=== PATIENT | male | born 1960 | race Two or more races ===

== ENCOUNTER 2024-10-10 18:01 | Emergency (ER) | payer MEDICARE, SELFPAY ==
[2024-10-10 18:43] VITALS: BP 170/92; PULSE 68; RESP 20; TEMP 36.9; O2SAT 95; BMI 30.4
--- NOTE | 2024-10-10 18:59 | EKG_ITS ---
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 Assistant: : 1960 Requested By: Chad Abdullahi ([facility]) Order Number: [id number] Reading MD: Chad Abdullahi ([facility]) Measurements Intervals [place] Rate: 69 P: 38 IA: 200 QRS: -41 QRSD: 108 T: 112 QT: 419 QTc: 451 Interpretive Statements SINUS RHYTHM MARKED LEFT AXIS DEVIATION [QRS AXIS < -30] POSSIBLE ANTERIOR MYOCARDIAL INFARCTION , OF INDETERMINATE AGE [30 ms Q WAVE IN V3/V4, OR R < 0.2 mV IN V4] MODERATE T-WAVE ABNORMALITY, CONSIDER LATERAL ISCHEMIA [-0.1+ mV T WAVE IN I/aVL/V5/V6] Compared to ECG 08/18/2024 15:49:46 Left-axis deviation now present T-wave abnormality now present Possible ischemia now present Myocardial infarct finding still present /store/S0/[id number]/ecg/[id number].pdf
--- NOTE | 2024-10-10 18:59 | XR_ITS ---
Examination: PA lateral chest 2 views Technique: Upright PA lateral chest 2 views Exam date and time: October 10, 2024 at 1931 hrs. Indications: Dizziness today Findings: Mild enlargement cardiac contour Moderate vascular congestion Fluid in the fissures on the lateral view with small bilateral pleural effusions posteriorly Impression: Mild chronic heart failure pattern
--- NOTE | 2024-10-10 18:59 | XR_ITS ---
Examination: CT brain head without contrast. 2-D sagittal coronal reconstructions Date and time of exam:October 10, 2024 1919 hrs. Comparison July 08, 2004 Indications: High blood pressure with dizziness and lightheadedness today CTDI: vol (mGy):50 DLP: (mGycm):11 Technique: Multiple CT axial sections of the brain have been obtained, 5 mm slice thickness. Contrast has not been administered. 2-D sagittal, coronal reconstructions have been obtained Low dose protocols were performed. One or more of the following dose reduction techniques were used; automated exposure control, adjustment of the mA and/or KV according to patient size, use of iterative reconstruction technique. Findings: No significant ventricular enlargement. Intra-axial or extra-axial hemorrhage density is not seen. No mass effect or midline shift Basal cisterns are not remarkable. Fourth ventricle is midline. Cranial vault intact. Impression: Negative for acute hemorrhage, mass effect or midline shift Advise clinical correlation and follow-up accordingly
--- NOTE | 2024-10-10 19:00 | PD.EDRME ---
Rapid Medical Screening Exam RME Arrival date/time: 10/10/24 18:01 4-year-old male with past medical history diabetes, CHF, and high blood pressure presents emergency department complaining of elevated blood pressure with dizziness and lightheadedness has been ongoing since today. Patient reports has been med compliant with medication. Chief Complaint: General Adult/Misc Complain Time Seen by Provider: 10/10/24 18:57 Vital signs: Vital Signs Temperature 98.4 F 10/10/24 18:43 Pulse Rate 68 10/10/24 18:43 Respiratory Rate 20 10/10/24 18:43 Blood Pressure 170/92 H 10/10/24 18:43 Pulse Oximetry (%) 95 10/10/24 18:43 Oxygen Delivery Method Room Air 10/10/24 18:43 Vital signs reviewed by provider: Yes
[2024-10-10 19:49] LABS: Amphetamine/Methamp Scrn,U Negative (Negative); Barbiturate Screen,Urine Negative (Negative); Benzodiazepines Screen,Urine Negative (Negative); Benzoylecgonine Screen, Ur Negative (Negative); Fentanyl Screen,Urine Negative (Negative); Opiate Screen,Urine Negative (Negative); THC Screen,Urine Negative (Negative)
[2024-10-10 19:54] LABS: Basophils % (Auto) 0 % (0-2.5); Eosinophils # (Auto) 0.2 Thou/mm3 (0.0-0.5); Eosinophils % (Auto) 2 % (0-10); Hematocrit 35.7 % (41.0-53.0); Hemoglobin 11.1 g/dL (13.5-16.0); Immature Granulocytes % (Auto) 0 % (0-0); Immature Granulocytes Auto 0.03 Thou/mm3 (0.00-0.00); Lymphocytes # (Auto) 1.5 Thou/mm3 (1.0-4.8); Lymphocytes % (Auto) 14 % (10-50); Mean Corpuscular HGB Conc 31.1 g/dl (31.0-37.0); Mean Corpuscular Hemoglobin 25.4 pg (25.0-35.0); Mean Corpuscular Volume 82 fL (80-100); Monocytes # (Auto) 0.9 Thou/mm3 (0.0-0.8); Monocytes % (Auto) 9 % (0-12); Neutrophils # (Auto) 7.8 Thou/mm3 (1.8-7.7); Neutrophils % (Auto) 74 % (37-80); Nucleated Red Blood Cell % 0 /100 WBC (0); Platelet Count 320 Thou/mm3 (140-440); RDW Standard Deviation 46.2 fL (35.1-43.9); Red Blood Count 4.37 Miln/mm3 (4.50-5.90); White Blood Count 10.5 Thou/mm3 (3.8-10.6)
[2024-10-10 20:07] VITALS: BP 172/82; PULSE 68
[2024-10-10] MEDS: hydrALAZINE HCL 10 MG TABLET PO (20:07)
[2024-10-10 20:09] LABS: INR 1.3 (0.9-1.3); Partial Thromboplastin Time 38.2 Seconds (22.0-36.0); Prothrombin Time 13.7 Seconds (9.0-12.2)
[2024-10-10 20:10] LABS: B-Type Natriuretic Peptide 823 pg/mL (0-100)
[2024-10-10 20:11] LABS: Alanine Aminotransferase 26 U/L (10-49); Albumin, Serum 4.3 gm/dL (3.4-4.8); Albumin/Globulin Ratio 1.3 (1.2-2.2); Alkaline Phosphatase 92 U/L (46-116); Anion Gap 6 (7-16); Aspartate Amino Transferase 23 U/L (0-34); BUN/Creatinine Ratio 14 Ratio (12-20); Bilirubin,Total 0.6 mg/dL (0.3-1.2); Blood Urea Nitrogen 14 mg/dL (9-23); Calcium 9.7 mg/dL (8.3-10.6); Calcium (Corrected) 9.7 mg/dL (8.5-10.1); Carbon Dioxide 31.2 mMol/L (20.0-31.0); Chloride 102 mMol/L (98-107); Estimated Creatinine Clearance 75.6 mL/min (>60); Globulin 3.2 gm/dL (2.3-3.5); Glucose 198 mg/dL (74-106); Osmolality,Calculated 284 (275-295); Potassium 3.6 mMol/L (3.4-5.1); Sodium 139 mMol/L (136-145); Total Protein 7.5 gm/dL (5.7-8.2); eGFR > 60 See Note
[2024-10-10 21:43] VITALS: BP 183/94; PULSE 100; RESP 18; TEMP 37.1; O2SAT 95
[2024-10-10 22:58] VITALS: BP 130/106; PULSE 103; RESP 19; TEMP 36.8; O2SAT 97
[2024-10-11 00:05] VITALS: BP 180/97; PULSE 103; RESP 18; O2SAT 95
--- NOTE | 2024-10-11 00:16 | PD.EDADULT ---
ED General RME/HPI General Chief complaint: General Adult/Misc Complain Stated complaint: HIGH BLOOD PRESSURE 187/114, DIZZY AND LIGHT HEAD Time Seen by Provider: 10/10/24 18:57 Arrival date/time: 10/10/24 18:01 RME / HPI RME / HPI narrative: 10/10/24 18:01 4-year-old male with past medical history diabetes, CHF, and high blood pressure presents emergency department complaining of elevated blood pressure with dizziness and lightheadedness has been ongoing since today. Patient reports has been med compliant with medication. ---- Dr. Dawn?s Main ED Evaluation: 64yo male with pmhx CHF, HTN, aFib, DM presents to the ED for a chief complaint of elevated blood pressure. Patient states he's been compliant with all of his medications, including his anti-hypertensives and diuretics. He endorses having an associated headache and dizziness today due to his blood pressure being high, so he came in for evaluation. He denies any falls, injuries or loss of consciousness. Denies any other associated symptoms. Related Data Home Medications ?Medication ?Instructions ?Recorded ?Confirmed finasteride 5 mg tablet 1 tab PO QDAY 07/20/22 02/06/24 losartan 100 mg tablet 100 mg PO QDAY 07/20/22 07/09/24 tamsulosin 0.4 mg capsule 0.4 mg PO DAILY 01/19/23 07/09/24 metformin 1,000 mg tablet 1,000 mg PO BIDWMEAL 02/06/24 07/09/24 rivaroxaban 20 mg tablet (Xarelto) 20 mg PO QPM 02/06/24 02/06/24 nitroglycerin 0.4 mg sublingual 0.4 mg buccal Q5MIN PRN Chest Pain 07/09/24 07/09/24 tablet (Nitrostat) Previous Rx's ?Medication ?Instructions ?Recorded dapagliflozin propanediol 5 mg 10 mg (2 x 5 mg) PO QAM #30 tabs 02/09/24 tablet (Farxiga) furosemide 40 mg tablet (Lasix) 40 mg PO QAM #30 tabs 02/09/24 hydralazine 50 mg tablet 50 mg PO TID #90 tabs 02/09/24 magnesium 200 mg tablet 400 mg (2 x 200 mg) PO QDAY #60 02/09/24 tabs potassium chloride 10 mEq 10 meq PO QDAY #30 caps 02/09/24 capsule,extended release amiodarone 200 mg tablet 200 mg PO QDAY #30 tabs 07/11/24 blood sugar diagnostic (Contour #50 ea 07/11/24 Next Test Strips) lancets (Microlet Lancet) #100 ea 07/11/24 meclizine 25 mg tablet 25 mg PO QDAY PRN dizziness #7 tabs 07/23/24 Allergies Allergy/AdvReac Type Severity Reaction Status Date / Time morphine AdvReac Severe Headache Verified 10/10/24 18:04 Review of Systems Review of Systems Systems Reviewed: All systems reviewed, normal except as documented Past Medical History Past Medical History NEUROLOGIC: Positive Transient Ischemic Attacks (TIA); Negative Neurological Disorders, Cerebrovascular Accident, Dementia, Alzheimer's Disease, Parkinson's Disease, Brain Tumor, Meningitis, Seizures, Epilepsy, Multiple Sclerosis, Cerebral Palsy, Amyotrophic Lateral Sclerosis (ALS/Moira Gehrig's), Guillain-Chelsea Syndrome, Spina Bifida, Paralysis, Peripheral Neuropathy, Harden's Palsy, Subdural Hematoma, Migraine, Head Trauma, Spinal Cord Injury or Traumatic Brain Injury CARDIAC: Positive Cardiac Disorders, Myocardial Infarction, Atrial Fibrillation, Atherosclerotic Heart Disease, Edema and Hypertension; Negative Cardiac Arrhythmia, Angina, Heart Murmur, Coronary Artery Disease, Peripheral Vascular Disease, Hypercholesterolemia, Aneurysm, Congestive Heart Failure, Congenital Heart Disease, Valvular Heart Disease, Rheumatic Fever, Cardiomyopathy, Pericarditis, Cellulitis, Deep Vein Thrombosis, Hypotension or Varicose Veins RESPIRATORY: Negative Chronic Obstructive Pulmonary Disease (COPD), Asthma, Bronchitis, Emphysema, Pneumonia, Pulmonary Fibrosis, Cystic Fibrosis, Tuberculosis, Pulmonary Embolism, Pulmonary Edema or Sleep Apnea GASTROINTESTINAL: Positive Gastrointestinal Disorders and Obesity; Negative Hepatitis, Cirrhosis, Pancreatitis, Celiac Disease, Gall Bladder Disease, Gastrointestinal Bleed, Esophageal Varices, Meeks's Esophagus, Colitis, Ulcerative Colitis, Diverticulitis, Diverticulosis, Ulcer, Colorectal Cancer, Irritable Bowel, Crohn's Disease, Obstructive Bowel, Hiatal Hernia, Hemorrhoids or Gastroesophageal Reflux Disease GENITOURINARY: Positive Benign Prostatic Hyperplasia; Negative Genitourinary Disorders, Renal Disease, Kidney Stones, Polycystic Kidney Disease, Neurogenic Bladder, Inguinal Hernia, Dialysis or Prostate Cancer REPRODUCTIVE: Negative Breast Cancer, Fibroids, Genital Herpes, Gonorrhea, Syphilis or Testicular Cancer MUSCULOSKELETAL: Positive Arthritis; Negative Musculoskeletal Disorders, Muscular Dystrophy, Myasthenia Gravis, Marfan's Syndrome, Bone Cancer, Rheumatoid Arthritis, Osteoporosis, Degenerative Disk Disease, Gout, Scoliosis, Carpal Tunnel Syndrome, Fibromyalgia, Fractures, Degenerative Joint Disease, Osteomyelitis or Poliovirus ENT: Negative Cataracts, Glaucoma, Blind, Retinal Detachment, Macular Degeneration, Ear Infection, Deafness, Head Trauma or Eye Prosthesis ENDOCRINE: Positive Endocrine Disorders and Diabetes Mellitus Type 2; Negative Diabetes Mellitus Type 1, Hypoglycemia, Guille's Syndrome, [place]'s Disease, Hyperthyroidism, Hypothyroidism, Parathyroid Disease, Pituitary Disease, Systemic Lupus Erythematosus, Syndrome of Inappropriate Antidiuretic Hormone (SIADH), Adrenal Disease or Graves' Disease HEMATOLOGIC: Negative Blood Disorders, Anemia, Leukemia, Hemophilia, Thalassemia, Sickle Cell Disease or Clotting Problems PSYCHO/SOCIAL: Negative Psychiatric Problems, Schizophrenia, Recreational Drug Use, Bipolar Disorder, Depression, Anxiety, Behavior Problems, Self-Mutilation, Attention Deficit Disorder, Attention Deficit Hyperactivity Disorder, Depression, Post Traumatic Stress Disorder or Eating Disorder OTHER HISTORY: Positive Chicken Pox; Negative Hospitalization, Autoimmune Disease, Down Syndrome, Autism, Developmental Delay, Shingles, Falls, Blood Transfusions, Blood Transfusion Reaction, Anesthesia Reactions, Organ Transplant, Chemotherapy, Radiation Therapy, Hyperbaric Therapy, MRSA, VRSA, Vancomycin-Resistant Enterococci, Human Immunodeficiency Virus (HIV), Measles, Mumps, Rubella (Vietnamese Measles), Pertussis, Clostridium Difficile, Breast Cancer, Colorectal Cancer, Lung Cancer, Prostate Cancer or Testicular Cancer Family History FAMILY HISTORY: Positive Family Cancer; Negative Family Neurologic Problems, Family Psychiatric Problems, Family Respiratory Disorders, Family Cardiac Disorders, Family Gastrointestinal Problems, Family Surgery or Family Anesthesia Reaction Surgical History SURGICAL: Negative Cardiac Surgery, Open Heart Surgery, Coronary Artery Bypass Graft, Valve Replacement, Vascular Surgery, Coronary Stent, Cardiac Catheterization, Pacemaker, Angiogram, Auto Implanted Cardiovert Defib, Carotid Endarterectomy, Endocrine Surgery, Thyroidectomy, Ear Surgery, Tympanostomy Tube, Eye Surgery, Nose Surgery, Oral Surgery, Tonsillectomy, Adenoidectomy, Cochlear Implant, Corneal Transplant, Throat Surgery, Abdominal Surgery, Tracheostomy, Gastric Bypass Surgery, Gastrostomy, Bowel Surgery, Nephrectomy, Transurethral Resection, Joint Replacement, Amputation, Open Reduction Internal Fixation, Arthroscopy, Neurologic Surgery, Brain Shunt, Vasectomy or Organ Transplant Social History SMOKING STATUS: Never smoker SECOND HAND EXPOSURE: No SUBSTANCE USE: does not use ED Exam Narrative Physical exam: GENERAL APPEARANCE: AxOx4, generally well-appearing, no acute distress. HEENT: NC, AT. MMM. EOMI, clear conjunctiva, oropharynx clear. NECK: Supple without lymphadenopathy. No stiffness or restricted ROM. HEART: Normal rate and regular rhythm, normal S1/S1, no m/r/g LUNGS: CTAB, moving air well. No crackles or wheezes are heard. ABDOMEN: Soft, nontender, nondistended with good bowel sounds heard. BACK: No midline C/T/L spine pain or deformity, No CVAT, no obvious deformity. EXTREMITIES: Without cyanosis, clubbing or edema. MUSCULOSKELETAL: FROM of all major joints, no chest tenderness NEUROLOGICAL: Grossly nonfocal. Alert and oriented, moving all 4 extremities. CN not formally tested but appear grossly intact. Observed to ambulate with normal gait. Skin: Warm and dry without any rash. Course Course Course Narrative: CXR is ordered for determining the etiology of elevated BP. Quality Measures none Orders Category Date Time Status EKG (ED ONLY) *Do not use* NOW Care 10/10/24 18:[address] head/brain wo con Stat Exams 10/10/24 18:59 Completed EKG (ED Only) Stat Exams 10/10/24 18:59 Draft XR chest 2V Stat Exams 10/10/24 18:59 Completed B-Type Natriuretic Peptide Stat Lab 10/10/24 19:35 Completed CBC Stat Lab 10/10/24 19:35 Completed Comprehensive Metabolic Panel Stat Lab 10/10/24 19:35 Completed Drug Screen,Urine Stat Lab 10/10/24 19:22 Completed Magnesium Stat Lab 10/10/24 19:35 Completed Partial Thromboplastin Time Stat Lab 10/10/24 19:35 Completed Prothrombin Time with INR Stat Lab 10/10/24 19:35 Completed Troponin I Stat Lab 10/10/24 19:35 Completed Acetaminophen Tab [Tylenol Tab] Med 10/11/24 00:17 Discontinued 650 mg PO X1 ONE hydrALAZINE HCL [Apresoline] Med 10/10/24 19:00 Discontinued 10 mg PO X1 ONE Vital Signs Vital signs: Vital Signs Temperature 98.4 F 10/10/24 18:43 Pulse Rate 68 10/10/24 18:43 Respiratory Rate 20 10/10/24 18:43 Blood Pressure 170/92 H 10/10/24 18:43 Pulse Oximetry (%) 95 10/10/24 18:43 Oxygen Delivery Method Room Air 10/10/24 18:43 Pulse ox is 95% on room air, which is normal according to my interpretation. [facility] Patient data External records reviewed:: [facility] previous records (Per chart review, patient was seen here on 09/10/24 for anxiety.) Clinical information provided by:: patient Social determinants that could affect healthcare access:: none Patient has the following chronic illnesses:: CHF, aFib, HTN, DM How is presenting disease/condition affected by chronic disease/condition?: exacerbated by Evaluation data The following diagnostics were reviewed and interpreted by me:: lab results, radiology exam(s) and EKG tracing(s) Lab and/or radiology exams considered but not ordered:: none Interpretation Summary: EKG done at 1915, sinus rhythm, rate of 69, normal intervals, normal axis, no acute ST or T wave changes, no STEMI, according to my interpretation. ----- [facility] Report Signed Patient: JUAN ECHEVERRIA [facility]. Record#: [id number] Birthdate: 1960 Age/Sex: 64 / M Location: [facility] Attending Dr: Ordering Physician: Tanya Abdullahi (DON)Chad Date of Service: 10/10/24 Procedure(s): XR chest 2V Accession Number(s): [id number] cc: Ochoa Cervantes MD; Tanya Abdullahi (DON),Chad OCHOA~ Examination: PA lateral chest 2 views Technique: Upright PA lateral chest 2 views Exam date and time: October 10, 2024 at 1931 hrs. Indications: Dizziness today Findings: Mild enlargement cardiac contour Moderate vascular congestion Fluid in the fissures on the lateral view with small bilateral pleural effusions posteriorly Impression: Mild chronic heart failure pattern Dictated By: Ochoa Cervantes MD Signed By: <Electronically signed by Ochoa Cervantes MD in [place]> 10/10/242003 ------ [facility] Report Signed Patient: JUAN ECHEVERRIA [facility] Record#: [id number] Birthdate: 1960 Age/Sex: 64 / M Location: [facility] Attending Dr: Ordering Physician: Tanya RHODES)Chad Date of Service: 10/10/24 Procedure(s): CT head/brain wo con Accession Number(s): [id number] cc: Ochoa Cervantes MD; Tanya Abdullahi (DON)Chad~ Examination: CT brain head without contrast. 2-D sagittal coronal reconstructions Date and time of exam:October 10, 2024 1919 hrs. Comparison July 08, 2004 Indications: High blood pressure with dizziness and lightheadedness today CTDI: vol (mGy):50 DLP: (mGycm):11 Technique: Multiple CT axial sections of the brain have been obtained, 5 mm slice thickness. Contrast has not been administered. 2-D sagittal, coronal reconstructions have been obtained Low dose protocols were performed. One or more of the following dose reduction techniques were used; automated exposure control, adjustment of the mA and/or KV according to patient size, use of iterative reconstruction technique. Findings: No significant ventricular enlargement. Intra-axial or extra-axial hemorrhage density is not seen. No mass effect or midline shift Basal cisterns are not remarkable. Fourth ventricle is midline. Cranial vault intact. Impression: Negative for acute hemorrhage, mass effect or midline shift Advise clinical correlation and follow-up accordingly Dictated By: Ochoa Cervantes MD Signed By: <Electronically signed by Ochoa Cervantes MD in OV> 10/10/241958 Medications Medications considered but not ordered:: none Medication administrations:: Medication Administration History Discontinued Medications Acetaminophen (Acetaminophen 325 Mg Tablet) 650 mg PO X1 ONE Stop: 10/11/24 00:18 Last Admin: 10/11/24 00:27 Dose: 650 mg Documented By: GUNJAN Hydralazine HCl (Hydralazine Hcl 10 Mg Tablet) 10 mg PO X1 ONE Stop: 10/10/24 19:01 Last Admin: 10/10/24 20:07 Dose: 10 mg Documented By: EE see above Consultations Consultation(s) initiated? (list below): No Diagnosis Differential Diagnosis ED Complaint MDM: hypertension, hypertensive urgency, hypertensive emergency Most likely diagnosis given after review of the tests above:: see below Admission Indicated Admission indicated?: not indicated Explain why admission is indicated or not indicated:: Patient is stable to be discharged home and f/u on an outpatient basis. Admission Request Was there a request for admission?: No Disposition Plan Disposition Plan: Discharge Discharge Attestation Discharge Attestation: The patient and all family members were given an opportunity to ask questions and understood the discharge instructions. Discharge instructions specifically effects, indications for sooner follow up or return to the emergency department, and the expected course of current diagnosis. Patient condition: Stable Medical Decision Making MDM Narrative MDM Narrative: Scribe Attestation: 10/11/24 - Paty, Magui Cervantes, scribing for and in the presence of Dr. Dawn. Differential Diagnosis Differential Diagnosis: hypertension, hypertensive urgency, hypertensive emergency Lab Data 10/10/24 19:35 10/10/24 19:35 Labs: Lab Results 10/10/24 10/10/24 Range/Units 19:22 19:35 WBC 10.5 (3.8-10.6) Thou/mm3 RBC 4.37 L (4.50-5.90) Miln/mm3 Hgb 11.1 L (13.5-16.0) g/dL Hct 35.7 L (41.0-53.0) % MCV 82 (80-100) fL MCH 25.4 (25.0-35.0) pg MCHC 31.1 (31.0-37.0) g/dl RDW Std Deviation 46.2 H (35.1-43.9) fL Plt Count 320 (140-440) Thou/mm3 Neut % (Auto) 74 (37-80) % Lymph % (Auto) 14 (10-50) % [place] % (Auto) 9 (0-12) % Eos % (Auto) 2 (0-10) % Baso % (Auto) 0 (0-2.5) % Neut # (Auto) 7.8 H (1.8-7.7) Thou/mm3 Lymph # (Auto) 1.5 (1.0-4.8) Thou/mm3 [place] # (Auto) 0.9 H (0.0-0.8) Thou/mm3 Eos # (Auto) 0.2 (0.0-0.5) Thou/mm3 Baso # (Auto) 0.0 (0.0-0.2) Thou/mm3 Immature Gran # (Auto) 0.03 H (0.00-0.00) Thou/mm3 Absolute Nucleated RBC 0.00 (0.00-0.00) Thou/mm3 Immature Gran % 0 (0-0) % Nucleated RBC % 0 (0) /100 WBC PT 13.7 H (9.0-12.2) Seconds INR 1.3 (0.9-1.3) APTT 38.2 H (22.0-36.0) Seconds Sodium 139 (136-145) mMol/L Potassium 3.6 (3.4-5.1) mMol/L Chloride 102 (98-107) mMol/L Carbon Dioxide 31.2 H (20.0-31.0) mMol/L Anion Gap 6 L (7-16) BUN 14 (9-23) mg/dL Creatinine 1.0 (0.6-1.3) mg/dL Estim Creat Clear Calc 75.6 (>60) mL/min eGFR > 60 (60 - ) See Note BUN/Creatinine Ratio 14 (12-20) Ratio Glucose 198 H (74-106) mg/dL Calculated Osmolality 284 (275-295) Calcium 9.7 (8.3-10.6) mg/dL Corrected Calcium 9.7 (8.5-10.1) mg/dL Magnesium 2.0 (1.6-2.6) mg/dL Total Bilirubin 0.6 (0.3-1.2) mg/dL AST 23 (0-34) U/L ALT 26 (10-49) U/L Alkaline Phosphatase 92 (46-116) U/L Troponin I 0.020 (0.0-0.045) ng/mL B-Natriuretic Peptide 823 H* (0-100) pg/mL Total Protein 7.5 (5.7-8.2) gm/dL Albumin 4.3 (3.4-4.8) gm/dL Globulin 3.2 (2.3-3.5) gm/dL Albumin/Globulin Ratio 1.3 (1.2-2.2) Urine Opiates Screen Negative (Negative) Urine Fentanyl Screen Negative (Negative) Ur Barbiturates Screen Negative (Negative) U Amphetamin/Meth Scrn Negative (Negative) U Benzodiazepines Scrn Negative (Negative) U Cocaine Metab Screen Negative (Negative) U Marijuana (THC) Screen Negative (Negative) Discharge Plan Plan Patient Disposition: HOME (Self Care) Prescriptions/Referrals Prescriptions/Med Rec: No Action losartan 100 mg tablet 100 mg PO QDAY Patient Comments: TAKE 1 TABLET BY MOUTH ONCE DAILY finasteride 5 mg tablet 1 tab PO QDAY Patient Comments: TAKE 1 TABLET BY MOUTH ONCE DAILY nitroglycerin [Nitrostat] 0.4 mg tablet, sublingual 0.4 mg BUCCAL Q5MIN PRN (Reason: Chest Pain) Patient Comments: DISSOLVE ONE TABLET UNDER THE TONGUE EVERY 5 MINUTES NEEDED FOR CHEST PAIN. DO NOT EXCEED A TOTAL OF 3 DOSES IN 15 MINUTES amiodarone 200 mg tablet 200 mg PO QDAY Qty: 30 0RF (DME) Contour Next Test Strips Strip See Rx Instructions .Route Qty: 50 2RF Rx Instructions: Test once daily (DME) lancets [Microlet Lancet] Misc See Rx Instructions .Route Qty: 100 2RF Rx Instructions: Test once daily meclizine 25 mg tablet 25 mg PO QDAY PRN (Reason: dizziness) Qty: 7 0RF tamsulosin 0.4 mg capsule 0.4 mg PO DAILY Patient Comments: TAKE 1 CAPSULE BY MOUTH ONCE DAILY FOR 30 DAYS metformin 1,000 mg Tablet 1,000 mg PO BIDWMEAL Xarelto 20 mg Tablet 20 mg PO QPM Rx Instructions: must administer with evening meal hydralazine 50 mg tablet 50 mg PO TID Qty: 90 2RF potassium chloride 10 mEq capsule, extended release 10 meq PO QDAY Qty: 30 2RF Hold Instructions: Resume on 07/17/24. Repeat CMP in 1 week after discharge, follow-up with PCP/cardiology before restarting magnesium 200 mg tablet 400 mg PO QDAY Qty: 60 2RF furosemide [Lasix] 40 mg tablet 40 mg PO QAM Qty: 30 2RF dapagliflozin propanediol [Farxiga] 5 mg Tablet 10 mg PO QAM Qty: 30 2RF Referrals: Yang Cervantes MD [Primary Care Provider] - In 1 week Problem List Clinical Impression: Headache, Hypertension Patient/Caregiver Discharge Instructions Education Materials: Self-Care for Headaches, ED Hypertension, Established Additional Instructions: It is okay to take [id number] Tylenol as needed for headaches. Follow-up with your primary care doctor in 2 to 3 days for recheck. You can return to the emergency department sooner symptoms worsen or if you notice any new, concerning issues. Print Language: Uzbek Stand Alone Forms: [facility] Patient Portal Info Letter
[2024-10-11] MEDS: ACETAMINOPHEN 325 MG TABLET 650 MG PO (00:27)
== END 2024-10-11 00:34 | disposition home or self-care (01) ==
PROVIDERS: Emergency Provider Emergency Medicine; PCP Family Medicine
DX: I11.0 Hypertensive heart disease with heart failure (principal); I50.9 Heart failure, unspecified; R51.9 Headache, unspecified; I48.91 Unspecified atrial fibrillation; I25.2 Old myocardial infarction
CPT/HCPCS: 36415; 70450; 71046; 80053; 80307; 83735; 83880; 84484; 85025; 85610; 85730; 93005; 99284; A9270

== ENCOUNTER 2024-12-06 05:37 | Inpatient (IN) | payer MEDICARE, MEDICAID, SELFPAY ==
[2024-12-06] VITALS (11 sets, daily range): BP systolic 150–192; BP diastolic 80–98; PULSE 60–88; RESP 15–95; TEMP 36.1–36.8; O2SAT 95–97; BMI 32.3
--- NOTE | 2024-12-06 06:17 | XR_ITS ---
Examination: CT brain head without contrast. 2-D sagittal coronal reconstructions Date and time of exam:June 05, 2025 0803 hrs. Comparison October 10, 2024 Indications: Onset headaches dizziness beginning this morning, history high blood pressure dizziness and headaches October 10, 2024, diagnosis hypertension CTDI: vol (mGy):53.0 DLP: (mGycm):1028 Technique: Multiple CT axial sections of the brain have been obtained, 5 mm slice thickness. Contrast has not been administered. 2-D sagittal, coronal reconstructions have been obtained Low dose protocols were performed. One or more of the following dose reduction techniques were used; automated exposure control, adjustment of the mA and/or KV according to patient size, use of iterative reconstruction technique. Findings: No significant ventricular enlargement. Intra-axial or extra-axial hemorrhage density is not seen. No mass effect or midline shift Basal cisterns are not remarkable. Fourth ventricle is midline. Cranial vault intact. Impression: Negative for acute hemorrhage, mass effect or midline shift If symptoms persist, consider brain MRI follow-up, stroke protocol
--- NOTE | 2024-12-06 06:18 | PD.EDRME ---
Rapid Medical Screening Exam RME Arrival date/time: 12/06/24 05:37 64-year-old male with history of hypertension and diabetes and reports history of hypokalemia presents with complaints of feeling dizzy and generalized fatigue today Chief Complaint: General Adult/Misc Complain Time Seen by Provider: 12/06/24 06:12 Vital signs: Vital Signs Temperature 98.0 F 12/06/24 05:44 Pulse Rate 88 12/06/24 05:44 Respiratory Rate 18 12/06/24 05:44 Blood Pressure 181/88 H 12/06/24 05:44 Pulse Oximetry (%) 95 12/06/24 05:44 Oxygen Delivery Method Room Air 12/06/24 05:44
--- NOTE | 2024-12-06 06:25 | XR_ITS ---
Examination PA chest single view Review chest single view December 06, 2024 0654 hrs. Comparison October 05, 20152023 Indications: Chest pain shortness of breath beginning today. Findings: Mild enlargement left ventricle Moderate vascular congestion Mild pleural disease layered along the left lower lateral thoracic wall No lobar pneumonia Moderate osteopenia Impression: Mild enlargement left ventricle Moderate vascular congestion Mild pleural disease L of the left lower lateral thoracic wall
--- NOTE | 2024-12-06 06:36 | EDNOTE_ITS ---
ED Weakness RME/HPI General Chief complaint: General Adult/Misc Complain Stated complaint: FEELS WEIRD,LIGHT HEADED Time Seen by Provider: 12/06/24 06:12 Arrival date/time: 12/06/24 05:37 RME / HPI RME / HPI Narrative: 12/06/24 05:37 64-year-old male with history of hypertension and diabetes and reports history of hypokalemia presents with complaints of feeling dizzy and generalized fatigue today This section includes all my notes and documentations, including HPI, PE, and ED course.? Gerard Carmona MD HPI: 64-year-old male here to be evaluated with multiple concerns. Since yesterday, he reports chills and generalized weakness. He reports dizziness--describes generalized weakness and not near syncopal symptoms or vertigo symptoms. Had brief episode of right-sided chest pain earlier today. No cough or congestion. No fever or chills. No other complaints. ROS: All negative except as documented in HPI. Physical Exam: General:? Alert and oriented.? No acute distress when remaining still.?? Eyes:? Conjunctivae and lids clear.? ENT:? No nasal congestion.? Neck:? Supple.? Heart:? RRR.? Lungs:? No respiratory distress.? Good air movement.? No rhonchi, wheezing, rales.?? Abdomen:? Soft and nontender.?? Legs:? No clubbing, cyanosis, edema.? Skin:? Warm and dry.?? Neuro:? Alert and oriented X 3.?? I reviewed all diagnostic test results. My interpretation of the EKG is sinus rhythm (74 bpm) with nonspecific ST-T changes. My interpretation of the chest x-ray is increased vascular congestion. Blood tests and urine tests?remarkable for K3.0, troponin 0.130, and BNP 285. At this point, diagnoses include?NSTEMI and hypokalemia. Treatment here included?aspirin, oral metoprolol, Plavix, and Lovenox SC. He remained stable. I discussed the case with our route jumper and our hospitalist.? About the pr esentation and exam and diagnostics and treatments here.? And need of further care in the hospital.? Will accept the patient. Gerard Carmona MD Related Data Home Medications ?Medication ?Instructions ?Recorded ?Confirmed finasteride 5 mg tablet 1 tab PO QDAY 07/20/22 10/16/24 losartan 100 mg tablet 100 mg PO QDAY 07/20/22 10/16/24 tamsulosin 0.4 mg capsule 0.4 mg PO DAILY 01/19/23 10/16/24 metformin 1,000 mg tablet 1,000 mg PO BIDWMEAL 02/06/24 10/16/24 rivaroxaban 20 mg tablet (Xarelto) 20 mg PO QPM 02/06/24 10/16/24 nitroglycerin 0.4 mg sublingual 0.4 mg buccal Q5MIN PRN Chest Pain 07/09/24 10/16/24 tablet (Nitrostat) clonidine HCl 0.3 mg tablet 0.3 mg PO HS 10/15/24 10/16/24 Previous Rx's ?Medication ?Instructions ?Recorded dapagliflozin propanediol 5 mg 10 mg (2 x 5 mg) PO QAM #30 tabs 02/09/24 tablet (Farxiga) furosemide 40 mg tablet (Lasix) 40 mg PO QAM #30 tabs 02/09/24 hydralazine 50 mg tablet 50 mg PO TID #90 tabs 02/09/24 magnesium 200 mg tablet 400 mg (2 x 200 mg) PO QDAY #60 02/09/24 tabs potassium chloride 10 mEq 10 meq PO QDAY #30 caps 02/09/24 capsule,extended release amiodarone 200 mg tablet 200 mg PO QDAY #30 tabs 07/11/24 blood sugar diagnostic (Contour #50 ea 07/11/24 Next Test Strips) lancets (Microlet Lancet) #100 ea 07/11/24 meclizine 25 mg tablet 25 mg PO QDAY PRN dizziness #7 tabs 07/23/24 atorvastatin 40 mg tablet 40 mg PO QPM #30 tabs 10/17/24 metoprolol succinate 100 mg 100 mg PO QDAY 30 days #0 tabs 10/17/24 tablet,extended release 24 hr Allergies Allergy/AdvReac Type Severity Reaction Status Date / Time morphine AdvReac Severe Headache Verified 12/06/24 05:40 Review of Systems Review of Systems Systems Reviewed: All systems reviewed, normal except as documented Past Medical History Past Medical History NEUROLOGIC: Positive Cerebrovascular Accident CARDIAC: Positive Cardiac Disorders, Myocardial Infarction, Atrial Fibrillation, Atherosclerotic Heart Disease, Edema and Hypertension GASTROINTESTINAL: Positive Gastrointestinal Disorders and Obesity GENITOURINARY: Positive Genitourinary Disorders, Kidney Stones and Benign Prostatic Hyperplasia MUSCULOSKELETAL: Positive Musculoskeletal Disorders and Arthritis ENDOCRINE: Positive Endocrine Disorders and Diabetes Mellitus Type 2 OTHER HISTORY: Positive Chicken Pox Family History FAMILY HISTORY: Positive Family Cancer Social History SMOKING STATUS: Never smoker SECOND HAND EXPOSURE: No SUBSTANCE USE: does not use ED Exam Narrative Physical exam: As noted in HPI Course Course Course Narrative: chest xray ordered to help determine etiology of chest pain. Quality Measures none Orders Category Date Time Status Bedside COVID-19 Antigen Test NOW Care 12/06/24 06:27 Active Bedside Influenza A&B Antigen Test NOW Care 12/06/24 06:27 Active COVID-19 Screening Questionnaire NOW Care 12/06/24 08:47 Active Decision to Admit X1 Care 12/06/24 08:47 Active EKG (ED ONLY) *Do not use* NOW Care 12/06/24 06:17 Completed Insert IV NOW Care 12/06/24 08:09 Active Consult to Cardiology Stat Cons 12/06/24 08:48 Ordered CA echo doppler complete Stat Exams 12/06/24 08:[address] head/brain wo con Stat Exams 12/06/24 06:17 Completed EKG (ED Only) Stat Exams 12/06/24 06:17 Ordered XR chest 1V portable Stat Exams 12/06/24 06:25 Completed B-Type Natriuretic Peptide Stat Lab 12/06/24 06:25 Completed CBC Stat Lab 12/06/24 06:25 Results CRP [C-Reactive Protein] Stat Lab 12/06/24 06:25 Completed Comprehensive Metabolic Panel Stat Lab 12/06/24 06:25 Completed Drug Screen,Urine Stat Lab 12/06/24 06:35 Completed ESR [Sed Rate (ESR)] Stat Lab 12/06/24 06:25 Results Lactate (Lactic Acid) Stat Lab 12/06/24 06:25 Completed Magnesium Stat Lab 12/06/24 06:25 Completed Procalcitonin Stat Lab 12/06/24 06:25 Completed TSH [Thyroid Stimulating Hormone] Stat Lab 12/06/24 06:25 Completed Troponin I Stat Lab 12/06/24 06:25 Completed Urinalysis Stat Lab 12/06/24 06:35 Completed Aspirin Chew Med 12/06/24 08:02 Discontinued 324 mg PO X1 ONE Aspirin [Ecotrin] Med 12/06/24 08:51 Discontinued 81 mg PO X1 ONE Clopidogrel [Plavix] Med 12/06/24 08:59 Discontinued 300 mg PO X1 ONE Enoxaparin [Lovenox] Med 12/06/24 09:00 Active 90 mg SC BID Enoxaparin [Lovenox] Med 12/06/24 08:59 Stop Req 90 mg SC X1 ONE KCL 10% Liq UDC 15 ML Med 12/06/24 08:05 Discontinued 40 meq PO X1 ONE Metoprolol Tartrate [Lopressor] Med 12/06/24 08:12 Discontinued 50 mg PO X1 ONE Vital Signs Vital signs: Vital Signs Temperature 98.0 F 12/06/24 05:44 Pulse Rate 88 12/06/24 05:44 Respiratory Rate 18 12/06/24 05:44 Blood Pressure 181/88 H 12/06/24 05:44 Pulse Oximetry (%) 95 12/06/24 05:44 Oxygen Delivery Method Room Air 12/06/24 05:44 Pulse ox is 95% on room air which is adequate. Weakness Patient data External records reviewed:: [facility] previous records Clinical information provided by:: patient Social determinants that could affect healthcare access:: none Patient has the following chronic illnesses:: Hypertension and diabetes How is presenting disease/condition affected by chronic disease/condition?: exacerbated by Evaluation data The following diagnostics were reviewed and interpreted by me:: lab results, radiology exam(s) and EKG tracing(s) (My interpretation of the EKG is: Sinus rhythm (74 bpm) with nonspecific ST-T changes. Gerard Carmona MD) Lab and/or radiology exams considered but not ordered:: None Interpretation Summary: NSTEMI and hypokalemia and CHF Medications / Prescriptions Medications or Prescriptions considered but not ordered:: None Medication administrations:: Medication Administration History Enoxaparin Sodium (Enoxaparin Sod Inj 100 Mg/Ml Syringe) 90 mg 1 mg/kg (90 mg) SC BID [facility] Stop: 12/20/24 08:59 Discontinued Medications Aspirin (Aspirin 81 Mg Chew) 324 mg PO X1 ONE Stop: 12/06/24 08:03 Last Admin: 12/06/24 08:27 Dose: 324 mg Documented By: DB Aspirin (Aspirin Ec 81 Mg Tabec) 81 mg PO X1 ONE Stop: 12/06/24 08:52 Clopidogrel Bisulfate (Clopidogrel Bisulfate 75 Mg Tablet) 300 mg PO X1 ONE Stop: 12/06/24 09:00 Enoxaparin Sodium (Enoxaparin Sod Inj 80 Mg/0.8 Ml Syringe) 90 mg SC X1 ONE Stop: 12/06/24 09:00 Metoprolol Tartrate (Metoprolol Tartrate 25 Mg Tablet) 50 mg PO X1 ONE Stop: 12/06/24 08:13 Last Admin: 12/06/24 08:26 Dose: 50 mg Documented By: Admin: 12/06/24 08:24 Dose: Not Given Documented By: KEATON Non-Admin Reason: Contaminated/Dropped Potassium Chloride (Potassium Chloride 10% 20 Meq/15 Ml Udc) 40 meq PO X1 ONE Stop: 12/06/24 08:06 Last Admin: 12/06/24 08:22 Dose: 40 meq Documented By: KEATON Aspirin and metoprolol and KCl and Lovenox and Plavix Consultations Consultation(s) initiated? (list below): Yes Consultation #1 (Physician, Specialty, Details): Cardiology, Dr. Stern Diagnosis Weakness Differential Diagnosis: acute myocardial infarction, anemia, hypoglycemia, sepsis and dehydration Most likely diagnosis given after review of the tests above:: NSTEMI and hypokalemia and CHF Admission Indicated Admission indicated?: indicated Explain why admission is indicated or not indicated:: NSTEMI and hypokalemia and CHF Admission Request Was there a request for admission?: Yes Admission Attestation Admission request attestation: Discussed case with Hospitalist service regarding admission. Discussed patients ED course, exam findings, labs, and radiology results. The Hospitalist [carlos craig,declines] to accept the patient for admission. Disposition Plan Disposition Plan: Admit Discharge Plan Plan Patient Disposition: Admit Acute Care w/in Hospital Prescriptions/Referrals Prescriptions/Med Rec: No Action losartan 100 mg tablet 100 mg PO QDAY Patient Comments: TAKE 1 TABLET BY MOUTH ONCE DAILY finasteride 5 mg tablet 1 tab PO QDAY Patient Comments: TAKE 1 TABLET BY MOUTH ONCE DAILY nitroglycerin [Nitrostat] 0.4 mg tablet, sublingual 0.4 mg BUCCAL Q5MIN PRN (Reason: Chest Pain) Patient Comments: DISSOLVE ONE TABLET UNDER THE TONGUE EVERY 5 MINUTES NEEDED FOR CHEST PAIN. DO NOT EXCEED A TOTAL OF 3 DOSES IN 15 MINUTES amiodarone 200 mg tablet 200 mg PO QDAY Qty: 30 0RF Hold Instructions: Resume on 10/24/24. Follow up with Dr. Stern within 1 week. (DME) Contour Next Test Strips Strip See Rx Instructions .Route Qty: 50 2RF Rx Instructions: Test once daily (DME) lancets [Microlet Lancet] Misc See Rx Instructions .Route Qty: 100 2RF Rx Instructions: Test once daily meclizine 25 mg tablet 25 mg PO QDAY PRN (Reason: dizziness) Qty: 7 0RF clonidine HCl 0.3 mg tablet 0.3 mg PO HS Patient Comments: TAKE 1 TABLET BY MOUTH TWICE DAILY atorvastatin 40 mg tablet 40 mg PO QPM Qty: 30 0RF metoprolol succinate 100 mg tablet extended release 24 hr 100 mg PO QDAY 30 Days Qty: 0 0RF Patient Comments: TAKE 1 TABLET BY MOUTH TWICE DAILY tamsulosin 0.4 mg capsule 0.4 mg PO DAILY Patient Comments: TAKE 1 CAPSULE BY MOUTH ONCE DAILY FOR 30 DAYS metformin 1,000 mg Tablet 1,000 mg PO BIDWMEAL Xarelto 20 mg Tablet 20 mg PO QPM Rx Instructions: must administer with evening meal hydralazine 50 mg tablet 50 mg PO TID Qty: 90 2RF potassium chloride 10 mEq capsule, extended release 10 meq PO QDAY Qty: 30 2RF Hold Instructions: Resume on 07/17/24. Repeat CMP in 1 week after discharge, follow-up with PCP/cardiology before restarting magnesium 200 mg tablet 400 mg PO QDAY Qty: 60 2RF furosemide [Lasix] 40 mg tablet 40 mg PO QAM Qty: 30 2RF dapagliflozin propanediol [Farxiga] 5 mg Tablet 10 mg PO QAM Qty: 30 2RF Referrals: Yang Cervantes MD [Primary Care Provider] - In 1 week Problem List Clinical Impression: Non-ST elevation ME (NSTEMI), Hypokalemia, CHF (congestive heart failure) Patient/Caregiver Discharge Instructions Print Language: Bangladeshi Stand Alone Forms: Joana Award Info., Patient Portal Info Letter
[2024-12-06 06:52] LABS: Collection Type, Urine Clean Catch; Squamous Epithelial Cell,Urine 0 /hpf (0-5)
[2024-12-06 06:54] LABS: Lactate (Lactic Acid) 0.6 mMol/L (0.4-2.0)
[2024-12-06 07:08] LABS: Basophils % (Auto) 0 % (0-2.5); Eosinophils # (Auto) 0.2 Thou/mm3 (0.0-0.5); Eosinophils % (Auto) 3 % (0-10); Hematocrit 31.5 % (41.0-53.0); Immature Granulocytes % (Auto) 1 % (0-0); Immature Granulocytes Auto 0.07 Thou/mm3 (0.00-0.00); Lymphocytes # (Auto) 1.1 Thou/mm3 (1.0-4.8); Lymphocytes % (Auto) 13 % (10-50); Mean Corpuscular HGB Conc 31.7 g/dl (31.0-37.0); Mean Corpuscular Hemoglobin 25.6 pg (25.0-35.0); Mean Corpuscular Volume 81 fL (80-100); Monocytes # (Auto) 0.8 Thou/mm3 (0.0-0.8); Monocytes % (Auto) 9 % (0-12); Neutrophils % (Auto) 73 % (37-80); Nucleated Red Blood Cell % 0 /100 WBC (0); Platelet Count 270 Thou/mm3 (140-440); RDW Standard Deviation 49.3 fL (35.1-43.9); Red Blood Count 3.91 Miln/mm3 (4.50-5.90); White Blood Count 8.2 Thou/mm3 (3.8-10.6)
[2024-12-06 07:11] LABS: Amphetamine/Methamp Scrn,U Negative (Negative); Barbiturate Screen,Urine Negative (Negative); Benzodiazepines Screen,Urine Negative (Negative); Benzoylecgonine Screen, Ur Negative (Negative); Fentanyl Screen,Urine Negative (Negative); Opiate Screen,Urine Negative (Negative); THC Screen,Urine Negative (Negative)
[2024-12-06 07:25] LABS: Alanine Aminotransferase 13 U/L (10-49); Albumin, Serum 4.3 gm/dL (3.4-4.8); Albumin/Globulin Ratio 1.6 (1.2-2.2); Alkaline Phosphatase 71 U/L (46-116); Anion Gap 8 (7-16); Aspartate Amino Transferase 18 U/L (0-34); BUN/Creatinine Ratio 15 Ratio (12-20); Bilirubin,Total 0.7 mg/dL (0.3-1.2); Blood Urea Nitrogen 12 mg/dL (9-23); C-Reactive Protein < 0.4 mg/dL (0.0-0.9); Chloride 102 mMol/L (98-107); Creatinine (Component) 0.8 mg/dL (0.6-1.3); Estimated Creatinine Clearance 97.1 mL/min (>60); Globulin 2.7 gm/dL (2.3-3.5); Glucose 131 mg/dL (74-106); Magnesium 2.1 mg/dL (1.6-2.6); Osmolality,Calculated 279 (275-295); Sodium 139 mMol/L (136-145); Thyroid Stimulating Hormone 2.71 uIU/mL (0.55-4.78); eGFR > 60 See Note
[2024-12-06 07:39] LABS: B-Type Natriuretic Peptide 285 pg/mL (0-100)
[2024-12-06 07:51] LABS: Bilirubin,Urine Negative (Negative); Blood,Urine Negative (Negative); Clarity,Urine Clear (Clear/Hazy); Color,Urine Lt-Yellow (Lt Yel-Yel); Glucose, Urine 4+ (Negative); Ketones,Urine Negative (Negative); Leukocyte Esterase,Urine Negative (Negative); Nitrite,Urine Negative (Negative); Protein,Urine 1+ (Neg - Trace); RBC,Urine < 1 /hpf (0-3); Specific Gravity,Urine 1.017 (1.001-1.035); Urobilinogen,Urine Negative mg/dL (0.0-1.0); WBC,Urine 1 /hpf (0-5)
[2024-12-06 07:52] LABS: Procalcitonin 0.13 ng/ml (0.0-0.49)
[2024-12-06] MEDS: POTASSIUM CHLORIDE 10% 20 MEQ/15 ML UDC 40 MEQ PO (08:22)
[2024-12-06] MEDS: METOPROLOL TARTRATE 25 MG TABLET 50 MG PO (08:26)
[2024-12-06] MEDS: ASPIRIN 81 MG CHEW 324 MG PO (08:27)
--- NOTE | 2024-12-06 08:51 | ECHO_ITS ---
Transthoracic Echo Report Ht (in): 66 Wt (lb): 200 Exam Location: ER Status: Emergency Crab Fisherman: Alison Euceda Indications: Procedure Performed: BP: 171 / 86 HR: 66 Rhythm: Bradycardia Technical Quality: Fair MEASUREMENTS (Male / Female) Normal Values 2D ECHO LV Diastolic Diameter PLAX 4.6 cm 4.2 - 5.9 / 3.9 - 5.3 cm LV Systolic Diameter PLAX 3.2 cm IVS Diastolic Thickness 1.1 cm 0.6 - 1.0 / 0.6 - 0.9 cm LVPW Diastolic Thickness 1.3 cm 0.6 - 1.0 / 0.6 - 0.9 cm LV Relative Wall Thickness 0.5 LVOT Diameter 2.3 cm LA Volume Index 44.2 cm?/m? 16 - 28 cm?/m? Ascending Aorta Diameter 3.4 cm M-MODE Aortic Root Diameter MM 3.5 cm LA Systolic Diameter MM 4.4 cm LA Ao Ratio MM 1.3 AV Cusp Separation MM 2.6 cm DOPPLER AV Peak Velocity 109.0 cm/s AV Peak Gradient 4.8 mmHg AV Mean Gradient 2.0 mmHg AV Velocity Time Integral 24.8 cm LVOT Peak Velocity 81.3 cm/s LVOT Peak Gradient 2.6 mmHg LVOT Velocity Time Integral 18.3 cm LVOT Cardiac Index 2404.2 cm?/min?m? AV Area Cont Eq vti 3.1 cm? AV Area Cont Eq pk 3.1 cm? MV Peak Velocity 122.0 cm/s MV Peak Gradient 6.0 mmHg MV Mean Velocity 55.8 cm/s MV Mean Gradient 2.0 mmHg MV Area PHT 3.9 cm? Mitral E Point Velocity 102.0 cm/s Mitral A Point Velocity 39.8 cm/s Mitral E to A Ratio 2.6 LV E' Lateral Velocity 7.0 cm/s Mitral E to LV E' Lateral Ratio 14.7 LV E' Septal Velocity 5.2 cm/s Mitral E to LV E' Septal Ratio 19.5 TR Peak Velocity 122.0 cm/s TR Peak Gradient 6.0 mmHg FINDINGS Left Ventricle Normal left ventricular size, wall thickness, systolic function with no obvious regional wall motion abnormalities. The ejection fraction is visually estimated at 55-60%. Right Ventricle The right ventricle is normal in size and systolic function. The estimated right ventricular systoli c pressure, 11mmHg. RAP 5. Left Atrium The left atrium is moderately dilated. Right Atrium The right atrium is normal by two-dimensional imaging, color flow and Doppler imaging with no struct ural abnormalities, no thrombus formation present. Atrial Septum The interatrial septum appears normal with no evidence of a shunt. Aorta The aorta is normal by two-dimensional, color flow and Doppler interrogation. Mitral Valve The mitral valve is mildly MAC. There is trace mitral valve regurgitation. Aortic Valve The aortic valve is trileaflet. Mild sclerosis without stenosis. There is no significant aortic valv e regurgitation. Tricuspid Valve The tricuspid valve is normal by two-dimensional, color flow and Doppler interrogation. There is tra ce tricuspid valve regurgitation. Pulmonic Valve There is trace pulmonic valve regurgitation. Vessels The pulmonary artery appears normal. The inferior vena cava pulmonary and hepatic veins appear adkota l. Pericardium The pericardium is normal by two-dimensional imaging. There is trivial anterior pericardial effusi on. No evidence of cardiac tamponade. CONCLUSIONS Indication: CHF Normal LV size and function. Estimated EF 55-60%. Grade II diastolic dysfynction Normal RV size and function. Mild MAC. Trace MR,TR, PI. Mild AV sclerosis without stenosis There is trivial anterior pericardial effusion. No evidence of cardiac tamponade. Mele Gill (Electronically Signed) Final Date: 06 December 2024 18:28
[2024-12-06] MEDS: CLOPIDOGREL BISULFATE 75 MG TABLET 300 MG PO (09:35)
[2024-12-06] MEDS: ASPIRIN EC 81 MG TABEC PO (09:36)
[2024-12-06] MEDS: ENOXAPARIN SOD INJ 100 MG/ML SYRINGE 90 MG SC ×2 (09:37→20:43)
[2024-12-06] MEDS: POTASSIUM CHLORIDE 10% 20 MEQ/15 ML UDC 40 MEQ GT (10:11)
[2024-12-06 10:22] LABS: Sed Rate (ESR) 24 mm/hr (0-20)
[2024-12-06 13:04] LABS: Troponin I 0.146 ng/mL (0.0-0.045)
--- NOTE | 2024-12-06 14:34 | PC.CM ---
Patient is a 64 year-old male who presents to the hospital for NSTEMI, ACS. Dariana YEH made nice-ns-ladw contact with patient. ASW introduced self, role, and reason for visit. Patient appeared alert and oriented to self, location, and situation. Patient was pleasant and engaged in initial assessment. Patient confirmed information on demographics. Per patient, should he not be able to make his own medical decisions his son, Matthieu Aguilar would be his medical decision maker. Patient reports at home he has oxygen that he received approximately 3 months ago but he does not use it. Patient reports he uses a rollator to ambulate and he is able to complete his own ADLs. Patient receives primary care with Yang Cervantes and [facility] for prescription medications. Upon discharge patient plans to return home. environmental field services technician to follow up with any discharge needs.
--- NOTE | 2024-12-06 16:24 | ESHP_ITS ---
<Statement entered by Panfilo Bond MD - 12/06/24 19:42> This patient is a 64-year-old male with past medical history of HFmEF, EF 45%, 07/10/2024, A-fib on Xarelto, CAD post MT no stents in 2005, type 2 diabetes, hypertension, hyperlipidemia presented today with chills and dizziness. He was found to have chest pain last night which resolved spontaneously this morning. He reported that he was feeling dizzy and cold. In the ED, patient blood pressure was elevated he was saturating well on room air. EKG showed sinus rhythm. Chest x-ray showed moderate vascular congestion. Head CT was unremarkable and it was taken given patient came with dizziness. Labs were insignificant. Electrolyte panel showed hypokalemia and 80 mEq potassium was given x 1. Troponin I was elevated at 0.130. In the ED, patient received metoprolol tartrate 50 mg twice daily, loading dose of aspirin. Cardiology has been consulted. Cardiology recommended to manage patient's blood pressure and reduce her blood pressure to 25% in the first 24 hours and resume patient's losartan 100 mg once daily, metoprolol XL 100 mg once daily, Xarelto for the morning and continue with aspirin for CAD. Initially, patient was given therapeutic Lovenox 90 mg twice daily based on patient's weight which will discontinue tomorrow and will give last dose tonight at 9 PM. We are trending troponin I every 6 hourly. Lasix 20 mg IV was given x 1 per cardio recommendations. Will continue with sliding scale for type 2 diabetes. Cardiac diet was started. Will follow-up with cardiology recommendations tomorrow morning. All labs and orders were reviewed. I saw and examined the patient, and I agree with current management stated by Dr Delano CALLEJAS ,PGY1. Plan of care was discussed with the attending physician and resident physician. Disclaimer: Despite multiple revisions, due to the dictation software being used, the document bellow may not be free of grammatical errors including phonetic/typographic errors. However, this does not deter from our commitment to providing health care in the patient's best interest in mind. Dr. Ronda MD, PGY 2 Documentation for date of: 12/06/24 HPI History of Present Illness History of present illness: Randall Aguilar is a 64-year-old male with a past medical history of HFmrEF (EF 40- 45%, 07/10/2024), A-fib on Xarelto, CAD status post MT (2005, no stent), atrial fibrillation type 2 diabetes mellitus, hypertension, hyperlipidemia who presents to the emergency department for chills and dizziness. Patient states that about 4 PM yesterday he has been feeling cold and dizzy. Patient denies any chest pain/chest pressure, nausea/vomiting, changes in vision hearing, sensorineural deficits, abdominal pain, changes in urinary function or bowel movements. In the emergency department initial vitals were blood pressure of 181/88, pulse of 88, respirations 18, 90 8.0F, saturating 95% on room air. EKG shows what appears to be sinus rhythm with rate of 67. Chest x-ray shows moderate vascular congestion, head CT negative for any acute bleed. Labs show white count of 8.2, hemoglobin 10.0 hematocrit 31.5, platelets 270. Electrolytes significant for potassium of 3.0. Troponin significant for elevation at 0.130. BNP 285. In the emergency department was given 50 Mg metoprolol tartrate, Plavix 300 mg, loading dose aspirin On examination in the emergency department patient states that he only feels chills and lightheadedness, slightly improving. Cardiology Dr. Stern was consulted by the emergency department, and Dr. Stern suggested for admission due to possible NSTEMI. 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 Patient will be admitted for possible NSTEMI. PMH: DM, HTN, atrial fibrillation, heart failure moderately reduced ejection fraction 40 to 45%, CAD status post MT (2005, no stent placed) PSH: None Allergies: Morphine?patient states he gets a severe headache with morphine Exam Vital Signs Temp Pulse Resp BP Pulse Ox O2 Del Method 97.5 F 67 18 150/82 H 95 Room Air 12/06/24 14:42 12/06/24 14:42 12/06/24 14:42 12/06/24 14:42 12/06/24 14:42 12/06/24 14:42 Narrative Exam GENERAL: Awake, answering questions, HEENT: NC/AT. Moist mucosa. PERRLA/EOMI. CARDIO:no obvious murmurs, no JVD. PULM: No coughing or visible SOB. Lungs CTA B/L. GI: Abdomen soft, NT/ND, +BS. SKIN/MSK/EXT: No edema noted on b/l lower extremities. No wounds/discoloration/rashes/amputations. +Pedal pulses present B/L. NEURO: Oriented x3, bell clerk strength 5/5, Moves extremities x4. Results: Labs 12/06/24 06:25 12/06/24 06:25 Labs: Short CBC 12/06/24 Range/Units 06:25 WBC 8.2 (3.8-10.6) Thou/mm3 Hgb 10.0 L (13.5-16.0) g/dL Hct 31.5 L (41.0-53.0) % Plt Count 270 (140-440) Thou/mm3 BMP 12/06/24 06:25 Sodium 139 Potassium 3.0 L Chloride 102 Carbon Dioxide 29.0 BUN 12 Creatinine 0.8 Glucose 131 H Calcium 9.0 Cardiac Enzymes 12/06/24 12/06/24 Range/Units 06:25 12:10 Troponin I 0.130 H* 0.146 H* (0.0-0.045) ng/mL Liver Function 12/06/24 Range/Units 06:25 Total Bilirubin 0.7 (0.3-1.2) mg/dL AST 18 (0-34) U/L ALT 13 (10-49) U/L Alkaline Phosphatase 71 (46-116) U/L Albumin 4.3 (3.4-4.8) gm/dL Urine 12/06/24 Range/Units 06:35 Urine Color Lt-Yellow (Lt Yel-Yel) Urine Clarity Clear (Clear/Hazy) Urine pH 7.0 (5.0-7.0) Ur Specific [place] 1.017 (1.001-1.035) Urine Protein 1+ A (Neg - Trace) Urine Glucose (UA) 4+ A (Negative) Quality Measures Quality Measures none Advance care planning discussed with:: patient Medications Home Medications and Allergies Home Medications ?Medication ?Instructions ?Recorded ?Confirmed ?Type finasteride 5 mg tablet 1 tab PO QDAY 07/20/22 12/06/24 History losartan 100 mg tablet 100 mg PO QDAY 07/20/22 12/06/24 History tamsulosin 0.4 mg capsule 0.4 mg PO DAILY 01/19/23 12/06/24 History metformin 1,000 mg tablet 1,000 mg PO BIDWMEAL 02/06/24 12/06/24 History rivaroxaban 20 mg tablet (Xarelto) 20 mg PO QPM 02/06/24 12/06/24 History nitroglycerin 0.4 mg sublingual 0.4 mg buccal Q5MIN PRN Chest Pain 07/09/24 12/06/24 History tablet (Nitrostat) clonidine HCl 0.3 mg tablet 0.3 mg PO HS 10/15/24 12/06/24 History Allergies Allergy/AdvReac Type Severity Reaction Status Date / Time morphine AdvReac Severe Headache Verified 12/06/24 05:40 Visit Medications Acetaminophen (Acetaminophen 325 Mg Tablet) 650 mg PO Q6H PRN PRN Reason: Fever >101.5 Stop: 01/05/25 11:07 Acetaminophen (Acetaminophen Supp 650 Mg Supp) 650 mg GA Q6H PRN PRN Reason: PAIN SCALE 1-3 (mild Stop: 01/05/25 11:07 Amiodarone HCl (Amiodarone Hcl 200 Mg Tablet) 200 mg PO QDAY [facility] Stop: 01/05/25 16:29 Aspirin (Aspirin Ec 81 Mg Tabec) 81 mg PO QDAY [facility] Stop: 01/06/25 08:59 Atorvastatin Calcium (Atorvastatin Calcium 20 Mg Tablet) 40 mg PO HS [facility] Stop: 01/05/25 20:59 Enoxaparin Sodium (Enoxaparin Sod Inj 100 Mg/Ml Syringe) 90 mg 1 mg/kg (90 mg) SC BID ERWIN Stop: 12/20/24 08:59 Last Admin: 12/06/24 09:37 Dose: 90 mg Finasteride (Finasteride 5 Mg Tablet) 5 mg PO QDAY [facility] Stop: 01/06/25 08:59 Losartan Potassium (Losartan Potassium 25 Mg Tablet) 100 mg PO QDAY [facility] Stop: 01/05/25 16:29 Metoprolol Succinate (Metoprolol Succinate Xl 25 Mg Tabcr) 100 mg PO QDAY [facility] Stop: 01/05/25 16:29 Nitroglycerin (Nitroglycerin 0.4 Mg Subl Btl #25) 0.4 mg SL Q5MIN PRN PRN Reason: Chest Pain Stop: 01/05/25 16:18 Ondansetron HCl (Ondansetron Inj 2 Mg/Ml Inj 2 Ml) 4 mg IV Q6H PRN; Protocol PRN Reason: NAUSEA OR VOMITING Stop: 01/05/25 11:07 Sennosides (Senna Tablet) 1 tab PO QDAY PRN; Protocol PRN Reason: constipation Stop: 01/05/25 11:07 Tamsulosin HCl (Tamsulosin Hcl 0.4 Mg Capsule) 0.4 mg PO HS ERWIN Stop: 01/05/25 20:59 Discontinued Medications Aspirin (Aspirin 81 Mg Chew) 324 mg PO X1 ONE Stop: 12/06/24 08:03 Last Admin: 12/06/24 08:27 Dose: 324 mg Aspirin (Aspirin Ec 81 Mg Tabec) 81 mg PO X1 ONE Stop: 12/06/24 08:52 Last Admin: 12/06/24 09:36 Dose: 81 mg Clopidogrel Bisulfate (Clopidogrel Bisulfate 75 Mg Tablet) 300 mg PO X1 ONE Stop: 12/06/24 09:00 Last Admin: 12/06/24 09:35 Dose: 300 mg Enoxaparin Sodium (Enoxaparin Sod Inj 80 Mg/0.8 Ml Syringe) 90 mg SC X1 ONE Stop: 12/06/24 09:00 Last Admin: 12/06/24 09:09 Dose: Not Given Potassium Chloride (Kcl Ivpb) 10 meq in 100 mls @ 100 mls/hr IV Q1H [facility] Stop: 12/06/24 13:34 Metoprolol Tartrate (Metoprolol Tartrate 25 Mg Tablet) 50 mg PO X1 ONE Stop: 12/06/24 08:13 Last Admin: 12/06/24 08:26 Dose: 50 mg Potassium Chloride (Potassium Chloride 10% 20 Meq/15 Ml Udc) 40 meq PO X1 ONE Stop: 12/06/24 08:06 Last Admin: 12/06/24 08:22 Dose: 40 meq Potassium Chloride (Potassium Chloride 10% 20 Meq/15 Ml Udc) 40 meq GT X1 ONE Stop: 12/06/24 10:01 Last Admin: 12/06/24 10:11 Dose: 40 meq Assessment & Plan Plan # Possible NSTEMI type I/II Troponin of 0.[address] elevations on EKG Dr. Stern consulted from the emergency department and states this is possible NSTEMI -Lovenox 90 mg twice daily for therapeutic levels, per Dr. Stern -Aspirin loading dose given, continue aspirin 81 daily -Echocardiogram ordered, pending -Trending troponins every 6 ?Lipid panel ordered, pending - Cardiology Dr. Gill following, appreciate recommendations #Hypertension #Hypertensive emergency Troponin of 0.130 Initial blood pressure 181/88 Restarting patient's home dose metoprolol succinate 100 Mg daily Losartan 100 mg p.o. daily # Diabetes mellitus type 2 Patient states that he has used insulin in the past but is off of it now Home medication is metformin 1000 mg p.o. twice daily with meals -Sliding scale insulin, with adjustments to be made # Hyperlipidemia -Restarting patient's home dose atorvastatin 40 Mg daily #Atrial fibrillation History of atrial fibrillation. Patient takes Xarelto outpatient as well as metoprolol, -Patient on therapeutic Lovenox, home metoprolol succinate 100 Mg daily #BPH -Restart patient's home dose finasteride 5 Mg p.o. daily Diet: Cardiac diet GI: Pantoprazole DVT: Patient is on therapeutic Lovenox [place]: None Lines: Peripheral Dispo: Tele Med Rec: Pending Code: Full Hospitalization for observation, work-up, & management of STEMI Patient was seen, plan was discussed with attending Dr. Jr Francois D.O. PGY1 Anesthesiology Attending Provider Attestation/Addendum I have discussed and was present for the essential components of the history, physical examination, diagnosis, and treatment plan with the resident. I agree with the patient's care as documented by the resident and amended herein by me. Jacob Norris DO. Patient seen and evaluated this AM. In Short, patient is a 64-year-old male with a significant past medical history of HFrEF, EF 40% as of June 2024, atrial fibrillation on Xarelto, CAD status post MT in 2005, DM2, HTN, HLD who presented to the ED with complaints of generalized weakness, dizziness , chills and right-sided chest pain which had since resolved. In the ED, BP was elevated at 181/88, the patient was afebrile, SpO2 95% on room air. CBC significant for hemoglobin of 10 which appears to be close to the patient's hemoglobin in previous visits., BMP significant for sodium 139, potassium 3.0, initial troponin 0.130 however has since down trended to 0.119. BNP 285, UA negative, U tox negative, initial CT head negative for any acute intracranial pathology, initial chest x-ray ordered in ED demonstrated mild enlargement of the left ventricle, moderate vascular congestion and mild pleural disease of the left lower lateral thoracic wall. Echocardiogram performed today significant for normal LV size and function, EF 55 to 60%, grade 2 diastolic dysfunction, normal RV size and function with mild MAC, trace MR, TR, PI and mild AV sclerosis without stenosis noted. A trivial pericardial effusion was also noted with no evidence of tamponade. Patient subsequently admitted for ACS rule out, cardiology consulted, patient given aspirin 325 mg in the ED, continued 81 mg daily, patient also continued atorvastatin 40 mg nightly, patient also given a dose of Plavix in the ED. Per cardiology recommendations, patient placed on therapeutic Lovenox, we have also restarted the patient's losartan at 100 mg p.o. daily as well as metoprolol succinate 100 mg p.o. daily. As needed nitro glycerin is on board. Will restart patient's home med as appropriate. Will continue to monitor closely while he is here. Although this document has been carefully reviewed, there may still be some phonetic and other typographical errors. These errors are purely grammatical due to imperfections in the software program and should not be construed in any way to compromise the substance of the patient's medical care during this visit.
[2024-12-06] MEDS: METOPROLOL SUCCINATE XL 25 MG TABCR 100 MG PO (16:50)
[2024-12-06] MEDS: LOSARTAN POTASSIUM 25 MG TABLET 100 MG PO (16:50)
--- NOTE | 2024-12-06 18:26 | ESCONSULT_ITS ---
<Statement entered by Mele Gill MD - 12/08/24 07:37> I have personally seen and examined the patient separately on the above date of service and discussed the plan of care with the resident. I reviewed the resident Dr. Navas consultation progress note and agree with the resident findings and plan in the note above and have also edited the documentation to reflect my findings and plan. Patient well-known to me from previous admissions as well as he followed up in the clinic in July 2024 but did not come for his follow-ups as he was apparently sick in the last few months and was seeing his primary care. 64-year-old male patient with a past medical history of CAD status post MN in 2005 as per patient with a known PCI history, NSTEMI in 2022 with troponin of 0.11, paroxysmal atrial fibrillation on anticoagulation, history of systolic and diastolic congestive heart failure with an EF of 40 to 45% improved to 50% with GDMT, patient is hypertension, hyperlipidemia, diabetes mellitus type 2 uncontrolled, noncompliant, cholelithiasis, osteoarthritis, BPH, diverticulosis, SBO in 2021, COVID-2019 presented for further evaluation of chills, elevated blood pressure at home and overall feeling unwell with generalized weakness, some palpitations and dizziness and heart racing sensation. In the emergency room patient with pressure was elevated at 181/88 mmHg, heart rate of 88/min, afebrile and respirations of 18 and saturation normal on room air. EKG showed normal sinus rhythm with no acute ST-T changes. Chest x-ray showed mild vascular congestion without any evidence of any pneumonia. CT head was negative which was done for elevated blood pressure. Labs showed WBC of 8.6, hemoglobin of 10.3, platelets of 294 and BUN of 18 creatinine of 1.0 troponins 2 sets were at 0.130 and 0.146. NT-proBNP was 285. Cardiology is consulted for further evaluation. Plan: Patient presented with hypertensive emergency and unclear of his medication regimen and what medication he takes. Patient has been noncompliant with his visits as he was apparently sick and was following his primary care doctor. He was last seen in the clinic in July 2024 at that point of time patient was Entresto as well as metoprolol XL and his BP was optimally controlled. Patient now is on losartan 100 mg once daily which we recommend to continue and patient already started on metoprolol XL 100 mg twice daily given his A-fib as well as hypertension. Will continue to uptitrate the medications. Paroxysmal atrial fibrillation patient is on Xarelto for anticoagulation and rate appears to be well-controlled and continue with metoprolol XL for now. Keep potassium greater than 4 and magnesium greater than 2.0 at all times. Mildly elevated troponins mostly secondary to NSTEMI type II in the setting of supply/demand mismatch with hypertensive emergency. Patient states that he does have a history of old MN in 2005 but no documentation. Patient does have a history of mildly elevated troponins of 0.11 as well as 0.13 during this admission. Patient was scheduled for an nuclear stress test as outpatient but as noted before patient did not follow-up. Patient denies any kind of chest pain or chest pressure bacteremia and for headaches as well as with the elevated blood pressure and heart rates. EKG did not show any acute pathology. Will repeat echocardiogram for any regional wall motion abnormalities and reevaluate the EF. Recommend aspirin statin and beta-arcelia for now check TSH A1c and lipid profile. Patient does have a history of mild systolic congestive heart failure along with diastolic congestive heart failure in 2021 with a EF of 40 to 45% which improved to around 50 to 55%. Patient also has diastolic dysfunction. On examination he only has trace edema. Patient was on oral Lasix as outpatient and recommend to give IV Lasix x 1 and can continue oral Lasix 40 mg once daily as his kidney function appears to be normal. Repeat echocardiogram has been ordered and will follow-up the results. Strict input output elevated 2 g sodium diet. Recommend strict control of his diabetes mellitus last A1c around 7.1. Management of rest of the medical conditions as per primary team and other consultants. Thank you for the consult and allowing me to participate in the care of the patient. Cardiology will continue to follow. Mele Gill M.D. Interventional Cardiology HPI Data of Consult Requesting Physician: Faraz Norris DO Admitting Provider: Faraz Norris DO Attending Provider: Faraz Norris DO Primary Care Provider: Yang Cervantes MD Consult Narrative History of present illness: Randall is a 64 y/o male with past medical history of CAD s/p MN in (2005, no stent), a-fib (Xarelto) systolic congestive heart failure with an EF of 40 to 45% in December 2022, essential hypertension, hyperlipidemia, non-insulin dependent diabetes mellitus type 2, history of cholelithiasis, osteoarthritis, BPH, diverticulosis, sbo (2021), who came [facility] on 12/06/2024 for an evaluation of chills, elevated blood pressure (blood pressure measured at home per patient 180/120), palpitations, dizziness with feeling of syncope but did not lose consciousness or have any trauma, and also generalized weakness, onset 4 PM yesterday while watching TV at home. Patient reports he has not had feelings like this before, however he was at home watching TV and felt like he started to get dizzy, was not worse with position. He went to bed that night and at some point he felt like his heart started to race while he was going to sleep, and felt that he stopped breathing at some point. He woke up and noticed that his right side of his chest started to hurt, rated 8 out of 10, nonradiating and measured his blood pressure and it was in the 180 systolic in which the patient decided to come to get evaluated in the ED. he also took 2 of Lasix 20 mg prior to coming. Patient says that he has recently been here for evaluations of trouble breathing. Says that he was told that he has sleep apnea, but however has never had a sleep study and does not use CPAP. He denies having any headache, nausea, vomiting, numbness, tingling. He says that he takes his medicines as prescribed and Dr. Cervantes at [facility] is his PCP. He says that he seen Dr. Gill previously, however did not follow- up because he got sick and was unable to make the appointment. Says he takes his medicines as prescribed, and noticed that his blood pressure still high even after he takes it and says that his blood pressure has been in the 150s for the past couple weeks. He says that last time when he was in the hospital, he was discharged with oxygen because they noticed he needed it. He also says that he started using a walker recently because he has concerns that he will fall he gets dizzy. He denies any recent sicknesses, sick contacts or traveling anywhere recently. He has no other complaints at this time. For new years celebration he stayed home in [place]. ED course: Patient arrive to the ED with a blood pressure of 181/88, pulse of 88, respiration rate at 18, temperature of 98 ?F, saturating at 95% room air. EKG shows P waves and sinus rhythm at rate of 67 seen in V1. X-ray does show some moderate vascular congestion, head CT negative for any acute bleed, mass effect or hemorrhage. Labs were significant for a white count of 8.2, hemoglobin of 10, hematocrit of 32, platelets of 270, potassium of 3.0, bun and creatinine of 12 and 0.8 respectively, glucose of 131. Troponin was done in was elevated at 0.130, BNP of 285. In the ED he was given 50 of metoprolol tartrate, potassium 40, and loading ASA 325. Medicine was consulted in addition to cardiology and patient was made to floors. Past medical history: As above Surgeries: PCI 2005 Allergies: Morphine (headache) Meds: Losartan 100 mg every day, Lasix 20 mg daily, Lipitor 40 mg, clonidine 0.3 mg, metoprolol XL 100, Flomax 0.4 mg, Xarelto 20 mg, glipizide 5 mg, Farxiga 10 mg Family history: No family history of heart disease, diabetes, no heart attacks or heart surgeries. Son has diabetes Social history: Patient lives in [place], is currently on disability, is and has 7 kids. Says that he does not smoke, drink or use illicit drugs. He says that in the past he had drink a little bit in his 30s but stopped when he noticed he had heart problems. He is unable to exercise much but wants to. He adheres to a low-salt diet, and eats eggs and baked potato a lot for dinner. 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 cc:: cc: Faraz Norris, DO Review of Systems Review of Systems Narrative Review of Systems: Constitutional: + chills, no fever, fatigue, weakness, weight loss HEENT: No eye pain, vision loss, ear pain, hearing loss, dysphagia, Cardiovascular: + chest pain, palpitations, edema, no pain with walking Respiratory: No cough, shortness of breath, wheezing GI: No NVD, abdominal pain, constipation, blood in stool, loss of appetite, heartburn MSK: No back pain, joint pain, joint swelling Neuro: No dizziness, numbness, weakness, headaches, seizures, tremors Psych: No anxiety, depression Exam Vital Signs Temp Pulse Resp BP Pulse Ox O2 Del Method 98 F 69 17 175/93 H 96 Room Air 12/06/24 18:07 12/06/24 18:07 12/06/24 18:07 12/06/24 18:07 12/06/24 18:07 12/06/24 18:07 Narrative Exam General: AAOx3, NAD, pleasant male wearing glasses HEENT: Dry mucous membranes, conjunctiva clear, EOMI, PERRLA, Cardiovascular: S1, S2, radial pulses +2 bilat, RRR Pulmonary: CTAB bilat no cough, no wheezing GI: No tenderness to light or deep palpitation, no guarding, rigidity, rebound tenderness or distension Extremities: +1 pitting edema up to mid brown bilaterally, dorsalis pedis pulses +2 bilaterally, multiple tattoos seen in both arms bilat Neuro: AAOx3, no focal motor or sensory deficits in the UE or LE bilat Psych: Good judgement, thought and behavior. Cooperative Results Labs 12/07/24 04:26 12/07/24 04:26 Labs: Short CBC 12/06/24 Range/Units 06:25 WBC 8.2 (3.8-10.6) Thou/mm3 Hgb 10.0 L (13.5-16.0) g/dL Hct 31.5 L (41.0-53.0) % Plt Count 270 (140-440) Thou/mm3 BMP 12/06/24 06:25 Sodium 139 Potassium 3.0 L Chloride 102 Carbon Dioxide 29.0 BUN 12 Creatinine 0.8 Glucose 131 H Calcium 9.0 Cardiac Enzymes 12/06/24 12/06/24 Range/Units 06:25 12:10 Troponin I 0.130 H* 0.146 H* (0.0-0.045) ng/mL Liver Function 12/06/24 Range/Units 06:25 Total Bilirubin 0.7 (0.3-1.2) mg/dL AST 18 (0-34) U/L ALT 13 (10-49) U/L Alkaline Phosphatase 71 (46-116) U/L Albumin 4.3 (3.4-4.8) gm/dL Urine 12/06/24 Range/Units 06:35 Urine Color Lt-Yellow (Lt Yel-Yel) Urine Clarity Clear (Clear/Hazy) Urine pH 7.0 (5.0-7.0) Ur Specific [place] 1.017 (1.001-1.035) Urine Protein 1+ A (Neg - Trace) Urine Glucose (UA) 4+ A (Negative) Quality Measures Quality Measures none Advance care planning discussed with:: patient Medications Home Medications and Allergies Home Medications ?Medication ?Instructions ?Recorded ?Confirmed ?Type finasteride 5 mg tablet 1 tab PO QDAY 07/20/22 12/06/24 History losartan 100 mg tablet 100 mg PO QDAY 07/20/22 12/06/24 History tamsulosin 0.4 mg capsule 0.4 mg PO DAILY 01/19/23 12/06/24 History metformin 1,000 mg tablet 1,000 mg PO BIDWMEAL 02/06/24 12/06/24 History rivaroxaban 20 mg tablet (Xarelto) 20 mg PO QPM 02/06/24 12/06/24 History nitroglycerin 0.4 mg sublingual 0.4 mg buccal Q5MIN PRN Chest Pain 07/09/24 12/06/24 History tablet (Nitrostat) clonidine HCl 0.3 mg tablet 0.3 mg PO HS 10/15/24 12/06/24 History Allergies Allergy/AdvReac Type Severity Reaction Status Date / Time morphine AdvReac Severe Headache Verified 12/06/24 05:40 Visit Medications Acetaminophen (Acetaminophen 325 Mg Tablet) 650 mg PO Q6H PRN PRN Reason: Fever >101.5 Stop: 01/05/25 11:07 Acetaminophen (Acetaminophen Supp 650 Mg Supp) 650 mg AR Q6H PRN PRN Reason: PAIN SCALE 1-3 (mild Stop: 01/05/25 11:07 Aspirin (Aspirin Ec 81 Mg Tabec) 81 mg PO QDAY [facility] Stop: 01/06/25 08:59 Atorvastatin Calcium (Atorvastatin Calcium 20 Mg Tablet) 40 mg PO HS [facility] Stop: 01/05/25 20:59 Enoxaparin Sodium (Enoxaparin Sod Inj 100 Mg/Ml Syringe) 90 mg 1 mg/kg (90 mg) SC BID ERWIN Stop: 12/20/24 08:59 Last Admin: 12/06/24 09:37 Dose: 90 mg Finasteride (Finasteride 5 Mg Tablet) 5 mg PO QDAY [facility] Stop: 01/06/25 08:59 Losartan Potassium (Losartan Potassium 25 Mg Tablet) 100 mg PO QDAY [facility] Stop: 01/05/25 16:29 Last Admin: 12/06/24 16:50 Dose: 100 mg Metoprolol Succinate (Metoprolol Succinate Xl 25 Mg Tabcr) 100 mg PO QDAY [facility] Stop: 01/05/25 16:29 Last Admin: 12/06/24 16:50 Dose: 100 mg Nitroglycerin (Nitroglycerin 0.4 Mg Subl Btl #25) 0.4 mg SL Q5MIN PRN PRN Reason: Chest Pain Stop: 01/05/25 16:18 Ondansetron HCl (Ondansetron Inj 2 Mg/Ml Inj 2 Ml) 4 mg IV Q6H PRN; Protocol PRN Reason: NAUSEA OR VOMITING Stop: 01/05/25 11:07 Sennosides (Senna Tablet) 1 tab PO QDAY PRN; Protocol PRN Reason: constipation Stop: 01/05/25 11:07 Tamsulosin HCl (Tamsulosin Hcl 0.4 Mg Capsule) 0.4 mg PO [facility] Stop: 01/05/25 20:59 Discontinued Medications Amiodarone HCl (Amiodarone Hcl 200 Mg Tablet) 200 mg PO QDAY [facility] Stop: 01/05/25 16:29 Aspirin (Aspirin 81 Mg Chew) 324 mg PO X1 ONE Stop: 12/06/24 08:03 Last Admin: 12/06/24 08:27 Dose: 324 mg Aspirin (Aspirin Ec 81 Mg Tabec) 81 mg PO X1 ONE Stop: 12/06/24 08:52 Last Admin: 12/06/24 09:36 Dose: 81 mg Clopidogrel Bisulfate (Clopidogrel Bisulfate 75 Mg Tablet) 300 mg PO X1 ONE Stop: 12/06/24 09:00 Last Admin: 12/06/24 09:35 Dose: 300 mg Enoxaparin Sodium (Enoxaparin Sod Inj 80 Mg/0.8 Ml Syringe) 90 mg SC X1 ONE Stop: 12/06/24 09:00 Last Admin: 12/06/24 09:09 Dose: Not Given Potassium Chloride (Kcl Ivpb) 10 meq in 100 mls @ 100 mls/hr IV Q1H [facility] Stop: 12/06/24 13:34 Metoprolol Tartrate (Metoprolol Tartrate 25 Mg Tablet) 50 mg PO X1 ONE Stop: 12/06/24 08:13 Last Admin: 12/06/24 08:26 Dose: 50 mg Potassium Chloride (Potassium Chloride 10% 20 Meq/15 Ml Udc) 40 meq PO X1 ONE Stop: 12/06/24 08:06 Last Admin: 12/06/24 08:22 Dose: 40 meq Potassium Chloride (Potassium Chloride 10% 20 Meq/15 Ml Udc) 40 meq GT X1 ONE Stop: 12/06/24 10:01 Last Admin: 12/06/24 10:11 Dose: 40 meq Assessment & Plan Plan Assessment Randall is a 64 y/o male with past medical history of CAD s/p MN in (2005, no stent), a-fib (Xarelto) systolic congestive heart failure with an EF of 40 to 45% in December 2022, essential hypertension, hyperlipidemia, non-insulin dependent diabetes mellitus type 2, history of cholelithiasis, osteoarthritis, BPH, diverticulosis, sbo (2021), who is currently admitted for hypertensive emergency #Hypertensive emergency #Lower extremity edema #Elevated troponin #HFpEF with grade 2 diastolic dysfunction Echo from today shows: Normal LV size and function. Estimated EF 55-60%. Grade II diastolic dysfunction. Normal RV size and function. Patient came in with blood pressure in the 180s systolic upon arrival Troponin elevated at 0.140, showing some possible endorgan damage Patient could have worsening lower extremity edema due to hypertension, do not think this is a heart failure exacerbation Patient took 220 mg tablets of Lasix before coming Patient is a medically compliant patient, however could use more optimal medical management Plan: ?Continue to trend troponins until they peak ?Reduce systolic blood pressure up to 25% within first 24 hours ?Resumed home metoprolol XL 100 mg twice daily by primary team ?Resumed losartan 100 mg ?Will give 20 Lasix IV now #History of CAD status post MN no stents Given loading dose of aspirin in ER Plan: ? Continue with ASA 81 #A-fib, rate controlled, on Xarelto Rate controlled, heart rate in the 60s currently EKG did show P waves and rate and rhythm control Plan: ? Recommend resuming Xarelto 20 mg home medicine #Pericardial effusion Small pericardial effusion seen on echo Plan: ? Monitor for worsening of symptoms, no intervention at this time #History of [id number] type 2 diabetes #History of hyperlipidemia Most recent A1c 7.1 Plan: ? Follow-up lipid panel ? Primary team to manage sugar ?Resume home Lipitor 40 mg #BPH #Electrolyte abnormalities #Hx of osteoarthritis Primary hospitalist team to manage above Patient seen and care discussed with my attending physician, Dr. Bridget Gamboa, PGY-1
[2024-12-06 18:46] LABS: Troponin I 0.119 ng/mL (0.0-0.045)
[2024-12-06] MEDS: FUROSEMIDE INJ 10 MG/ML VIAL 2 ML 20 MG IVP (19:23)
[2024-12-06] MEDS: TAMSULOSIN HCL 0.4 MG CAPSULE PO (20:41)
[2024-12-06] MEDS: ATORVASTATIN CALCIUM 20 MG TABLET 40 MG PO (20:41)
--- NOTE | 2024-12-06 22:40 | PC.NURSE ---
made aware of BP 158/98, no new orders received.
[2024-12-07] VITALS (13 sets, daily range): BP systolic 163–186; BP diastolic 76–108; PULSE 59–112; RESP 12–96; TEMP 36.1–36.3; O2SAT 93–98; BMI 31.4
[2024-12-07 01:38] LABS: Troponin I 0.129 ng/mL (0.0-0.045)
[2024-12-07 05:41] LABS: Basophils % (Auto) 1 % (0-2.5); Eosinophils # (Auto) 0.3 Thou/mm3 (0.0-0.5); Eosinophils % (Auto) 3 % (0-10); Hematocrit 32.6 % (41.0-53.0); Hemoglobin 10.3 g/dL (13.5-16.0); Immature Granulocytes % (Auto) 0 % (0-0); Immature Granulocytes Auto 0.01 Thou/mm3 (0.00-0.00); Lymphocytes # (Auto) 1.4 Thou/mm3 (1.0-4.8); Lymphocytes % (Auto) 16 % (10-50); Mean Corpuscular HGB Conc 31.6 g/dl (31.0-37.0); Mean Corpuscular Hemoglobin 25.7 pg (25.0-35.0); Mean Corpuscular Volume 81 fL (80-100); Monocytes # (Auto) 0.8 Thou/mm3 (0.0-0.8); Monocytes % (Auto) 9 % (0-12); Neutrophils # (Auto) 6.2 Thou/mm3 (1.8-7.7); Neutrophils % (Auto) 72 % (37-80); Nucleated Red Blood Cell % 0 /100 WBC (0); Platelet Count 294 Thou/mm3 (140-440); RDW Standard Deviation 49.4 fL (35.1-43.9); Red Blood Count 4.01 Miln/mm3 (4.50-5.90); White Blood Count 8.6 Thou/mm3 (3.8-10.6)
[2024-12-07 06:00] LABS: INR 1.1 (0.9-1.3); Partial Thromboplastin Time 35.2 Seconds (22.0-36.0); Prothrombin Time 12.1 Seconds (9.0-12.2)
[2024-12-07 06:19] LABS: Alanine Aminotransferase 19 U/L (10-49); Albumin, Serum 4.2 gm/dL (3.4-4.8); Albumin/Globulin Ratio 1.4 (1.2-2.2); Alkaline Phosphatase 76 U/L (46-116); Anion Gap 10 (7-16); Aspartate Amino Transferase 22 U/L (0-34); BUN/Creatinine Ratio 18 Ratio (12-20); Bilirubin,Total 0.7 mg/dL (0.3-1.2); Blood Urea Nitrogen 18 mg/dL (9-23); Calcium 9.2 mg/dL (8.3-10.6); Calcium (Corrected) 9.2 mg/dL (8.5-10.1); Carbon Dioxide 27.4 mMol/L (20.0-31.0); Cardiac Risk Estimate 2.4 RATIO (4.0-6.7); Chloride 102 mMol/L (98-107); Cholesterol 134 mg/dL (132-200); Estimated Creatinine Clearance 76.7 mL/min (>60); Globulin 2.9 gm/dL (2.3-3.5); Glucose 132 mg/dL (74-106); HDL Cholesterol 57 mg/dL (40-60); LDL Cholesterol,Calculated 65 mg/dL (0-130); Magnesium 2.1 mg/dL (1.6-2.6); Osmolality,Calculated 281 (275-295); Phosphorous 3.3 mg/dL (2.4-5.1); Potassium 3.6 mMol/L (3.4-5.1); Sodium 139 mMol/L (136-145); Thyroid Stimulating Hormone 3.31 uIU/mL (0.55-4.78); Total Protein 7.1 gm/dL (5.7-8.2); Triglycerides 60 mg/dL (30-150); eGFR > 60 See Note
[2024-12-07 06:31] LABS: Troponin I 0.107 ng/mL (0.0-0.045)
--- NOTE | 2024-12-07 07:18 | ESPR_ITS ---
Documentation for date of: 12/08/24 Subjective Subjective Interval history: Patient was seen and examined at the bedside. In the morning, patient blood pressure was uncontrolled therefore metoprolol was discontinued and patient was started on Coreg 25 twice daily per cardiology recommendations. Clonidine was discontinued. Metoprolol XL was also discontinued. Electrolytes were repleted. Patient remained in A-fib RVR later evening therefore diltiazem push was given x 1. 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 All labs and orders were reviewed. Exam Vital Signs Temp Pulse Resp BP Pulse Ox O2 Del Method 97.0 F 60 18 167/91 H 95 Room Air 12/08/24 04:00 12/08/24 05:09 12/08/24 05:09 12/08/24 04:00 12/08/24 04:00 12/08/24 04:00 Narrative Exam GENERAL: Awake, answering questions, HEENT: NC/AT. Moist mucosa. PERRLA/EOMI. CARDIO:no obvious murmurs, no JVD. PULM: No coughing or visible SOB. Lungs CTA B/L. GI: Abdomen soft, NT/ND, +BS. SKIN/MSK/EXT: No edema noted on b/l lower extremities. No wounds/discoloration/rashes/amputations. +Pedal pulses present B/L. NEURO: Oriented x3, sample examiner strength 5/5, Moves extremities x4. Objective Labs 12/08/24 05:18 12/08/24 05:18 Labs: Laboratory Results - last 24 hr 12/07/24 12/07/24 12/08/24 11:30 18:40 05:18 WBC 8.6 RBC 4.10 L Hgb 10.4 L Hct 33.7 L MCV 82 MCH 25.4 MCHC 30.9 L RDW Std Deviation 49.5 H Plt Count 240 D Neut % (Auto) 73 Lymph % (Auto) 15 [place] % (Auto) 9 Eos % (Auto) 3 Baso % (Auto) 0 Neut # (Auto) 6.3 Lymph # (Auto) 1.3 [place] # (Auto) 0.8 Eos # (Auto) 0.2 Baso # (Auto) 0.0 Immature Gran # (Auto) 0.03 H Absolute Nucleated RBC 0.00 Immature Gran % 0 Nucleated RBC % 0 Sodium 138 Potassium 4.3 D Chloride 103 Carbon Dioxide 29.1 Anion Gap 6 L BUN 18 Creatinine 0.9 Estim Creat Clear Calc 85.2 eGFR > 60 BUN/Creatinine Ratio 20 Glucose 139 H Calculated Osmolality 279 Calcium 9.3 Corrected Calcium 9.3 Phosphorus 3.0 Magnesium 2.2 Total Bilirubin 0.9 AST 15 ALT 17 Alkaline Phosphatase 75 Troponin I 0.063 H* 0.073 H* Total Protein 7.3 Albumin 4.3 Globulin 3.0 Albumin/Globulin Ratio 1.4 Quality Measures Quality Measures VTE prophylaxis Advance care planning discussed with:: patient Assessment & Plan Assessment Current Active Medications: Generic Name Dose Route Start Last Admin Trade Name Freq PRN Reason Stop Dose Admin Acetaminophen 650 mg 12/06/24 11:08 Acetaminophen 325 Mg Tablet PO 01/05/25 11:07 Q6H PRN Fever >101.5 Acetaminophen 650 mg 12/06/24 11:08 Acetaminophen Supp 650 Mg Supp HI 01/05/25 11:07 Q6H PRN PAIN SCALE 1-3 (mild Amlodipine Besylate 2.5 mg 12/08/24 09:00 Amlodipine Besylate 2.5 Mg Tablet PO 01/07/25 08:59 QDAY ERWIN Aspirin 81 mg 12/07/24 09:00 12/07/24 08:39 Aspirin Ec 81 Mg Tabec PO 01/06/25 08:59 81 mg QDAY ERWIN Administration Atorvastatin Calcium 40 mg 12/06/24 21:00 12/07/24 20:04 Atorvastatin Calcium 20 Mg Tablet PO 01/05/25 20:59 40 mg HS ERWIN Administration Carvedilol 25 mg 12/07/24 17:30 12/07/24 17:53 Carvedilol 12.5 Mg Tablet PO 01/06/25 17:29 25 mg BIDWM ERWIN Administration Dextrose 50 ml 12/06/24 21:43 Dextrose 50%-Water Inj 50 Ml Syringe IV 01/05/25 21:42 Q15MIN PRN BG <50 OR BG <70 & pt unresponsive Finasteride 5 mg 12/07/24 09:00 12/07/24 08:39 Finasteride 5 Mg Tablet PO 01/06/25 08:59 5 mg QDAY ERWIN Administration Glucagon 1 mg 12/06/24 21:43 Glucagon Inj 1 Mg Vial IM Q15MIN PRN BG <70, and no IV access Hydralazine HCl 25 mg 12/07/24 16:20 12/07/24 16:27 Hydralazine Hcl 25 Mg Tablet PO 01/06/25 16:14 25 mg TID PRN Administration Hypertension Insulin Human Lispro 0 unit 12/07/24 07:30 12/07/24 20:21 Insulin Lispro (Admelog) 1 Unit/0.01 Ml Unit SC 01/06/25 07:29 4 unit ACHS ERWIN Administration Protocol Losartan Potassium 100 mg 12/06/24 16:30 12/07/24 08:40 Losartan Potassium 25 Mg Tablet PO 01/05/25 16:29 100 mg QDAY ERWIN Administration Nitroglycerin 0.4 mg 12/06/24 16:19 Nitroglycerin 0.4 Mg Subl Btl #25 SL 01/05/25 16:18 Q5MIN PRN Chest Pain Ondansetron HCl 4 mg 12/06/24 11:08 Ondansetron Inj 2 Mg/Ml Inj 2 Ml IV 01/05/25 11:07 Q6H PRN NAUSEA OR VOMITING Protocol Rivaroxaban 20 mg 12/07/24 09:00 12/07/24 08:41 Rivaroxaban 10 Mg Tablet PO 01/06/25 08:59 20 mg QDAY ERWIN Administration Sennosides 1 tab 12/06/24 11:08 Senna Tablet PO 01/05/25 11:07 QDAY PRN constipation Protocol Tamsulosin HCl 0.4 mg 12/06/24 21:00 12/07/24 20:04 Tamsulosin Hcl 0.4 Mg Capsule PO 01/05/25 20:59 0.4 mg HS ERWIN Administration Plan This is a 64-year-old male with a past medical history of HFmrEF (EF 40-45%, 07/10/2024), A-fib on Xarelto, CAD status post NM (2005, no stent), atrial fibrillation type 2 diabetes mellitus, hypertension, hyperlipidemia who presents to the emergency department for chills and dizziness. # NSTEMI type II #Likely supply demand ischemia # ACS ruled out Troponin of 0.[address] elevations on EKG -Cardiology recommended to control blood pressure -Troponin I downtrended -Lovenox discontinued -Aspirin loading dose given, continue aspirin 81 daily -Cardiology Dr. Gill following, appreciate recommendations #Hypertension #Hypertensive emergency Troponin of 0.130 Initial blood pressure 181/88 Started on Coreg 25 twice daily Discontinued metoprolol XL Losartan 100 mg p.o. daily # Diabetes mellitus type 2 Patient states that he has used insulin in the past but is off of it now Home medication is metformin 1000 mg p.o. twice daily with meals -Sliding scale insulin, with adjustments to be made #Hyperlipidemia -Restarting patient's home dose atorvastatin 40 Mg daily #Atrial fibrillation History of atrial fibrillation. IV diltiazem 10 mg was given for A-fib RVR Started Coreg 25 twice daily Started Xarelto 20 mg once daily #BPH -Restart patient's home dose finasteride 5 Mg p.o. daily Diet: Cardiac diet GI: Pantoprazole DVT: Patient is on therapeutic Lovenox Snowden: None Lines: Peripheral Dispo: Tele Med Rec: Pending Code: Full Patient was seen and discussed with attending physician, Dr. Jr Bond MD, PGY 2 Attending Provider Attestation/Addendum I have discussed and was present for the essential components of the history, physical examination, diagnosis, and treatment plan with the resident. I agree with the patient's care as documented by the resident and amended herein by me. Jacob Norris DO. Although this document has been carefully reviewed, there may still be some phonetic and other typographical errors. These errors are purely grammatical due to imperfections in the software program and should not be construed in any way to compromise the substance of the patient's medical care during this visit.
--- NOTE | 2024-12-07 08:15 | ESPR_ITS ---
<Statement entered by Mele Gill MD - 12/08/24 07:38> I have personally seen and examined the patient separately on the above date of service and discussed the plan of care with the resident. I reviewed the resident Dr. Navas consultation progress note and agree with the resident findings and plan in the note above and have also edited the documentation to reflect my findings and plan. Patient well-known to me from previous admissions as well as he followed up in the clinic in July 2024 but did not come for his follow-ups as he was apparently sick in the last few months and was seeing his primary care. 64-year-old male patient with a past medical history of CAD status post AR in 2005 as per patient with a known PCI history, NSTEMI in 2022 with troponin of 0.11, paroxysmal atrial fibrillation on anticoagulation, history of systolic and diastolic congestive heart failure with an EF of 40 to 45% improved to 50% with GDMT, patient is hypertension, hyperlipidemia, diabetes mellitus type 2 uncontrolled, noncompliant, cholelithiasis, osteoarthritis, BPH, diverticulosis, SBO in 2021, COVID-2019 presented for further evaluation of chills, elevated blood pressure at home and overall feeling unwell with generalized weakness, some palpitations and dizziness and heart racing sensation. In the emergency room patient with pressure was elevated at 181/88 mmHg, heart rate of 88/min, afebrile and respirations of 18 and saturation normal on room air. EKG showed normal sinus rhythm with no acute ST-T changes. Chest x-ray showed mild vascular congestion without any evidence of any pneumonia. CT head was negative which was done for elevated blood pressure. Labs showed WBC of 8.6, hemoglobin of 10.3, platelets of 294 and BUN of 18 creatinine of 1.0 troponins 2 sets were at 0.130 and 0.146. NT-proBNP was 285. Cardiology is consulted for further evaluation. Plan: Patient presented with hypertensive emergency and unclear of his medication regimen and what medication he takes. Patient has been noncompliant with his visits as he was apparently sick and was following his primary care doctor. He was last seen in the clinic in July 2024 at that point of time patient was Entresto as well as metoprolol XL and his BP was optimally controlled. Patient now is on losartan 100 mg once daily which we recommend to continue and patient already started on metoprolol XL 100 mg twice daily given his A-fib as well as hypertension. Recommend to change his metoprolol XL to Coreg 25 mg twice daily for now for better blood pressure control as his systolic blood pressure is still greater than 160 mmHg and will add amlodipine 2.5 mg once daily, Paroxysmal atrial fibrillation-rate was well-controlled but this evening patient did go into atrial fibrillation with RVR. Patient was given 1 dose of diltiazem 10 mg IV. Recommend to continue Coreg 25 mg twice daily for now. Continue Xarelto for anticoagulation. Keep potassium greater than 4 and magnesium greater than 2.0 at all times. Mildly elevated troponins mostly secondary to NSTEMI type II in the setting of supply/demand mismatch with hypertensive emergency. Patient states that he does have a history of old AR in 2005 but no documentation. Patient does have a history of mildly elevated troponins of 0.11 as well as 0.13 during this admission. Patient was scheduled for an nuclear stress test as outpatient but as noted before patient did not follow-up. Patient denies any kind of chest pain or chest pressure bacteremia and for headaches as well as with the elevated blood pressure and heart rates. EKG did not show any acute pathology. Echo completed on 12/06/2024 showed normal LV, RV function. LVEF 55 to 60%. Grade 2 diastolic dysfunction. Mild valvular abnormalities with trace to trivial anterior pericardial effusion. Recommend aspirin statin and beta-arcelia for now. TSH normal. A1c 7.1. LDL 65 TG 60 and total cholesterol 134. Patient does have a history of mild systolic congestive heart failure along with diastolic congestive heart failure in 2021 with a EF of 40 to 45% which improved to around 55 to 60%. Patient also has diastolic dysfunction. On examination he only has trace edema. Patient was on oral Lasix as outpatient and recommend to give IV Lasix x 1 and can continue oral Lasix 40 mg once daily as his kidney function appears to be normal. Strict input output elevated 2 g sodium diet. Recommend strict control of his diabetes mellitus last A1c around 7.1 Management of rest of the medical conditions as per primary team and other consultants. Thank you for the consult and allowing me to participate in the care of the patient. Cardiology will continue to follow. Mele Gill M.D. Interventional Cardiology Documentation for date of: 12/07/24 Subjective Subjective Interval history: Patient examined at bedside today. No acute overnight events on telemetry rate controlled in the 70s. Patient reports he is doing well, is not experiencing any chills, chest pain palpitations or shortness of breath. He does say that he has been peeing and has noticed reduced swelling in his lower extremities. Is wondering when he is in a go home. He is also wondering what medicines he is going to be discharged with. He has no other complaints at this time. Exam Vital Signs Temp Pulse Resp BP Pulse Ox O2 Del Method 97.0 F 67 22 H 171/91 H 96 Room Air 12/07/24 04:00 12/07/24 07:34 12/07/24 07:34 12/07/24 04:00 12/07/24 04:00 12/07/24 04:00 Narrative Exam General: AAOx3, NAD, pleasant male wearing glasses, sitting in chair, comfortable HEENT: Moist mucous membranes, conjunctiva clear, EOMI, PERRLA, Cardiovascular: S1, S2, radial pulses +2 bilat, RRR Pulmonary: CTAB bilat no cough, no wheezing GI: No tenderness to light or deep palpitation, no guarding, rigidity, rebound tenderness or distension Extremities: Trace pitting edema up to mid brown bilaterally improved from yesterday, dorsalis pedis pulses +2 bilaterally, multiple tattoos seen in both arms bilat Neuro: AAOx3, no focal motor or sensory deficits in the UE or LE bilat Psych: Good judgement, thought and behavior. Cooperative Objective Labs 12/07/24 04:26 12/07/24 04:26 Labs: Laboratory Results - last 24 hr 12/06/24 12/06/24 12/06/24 06:25 12:10 17:46 WBC 8.2 RBC 3.91 L Hgb 10.0 L Hct 31.5 L MCV 81 MCH 25.6 MCHC 31.7 RDW Std Deviation 49.3 H Plt Count 270 Neut % (Auto) 73 Lymph % (Auto) 13 [place] % (Auto) 9 Eos % (Auto) 3 Baso % (Auto) 0 Neut # (Auto) 6.0 Lymph # (Auto) 1.1 [place] # (Auto) 0.8 Eos # (Auto) 0.2 Baso # (Auto) 0.0 Immature Gran # (Auto) 0.07 H Absolute Nucleated RBC 0.00 Immature Gran % 1 H Nucleated RBC % 0 ESR 24 H PT INR APTT Sodium Potassium Chloride Carbon Dioxide Anion Gap BUN Creatinine Estim Creat Clear Calc eGFR BUN/Creatinine Ratio Glucose Calculated Osmolality Calcium Corrected Calcium Phosphorus Magnesium Total Bilirubin AST ALT Alkaline Phosphatase Troponin I 0.146 H* 0.119 H* Total Protein Albumin Globulin Albumin/Globulin Ratio Triglycerides Cholesterol LDL Cholesterol, Calc HDL Cholesterol Cholesterol/HDL Ratio TSH 12/07/24 12/07/24 00:43 04:26 WBC 8.6 RBC 4.01 L Hgb 10.3 L Hct 32.6 L MCV 81 MCH 25.7 MCHC 31.6 RDW Std Deviation 49.4 H Plt Count 294 Neut % (Auto) 72 Lymph % (Auto) 16 [place] % (Auto) 9 Eos % (Auto) 3 Baso % (Auto) 1 Neut # (Auto) 6.2 Lymph # (Auto) 1.4 [place] # (Auto) 0.8 Eos # (Auto) 0.3 Baso # (Auto) 0.0 Immature Gran # (Auto) 0.01 H Absolute Nucleated RBC 0.00 Immature Gran % 0 Nucleated RBC % 0 ESR PT 12.1 INR 1.1 APTT 35.2 Sodium 139 Potassium 3.6 D Chloride 102 Carbon Dioxide 27.4 Anion Gap 10 BUN 18 Creatinine 1.0 Estim Creat Clear Calc 76.7 eGFR > 60 BUN/Creatinine Ratio 18 Glucose 132 H Calculated Osmolality 281 Calcium 9.2 Corrected Calcium 9.2 Phosphorus 3.3 Magnesium 2.1 Total Bilirubin 0.7 AST 22 ALT 19 Alkaline Phosphatase 76 Troponin I 0.129 H* 0.107 H* Total Protein 7.1 Albumin 4.2 Globulin 2.9 Albumin/Globulin Ratio 1.4 Triglycerides 60 Cholesterol 134 LDL Cholesterol, Calc 65 HDL Cholesterol 57 Cholesterol/HDL Ratio 2.4 L TSH 3.31 Quality Measures Quality Measures none Advance care planning discussed with:: patient Assessment & Plan Assessment Current Active Medications: Generic Name Dose Route Start Last Admin Trade Name Freq PRN Reason Stop Dose Admin Acetaminophen 650 mg 12/06/24 11:08 Acetaminophen 325 Mg Tablet PO 01/05/25 11:07 Q6H PRN Fever >101.5 Acetaminophen 650 mg 12/06/24 11:08 Acetaminophen Supp 650 Mg Supp TX 01/05/25 11:07 Q6H PRN PAIN SCALE 1-3 (mild Aspirin 81 mg 12/07/24 09:00 Aspirin Ec 81 Mg Tabec PO 01/06/25 08:59 QDAY ERWIN Atorvastatin Calcium 40 mg 12/06/24 21:00 12/06/24 20:41 Atorvastatin Calcium 20 Mg Tablet PO 01/05/25 20:59 40 mg HS ERWIN Administration Clonidine 0.3 mg 12/06/24 22:43 Clonidine Hcl 0.1 Mg Tablet PO 01/05/25 20:59 HS ERWIN Dextrose 50 ml 12/06/24 21:43 Dextrose 50%-Water Inj 50 Ml Syringe IV 01/05/25 21:42 Q15MIN PRN BG <50 OR BG <70 & pt unresponsive Finasteride 5 mg 12/07/24 09:00 Finasteride 5 Mg Tablet PO 01/06/25 08:59 QDAY ERWIN Glucagon 1 mg 12/06/24 21:43 Glucagon Inj 1 Mg Vial IM Q15MIN PRN BG <70, and no IV access Insulin Human Lispro 0 unit 12/07/24 07:30 Insulin Lispro (Admelog) 1 Unit/0.01 Ml Unit SC 01/06/25 07:29 ACHS ERWIN Protocol Losartan Potassium 100 mg 12/06/24 16:30 12/06/24 16:50 Losartan Potassium 25 Mg Tablet PO 01/05/25 16:29 100 mg QDAY ERWIN Administration Metoprolol Succinate 100 mg 12/06/24 16:30 12/06/24 16:50 Metoprolol Succinate Xl 25 Mg Tabcr PO 01/05/25 16:29 100 mg QDAY ERWIN Administration Nitroglycerin 0.4 mg 12/06/24 16:19 Nitroglycerin 0.4 Mg Subl Btl #25 SL 01/05/25 16:18 Q5MIN PRN Chest Pain Ondansetron HCl 4 mg 12/06/24 11:08 Ondansetron Inj 2 Mg/Ml Inj 2 Ml IV 01/05/25 11:07 Q6H PRN NAUSEA OR VOMITING Protocol Rivaroxaban 20 mg 12/07/24 09:00 Rivaroxaban 10 Mg Tablet PO 01/06/25 08:59 QDAY ERWIN Sennosides 1 tab 12/06/24 11:08 Senna Tablet PO 01/05/25 11:07 QDAY PRN constipation Protocol Tamsulosin HCl 0.4 mg 12/06/24 21:00 12/06/24 20:41 Tamsulosin Hcl 0.4 Mg Capsule PO 01/05/25 20:59 0.4 mg HS ERWIN Administration Plan Assessment Randall is a 64 y/o male with past medical history of CAD s/p AR in (2005, no stent), a-fib (Xarelto) systolic congestive heart failure with an EF of 40 to 45% in December 2022, essential hypertension, hyperlipidemia, non-insulin dependent diabetes mellitus type 2, history of cholelithiasis, osteoarthritis, BPH, diverticulosis, sbo (2021), who is currently admitted for hypertensive emergency #Hypertensive emergency #Lower extremity edema, improving #Elevated troponin, resolved #HFpEF with grade 2 diastolic dysfunction Echo from today shows: Normal LV size and function. Estimated EF 55-60%. Grade II diastolic dysfunction. Normal RV size and function. Patient came in with blood pressure in the 180s systolic upon arrival Troponin elevated at 0.140, showing some possible endorgan damage Patient could have worsening lower extremity edema due to hypertension, do not think this is a heart failure exacerbation Patient took two 20 mg tablets of Lasix before coming Patient is a medically compliant patient, however could use more optimal medical management Patient appears to be doing well, is not requiring oxygen swelling has improved in his legs However patient's blood pressure pressure has not been under control still in the 170s, was given clonidine last night, this is a medicine we want to discontinue on upon discharge We will keep patient to see how he tolerates new blood pressure medicine and to give him a couple doses to see how he tolerates Troponins peaked and are not being checked anymore Patient will need to follow-up upon DC with Dr. Gill outpatient Plan: ?Will start Coreg 25 mg twice daily by mouth ?Continue with losartan 100 mg ?Reduce systolic blood pressure up to 25% within first 24 hours #History of CAD status post AR no stents Given loading dose of aspirin in ER Plan: ? Continue with ASA 81 #A-fib, rate controlled, on Xarelto Rate controlled, heart rate in the 60s currently EKG did show P waves and rate and rhythm control [id number]: 5 points HAS-BLED: 2 points Plan: ? Continue resuming Xarelto 20 mg home medicine #Pericardial effusion Small pericardial effusion seen on echo Plan: ? Monitor for worsening of symptoms, no intervention at this time #History of [id number] type 2 diabetes #History of hyperlipidemia Most recent A1c 7.1 LDL 65, triglycerides 60, total cholesterol 134 Plan: ? Primary team to manage sugars ? Continue home Lipitor 40 mg #BPH #Electrolyte abnormalities #Hx of osteoarthritis Primary hospitalist team to manage above Patient seen and care discussed with my attending physician, Dr. Bridget Gamboa, PGY-1
[2024-12-07] MEDS: INSULIN LISPRO (AdmeLOG) 1 UNIT/0.01 ML UNIT SC ×3 (08:19→20:21)
[2024-12-07] MEDS: POTASSIUM CHLORIDE 20 mEq TABCR 40 MEQ PO (08:38)
[2024-12-07] MEDS: METOPROLOL SUCCINATE XL 25 MG TABCR 100 MG PO (08:39)
[2024-12-07] MEDS: FINASTERIDE 5 MG TABLET PO (08:39)
[2024-12-07] MEDS: ASPIRIN EC 81 MG TABEC PO (08:39)
[2024-12-07] MEDS: LOSARTAN POTASSIUM 25 MG TABLET 100 MG PO (08:40)
[2024-12-07] MEDS: RIVAROXABAN 10 MG TABLET 20 MG PO (08:41)
--- NOTE | 2024-12-07 10:55 | PC.SS ---
Rounding: Pending cardio reccs, BP elevated if controlled possible DC today or tomorrow
--- NOTE | 2024-12-07 11:00 | CHAP ---
Patient was visited by the Spiritual Care Volunteer who prayed for them. (Volunteer was in the hospital from 09:30-11:00)
[2024-12-07 12:27] LABS: Troponin I 0.063 ng/mL (0.0-0.045)
--- NOTE | 2024-12-07 16:06 | PC.NURSE ---
Notified Dr Iraheta that patient had elevated blood pressure of 186/103 with HR of 67. Awaiting orders
[2024-12-07] MEDS: hydrALAZINE HCL 25 MG TABLET PO (16:27)
[2024-12-07] MEDS: carVEDILOL 12.5 MG TABLET 25 MG PO (17:53)
--- NOTE | 2024-12-07 18:09 | EKG_ITS ---
[facility] Test Date: 2024-12-07 Pat Name: JUAN ECHEVERRIA [facility] Gender: Male Green Chainer: YENNY : 1960 Requested By: Javed Schneider Order Number: [id number] Reading MD: Javed Schneider Measurements Intervals [place] Rate: 125 P: IA: QRS: -15 QRSD: 105 T: 30 QT: 318 QTc: 458 Interpretive Statements ATRIAL FIBRILLATION WITH RAPID VENTRICULAR RESPONSE POSSIBLE ANTERIOR MYOCARDIAL INFARCTION , OF INDETERMINATE AGE INFERIOR MYOCARDIAL INFARCTION , PROBABLY OLD Compared to ECG 10/16/2024 10:11:38 Left-axis deviation no longer present Myocardial infarct finding still present /store/S0/[id number]
[2024-12-07] MEDS: DILTIAZEM INJ 5 MG/ML VIAL 5 ML 10 MG IV (18:32)
[2024-12-07 19:30] LABS: Troponin I 0.073 ng/mL (0.0-0.045)
[2024-12-07] MEDS: Magnesium Sulfate 2 GM Ivpb 2 GM/50 ML BAG IV (20:04)
[2024-12-07] MEDS: POTASSIUM CHLORIDE 20 mEq TABCR PO (20:04)
[2024-12-07] MEDS: TAMSULOSIN HCL 0.4 MG CAPSULE PO (20:04)
[2024-12-07] MEDS: ATORVASTATIN CALCIUM 20 MG TABLET 40 MG PO (20:04)
[2024-12-08] VITALS (15 sets, daily range): BP systolic 146–184; BP diastolic 72–97; PULSE 57–90; RESP 16–97; TEMP 36.1–36.7; O2SAT 90–96; BMI 31.4
--- NOTE | 2024-12-08 01:04 | PC.NURSE ---
Dr. Gilliam made aware of patients bp 169/91, no new orders at this time
[2024-12-08 05:50] LABS: Basophils % (Auto) 0 % (0-2.5); Eosinophils # (Auto) 0.2 Thou/mm3 (0.0-0.5); Eosinophils % (Auto) 3 % (0-10); Hematocrit 33.7 % (41.0-53.0); Hemoglobin 10.4 g/dL (13.5-16.0); Immature Granulocytes % (Auto) 0 % (0-0); Immature Granulocytes Auto 0.03 Thou/mm3 (0.00-0.00); Lymphocytes # (Auto) 1.3 Thou/mm3 (1.0-4.8); Lymphocytes % (Auto) 15 % (10-50); Mean Corpuscular HGB Conc 30.9 g/dl (31.0-37.0); Mean Corpuscular Hemoglobin 25.4 pg (25.0-35.0); Mean Corpuscular Volume 82 fL (80-100); Monocytes # (Auto) 0.8 Thou/mm3 (0.0-0.8); Monocytes % (Auto) 9 % (0-12); Neutrophils # (Auto) 6.3 Thou/mm3 (1.8-7.7); Neutrophils % (Auto) 73 % (37-80); Nucleated Red Blood Cell % 0 /100 WBC (0); Platelet Count 240 Thou/mm3 (140-440); RDW Standard Deviation 49.5 fL (35.1-43.9); White Blood Count 8.6 Thou/mm3 (3.8-10.6)
[2024-12-08 06:22] LABS: Alanine Aminotransferase 17 U/L (10-49); Albumin, Serum 4.3 gm/dL (3.4-4.8); Albumin/Globulin Ratio 1.4 (1.2-2.2); Alkaline Phosphatase 75 U/L (46-116); Anion Gap 6 (7-16); Aspartate Amino Transferase 15 U/L (0-34); BUN/Creatinine Ratio 20 Ratio (12-20); Bilirubin,Total 0.9 mg/dL (0.3-1.2); Blood Urea Nitrogen 18 mg/dL (9-23); Calcium 9.3 mg/dL (8.3-10.6); Calcium (Corrected) 9.3 mg/dL (8.5-10.1); Carbon Dioxide 29.1 mMol/L (20.0-31.0); Chloride 103 mMol/L (98-107); Creatinine (Component) 0.9 mg/dL (0.6-1.3); Estimated Creatinine Clearance 85.2 mL/min (>60); Glucose 139 mg/dL (74-106); Magnesium 2.2 mg/dL (1.6-2.6); Osmolality,Calculated 279 (275-295); Potassium 4.3 mMol/L (3.4-5.1); Sodium 138 mMol/L (136-145); Total Protein 7.3 gm/dL (5.7-8.2); eGFR > 60 See Note
[2024-12-08] MEDS: INSULIN LISPRO (AdmeLOG) 1 UNIT/0.01 ML UNIT SC ×4 (07:56→20:49)
[2024-12-08] MEDS: ASPIRIN EC 81 MG TABEC PO (08:58)
[2024-12-08] MEDS: FINASTERIDE 5 MG TABLET PO (08:59)
[2024-12-08] MEDS: amLODIPine BESYLATE 2.5 MG TABLET PO ×2 (08:59→12:39)
[2024-12-08] MEDS: RIVAROXABAN 10 MG TABLET 20 MG PO (08:59)
[2024-12-08] MEDS: LOSARTAN POTASSIUM 25 MG TABLET 100 MG PO (09:00)
[2024-12-08] MEDS: carVEDILOL 12.5 MG TABLET 25 MG PO ×2 (09:00→17:03)
[2024-12-08] MEDS: hydroCHLOROthiazide 12.5 MG CAPSULE PO (12:39)
--- NOTE | 2024-12-08 12:50 | ESPR_ITS ---
<Statement entered by Mele Gill MD - 12/09/24 05:16> I have personally seen and examined the patient separately on the above date of service and discussed the plan of care with the resident. I reviewed the resident Dr. Navas consultation progress note and agree with the resident findings and plan in the note above and have also edited the documentation to reflect my findings and plan. Patient well-known to me from previous admissions as well as he followed up in the clinic in July 2024 but did not come for his follow-ups as he was apparently sick in the last few months and was seeing his primary care. 64-year-old male patient with a past medical history of CAD status post RI in 2005 as per patient with a known PCI history, NSTEMI in 2022 with troponin of 0.11, paroxysmal atrial fibrillation on anticoagulation, history of systolic and diastolic congestive heart failure with an EF of 40 to 45% improved to 50% with GDMT, patient is hypertension, hyperlipidemia, diabetes mellitus type 2 uncontrolled, noncompliant, cholelithiasis, osteoarthritis, BPH, diverticulosis, SBO in 2021, COVID-2019 presented for further evaluation of chills, elevated blood pressure at home and overall feeling unwell with generalized weakness, some palpitations and dizziness and heart racing sensation. In the emergency room patient with pressure was elevated at 181/88 mmHg, heart rate of 88/min, afebrile and respirations of 18 and saturation normal on room air. EKG showed normal sinus rhythm with no acute ST-T changes. Chest x-ray showed mild vascular congestion without any evidence of any pneumonia. CT head was negative which was done for elevated blood pressure. Labs showed WBC of 8.6, hemoglobin of 10.3, platelets of 294 and BUN of 18 creatinine of 1.0 troponins 2 sets were at 0.130 and 0.146. NT-proBNP was 285. Cardiology is consulted for further evaluation. Plan: Patient presented with hypertensive emergency and unclear of his medication regimen and what medication he takes. Patient has been noncompliant with his visits as he was apparently sick and was following his primary care doctor. He was last seen in the clinic in July 2024 at that point of time patient was Entresto as well as metoprolol XL and his BP was optimally controlled. Blood pressure still continues to be high and patient is on losartan 100 mg once daily, Coreg 25 mg twice daily along with amlodipine 2.5 mg once daily. Increased amlodipine to 5 mg once daily and have attempted to add patient to hydrochlorothiazide 12.5 mg once daily. Recommend to continue to uptitrate amlodipine to 10 mg once daily for now. Patient is also on home Lasix 40 mg once daily and recommend to restart it as the patient does have bilateral leg swelling of 1+ today during my exam. Paroxysmal atrial fibrillation-rate was well-controlled but this evening patient did go into atrial fibrillation with RVR. Patient was given 1 dose of diltiazem 10 mg IV. Recommend to continue Coreg 25 mg twice daily for now. Continue Xarelto for anticoagulation. Keep potassium greater than 4 and magnesium greater than 2.0 at all times. Mildly elevated troponins mostly secondary to NSTEMI type II in the setting of supply/demand mismatch with hypertensive emergency. Patient states that he does have a history of old RI in 2005 but no documentation. Patient does have a history of mildly elevated troponins of 0.11 as well as 0.13 during this admission. Patient was scheduled for an nuclear stress test as outpatient but as noted before patient did not follow-up. Patient denies any kind of chest pain or chest pressure bacteremia and for headaches as well as with the elevated blood pressure and heart rates. EKG did not show any acute pathology. Echo completed on 12/06/2024 showed normal LV, RV function. LVEF 55 to 60%. Grade 2 diastolic dysfunction. Mild valvular abnormalities with trace to trivial anterior pericardial effusion. Recommend aspirin statin and beta-arcelia for now. TSH normal. A1c 7.1. LDL 65 TG 60 and total cholesterol 134. Patient does have a history of mild systolic congestive heart failure along with diastolic congestive heart failure in 2021 with a EF of 40 to 45% which improved to around 55 to 60%. Patient also has diastolic dysfunction. On examination he only has trace edema. Patient was on oral Lasix as outpatient and recommend to give IV Lasix x 1 and can continue oral Lasix 40 mg once daily as his kidney function appears to be normal. Strict input output elevated 2 g sodium diet. Recommend strict control of his diabetes mellitus last A1c around 7.1 Management of rest of the medical conditions as per primary team and other consultants. Thank you for the consult and allowing me to participate in the care of the patient. Cardiology will continue to follow. Mele Gill M.D. Interventional Cardiology Documentation for date of: 12/08/24 Subjective Subjective Interval history: Patient examined at bedside. Patient telemetry reviewed rate in the 60s and 70s a couple PVCs overnight, however NSR. Patient says he is feeling good, no chest pain, shortness of breath or palpitations. He is wondering when he is in a go home. His blood pressure throughout the night has been 170s and 180s systolic. Not having bowel movements and has been moving around. No other complaints this time Exam Vital Signs Temp Pulse Resp BP Pulse Ox O2 Del Method 97.8 F 64 20 183/95 H 95 Room Air 12/08/24 08:00 12/08/24 12:39 12/08/24 08:00 12/08/24 12:39 12/08/24 08:00 12/08/24 08:00 Narrative Exam General: AAOx3, NAD, pleasant male wearing glasses, sitting in chair, comfortable HEENT: Moist mucous membranes, conjunctiva clear, EOMI, PERRLA, Cardiovascular: S1, S2, radial pulses +2 bilat, RRR Pulmonary: CTAB bilat no cough, no wheezing GI: No tenderness to light or deep palpitation, no guarding, rigidity, rebound tenderness or distension Extremities: Trace pitting edema up to mid brown bilaterally improved from yesterday, dorsalis pedis pulses +2 bilaterally, multiple tattoos seen in both arms bilat Neuro: AAOx3, no focal motor or sensory deficits in the UE or LE bilat Psych: Good judgement, thought and behavior. Cooperative Objective Labs 12/08/24 05:18 12/08/24 05:18 Labs: Laboratory Results - last 24 hr 12/07/24 12/08/24 18:40 05:18 WBC 8.6 RBC 4.10 L Hgb 10.4 L Hct 33.7 L MCV 82 MCH 25.4 MCHC 30.9 L RDW Std Deviation 49.5 H Plt Count 240 D Neut % (Auto) 73 Lymph % (Auto) 15 [place] % (Auto) 9 Eos % (Auto) 3 Baso % (Auto) 0 Neut # (Auto) 6.3 Lymph # (Auto) 1.3 [place] # (Auto) 0.8 Eos # (Auto) 0.2 Baso # (Auto) 0.0 Immature Gran # (Auto) 0.03 H Absolute Nucleated RBC 0.00 Immature Gran % 0 Nucleated RBC % 0 Sodium 138 Potassium 4.3 D Chloride 103 Carbon Dioxide 29.1 Anion Gap 6 L BUN 18 Creatinine 0.9 Estim Creat Clear Calc 85.2 eGFR > 60 BUN/Creatinine Ratio 20 Glucose 139 H Calculated Osmolality 279 Calcium 9.3 Corrected Calcium 9.3 Phosphorus 3.0 Magnesium 2.2 Total Bilirubin 0.9 AST 15 ALT 17 Alkaline Phosphatase 75 Troponin I 0.073 H* Total Protein 7.3 Albumin 4.3 Globulin 3.0 Albumin/Globulin Ratio 1.4 Quality Measures Quality Measures VTE prophylaxis Advance care planning discussed with:: patient Assessment & Plan Assessment Current Active Medications: Generic Name Dose Route Start Last Admin Trade Name Freq PRN Reason Stop Dose Admin Acetaminophen 650 mg 12/06/24 11:08 Acetaminophen 325 Mg Tablet PO 01/05/25 11:07 Q6H PRN Fever >101.5 Acetaminophen 650 mg 12/06/24 11:08 Acetaminophen Supp 650 Mg Supp NE 01/05/25 11:07 Q6H PRN PAIN SCALE 1-3 (mild Amlodipine Besylate 5 mg 12/09/24 09:00 Amlodipine Besylate 5 Mg Tablet PO 01/08/25 08:59 QDAY ERWIN Aspirin 81 mg 12/07/24 09:00 12/08/24 08:58 Aspirin Ec 81 Mg Tabec PO 01/06/25 08:59 81 mg QDAY ERWIN Administration Atorvastatin Calcium 40 mg 12/06/24 21:00 12/07/24 20:04 Atorvastatin Calcium 20 Mg Tablet PO 01/05/25 20:59 40 mg HS ERWIN Administration Carvedilol 25 mg 12/07/24 17:30 12/08/24 09:00 Carvedilol 12.5 Mg Tablet PO 01/06/25 17:29 25 mg BIDWM ERWIN Administration Dextrose 50 ml 12/06/24 21:43 Dextrose 50%-Water Inj 50 Ml Syringe IV 01/05/25 21:42 Q15MIN PRN BG <50 OR BG <70 & pt unresponsive Finasteride 5 mg 12/07/24 09:00 12/08/24 08:59 Finasteride 5 Mg Tablet PO 01/06/25 08:59 5 mg QDAY ERWIN Administration Glucagon 1 mg 12/06/24 21:43 Glucagon Inj 1 Mg Vial IM Q15MIN PRN BG <70, and no IV access Hydralazine HCl 25 mg 12/07/24 16:20 12/07/24 16:27 Hydralazine Hcl 25 Mg Tablet PO 01/06/25 16:14 25 mg TID PRN Administration Hypertension Hydrochlorothiazide 12.5 mg 12/08/24 12:30 12/08/24 12:39 Hydrochlorothiazide 12.5 Mg Capsule PO 01/07/25 12:29 12.5 mg QDAY ERWIN Administration Insulin Human Lispro 0 unit 12/07/24 07:30 12/08/24 11:36 Insulin Lispro (Admelog) 1 Unit/0.01 Ml Unit SC 01/06/25 07:29 2 unit ACHS ERWIN Administration Protocol Losartan Potassium 100 mg 12/06/24 16:30 12/08/24 09:00 Losartan Potassium 25 Mg Tablet PO 01/05/25 16:29 100 mg QDAY ERWIN Administration Nitroglycerin 0.4 mg 12/06/24 16:19 Nitroglycerin 0.4 Mg Subl Btl #25 SL 01/05/25 16:18 Q5MIN PRN Chest Pain Ondansetron HCl 4 mg 12/06/24 11:08 Ondansetron Inj 2 Mg/Ml Inj 2 Ml IV 01/05/25 11:07 Q6H PRN NAUSEA OR VOMITING Protocol Rivaroxaban 20 mg 12/07/24 09:00 12/08/24 08:59 Rivaroxaban 10 Mg Tablet PO 01/06/25 08:59 20 mg QDAY ERWIN Administration Sennosides 1 tab 12/06/24 11:08 Senna Tablet PO 01/05/25 11:07 QDAY PRN constipation Protocol Tamsulosin HCl 0.4 mg 12/06/24 21:00 12/07/24 20:04 Tamsulosin Hcl 0.4 Mg Capsule PO 01/05/25 20:59 0.4 mg HS ERWIN Administration Plan Assessment Randall is a 64 y/o male with past medical history of CAD s/p RI in (2005, no stent), a-fib (Xarelto) systolic congestive heart failure with an EF of 40 to 45% in December 2022, essential hypertension, hyperlipidemia, non-insulin dependent diabetes mellitus type 2, history of cholelithiasis, osteoarthritis, BPH, diverticulosis, sbo (2021), who is currently admitted for hypertensive emergency #Hypertensive emergency, improving #Lower extremity edema, improving #Elevated troponin, resolved #HFpEF with grade 2 diastolic dysfunction Echo from today shows: Normal LV size and function. Estimated EF 55-60%. Grade II diastolic dysfunction. Normal RV size and function. Patient came in with blood pressure in the 180s systolic upon arrival Will not resume clonidine and hydralazine Troponins peaked and are not being checked anymore Patient will need to follow-up upon DC with Dr. Gill outpatient Patient's blood pressure has not been improved with Amlol 2.5, has been in the 180s throughout night Will increase amlodipine and add additional agent Will not restart hydralazine as there was concern for reflex tachycardia, he was given that recently yesterday and his heart rate went up yesterday Plan: ?Continue Coreg 25 mg twice daily by mouth ?Continue with losartan 100 mg ?Continue with amlodipine 5 mg ?Hydrochlorothiazide 12.5 mg started by primary team #History of CAD status post RI no stents Given loading dose of aspirin in ER Plan: ?Continue with ASA 81 #A-fib, rate controlled, on Xarelto Rate controlled, heart rate in the 60s currently EKG did show P waves and rate and rhythm control [id number]: 5 points HAS-BLED: 2 points Plan: ?Continue resuming Xarelto 20 mg home medicine #Pericardial effusion Small pericardial effusion seen on echo Plan: ? Monitor for worsening of symptoms, no intervention at this time #History of [id number] type 2 diabetes #History of hyperlipidemia Most recent A1c 7.1 LDL 65, triglycerides 60, total cholesterol 134 Plan: ? Primary team to manage sugars ? Continue home Lipitor 40 mg #BPH #Electrolyte abnormalities #Hx of osteoarthritis Primary hospitalist team to manage above Patient seen and care discussed with my attending physician, Dr. Bridget Gamboa, PGY-1
--- NOTE | 2024-12-08 13:21 | ESPR_ITS ---
Documentation for date of: 12/08/24 Subjective Subjective Interval history: 12/09: Yesterday p.m. patient had episode of A-fib RVR, given 10 diltiazem and reverted back. No other events. This a.m. patient's vitals are stable except for hypertension which appears persistent. Labs are stable. Patient states that he has a mild headache otherwise does not attest any chest pain, palpitations, chest pressure, abdominal pain, sensorineural changes, changes in vision or hearing. Patient states that he has no new symptoms. Adding hydrochlorothiazide and increasing amlodipine dosage to 5. Will continue to reassess patient throughout the day with this new medication adjustments, possible discharge tomorrow. Exam Vital Signs Temp Pulse Resp BP Pulse Ox O2 Del Method 97.8 F 64 20 183/95 H 95 Room Air 12/08/24 08:00 12/08/24 12:39 12/08/24 08:00 12/08/24 12:39 12/08/24 08:00 12/08/24 08:00 Narrative Exam General: AAOx3, NAD, pleasant male wearing glasses, sitting in chair, comfortable HEENT: Moist mucous membranes, conjunctiva clear, EOMI, PERRLA, Cardiovascular: S1, S2, radial pulses +2 bilat, RRR Pulmonary: CTAB bilat no cough, no wheezing GI: No tenderness to light or deep palpitation, no guarding, rigidity, rebound tenderness or distension Extremities: Trace pitting edema up to mid brown bilaterally improved from yesterday, dorsalis pedis pulses +2 bilaterally, multiple tattoos seen in both arms bilat Neuro: AAOx3, no focal motor or sensory deficits in the UE or LE bilat Psych: Good judgement, thought and behavior. Cooperative Objective Labs 12/08/24 05:18 12/08/24 05:18 Labs: Laboratory Results - last 24 hr 12/07/24 12/08/24 18:40 05:18 WBC 8.6 RBC 4.10 L Hgb 10.4 L Hct 33.7 L MCV 82 MCH 25.4 MCHC 30.9 L RDW Std Deviation 49.5 H Plt Count 240 D Neut % (Auto) 73 Lymph % (Auto) 15 [place] % (Auto) 9 Eos % (Auto) 3 Baso % (Auto) 0 Neut # (Auto) 6.3 Lymph # (Auto) 1.3 [place] # (Auto) 0.8 Eos # (Auto) 0.2 Baso # (Auto) 0.0 Immature Gran # (Auto) 0.03 H Absolute Nucleated RBC 0.00 Immature Gran % 0 Nucleated RBC % 0 Sodium 138 Potassium 4.3 D Chloride 103 Carbon Dioxide 29.1 Anion Gap 6 L BUN 18 Creatinine 0.9 Estim Creat Clear Calc 85.2 eGFR > 60 BUN/Creatinine Ratio 20 Glucose 139 H Calculated Osmolality 279 Calcium 9.3 Corrected Calcium 9.3 Phosphorus 3.0 Magnesium 2.2 Total Bilirubin 0.9 AST 15 ALT 17 Alkaline Phosphatase 75 Troponin I 0.073 H* Total Protein 7.3 Albumin 4.3 Globulin 3.0 Albumin/Globulin Ratio 1.4 Quality Measures Quality Measures VTE prophylaxis Advance care planning discussed with:: patient Assessment & Plan Assessment Current Active Medications: Generic Name Dose Route Start Last Admin Trade Name Freq PRN Reason Stop Dose Admin Acetaminophen 650 mg 12/06/24 11:08 Acetaminophen 325 Mg Tablet PO 01/05/25 11:07 Q6H PRN Fever >101.5 Acetaminophen 650 mg 12/06/24 11:08 Acetaminophen Supp 650 Mg Supp LA 01/05/25 11:07 Q6H PRN PAIN SCALE 1-3 (mild Amlodipine Besylate 5 mg 12/09/24 09:00 Amlodipine Besylate 5 Mg Tablet PO 01/08/25 08:59 QDAY ERWIN Aspirin 81 mg 12/07/24 09:00 12/08/24 08:58 Aspirin Ec 81 Mg Tabec PO 01/06/25 08:59 81 mg QDAY ERWIN Administration Atorvastatin Calcium 40 mg 12/06/24 21:00 12/07/24 20:04 Atorvastatin Calcium 20 Mg Tablet PO 01/05/25 20:59 40 mg HS ERWIN Administration Carvedilol 25 mg 12/07/24 17:30 12/08/24 09:00 Carvedilol 12.5 Mg Tablet PO 01/06/25 17:29 25 mg BIDWM ERWIN Administration Dextrose 50 ml 12/06/24 21:43 Dextrose 50%-Water Inj 50 Ml Syringe IV 01/05/25 21:42 Q15MIN PRN BG <50 OR BG <70 & pt unresponsive Finasteride 5 mg 12/07/24 09:00 12/08/24 08:59 Finasteride 5 Mg Tablet PO 01/06/25 08:59 5 mg QDAY ERWIN Administration Glucagon 1 mg 12/06/24 21:43 Glucagon Inj 1 Mg Vial IM Q15MIN PRN BG <70, and no IV access Hydralazine HCl 25 mg 12/07/24 16:20 12/07/24 16:27 Hydralazine Hcl 25 Mg Tablet PO 01/06/25 16:14 25 mg TID PRN Administration Hypertension Hydrochlorothiazide 12.5 mg 12/08/24 12:30 12/08/24 12:39 Hydrochlorothiazide 12.5 Mg Capsule PO 01/07/25 12:29 12.5 mg QDAY ERWIN Administration Insulin Human Lispro 0 unit 12/07/24 07:30 12/08/24 11:36 Insulin Lispro (Admelog) 1 Unit/0.01 Ml Unit SC 01/06/25 07:29 2 unit ACHS ERWIN Administration Protocol Losartan Potassium 100 mg 12/06/24 16:30 12/08/24 09:00 Losartan Potassium 25 Mg Tablet PO 01/05/25 16:29 100 mg QDAY ERWIN Administration Nitroglycerin 0.4 mg 12/06/24 16:19 Nitroglycerin 0.4 Mg Subl Btl #25 SL 01/05/25 16:18 Q5MIN PRN Chest Pain Ondansetron HCl 4 mg 12/06/24 11:08 Ondansetron Inj 2 Mg/Ml Inj 2 Ml IV 01/05/25 11:07 Q6H PRN NAUSEA OR VOMITING Protocol Rivaroxaban 20 mg 12/07/24 09:00 12/08/24 08:59 Rivaroxaban 10 Mg Tablet PO 01/06/25 08:59 20 mg QDAY ERWIN Administration Sennosides 1 tab 12/06/24 11:08 Senna Tablet PO 01/05/25 11:07 QDAY PRN constipation Protocol Tamsulosin HCl 0.4 mg 12/06/24 21:00 12/07/24 20:04 Tamsulosin Hcl 0.4 Mg Capsule PO 01/05/25 20:59 0.4 mg HS ERWIN Administration Plan This is a 64-year-old male with a past medical history of HFmrEF (EF 40-45%, 07/10/2024), A-fib on Xarelto, CAD status post AR (2005, no stent), atrial fibrillation type 2 diabetes mellitus, hypertension, hyperlipidemia who presents to the emergency department for chills and dizziness. #Hypertension #Hypertensive emergency Troponin of 0.130 Initial blood pressure 181/88 Discontinued metoprolol XL Started on Coreg 25 twice daily Losartan 100 mg p.o. daily Hydrochlorothiazide 12.5 Mg daily Amlodipine dosage increased to 5 Mg daily # NSTEMI type II #Likely supply demand ischemia # ACS ruled out Troponin of 0.[address] elevations on EKG -Cardiology recommended to control blood pressure -Troponin I downtrended -Lovenox discontinued -Aspirin loading dose given, continue aspirin 81 daily -Cardiology Dr. Gill following, appreciate recommendations # Diabetes mellitus type 2 Patient states that he has used insulin in the past but is off of it now Home medication is metformin 1000 mg p.o. twice daily with meals -Sliding scale insulin, with adjustments to be made #Hyperlipidemia -Restarting patient's home dose atorvastatin 40 Mg daily #Atrial fibrillation History of atrial fibrillation. IV diltiazem 10 mg was given for A-fib RVR Started Coreg 25 twice daily Started Xarelto 20 mg once daily #BPH -Restart patient's home dose finasteride 5 Mg p.o. daily Diet: Cardiac diet GI: Pantoprazole DVT: Patient is on therapeutic Lovenox [place]: None Lines: Peripheral Dispo: Tele Med Rec: Pending Code: Full Patient was seen and discussed with attending physician, Dr. Jr Francois DO PGY1 Attending Provider Attestation/Addendum I have discussed and was present for the essential components of the history, physical examination, diagnosis, and treatment plan with the resident. I agree with the patient's care as documented by the resident and amended herein by me. Jacob Norris DO. Patient seen and evaluated this AM. There was a rapid response overnight for A- fib with RVR which was readily controlled with a dose of diltiazem. Patient's heart rate well-controlled overnight after the RR. Blood pressure overnight has remained elevated with the SBP in the 160-180s. Patient was started on amlodipine 2.5 mg last night. At this time, we will continue Coreg 25 mg twice daily, losartan 100 mg daily, will uptitrate the amlodipine to 5 mg daily in am going to add hydrochlorothiazide with the understanding that this may cause a decrease in the patient electrolyte levels, namely sodium and potassium which we will have to monitor closely. Patient is on hydralazine at home however we feel this is causing reflexive tachycardia and will hold at this time, the patient was also on clonidine at home which will also not restart unless we absolutely have to. We appreciate cardiology recommendations, patient can be discharged once we get a better handle on this patient's blood pressure. Will keep potassium and magnesium repleted at greater than 4 and 2 respectively Although this document has been carefully reviewed, there may still be some phonetic and other typographical errors. These errors are purely grammatical due to imperfections in the software program and should not be construed in any way to compromise the substance of the patient's medical care during this visit.
[2024-12-08] MEDS: FUROSEMIDE INJ 10 MG/ML 4ML VIAL 40 MG IVP (18:48)
[2024-12-08] MEDS: TAMSULOSIN HCL 0.4 MG CAPSULE PO (20:42)
[2024-12-08] MEDS: ATORVASTATIN CALCIUM 20 MG TABLET 40 MG PO (20:42)
[2024-12-09] VITALS (14 sets, daily range): BP systolic 140–175; BP diastolic 83–97; PULSE 56–65; RESP 16–98; TEMP 36.1–36.7; O2SAT 91–98; BMI 32.3
[2024-12-09 05:58] LABS: Basophils # (Auto) 0.1 Thou/mm3 (0.0-0.2); Basophils % (Auto) 1 % (0-2.5); Eosinophils # (Auto) 0.3 Thou/mm3 (0.0-0.5); Eosinophils % (Auto) 4 % (0-10); Hematocrit 32.6 % (41.0-53.0); Hemoglobin 10.2 g/dL (13.5-16.0); Immature Granulocytes % (Auto) 0 % (0-0); Immature Granulocytes Auto 0.02 Thou/mm3 (0.00-0.00); Lymphocytes # (Auto) 1.3 Thou/mm3 (1.0-4.8); Lymphocytes % (Auto) 15 % (10-50); Mean Corpuscular HGB Conc 31.3 g/dl (31.0-37.0); Mean Corpuscular Hemoglobin 25.6 pg (25.0-35.0); Mean Corpuscular Volume 82 fL (80-100); Monocytes # (Auto) 0.9 Thou/mm3 (0.0-0.8); Monocytes % (Auto) 11 % (0-12); Neutrophils # (Auto) 5.7 Thou/mm3 (1.8-7.7); Neutrophils % (Auto) 69 % (37-80); Nucleated Red Blood Cell % 0 /100 WBC (0); Platelet Count 266 Thou/mm3 (140-440); RDW Standard Deviation 48.5 fL (35.1-43.9); Red Blood Count 3.98 Miln/mm3 (4.50-5.90); White Blood Count 8.3 Thou/mm3 (3.8-10.6)
[2024-12-09 06:21] LABS: Alanine Aminotransferase 14 U/L (10-49); Albumin, Serum 4.1 gm/dL (3.4-4.8); Albumin/Globulin Ratio 1.5 (1.2-2.2); Alkaline Phosphatase 74 U/L (46-116); Anion Gap 8 (7-16); Aspartate Amino Transferase 15 U/L (0-34); BUN/Creatinine Ratio 18 Ratio (12-20); Bilirubin,Total 0.9 mg/dL (0.3-1.2); Blood Urea Nitrogen 16 mg/dL (9-23); Carbon Dioxide 30.7 mMol/L (20.0-31.0); Chloride 100 mMol/L (98-107); Creatinine (Component) 0.9 mg/dL (0.6-1.3); Estimated Creatinine Clearance 86.3 mL/min (>60); Globulin 2.8 gm/dL (2.3-3.5); Glucose 120 mg/dL (74-106); Magnesium 1.9 mg/dL (1.6-2.6); Osmolality,Calculated 279 (275-295); Phosphorous 3.8 mg/dL (2.4-5.1); Potassium 3.1 mMol/L (3.4-5.1); Sodium 139 mMol/L (136-145); Total Protein 6.9 gm/dL (5.7-8.2); eGFR > 60 See Note
[2024-12-09] MEDS: carVEDILOL 12.5 MG TABLET 25 MG PO ×2 (08:59→09:43)
[2024-12-09] MEDS: POTASSIUM CHLORIDE 20 mEq TABCR 40 MEQ PO ×2 (09:05→18:00)
[2024-12-09] MEDS: POTASSIUM CHL 10 mEq IVPB 10 MEQ/100 ML BAG 75 MEQ IV ×3 (09:37→12:44)
[2024-12-09] MEDS: amLODIPine BESYLATE 5 MG TABLET 10 MG PO ×2 (09:38→12:44)
[2024-12-09] MEDS: RIVAROXABAN 10 MG TABLET 20 MG PO (09:43)
[2024-12-09] MEDS: hydroCHLOROthiazide 12.5 MG CAPSULE 25 MG PO (09:44)
[2024-12-09] MEDS: LOSARTAN POTASSIUM 25 MG TABLET 100 MG PO (09:44)
[2024-12-09] MEDS: ASPIRIN EC 81 MG TABEC PO (09:44)
[2024-12-09] MEDS: FINASTERIDE 5 MG TABLET PO (09:45)
[2024-12-09] MEDS: Magnesium Sulfate 1 gm Ivpb 1 GM/100 ML BAG IV (11:12)
[2024-12-09] MEDS: INSULIN LISPRO (AdmeLOG) 1 UNIT/0.01 ML UNIT SC ×3 (12:22→20:48)
--- NOTE | 2024-12-09 12:37 | ESPR_ITS ---
Documentation for date of: 12/09/24 Subjective Subjective Interval history: 12/09/2024: Patient examined at bedside today. Telemetry reviewed, overnight patient is out of fib, rate controlled 60s and 70s. Patient reports he is doing well, is not having any shortness of breath or chest pain, however he has noticed some swelling in his legs. He was given 40 Lasix yesterday, will continue to give him another 40 Lasix today IV and also will give him another 40 Lasix tonight. His blood pressure has still not been under control, was 163 systolic after blood pressure medicines were given. Will add an additional amlodipine 10 as he was given amlodipine 10 earlier. Also made Coreg 37.5 as well. Patient BUN/creatinine sixteen 0.9, will be able to tolerate diuresis with Lasix, as patient's blood pressure will not improve until fluid is removed off. Exam Vital Signs Temp Pulse Resp BP Pulse Ox O2 Del Method 97.8 F 62 19 172/97 H 91 L Room Air 12/09/24 08:00 12/09/24 09:44 12/09/24 08:00 12/09/24 09:44 12/09/24 08:00 12/09/24 08:00 Narrative Exam General: AAOx3, NAD, pleasant male wearing glasses, sitting in chair, comfortable HEENT: Moist mucous membranes, conjunctiva clear, EOMI, PERRLA, Cardiovascular: S1, S2, radial pulses +2 bilat, RRR Pulmonary: CTAB bilat no cough, no wheezing GI: No tenderness to light or deep palpitation, no guarding, rigidity, rebound tenderness or distension Extremities: +2 pitting edema up to mid brown bilaterally improved from yesterday, dorsalis pedis pulses +2 bilaterally, multiple tattoos seen in both arms bilat Neuro: AAOx3, no focal motor or sensory deficits in the UE or LE bilat Psych: Good judgement, thought and behavior. Cooperative Objective Labs 12/09/24 05:08 12/09/24 05:08 Labs: Laboratory Results - last 24 hr 12/09/24 05:08 WBC 8.3 RBC 3.98 L Hgb 10.2 L Hct 32.6 L MCV 82 MCH 25.6 MCHC 31.3 RDW Std Deviation 48.5 H Plt Count 266 Neut % (Auto) 69 Lymph % (Auto) 15 [place] % (Auto) 11 Eos % (Auto) 4 Baso % (Auto) 1 Neut # (Auto) 5.7 Lymph # (Auto) 1.3 [place] # (Auto) 0.9 H Eos # (Auto) 0.3 Baso # (Auto) 0.1 Immature Gran # (Auto) 0.02 H Absolute Nucleated RBC 0.00 Immature Gran % 0 Nucleated RBC % 0 Sodium 139 Potassium 3.1 L D Chloride 100 Carbon Dioxide 30.7 Anion Gap 8 BUN 16 Creatinine 0.9 Estim Creat Clear Calc 86.3 eGFR > 60 BUN/Creatinine Ratio 18 Glucose 120 H Calculated Osmolality 279 Calcium 9.0 Corrected Calcium 9.0 Phosphorus 3.8 Magnesium 1.9 Total Bilirubin 0.9 AST 15 ALT 14 Alkaline Phosphatase 74 Total Protein 6.9 Albumin 4.1 Globulin 2.8 Albumin/Globulin Ratio 1.5 Quality Measures Quality Measures VTE prophylaxis Advance care planning discussed with:: patient Assessment & Plan Assessment Current Active Medications: Generic Name Dose Route Start Last Admin Trade Name Freq PRN Reason Stop Dose Admin Acetaminophen 650 mg 12/06/24 11:08 Acetaminophen 325 Mg Tablet PO 01/05/25 11:07 Q6H PRN Fever >101.5 Acetaminophen 650 mg 12/06/24 11:08 Acetaminophen Supp 650 Mg Supp [place] 01/05/25 11:07 Q6H PRN PAIN SCALE 1-3 (mild Amlodipine Besylate 10 mg 12/09/24 09:00 12/09/24 09:38 Amlodipine Besylate 5 Mg Tablet PO 01/08/25 08:59 10 mg QDAY ERWIN Administration Aspirin 81 mg 12/07/24 09:00 12/09/24 09:44 Aspirin Ec 81 Mg Tabec PO 01/06/25 08:59 81 mg QDAY ERWIN Administration Atorvastatin Calcium 40 mg 12/06/24 21:00 12/08/24 20:42 Atorvastatin Calcium 20 Mg Tablet PO 01/05/25 20:59 40 mg HS ERWIN Administration Carvedilol 37.5 mg 12/09/24 17:30 Carvedilol 12.5 Mg Tablet PO 01/08/25 17:29 BIDWM ERWIN Dextrose 50 ml 12/06/24 21:43 Dextrose 50%-Water Inj 50 Ml Syringe IV 01/05/25 21:42 Q15MIN PRN BG <50 OR BG <70 & pt unresponsive Finasteride 5 mg 12/07/24 09:00 12/09/24 09:45 Finasteride 5 Mg Tablet PO 01/06/25 08:59 5 mg QDAY ERWIN Administration Furosemide 40 mg 12/09/24 21:00 Furosemide Inj 10 Mg/Ml 4ml Vial IVP 12/09/24 21:01 X1 ONE Glucagon 1 mg 12/06/24 21:43 Glucagon Inj 1 Mg Vial IM Q15MIN PRN BG <70, and no IV access Hydrochlorothiazide 25 mg 12/09/24 08:20 12/09/24 09:44 Hydrochlorothiazide 12.5 Mg Capsule PO 01/08/25 08:19 25 mg QDAY ERWIN Administration Insulin Human Lispro 0 unit 12/07/24 07:30 12/09/24 12:22 Insulin Lispro (Admelog) 1 Unit/0.01 Ml Unit SC 01/06/25 07:29 2 unit ACHS ERWIN Administration Protocol Labetalol HCl 10 mg 12/08/24 14:25 Labetalol Inj 5 Mg/Ml Vial 20 Ml IVP 01/07/25 14:59 Q3HR PRN Hypertensive Emergency Losartan Potassium 100 mg 12/06/24 16:30 12/09/24 09:44 Losartan Potassium 25 Mg Tablet PO 01/05/25 16:29 100 mg QDAY ERWIN Administration Nitroglycerin 0.4 mg 12/06/24 16:19 Nitroglycerin 0.4 Mg Subl Btl #25 SL 01/05/25 16:18 Q5MIN PRN Chest Pain Ondansetron HCl 4 mg 12/06/24 11:08 Ondansetron Inj 2 Mg/Ml Inj 2 Ml IV 01/05/25 11:07 Q6H PRN NAUSEA OR VOMITING Protocol Rivaroxaban 20 mg 12/07/24 09:00 12/09/24 09:43 Rivaroxaban 10 Mg Tablet PO 01/06/25 08:59 20 mg QDAY ERWIN Administration Sennosides 1 tab 12/06/24 11:08 Senna Tablet PO 01/05/25 11:07 QDAY PRN constipation Protocol Tamsulosin HCl 0.4 mg 12/06/24 21:00 12/08/24 20:42 Tamsulosin Hcl 0.4 Mg Capsule PO 01/05/25 20:59 0.4 mg HS ERWIN Administration Plan Assessment Randall is a 64 y/o male with past medical history of CAD s/p [place] in (2005, no stent), a-fib (Xarelto) systolic congestive heart failure with an EF of 40 to 45% in December 2022, essential hypertension, hyperlipidemia, non-insulin dependent diabetes mellitus type 2, history of cholelithiasis, osteoarthritis, BPH, diverticulosis, sbo (2021), who is currently admitted for hypertensive emergency #Hypertensive emergency, improving #Lower extremity edema, improving #Elevated troponin, resolved #HFpEF with grade 2 diastolic dysfunction Echo from today shows: Normal LV size and function. Estimated EF 55-60%. Grade II diastolic dysfunction. Normal RV size and function. Patient came in with blood pressure in the 180s systolic upon arrival Will not resume clonidine and hydralazine Troponins peaked and are not being checked anymore Patient will need to follow-up upon DC with Dr. Gill outpatient Patient blood pressure has not been controlled with addition of multiple medicines Patient will need to have fluid come off him in order for his blood pressure to improve, will add diuresis medicines. Plan: ?Increase Coreg to 37.5 mg twice daily by mouth ?Continue with losartan 100 mg ?Continue with amlodipine 10 mg, added another 10 today for more immediate effect ?Continue with hydrochlorothiazide 12.5 mg ?Lasix 40 mg IV and another 40 Lasix IV tonight at 9 PM #History of CAD status post [place] no stents Plan: ?Continue with ASA 81 #A-fib, rate controlled, on Xarelto Rate controlled, heart rate in the 60s currently EKG did show P waves and rate and rhythm control [id number]: 5 points HAS-BLED: 2 points Plan: ?Continue resuming Xarelto 20 mg home medicine #Pericardial effusion Small pericardial effusion seen on echo Plan: ? Monitor for worsening of symptoms, no intervention at this time #History of [id number] type 2 diabetes #History of hyperlipidemia Most recent A1c 7.1 LDL 65, triglycerides 60, total cholesterol 134 Plan: ? Primary team to manage sugars ? Continue home Lipitor 40 mg #BPH #Electrolyte abnormalities #Hx of osteoarthritis Primary hospitalist team to manage above Patient seen and care discussed with my attending physician, Dr. Bridget Gamboa, PGY-1 Attending Provider Attestation/Addendum I reviewed the resident Dr. Navas consultation progress note and agree with the resident findings and plan in the note above and have also edited the documentation to reflect my findings and plan. Mele Gill M.D. Interventional Cardiology
[2024-12-09] MEDS: FUROSEMIDE INJ 10 MG/ML 4ML VIAL 40 MG IVP (12:44)
--- NOTE | 2024-12-09 16:42 | PD.RESPRO ---
Documentation for date of: 12/09/24 Subjective Subjective Interval history: 12/09: No acute events overnight. Blood pressures continue to remain persistently high, despite multiple adjustments to medications. Cardiology recommended giving an additional amlodipine 10. And increasing Coreg to 37.5. Also recommended giving additional Lasix dose. Patient denies any new symptoms. Pending adequate blood pressures. Exam Vital Signs Temp Pulse Resp BP Pulse Ox O2 Del Method 97.3 F 64 19 163/84 H 98 Room Air 12/09/24 12:00 12/09/24 12:44 12/09/24 12:00 12/09/24 12:44 12/09/24 12:00 12/09/24 12:00 Narrative Exam General: AAOx3, NAD, pleasant male wearing glasses, sitting in chair, comfortable HEENT: Moist mucous membranes, conjunctiva clear, EOMI, PERRLA, Cardiovascular: S1, S2, radial pulses +2 bilat, RRR Pulmonary: CTAB bilat no cough, no wheezing GI: No tenderness to light or deep palpitation, no guarding, rigidity, rebound tenderness or distension Extremities: Trace pitting edema up to mid brown bilaterally improved from yesterday, dorsalis pedis pulses +2 bilaterally, multiple tattoos seen in both arms bilat Neuro: AAOx3, no focal motor or sensory deficits in the UE or LE bilat Psych: Good judgement, thought and behavior. Cooperative Objective Labs 12/10/24 05:30 12/10/24 05:30 Labs: Laboratory Results - last 24 hr 12/09/24 05:08 WBC 8.3 RBC 3.98 L Hgb 10.2 L Hct 32.6 L MCV 82 MCH 25.6 MCHC 31.3 RDW Std Deviation 48.5 H Plt Count 266 Neut % (Auto) 69 Lymph % (Auto) 15 [place] % (Auto) 11 Eos % (Auto) 4 Baso % (Auto) 1 Neut # (Auto) 5.7 Lymph # (Auto) 1.3 [place] # (Auto) 0.9 H Eos # (Auto) 0.3 Baso # (Auto) 0.1 Immature Gran # (Auto) 0.02 H Absolute Nucleated RBC 0.00 Immature Gran % 0 Nucleated RBC % 0 Sodium 139 Potassium 3.1 L D Chloride 100 Carbon Dioxide 30.7 Anion Gap 8 BUN 16 Creatinine 0.9 Estim Creat Clear Calc 86.3 eGFR > 60 BUN/Creatinine Ratio 18 Glucose 120 H Calculated Osmolality 279 Calcium 9.0 Corrected Calcium 9.0 Phosphorus 3.8 Magnesium 1.9 Total Bilirubin 0.9 AST 15 ALT 14 Alkaline Phosphatase 74 Total Protein 6.9 Albumin 4.1 Globulin 2.8 Albumin/Globulin Ratio 1.5 Quality Measures Quality Measures VTE prophylaxis Advance care planning discussed with:: patient Assessment & Plan Assessment Current Active Medications: Generic Name Dose Route Start Last Admin Trade Name Freq PRN Reason Stop Dose Admin Acetaminophen 650 mg 12/06/24 11:08 Acetaminophen 325 Mg Tablet PO 01/05/25 11:07 Q6H PRN Fever >101.5 Acetaminophen 650 mg 12/06/24 11:08 Acetaminophen Supp 650 Mg Supp [place] 01/05/25 11:07 Q6H PRN PAIN SCALE 1-3 (mild Amlodipine Besylate 10 mg 12/09/24 09:00 12/09/24 09:38 Amlodipine Besylate 5 Mg Tablet PO 01/08/25 08:59 10 mg QDAY ERWIN Administration Aspirin 81 mg 12/07/24 09:00 12/09/24 09:44 Aspirin Ec 81 Mg Tabec PO 01/06/25 08:59 81 mg QDAY ERWIN Administration Atorvastatin Calcium 40 mg 12/06/24 21:00 12/08/24 20:42 Atorvastatin Calcium 20 Mg Tablet PO 01/05/25 20:59 40 mg HS ERWIN Administration Carvedilol 37.5 mg 12/09/24 17:30 Carvedilol 12.5 Mg Tablet PO 01/08/25 17:29 BIDWM ERWIN Dextrose 50 ml 12/06/24 21:43 Dextrose 50%-Water Inj 50 Ml Syringe IV 01/05/25 21:42 Q15MIN PRN BG <50 OR BG <70 & pt unresponsive Finasteride 5 mg 12/07/24 09:00 12/09/24 09:45 Finasteride 5 Mg Tablet PO 01/06/25 08:59 5 mg QDAY ERWIN Administration Furosemide 40 mg 12/09/24 21:00 Furosemide Inj 10 Mg/Ml 4ml Vial IVP 12/09/24 21:01 X1 ONE Glucagon 1 mg 12/06/24 21:43 Glucagon Inj 1 Mg Vial IM Q15MIN PRN BG <70, and no IV access Hydrochlorothiazide 25 mg 12/09/24 08:20 12/09/24 09:44 Hydrochlorothiazide 12.5 Mg Capsule PO 01/08/25 08:19 25 mg QDAY ERWIN Administration Insulin Human Lispro 0 unit 12/07/24 07:30 12/09/24 12:22 Insulin Lispro (Admelog) 1 Unit/0.01 Ml Unit SC 01/06/25 07:29 2 unit ACHS ERWIN Administration Protocol Labetalol HCl 10 mg 12/08/24 14:25 Labetalol Inj 5 Mg/Ml Vial 20 Ml IVP 01/07/25 14:59 Q3HR PRN Hypertensive Emergency Losartan Potassium 100 mg 12/06/24 16:30 12/09/24 09:44 Losartan Potassium 25 Mg Tablet PO 01/05/25 16:29 100 mg QDAY ERWIN Administration Nitroglycerin 0.4 mg 12/06/24 16:19 Nitroglycerin 0.4 Mg Subl Btl #25 SL 01/05/25 16:18 Q5MIN PRN Chest Pain Ondansetron HCl 4 mg 12/06/24 11:08 Ondansetron Inj 2 Mg/Ml Inj 2 Ml IV 01/05/25 11:07 Q6H PRN NAUSEA OR VOMITING Protocol Rivaroxaban 20 mg 12/07/24 09:00 12/09/24 09:43 Rivaroxaban 10 Mg Tablet PO 01/06/25 08:59 20 mg QDAY ERWIN Administration Sennosides 1 tab 12/06/24 11:08 Senna Tablet PO 01/05/25 11:07 QDAY PRN constipation Protocol Tamsulosin HCl 0.4 mg 12/06/24 21:00 12/08/24 20:42 Tamsulosin Hcl 0.4 Mg Capsule PO 01/05/25 20:59 0.4 mg HS ERWIN Administration Plan This is a 64-year-old male with a past medical history of HFmrEF (EF 40-45%, 07/10/2024), A-fib on Xarelto, CAD status post [place] (2005, no stent), atrial fibrillation type 2 diabetes mellitus, hypertension, hyperlipidemia who presents to the emergency department for chills and dizziness. #Hypertension #Hypertensive emergency Troponin of 0.130 Initial blood pressure 181/88 Discontinued metoprolol XL Started on Coreg 37.5 twice daily Losartan 100 mg p.o. daily Hydrochlorothiazide 12.5 Mg daily Amlodipine dosage increased to 10 Mg daily Lasix 40 Qday # NSTEMI type II #Likely supply demand ischemia # ACS ruled out Troponin of 0.[address] elevations on EKG -Cardiology recommended to control blood pressure -Troponin I downtrended -Lovenox discontinued -Aspirin loading dose given, continue aspirin 81 daily -Cardiology Dr. Gill following, appreciate recommendations # Diabetes mellitus type 2 Patient states that he has used insulin in the past but is off of it now Home medication is metformin 1000 mg p.o. twice daily with meals -Sliding scale insulin, with adjustments to be made #Hyperlipidemia -Restarting patient's home dose atorvastatin 40 Mg daily #Atrial fibrillation History of atrial fibrillation. IV diltiazem 10 mg was given for A-fib RVR Started Coreg 25 twice daily Started Xarelto 20 mg once daily #BPH -Restart patient's home dose finasteride 5 Mg p.o. daily Diet: Cardiac diet GI: Pantoprazole DVT: Patient is on therapeutic Lovenox [place]: None Lines: Peripheral Dispo: Tele Med Rec: Pending Code: Full Patient was seen and discussed with attending physician, Dr. Jr Francois DO PGY1 Attending Provider Attestation/Addendum I have discussed and was present for the essential components of the history, physical examination, diagnosis, and treatment plan with the resident. I agree with the patient's care as documented by the resident and amended herein by me. Jacob Norris DO.
[2024-12-09] MEDS: carVEDILOL 12.5 MG TABLET 37.5 MG PO (18:08)
[2024-12-09] MEDS: TAMSULOSIN HCL 0.4 MG CAPSULE PO (20:47)
[2024-12-09] MEDS: ATORVASTATIN CALCIUM 20 MG TABLET 40 MG PO (20:47)
[2024-12-10] VITALS (7 sets, daily range): BP systolic 139–168; BP diastolic 69–85; PULSE 54–64; RESP 12–20; TEMP 36.1–37.1; O2SAT 94–98; BMI 32.3; BMI 32.1
[2024-12-10 06:18] LABS: Basophils % (Auto) 0 % (0-2.5); Eosinophils # (Auto) 0.4 Thou/mm3 (0.0-0.5); Eosinophils % (Auto) 5 % (0-10); Hematocrit 30.5 % (41.0-53.0); Hemoglobin 9.8 g/dL (13.5-16.0); Immature Granulocytes % (Auto) 0 % (0-0); Immature Granulocytes Auto 0.02 Thou/mm3 (0.00-0.00); Lymphocytes # (Auto) 1.2 Thou/mm3 (1.0-4.8); Lymphocytes % (Auto) 15 % (10-50); Mean Corpuscular HGB Conc 32.1 g/dl (31.0-37.0); Mean Corpuscular Hemoglobin 25.7 pg (25.0-35.0); Mean Corpuscular Volume 80 fL (80-100); Monocytes % (Auto) 12 % (0-12); Neutrophils # (Auto) 5.4 Thou/mm3 (1.8-7.7); Neutrophils % (Auto) 68 % (37-80); Nucleated Red Blood Cell % 0 /100 WBC (0); Platelet Count 230 Thou/mm3 (140-440); RDW Standard Deviation 46.8 fL (35.1-43.9); Red Blood Count 3.82 Miln/mm3 (4.50-5.90); White Blood Count 7.9 Thou/mm3 (3.8-10.6)
[2024-12-10 06:35] LABS: Alanine Aminotransferase 15 U/L (10-49); Albumin, Serum 3.7 gm/dL (3.4-4.8); Albumin/Globulin Ratio 1.4 (1.2-2.2); Alkaline Phosphatase 66 U/L (46-116); Anion Gap 8 (7-16); Aspartate Amino Transferase 23 U/L (0-34); BUN/Creatinine Ratio 20 Ratio (12-20); Bilirubin,Total 0.6 mg/dL (0.3-1.2); Blood Urea Nitrogen 18 mg/dL (9-23); Calcium 9.1 mg/dL (8.3-10.6); Calcium (Corrected) 9.3 mg/dL (8.5-10.1); Carbon Dioxide 30.4 mMol/L (20.0-31.0); Chloride 101 mMol/L (98-107); Creatinine (Component) 0.9 mg/dL (0.6-1.3); Estimated Creatinine Clearance 86.3 mL/min (>60); Globulin 2.7 gm/dL (2.3-3.5); Glucose 148 mg/dL (74-106); Magnesium 1.9 mg/dL (1.6-2.6); Osmolality,Calculated 282 (275-295); Phosphorous 3.7 mg/dL (2.4-5.1); Potassium 3.4 mMol/L (3.4-5.1); Sodium 139 mMol/L (136-145); Total Protein 6.4 gm/dL (5.7-8.2); eGFR > 60 See Note
[2024-12-10] MEDS: INSULIN LISPRO (AdmeLOG) 1 UNIT/0.01 ML UNIT SC ×2 (08:00→12:23)
[2024-12-10] MEDS: hydroCHLOROthiazide 12.5 MG CAPSULE 25 MG PO (08:01)
[2024-12-10] MEDS: ASPIRIN EC 81 MG TABEC PO (08:01)
[2024-12-10] MEDS: FINASTERIDE 5 MG TABLET PO (08:01)
[2024-12-10] MEDS: Magnesium Sulfate 1 gm Ivpb 1 GM/100 ML BAG IV (08:01)
[2024-12-10] MEDS: LOSARTAN POTASSIUM 25 MG TABLET 100 MG PO (08:01)
[2024-12-10] MEDS: amLODIPine BESYLATE 5 MG TABLET 10 MG PO (08:02)
[2024-12-10] MEDS: carVEDILOL 12.5 MG TABLET 37.5 MG PO (08:02)
[2024-12-10] MEDS: RIVAROXABAN 10 MG TABLET 20 MG PO (08:02)
[2024-12-10] MEDS: POTASSIUM CHLORIDE 20 mEq TABCR 40 MEQ PO ×2 (08:14→09:18)
--- NOTE | 2024-12-10 09:13 | PD.RESPRO ---
Documentation for date of: 12/10/24 Subjective Subjective Interval history: 12/09/2024: Patient examined at bedside today. Telemetry reviewed, overnight patient is out of fib, rate controlled 60s and 70s. Patient reports he is doing well, is not having any shortness of breath or chest pain, however he has noticed some swelling in his legs. He was given 40 Lasix yesterday, will continue to give him another 40 Lasix today IV and also will give him another 40 Lasix tonight. His blood pressure has still not been under control, was 163 systolic after blood pressure medicines were given. Will add an additional amlodipine 10 as he was given amlodipine 10 earlier. Also made Coreg 37.5 as well. Patient BUN/creatinine sixteen 0.9, will be able to tolerate diuresis with Lasix, as patient's blood pressure will not improve until fluid is removed off. 12/10/2024: Pt examined at bedside today. Telemetry reviewed, pt's HR in the 60s out of fib. Pt reports he is doing well and is wondering when he is going to go home. He says he refused the Lasix 40 IV last night because he was sleeping and wanted to continue sleeping. He says that he thinks his swelling in his legs has improved. His legs still look pitting +2 bilat, will add additional Lasix 40 mg IV, his potassium 3.4 this morning, repleted by primary, his mag 1.9 today, gave 1 g. His BUN/Cr 18 and 0.9 respectively. He denies having any CP or SOB at this time as well. Pt heading toward D/C, he says his BP is usually 150s systolic at home. We do not want to start hydralazine at this time b/c of tachycardia, will not use clonidine either. Exam Vital Signs Temp Pulse Resp BP Pulse Ox O2 Del Method 97.1 F 63 17 168/85 H 94 L Room Air 12/10/24 04:00 12/10/24 08:02 12/10/24 04:00 12/10/24 08:02 12/10/24 04:00 12/10/24 04:00 Narrative Exam General: AAOx3, NAD, pleasant male wearing glasses, sitting in chair, comfortable HEENT: Moist mucous membranes, conjunctiva clear, EOMI, PERRLA, Cardiovascular: S1, S2, radial pulses +2 bilat, RRR Pulmonary: CTAB bilat no cough, no wheezing GI: No tenderness to light or deep palpitation, no guarding, rigidity, rebound tenderness or distension Extremities: +2 pitting edema up to mid brown bilaterally improved from yesterday, dorsalis pedis pulses +2 bilaterally, multiple tattoos seen in both arms bilat Neuro: AAOx3, no focal motor or sensory deficits in the UE or LE bilat Psych: Good judgement, thought and behavior. Cooperative Objective Labs 12/10/24 05:30 12/10/24 05:30 Labs: Laboratory Results - last 24 hr 12/10/24 05:30 WBC 7.9 RBC 3.82 L Hgb 9.8 L Hct 30.5 L MCV 80 MCH 25.7 MCHC 32.1 RDW Std Deviation 46.8 H Plt Count 230 D Neut % (Auto) 68 Lymph % (Auto) 15 [place] % (Auto) 12 Eos % (Auto) 5 Baso % (Auto) 0 Neut # (Auto) 5.4 Lymph # (Auto) 1.2 [place] # (Auto) 1.0 H Eos # (Auto) 0.4 Baso # (Auto) 0.0 Immature Gran # (Auto) 0.02 H Absolute Nucleated RBC 0.00 Immature Gran % 0 Nucleated RBC % 0 Sodium 139 Potassium 3.4 Chloride 101 Carbon Dioxide 30.4 Anion Gap 8 BUN 18 Creatinine 0.9 Estim Creat Clear Calc 86.3 eGFR > 60 BUN/Creatinine Ratio 20 Glucose 148 H Calculated Osmolality 282 Calcium 9.1 Corrected Calcium 9.3 Phosphorus 3.7 Magnesium 1.9 Total Bilirubin 0.6 AST 23 ALT 15 Alkaline Phosphatase 66 Total Protein 6.4 Albumin 3.7 Globulin 2.7 Albumin/Globulin Ratio 1.4 Quality Measures Quality Measures VTE prophylaxis Advance care planning discussed with:: patient Assessment & Plan Assessment Current Active Medications: Generic Name Dose Route Start Last Admin Trade Name Freq PRN Reason Stop Dose Admin Acetaminophen 650 mg 12/06/24 11:08 Acetaminophen 325 Mg Tablet PO 01/05/25 11:07 Q6H PRN Fever >101.5 Acetaminophen 650 mg 12/06/24 11:08 Acetaminophen Supp 650 Mg Supp [place] 01/05/25 11:07 Q6H PRN PAIN SCALE 1-3 (mild Amlodipine Besylate 10 mg 12/09/24 09:00 12/10/24 08:02 Amlodipine Besylate 5 Mg Tablet PO 01/08/25 08:59 10 mg QDAY ERWIN Administration Aspirin 81 mg 12/07/24 09:00 12/10/24 08:01 Aspirin Ec 81 Mg Tabec PO 01/06/25 08:59 81 mg QDAY ERWIN Administration Atorvastatin Calcium 40 mg 12/06/24 21:00 12/09/24 20:47 Atorvastatin Calcium 20 Mg Tablet PO 01/05/25 20:59 40 mg HS ERWIN Administration Carvedilol 37.5 mg 12/09/24 17:30 12/10/24 08:02 Carvedilol 12.5 Mg Tablet PO 01/08/25 17:29 37.5 mg BIDWM ERWIN Administration Dextrose 50 ml 12/06/24 21:43 Dextrose 50%-Water Inj 50 Ml Syringe IV 01/05/25 21:42 Q15MIN PRN BG <50 OR BG <70 & pt unresponsive Finasteride 5 mg 12/07/24 09:00 12/10/24 08:01 Finasteride 5 Mg Tablet PO 01/06/25 08:59 5 mg QDAY ERWIN Administration Glucagon 1 mg 12/06/24 21:43 Glucagon Inj 1 Mg Vial IM Q15MIN PRN BG <70, and no IV access Hydrochlorothiazide 25 mg 12/09/24 08:20 12/10/24 08:01 Hydrochlorothiazide 12.5 Mg Capsule PO 01/08/25 08:19 25 mg QDAY ERWIN Administration Insulin Human Lispro 0 unit 12/07/24 07:30 12/10/24 08:00 Insulin Lispro (Admelog) 1 Unit/0.01 Ml Unit SC 01/06/25 07:29 2 unit ACHS ERWIN Administration Protocol Labetalol HCl 10 mg 12/08/24 14:25 Labetalol Inj 5 Mg/Ml Vial 20 Ml IVP 01/07/25 14:59 Q3HR PRN Hypertensive Emergency Losartan Potassium 100 mg 12/06/24 16:30 12/10/24 08:01 Losartan Potassium 25 Mg Tablet PO 01/05/25 16:29 100 mg QDAY ERWIN Administration Nitroglycerin 0.4 mg 12/06/24 16:19 Nitroglycerin 0.4 Mg Subl Btl #25 SL 01/05/25 16:18 Q5MIN PRN Chest Pain Ondansetron HCl 4 mg 12/06/24 11:08 Ondansetron Inj 2 Mg/Ml Inj 2 Ml IV 01/05/25 11:07 Q6H PRN NAUSEA OR VOMITING Protocol Rivaroxaban 20 mg 12/07/24 09:00 12/10/24 08:02 Rivaroxaban 10 Mg Tablet PO 01/06/25 08:59 20 mg QDAY ERWIN Administration Sennosides 1 tab 12/06/24 11:08 Senna Tablet PO 01/05/25 11:07 QDAY PRN constipation Protocol Tamsulosin HCl 0.4 mg 12/06/24 21:00 12/09/24 20:47 Tamsulosin Hcl 0.4 Mg Capsule PO 01/05/25 20:59 0.4 mg HS ERWIN Administration Plan Assessment Randall is a 64 y/o male with past medical history of CAD s/p [place] in (2005, no stent), a-fib (Xarelto) systolic congestive heart failure with an EF of 40 to 45% in December 2022, essential hypertension, hyperlipidemia, non-insulin dependent diabetes mellitus type 2, history of cholelithiasis, osteoarthritis, BPH, diverticulosis, sbo (2021), who is currently admitted for hypertensive emergency #Hypertensive emergency, improving #Lower extremity edema, improving #Elevated troponin, resolved #HFpEF with grade 2 diastolic dysfunction Echo from today shows: Normal LV size and function. Estimated EF 55-60%. Grade II diastolic dysfunction. Normal RV size and function. Patient came in with blood pressure in the 180s systolic upon arrival Will not resume clonidine and hydralazine Troponins peaked and are not being checked anymore Patient will need to follow-up upon DC with Dr. Gill outpatient Patient blood pressure has not been controlled with addition of multiple medicines Pt will need to have Lasix 40 PO upon d/c Pt is likely heading toward DC as lowest BP numbers have been 148, will recheck after BP medicines taken today Plan: ?Continnue Coreg to 37.5 mg twice daily by mouth ?Continue with losartan 100 mg ?Continue with amlodipine 10 mg, ?Continue with hydrochlorothiazide 25 mg ?Lasix 40 mg IV now and lasix 40 mg daily at home upon Dc #History of CAD status post [place] no stents Plan: ?Continue with ASA 81, statin and betablocker #A-fib, rate controlled, on Xarelto Rate controlled, heart rate in the 60s currently EKG did show P waves and rate and rhythm control [id number]: 5 points HAS-BLED: 2 points Plan: ?Continue resuming Xarelto 20 mg home medicine #Pericardial effusion Small pericardial effusion seen on echo Plan: ? Monitor for worsening of symptoms, no intervention at this time #History of [id number] type 2 diabetes #History of hyperlipidemia Most recent A1c 7.1 LDL 65, triglycerides 60, total cholesterol 134 Plan: ? Primary team to manage sugars ? Continue home Lipitor 40 mg #BPH #Electrolyte abnormalities #Hx of osteoarthritis Primary hospitalist team to manage above Patient seen and care discussed with my attending physician, Dr. Bridget Gamboa, PGY-1 Attending Provider Attestation/Addendum I have personally seen and examined the patient separately on the above date of service and discussed the plan of care with the resident. I reviewed the resident Dr. Navas consultation progress note and agree with the resident findings and plan in the note above and have also edited the documentation to reflect my findings and plan. Mele Gill M.D. Interventional Cardiology
[2024-12-10] MEDS: FUROSEMIDE INJ 10 MG/ML 4ML VIAL 40 MG IVP (09:18)
--- NOTE | 2024-12-10 10:47 | ESDS_ITS ---
<Statement entered by Panfilo Bond MD - 12/10/24 16:33> I saw and examined the patient, and I agree with current management stated by Dr Delano MD,PGY1. Plan of care was discussed with the attending physician and resident physician. Disclaimer: Despite multiple revisions, due to the dictation software being used, the document bellow may not be free of grammatical errors including phonetic/typographic errors. However, this does not deter from our commitment to providing health care in the patient's best interest in mind. Dr. Ronda MD, PGY 2 Planned Discharge Date 12/10/24 DS: Providers Provider Date of admission: 12/06/24 09:34 Primary care physician: Yang Cervantes MD Admitting Provider: Faraz Norris DO Attending Provider on Admission: Faraz Norris DO Consults: 12/06/24 14:43 Consult to Cardiology Stat Comment: Consulting Provider: Mele Gill Attending Provider on DC: Dr. Norris Discharging Provider: Delano Francois DO PGY1 DS: Diagnosis Problem List Completed Was Problem List Reviewed/Reconciled?: Yes Hospital Course Hospital Course Hospital course: #Hypertension #Hypertensive emergency # NSTEMI type II- ruled out #Likely supply demand ischemia # ACS ruled out # Diabetes mellitus type 2 #Hyperlipidemia #Atrial fibrillation #BPH Randall Aguilar is a 64-year-old male with a past medical history of HFmrEF (EF 40- 45%, 07/10/2024), A-fib on Xarelto, CAD status post NV (2005, no stent), atrial fibrillation type 2 diabetes mellitus, hypertension, hyperlipidemia who presents to the emergency department for chills and dizziness. In the emergency department initial vitals were blood pressure of 181/88, pulse of 88, respirations 18, 90 8.0F, saturating 95% on room air. EKG shows what appears to be sinus rhythm with rate of 67. Chest x-ray shows moderate vascular congestion, head CT negative for any acute bleed. Labs show white count of 8.2, hemoglobin 10.0 hematocrit 31.5, platelets 270. Electrolytes significant for potassium of 3.0.Troponin significant for elevation at 0.130. BNP 285. In the emergency department was given 50 Mg metoprolol tartrate, Plavix 300 mg, loading dose aspirin Cardiology Dr. Stern was consulted by the emergency department, and Dr. Stern suggested for admission due to possible NSTEMI. 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 Gill as his outpatient electrical and radio mock up mechanic. Patient admitted for possible NSTEMI. Over the hospital course, patient's symptoms improved. Cardiology consulted and stated appeared to be more hypertensive emergency. Patient was treated appropriately with antihypertensives. Patient had a rapid response called during hospital stay due to instance of atrial fibrillation with rapid ventricular response. Treated appropriately and upon discharge patient's heart rate was controlled. Patient's hospital stay was prolonged due to multiple instances of extremely high blood pressure which were unsafe to discharge on. Medications adjusted appropriately. Upon discharge patient appears stable, blood pressure appears controlled. Patient's discharge medications adjusted appropriately. Upon discharge patient advised to follow-up with PCP within 1 week, advised to follow-up with electrical and radio mock up mechanic within 1 week. Patient advised to return to emergency department if symptoms persist or worsen, patient is in agreement. Status at Discharge Cognitive/behavioral status at discharge: Patient appears stable at time of discharge Time Spent with Patient Time attestation: Total time spent providing and/or coordinating discharge services: Exam Vital Signs Temp Pulse Resp BP Pulse Ox O2 Del Method 98.7 F 63 20 139/72 H 98 Room Air 12/10/24 08:00 12/10/24 09:18 12/10/24 08:00 12/10/24 09:18 12/10/24 08:00 12/10/24 08:00 Narrative Exam General: AAOx3, NAD, pleasant male wearing glasses, sitting in chair, comfortable HEENT: Moist mucous membranes, conjunctiva clear, EOMI, PERRLA, Cardiovascular: S1, S2, radial pulses +2 bilat, RRR Pulmonary: CTAB bilat no cough, no wheezing GI: No tenderness to light or deep palpitation, no guarding, rigidity, rebound tenderness or distension Extremities: +2 pitting edema up to mid brown bilaterally improved from yesterday, dorsalis pedis pulses +2 bilaterally, multiple tattoos seen in both arms bilat Neuro: AAOx3, no focal motor or sensory deficits in the UE or LE bilat Psych: Good judgement, thought and behavior. Cooperative Discharge Plan Plan Patient Disposition: HOME (Self Care) Patient condition on transfer: Stable Care Plan Goals: Please continue to take your new medications as directed: Carvedilol 37.5 mg twice a day Amlodipine 10 mg once a day Hydrochlorothiazide 25 mg once a day Potassium chloride 20mEq tablet once a day with a meal Please continue to take your home medication as directed Please follow-up with your primary care provider within 7 days, if you do not have primary provider you are welcome to follow-up with the [facility] at [facility]. [address] [place] [address] Please follow-up with your electrical and radio mock up mechanic within 1 week of discharge Please return to the emergency department if your symptoms persist or worsen Prescriptions/Referrals Prescriptions/Med Rec: New aspirin [Ecotrin Low Strength] 81 mg Tablet,Delayed Release (Dr/Ec) 81 mg PO QDAY 30 Days Qty: 30 0RF carvedilol 25 mg tablet 25 mg PO BIDWM 30 Days Qty: 60 0RF potassium chloride 20 mEq tablet extended release 20 meq PO QDAY Qty: 30 3RF hydrochlorothiazide 25 mg tablet 25 mg PO QDAY 30 Days Qty: 30 0RF amlodipine 10 mg tablet 10 mg PO QDAY Qty: 30 0RF Continued losartan 100 mg tablet 100 mg PO QDAY Patient Comments: TAKE 1 TABLET BY MOUTH ONCE DAILY finasteride 5 mg tablet 1 tab PO QDAY Patient Comments: TAKE 1 TABLET BY MOUTH ONCE DAILY nitroglycerin [Nitrostat] 0.4 mg tablet, sublingual 0.4 mg BUCCAL Q5MIN PRN (Reason: Chest Pain) Patient Comments: DISSOLVE ONE TABLET UNDER THE TONGUE EVERY 5 MINUTES NEEDED FOR CHEST PAIN. DO NOT EXCEED A TOTAL OF 3 DOSES IN 15 MINUTES (DME) Contour Next Test Strips Strip See Rx Instructions .Route Qty: 50 2RF Rx Instructions: Test once daily (DME) lancets [Microlet Lancet] Misc See Rx Instructions .Route Qty: 100 2RF Rx Instructions: Test once daily atorvastatin 40 mg tablet 40 mg PO QPM Qty: 30 0RF tamsulosin 0.4 mg capsule 0.4 mg PO DAILY Patient Comments: TAKE 1 CAPSULE BY MOUTH ONCE DAILY FOR 30 DAYS metformin 1,000 mg Tablet 1,000 mg PO BIDWMEAL Xarelto 20 mg Tablet 20 mg PO QPM Rx Instructions: must administer with evening meal magnesium 200 mg tablet 400 mg PO QDAY Qty: 60 2RF furosemide [Lasix] 40 mg tablet 40 mg PO QAM Qty: 30 2RF Discontinued amiodarone 200 mg tablet 200 mg PO QDAY Qty: 30 0RF Hold Instructions: Resume on 10/24/24. Follow up with Dr. Stern within 1 week. clonidine HCl 0.3 mg tablet 0.3 mg PO HS Patient Comments: TAKE 1 TABLET BY MOUTH TWICE DAILY metoprolol succinate 100 mg tablet extended release 24 hr 100 mg PO QDAY 30 Days Qty: 0 0RF Patient Comments: TAKE 1 TABLET BY MOUTH TWICE DAILY hydralazine 50 mg tablet 50 mg PO TID Qty: 90 2RF Referrals: Mele Gill MD [Physician] - Yang Cervantes MD [Primary Care Provider] - Patient/Caregiver Discharge Instructions Other Discharge Activity Instructions:: Please continue to take your new medications as directed: Carvedilol 25 mg twice a day Please continue to take your home medication as directed Please follow-up with your primary care provider within 7 days, if you do not have primary provider you are welcome to follow-up with the [facility] at [address] [place] [address] Dr. [address] [place] [address] Please follow-up with your electrical and radio mock up mechanic within 1 week of discharge Please return to the emergency department if your symptoms persist or worsen Education Materials: AFL/Afib, Discharge Instructions for ..., ED High Blood Pressure ... Print Language: Upper Sorbian Stand Alone Forms: [employer] Award Info., Patient Portal Info Letter Discharge Order Discharge Orders: Discharge (Routine); Ordered 12/10/24 Ordered By: Panfilo Bond Quality Discharge Quality Measures VTE prophylaxis Attestestation Attestation I have discussed and was present for the essential components of the discharge history, physical examination, diagnosis, and discharge treatment plan with the resident. I agree with the patient's discharge care as documented by the resident and amended herein by me. Jacob Norris DO. The patient understood all discharge instructions, all questions were answered satisfactorily. The patient was instructed to return to the Emergency Department is symptoms worsened or persisted. Patient was stable, afebrile, tolerating p.o. intake and ambulatory at time of discharge home Although this document has been carefully reviewed, there may still be some phonetic and other typographical errors. These errors are purely grammatical due to imperfections in the software program and should not be construed in any way to compromise the substance of the patient's medical care during this visit.
== END 2024-12-10 12:44 | disposition home or self-care (01) | DRG 305 ==
LOC: SERX 08:48 → SERHOLD 09:52 → S2NX 21:48
PROVIDERS: Nurse Practitioner Primary Care; Student in an Organized Health Care Education/Training Program; Admitting Provider Student in an Organized Health Care Education/Training Program; Emergency Provider Emergency Medicine; PCP Family Medicine; Visit Provider Student in an Organized Health Care Education/Training Program
DX: I16.1 Hypertensive emergency (principal); I50.30 Unspecified diastolic (congestive) heart failure; I31.39 Other pericardial effusion (noninflammatory); E11.9 Type 2 diabetes mellitus without complications; N40.0 Benign prostatic hyperplasia without lower urinary tract symptoms; I25.2 Old myocardial infarction; E78.5 Hyperlipidemia, unspecified; Z79.01 Long term (current) use of anticoagulants; E87.6 Hypokalemia; I11.0 Hypertensive heart disease with heart failure; I25.10 Atherosclerotic heart disease of native coronary artery without angina pectoris; I48.0 Paroxysmal atrial fibrillation; M19.90 Unspecified osteoarthritis, unspecified site; I49.3 Ventricular premature depolarization
CPT/HCPCS: 36415; 70450; 71045; 80053; 80061; 80307; 81001; 83605; 83735; 83880; 84100; 84145; 84443; 84484; 85025; 85610; 85652; 85730; 86140; 87400; 87811; 93005; 93306; 96372; 96374; 99285; J1650; J1815; J1940; J3475; J3480; J3490; A9270

== ENCOUNTER 2025-05-31 18:42 | Emergency (ER) | payer MEDICARE, SELFPAY ==
[2025-05-31 18:45] VITALS: BP 157/83; PULSE 120; PULSE 82; RESP 16; RESP 18; TEMP 37.3; O2SAT 94; BMI 34.4
--- NOTE | 2025-05-31 18:51 | EKG_ITS ---
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[employer]: : 1960 Requested By: ED Temporary Provider Order Number: [id number] Reading MD: ED Temporary Provider Measurements Intervals [place] Rate: 113 P: [place]: QRS: -54 QRSD: 118 T: 85 QT: 324 QTc: 445 Interpretive Statements ATRIAL FIBRILLATION WITH RAPID VENTRICULAR RESPONSE LEFT AXIS DEVIATION [QRS AXIS < -30] POSSIBLE ANTERIOR MYOCARDIAL INFARCTION , OF INDETERMINATE AGE [30 ms Q WAVE IN V3/V4, OR R < 0.2 mV IN V4] Compared to ECG 12/07/2024 18:26:34 Left-axis deviation now present Myocardial infarct finding still present /store/S0/[id number]
--- NOTE | 2025-05-31 18:53 | PD.EDADULT ---
ED General RME/HPI General Chief complaint: Dizziness Stated complaint: DIZZINESS Time Seen by Provider: 05/31/25 18:53 Arrival date/time: 05/31/25 18:42 RME / HPI RME / HPI narrative: see MDM Related Data Home Medications ?Medication ?Instructions ?Recorded ?Confirmed finasteride 5 mg tablet 1 tab PO QDAY 07/20/22 12/06/24 losartan 100 mg tablet 100 mg PO QDAY 07/20/22 12/06/24 tamsulosin 0.4 mg capsule 0.4 mg PO DAILY 01/19/23 12/06/24 metformin 1,000 mg tablet 1,000 mg PO BIDWMEAL 02/06/24 12/06/24 rivaroxaban 20 mg tablet (Xarelto) 20 mg PO QPM 02/06/24 12/06/24 nitroglycerin 0.4 mg sublingual 0.4 mg buccal Q5MIN PRN Chest Pain 07/09/24 12/06/24 tablet (Nitrostat) Previous Rx's ?Medication ?Instructions ?Recorded furosemide 40 mg tablet (Lasix) 40 mg PO QAM #30 tabs 02/09/24 magnesium 200 mg tablet 400 mg (2 x 200 mg) PO QDAY #60 02/09/24 tabs blood sugar diagnostic (Contour #50 ea 07/11/24 Next Test Strips) lancets (Microlet Lancet) #100 ea 07/11/24 atorvastatin 40 mg tablet 40 mg PO QPM #30 tabs 10/17/24 potassium chloride 20 mEq 20 meq PO QDAY #30 tabs 12/09/24 tablet,extended release amlodipine 10 mg tablet 10 mg PO QDAY #30 tabs 12/10/24 Allergies Allergy/AdvReac Type Severity Reaction Status Date / Time morphine AdvReac Severe Headache Verified 05/31/25 18:45 Review of Systems Review of Systems Systems Reviewed: All systems reviewed, normal except as documented ED Exam Narrative Physical exam: GENERAL: NAD, AAOx3 HEENT: Moist mucosa. Eyes open, symmetrical, & clear CARDIO: Heart RRR, no obvious murmurs PULM: dyspnea with B/L crackles GI: Abdomen soft, nondistended, no pain on palpation. BSx4 SKIN/MSK/EXT: B/L lower extremity edema +3 up to the thighs, no pain on palpation. Pedal pulses present B/L NEURO: AAOx3, no focal neuro deficits, able to move all 4 extremities Course Quality Measures none Orders Category Date Time Status Vamp Cut Out Worker Q4H START 00 Care 05/31/25 18:54 Completed EKG (ED ONLY) *Do not use* NOW Care 05/31/25 18:52 Completed EKG (ED ONLY) *Do not use* NOW Care 05/31/25 18:54 Completed Fingerstick [Bedside Blood Glucose] NOW Care 05/31/25 19:19 Completed Insert IV NOW Care 05/31/25 18:59 Completed Strict Intake and Output Routine Care 05/31/25 20:29 Ordered EKG (ED Only) Stat Exams 05/31/25 18:51 Draft EKG (ED Only) Stat Exams 05/31/25 18:54 Ordered XR chest 1V Stat Exams 05/31/25 18:54 Completed B-Type Natriuretic Peptide Stat Lab 05/31/25 19:04 Completed CBC Stat Lab 05/31/25 19:04 Completed Comprehensive Metabolic Panel Stat Lab 05/31/25 19:04 Completed Drug Screen,Urine Stat Lab 05/31/25 19:10 Completed Magnesium Stat Lab 05/31/25 19:04 Completed Partial Thromboplastin Time Stat Lab 05/31/25 19:04 Completed Prothrombin Time with INR Stat Lab 05/31/25 19:04 Completed Troponin I Stat Lab 05/31/25 19:04 Completed Urinalysis Stat Lab 05/31/25 19:10 Completed Diltiazem Inj [Cardizem Inj] Med 05/31/25 20:16 Discontinued 15 mg IV X1 ONE Furosemide Inj [Lasix Inj] Med 05/31/25 19:26 Discontinued 40 mg IVP X1 ONE Late Tray Request Routine Oth 05/31/25 20:25 Active Oxygen Delivery NOW RT 05/31/25 18:54 Completed Vital Signs Vital signs: Vital Signs Temperature 99.1 F 05/31/25 18:45 Pulse Rate 120 H 05/31/25 18:45 Respiratory Rate 18 05/31/25 18:45 Blood Pressure 157/83 H 05/31/25 18:45 Pulse Oximetry (%) 94 L 05/31/25 18:45 Oxygen Delivery Method Nasal Cannula 05/31/25 18:45 Oxygen Flow Rate 2 05/31/25 18:45 Discharge Plan Plan Patient Disposition: HOME (Self Care) Prescriptions/Referrals Prescriptions/Med Rec: No Action losartan 100 mg tablet 100 mg PO QDAY Patient Comments: TAKE 1 TABLET BY MOUTH ONCE DAILY finasteride 5 mg tablet 1 tab PO QDAY Patient Comments: TAKE 1 TABLET BY MOUTH ONCE DAILY nitroglycerin [Nitrostat] 0.4 mg tablet, sublingual 0.4 mg BUCCAL Q5MIN PRN (Reason: Chest Pain) Patient Comments: DISSOLVE ONE TABLET UNDER THE TONGUE EVERY 5 MINUTES NEEDED FOR CHEST PAIN. DO NOT EXCEED A TOTAL OF 3 DOSES IN 15 MINUTES (DME) Contour Next Test Strips Strip See Rx Instructions .Route Qty: 50 2RF Rx Instructions: Test once daily (DME) lancets [Microlet Lancet] Misc See Rx Instructions .Route Qty: 100 2RF Rx Instructions: Test once daily atorvastatin 40 mg tablet 40 mg PO QPM Qty: 30 0RF potassium chloride 20 mEq tablet extended release 20 meq PO QDAY Qty: 30 3RF amlodipine 10 mg tablet 10 mg PO QDAY Qty: 30 0RF tamsulosin 0.4 mg capsule 0.4 mg PO DAILY Patient Comments: TAKE 1 CAPSULE BY MOUTH ONCE DAILY FOR 30 DAYS metformin 1,000 mg Tablet 1,000 mg PO BIDWMEAL Xarelto 20 mg Tablet 20 mg PO QPM Rx Instructions: must administer with evening meal magnesium 200 mg tablet 400 mg PO QDAY Qty: 60 2RF furosemide [Lasix] 40 mg tablet 40 mg PO QAM Qty: 30 2RF Problem List Clinical Impression: Hypokalemia, Paroxysmal atrial fibrillation, Hypertension, Atrial fib/flutter, transient, Atrial fibrillation with rapid ventricular response Patient/Caregiver Discharge Instructions Additional Instructions: 1.Please remember to take your diuretics daily or as prescribed by your Helmet Coverer 2.Follow up with your private doctor and your inventory accountant within 1 week of discharge 3. Please remember to use your oxygen as directed 4. Should any symptoms recur or worsen patient is instructed to return to the ED. Print Language: Montserratian Stand Alone Forms: [employer] Award Info., Patient Portal Info Letter MDM Narrative MDM hospital course: 65 y/o M with PMhx of CAD s/p OK but no stents, a-fib on xarelto,HFmRF of 40 to 45%, hypertension, hyperlipidemia, diabetes mellitus type 2, osteoarthritis, BPH, diverticulosis, who presented to the ED due to dizziness. Patient states that he usually gets these symptoms when his potassium is low. Ashish per chart review is on potassium supplementation. He states he uses 2L home O2 as needed. he does endorse orthopnea and PND, he states he usually ambulates with a walker but legs get swollen and has not been able to ambulate. He also states that he takes his diuretic sometimes because he forgets to take his medications. He endorses some shortness of breath but denies chest pain, fever, chills, abdominal pain, nausea, vomiting. 1900 EKG, Labs ordered, CXR ordered, Lasix 40mg IV x1 2016 diltiazem 15mg IVx1 Patient improved after administration of diuretics states his shortness of breath improved Patient is stable to for discharge at this time. Patient is given strict return precautions. Clinical Information Provided by patient and EMS Medical Records Reviewed [facility] and EMS Chronic Illness/Social Conditions which may negatively complicate care or outcome(s)-explain: CHF/CAD/Cardiac illness EKG EKG Interpretation narrative: Atrial fibrillation RVR ~120s Lab Interpretation Labs: interpreted by ny Lab(s) interpretation(s): Microcytic anemia on CBC, CMP unremarkable, BNP elevated at 400 UA shows positive glucose, U tox negative Imaging Imaging interpretation: none Medication Administration(s) Medication Administration History Discontinued Medications Diltiazem HCl (Diltiazem Inj 5 Mg/Ml Vial 5 Ml) 15 mg IV X1 ONE Stop: 05/31/25 20:17 Last Admin: 05/31/25 21:26 Dose: Not Given Documented By: AC Non-Admin Reason: Change of Condition Furosemide (Furosemide Inj 10 Mg/Ml 4ml Vial) 40 mg IVP X1 ONE Stop: 05/31/25 19:27 Last Admin: 05/31/25 19:45 Dose: 40 mg Documented By: EF Diagnosis Differential diagnosis: CHF exacerbation, NSTEMI, Afib RVR Dispositon Disposition: Discharge Home
--- NOTE | 2025-05-31 18:54 | XR_ITS ---
Examination: AP chest single view TECHNIQUE: AP portable upright chest single view Date and time: May 31, 2025 1918 hours Comparison December 06, 2024 INDICATIONS: Chest pain and shortness of breath today. FINDINGS: Mild opacity left base retrocardiac Right lung clear Mild prominence left ventricle IMPRESSION: Suspicious for early left basilar pneumonia
[2025-05-31 18:56] VITALS: PULSE 103; PULSE 107; RESP 17; O2SAT 95
[2025-05-31 19:19] LABS: Collection Type, Urine Clean Catch
[2025-05-31 19:30] LABS: Basophils # (Auto) 0.0 Thou/mm3 (0.0-0.2); Basophils % (Auto) 0 % (0-2.5); Eosinophils # (Auto) 0.3 Thou/mm3 (0.0-0.5); Eosinophils % (Auto) 3 % (0-10); Hematocrit 33.8 % (41.0-53.0); Hemoglobin 10.5 g/dL (13.5-16.0); Immature Granulocytes Auto 0.03 Thou/mm3 (0.00-0.00); Lymphocytes # (Auto) 1.2 Thou/mm3 (1.0-4.8); Lymphocytes % (Auto) 12 % (10-50); Mean Corpuscular HGB Conc 31.1 g/dl (31.0-37.0); Mean Corpuscular Hemoglobin 23.8 pg (25.0-35.0); Mean Corpuscular Volume 77 fL (80-100); Monocytes # (Auto) 1.0 Thou/mm3 (0.0-0.8); Monocytes % (Auto) 10 % (0-12); Neutrophils # (Auto) 7.2 Thou/mm3 (1.8-7.7); Neutrophils % (Auto) 74 % (37-80); Nucleated Red Blood Cell # 0.00 Thou/mm3 (0.00-0.00); Nucleated Red Blood Cell % 0 /100 WBC (0); Platelet Count 297 Thou/mm3 (140-440); RDW Standard Deviation 47.7 fL (35.1-43.9); Red Blood Count 4.42 Miln/mm3 (4.50-5.90); White Blood Count 9.7 Thou/mm3 (3.8-10.6)
[2025-05-31 19:31] LABS: Amphetamine/Methamp Scrn,U Negative (Negative); Barbiturate Screen,Urine Negative (Negative); Benzodiazepines Screen,Urine Negative (Negative); Benzoylecgonine Screen, Ur Negative (Negative); Fentanyl Screen,Urine Negative (Negative); Opiate Screen,Urine Negative (Negative); THC Screen,Urine Negative (Negative)
[2025-05-31 19:34] LABS: Bilirubin,Urine Negative (Negative); Blood,Urine Negative (Negative); Clarity,Urine Clear (Clear/Hazy); Color,Urine Lt-Yellow (Lt Yel-Yel); Glucose, Urine 4+ (Negative); Ketones,Urine Negative (Negative); Leukocyte Esterase,Urine Negative (Negative); Nitrite,Urine Negative (Negative); PH,Urine 6.5 (5.0-7.0); Protein,Urine 1+ (Neg - Trace); RBC,Urine 4 /hpf (0-3); Specific Gravity,Urine 1.019 (1.001-1.035); Squamous Epithelial Cell,Urine < 1 /hpf (0-5); Urobilinogen,Urine Negative mg/dL (0.0-1.0); WBC,Urine 1 /hpf (0-5)
[2025-05-31 19:42] LABS: INR 1.2 (0.9-1.3); Partial Thromboplastin Time 36.5 Seconds (22.0-36.0); Prothrombin Time 12.9 Seconds (9.0-12.2)
[2025-05-31 19:43] LABS: Alanine Aminotransferase 18 U/L (10-49); Albumin, Serum 4.0 gm/dL (3.4-4.8); Albumin/Globulin Ratio 1.3 (1.2-2.2); Alkaline Phosphatase 72 U/L (46-116); Anion Gap 7 (7-16); Aspartate Amino Transferase 32 U/L (0-34); BUN/Creatinine Ratio 14 Ratio (12-20); Bilirubin,Total 0.5 mg/dL (0.3-1.2); Blood Urea Nitrogen 15 mg/dL (9-23); Calcium 8.8 mg/dL (8.3-10.6); Calcium (Corrected) 8.8 mg/dL (8.5-10.1); Carbon Dioxide 29.2 mMol/L (20.0-31.0); Chloride 104 mMol/L (98-107); Creatinine (Component) 1.1 mg/dL (0.6-1.3); Estimated Creatinine Clearance 74.4 mL/min (>60); Globulin 3.1 gm/dL (2.3-3.5); Glucose 126 mg/dL (74-106); Magnesium 2.7 mg/dL (1.6-2.6); Osmolality,Calculated 282 (275-295); Potassium 4.3 mMol/L (3.4-5.1); Sodium 140 mMol/L (136-145); Total Protein 7.1 gm/dL (5.7-8.2); Troponin I < 0.020 ng/mL (0.0-0.045); eGFR > 60 See Note
[2025-05-31 19:45] VITALS: BP 146/84; PULSE 99
[2025-05-31] MEDS: FUROSEMIDE INJ 10 MG/ML 4ML VIAL 40 MG IVP (19:45)
[2025-05-31 19:54] LABS: B-Type Natriuretic Peptide 399 pg/mL (0-100)
[2025-05-31 23:05] VITALS: BP 140/85; PULSE 71; RESP 17; O2SAT 95
== END 2025-05-31 23:05 | disposition home or self-care (01) ==
PROVIDERS: Emergency Provider Student in an Organized Health Care Education/Training Program; PCP Family Medicine
DX: I10 Essential (primary) hypertension (principal); I48.0 Paroxysmal atrial fibrillation; E87.6 Hypokalemia; R07.9 Chest pain, unspecified; R06.02 Shortness of breath; Z79.01 Long term (current) use of anticoagulants
CPT/HCPCS: 36415; 71045; 80053; 80307; 81001; 83735; 83880; 84484; 85025; 85610; 85730; 93005; 96374; 99284; J1938

== ENCOUNTER 2025-09-02 12:44 | Inpatient (IN) | payer MEDICARE, MEDICAID, SELFPAY ==
[2025-09-02] VITALS (12 sets, daily range): BP systolic 144–174; BP diastolic 98–144; PULSE 68–144; RESP 12–19; TEMP 36.1–37.3; O2SAT 95–96; BMI 33.4
--- NOTE | 2025-09-02 | XR_ITS ---
MRI abdomen, without contrast. MRCP Date and time of exam: September 02, 2025, 1943 hrs. Indications: Right upper abdominal pain and tenderness beginning 2 days ago, gallbladder sonogram today thickened gallbladder wall, enlarged common bile duct Technique: Multiple axial and coronal images of the abdomen have been obtained with the Siemens 1.5T MRI scanner. Images obtained included T1 weighted transverse images, T2-weighted transverse images, T2-weighted transverse images fat-suppressed, T2 weighted haste fat suppressed transverse images, T1 weighted images, in and out of phase images, T2-weighted coronal images, breath hold, T2 weighted haze coronal images as well as T2 weighted coronal thick slab images, MRCP. Findings: No focal liver lesions Multiple gallstones Thickened edematous gallbladder wall The common bile duct and common hepatic duct are not enlarged on this study and no stones noted There is minimal peripancreatic edema Spleen is not enlarged Aorta is normal in size Atrophic kidneys with scarring and small cysts The osseous structures are intact Impression: Acute calculus cholecystitis Normal common hepatic common bile duct, not enlarged Mild acute pancreatitis
--- NOTE | 2025-09-02 13:01 | XR_ITS ---
Examination: PA lateral chest 2 views TECHNIQUE: Upright PA lateral chest 2 views Date and time: September 02 thousand 25, 1322 hours, comparison May 31, 2025 INDICATIONS: Chest pain today. FINDINGS: Mild enlargement cardiac contour. Mild vascular congestion. Increased AP dimension chest. Atelectasis in the posterior basal segment left lower lobe IMPRESSION: No pneumonia or pulmonary edema Mild vascular congestion
--- NOTE | 2025-09-02 13:01 | XR_ITS ---
Examination: Abdomen sonogram, Limited Date and time of exam: September 02 thousand 25 1613 hours INDICATIONS: Right upper abdominal pain beginning 2 days ago TECHNIQUE: Grayscale sonographic images abdomen FINDINGS: Multiple gallstones Gallbladder wall is thickened 0.8 cm Common bile duct 0.8 cm Pancreas normal in size Liver 17.2 cm fatty infiltration no focal liver lesions Normal hepatopedal portal venous flow Patent IVC IMPRESSION: Cholelithiasis Thickened gallbladder wall, enlarged common bile duct, consider MRCP follow-up to confirm cholecystitis and exclude common bile duct stones
--- NOTE | 2025-09-02 13:01 | EKG_ITS ---
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1960 Requested By: Micky Lynn Order Number: [id number] Reading MD: Micky Lynn Measurements Intervals [place] Rate: 142 P: [place]: QRS: -51 QRSD: 100 T: 84 QT: 338 QTc: 521 Interpretive Statements ATRIAL FLUTTER/TACHYCARDIA WITH RAPID VENTRICULAR RESPONSE LEFT AXIS DEVIATION [QRS AXIS < -30] LOW QRS VOLTAGE IN PRECORDIAL LEADS [QRS DEFLECTION < 1.0 mV IN CHEST LEADS] POSSIBLE ANTERIOR MYOCARDIAL INFARCTION , OF INDETERMINATE AGE [30 ms Q WAVE IN V3/V4, OR R < 0.2 mV IN V4] MARKED ST ELEVATION, CONSIDER INFERIOR INJURY [MARKED ST ELEVATION W/O NORMALLY INFLECTED T-WAVE IN II/aVF] ACUTE [place] Compared to ECG 05/31/2025 18:56:32 Low QRS voltage now present ST (T wave) deviation now present Atrial fibrillation no longer present Myocardial infarct finding still present /store/S0/[id number]/[id number]
--- NOTE | 2025-09-02 13:01 | PD.EDRME ---
Rapid Medical Screening Exam E Arrival date/time: 09/02/25 12:44 65-year-old male with a history of hypertension, hyperlipidemia, type 2 diabetes, congestive heart failure, presents to the emergency room with a chief complaint of right upper quadrant abdominal pain and tenderness and palpitations x 2 days I have greeted and performed a focused initial assessment of this patient. A comprehensive ED assessment and evaluation of the patient, analysis of all test results, and completion of the medical decision making process will be conducted by additional ED providers. Chief Complaint: Abdominal Pain Time Seen by Provider: 09/02/25 12:56 Vital signs: Vital Signs Temperature 99.1 F 09/02/25 12:56 Pulse Rate 144 H 09/02/25 12:56 Respiratory Rate 18 09/02/25 12:56 Blood Pressure 160/127 H 09/02/25 12:56 Pulse Oximetry (%) 96 09/02/25 12:56 Oxygen Delivery Method Room Air 09/02/25 12:56 Vital signs reviewed by provider: Yes
[2025-09-02 13:16] LABS: Basophils # (Auto) 0.0 Thou/mm3 (0.0-0.2); Basophils % (Auto) 0 % (0-2.5); Eosinophils # (Auto) 0.3 Thou/mm3 (0.0-0.5); Eosinophils % (Auto) 3 % (0-10); Hematocrit 35.8 % (41.0-53.0); Hemoglobin 11.2 g/dL (13.5-16.0); Immature Granulocytes Auto 0.03 Thou/mm3 (0.00-0.00); Lymphocytes # (Auto) 1.3 Thou/mm3 (1.0-4.8); Lymphocytes % (Auto) 13 % (10-50); Mean Corpuscular HGB Conc 31.3 g/dl (31.0-37.0); Mean Corpuscular Hemoglobin 25.3 pg (25.0-35.0); Mean Corpuscular Volume 81 fL (80-100); Monocytes # (Auto) 0.7 Thou/mm3 (0.0-0.8); Monocytes % (Auto) 7 % (0-12); Neutrophils # (Auto) 7.7 Thou/mm3 (1.8-7.7); Neutrophils % (Auto) 77 % (37-80); Nucleated Red Blood Cell # 0.00 Thou/mm3 (0.00-0.00); Nucleated Red Blood Cell % 0 /100 WBC (0); Platelet Count 290 Thou/mm3 (140-440); RDW Standard Deviation 46.9 fL (35.1-43.9); Red Blood Count 4.43 Miln/mm3 (4.50-5.90); White Blood Count 10.1 Thou/mm3 (3.8-10.6)
[2025-09-02 13:27] LABS: Collection Type, Urine Clean Catch; Squamous Epithelial Cell,Urine 0 /hpf (0-5)
[2025-09-02 13:29] LABS: INR 1.0 (0.9-1.3); Partial Thromboplastin Time 20.9 Seconds (22.0-36.0); Prothrombin Time 11.1 Seconds (9.0-12.2)
--- NOTE | 2025-09-02 13:29 | EDNOTE_ITS ---
ED Abdominal Pain RME/HPI General Chief Complaint: Abdominal Pain Stated complaint: R) ABD PAIN X 2 MOS Time seen by provider: 09/02/25 12:56 Arrival date/time: 09/02/25 12:44 RME / HPI RME / HPI narrative: 09/02/25 12:44 65-year-old male with a history of hypertension, hyperlipidemia, type 2 diabetes, congestive heart failure, presents to the emergency room with a chief complaint of right upper quadrant abdominal pain and tenderness and palpitations x 2 days I have greeted and performed a focused initial assessment of this patient. A comprehensive ED assessment and evaluation of the patient, analysis of all test results, and completion of the medical decision making process will be conducted by additional ED providers. DR. RICO MAIN ED EVALUATION 65 year old male patient with history of HFprEF (EF 55-60% 11/2024), CAD, [place], atrial fibrillation, hypertension, diabetes, hyperlipidemia presents to the ED for evaluation of right upper abdominal pain beginning 2 days ago. Described as aching in sensation, rating as moderate in severity. Accompanied by nausea. Additionally complains of on/off palpitations also beginning 2 days ago. Denies fevers, chills, sweats, chest pain, cough, shortness of breath, vomiting, diarrhea, constipation, or urinary symptoms. Related Data Home Medications ?Medication ?Instructions ?Recorded ?Confirmed metformin 1,000 mg tablet 1,000 mg PO BIDWMEAL 4 09/03/25 rivaroxaban 20 mg tablet (Xarelto) 20 mg PO QPM 09/03/25 nitroglycerin 0.4 mg sublingual 0.4 mg buccal Q5MIN PA N Chest Pain 07/09/24 09/03/25 tablet (Nitrostat) bumetanide 1 mg tablet 1 mg PO QDAY 09/03/25 clonidine HCl 0.3 mg tablet 0.3 mg PO QDAY 09/03/25 Previous Rx's ?Medication ?Instructions ?Recorded blood sugar diagnostic (Contour #50 ea 07/11/24 Next Test Strips) lancets (Microlet Lancet) #100 ea 07/11/24 atorvastatin 80 mg tablet (Lipitor) 80 mg PO QPM hyper lipidemia 1 09/05/25 month #30 tabs ursodiol 300 mg capsule 300 mg PO BIDWM Gallstones 1 month 09/05/25 #60 caps metoprolol succinate 100 mg 100 mg PO QDAY 2 weeks #14 tabs 09/06/25 tablet,extended release 24 hr Allergies Allergy/AdvReac Type Severity Reaction Status Date / Time morphine AdvReac Severe Headache Verified 09/02/25 12:46 Review of Systems Review of Systems Systems Reviewed: All systems reviewed, normal except as documented Past Medical History Past Medical History NEUROLOGIC: Positive Cerebrovascular Accident and Transient Ischemic Attacks (TIA) CARDIAC: Positive Cardiac Disorders, Myocardial Infarction, Atrial Fibrillation, Atherosclerotic Heart Disease, Congestive Heart Failure, Edema and Hypertension GASTROINTESTINAL: Positive Gastrointestinal Disorders and Obesity GENITOURINARY: Positive Genitourinary Disorders, Kidney Stones and Benign Prostatic Hyperplasia MUSCULOSKELETAL: Positive Musculoskeletal Disorders and Arthritis ENT: Positive History of ENT Problems (wears glassses) ENDOCRINE: Positive Endocrine Disorders and Diabetes Mellitus Type 2 OTHER HISTORY: Positive Chicken Pox Family History FAMILY HISTORY: Positive Family Cancer Social History SMOKING STATUS: Never smoker SECOND HAND EXPOSURE: No SUBSTANCE USE: does not use ED Exam Narrative Physical exam: GENERAL APPEARANCE: alert and oriented x 4, well-developed, well-nourished, no acute distress HEENT: Normocephalic, atraumatic; pupils equal, round, reactive to light; EOMI; mucous membranes pink, moist; oropharynx clear NECK: Supple LUNGS: CTABL; no wheezes, no rales, no rhonchi HEART: Tachycardic, irregularly irregular; normal S1, S2; no murmurs ABDOMEN: mildly distended normal BS; soft, right sided abdominal tenderness, no guarding, no rebound; no masses, no organomegaly, no hernia BACK: no CVA tenderness EXTREMITIES: atraumatic; no edema NEUROLOGIC: awake; alert and oriented x4; cranial nerves II-XII grossly intact; no focal sensory or motor deficits PSYCHIATRIC: appropriate mood and affect SKIN: warm, mildly diaphoretic, normal color; no rashes Course Course Course Narrative: RN reports Diltiazem gtt did not improve rate and was increased to 10mg/hr. 1615p: I spoke with surgeon Dr. Jeffers. Discussed patients PMHx, HPI, ED course, exam findings, labs, and radiology results. She agrees to consult. 1800p: Care signed out to Dr. Carmona pending MRCP. Quality Measures none Orders Category Date Time Status Bedside COVID-19 Antigen Test NOW Care 09/02/25 18:25 Completed Bedside Influenza A&B Antigen Test NOW Care 09/02/25 18:25 Completed COVID-19 Screening Questionnaire NOW Care 09/02/25 16:32 Completed COVID-19 Screening Questionnaire NOW Care 09/02/25 19:17 Completed Recruit Instructor Q4H START 00 Care 09/02/25 13:39 Completed Decision to Admit X1 Care 09/02/25 19:17 Completed EKG (ED ONLY) *Do not use* NOW Care 09/02/25 13:01 Completed IV [Insert IV] NOW Care 09/02/25 13:43 Completed MRI Screening NOW Care 09/02/25 16:12 Completed EKG (ED Only) Stat Exams 09/02/25 13:01 Draft MR MRCP Stat Exams 09/02/25 Completed US gall bladder Stat Exams 09/02/25 13:01 Completed XR chest 2V Stat Exams 09/02/25 13:01 Completed B-Type Natriuretic Peptide Stat Lab 09/02/25 13:10 Completed Bilirubin,Direct Stat Lab 09/02/25 13:10 Completed CBC Stat Lab 09/02/25 13:10 Completed Comprehensive Metabolic Panel Stat Lab 09/02/25 13:10 Completed D-Dimer Stat Lab 09/02/25 13:10 Completed Drug Screen,Urine Stat Lab 09/02/25 13:21 Completed Lipase Stat Lab 09/02/25 13:10 Completed Magnesium Stat Lab 09/02/25 13:10 Completed Partial Thromboplastin Time Stat Lab 09/02/25 13:10 Completed Prothrombin Time with INR Stat Lab 09/02/25 13:10 Completed TSH [Thyroid Stimulating Hormone] Stat Lab 09/02/25 13:10 Completed Troponin I Stat Lab 09/02/25 13:10 Completed Troponin I Stat Lab 09/02/25 13:10 Completed Urinalysis, C/S if Indicated Stat Lab 09/02/25 13:21 Completed DILTIAZEM in D5W 125 MG Med 09/02/25 16:00 Discontinued 125 mg in 125 ml IV 10 mg/hr Diltiazem Inj [Cardizem Inj] Med 09/02/25 13:29 Discontinued 15 mg IV X1 ONE Metoprolol Tartrate Inj [Lopressor Inj] Med 09/02/25 18:22 Discontinued 5 mg IVP X1 ONE Metoprolol Tartrate [Lopressor] Med 09/02/25 19:01 Discontinued 100 mg PO X1 ONE Piper/Tazo 3.375 gm Premix [Zosyn] Med 09/02/25 19:18 Discontinued 3.375 gm in 50 ml IV X1 Vital Signs Vital signs: Vital Signs Temperature 99.1 F 09/02/25 12:56 Pulse Rate 144 H 09/02/25 12:56 Respiratory Rate 18 09/02/25 12:56 Blood Pressure 160/127 H 09/02/25 12:56 Pulse Oximetry (%) 96 09/02/25 12:56 Oxygen Delivery Method Room Air 09/02/25 12:56 Pulse ox is 96% on room air which is adequate. Abdominal Pain MDM MDM Narrative MDM Narrative:: Jocelyne Newman am scribing for and in the presence of Dr. Rico. Patient data External records reviewed:: [facility] previous records Clinical information provided by:: patient Social determinants that could affect healthcare access:: none Patient has the following chronic illnesses:: HFprEF (EF 55-60% 11/2024), CAD, MO, atrial fibrillation, hypertension, diabetes, hyperlipidemia How is presenting disease/condition affected by chronic disease/condition?: exacerbated by Evaluation data The following diagnostics were reviewed and interpreted by me:: lab results, radiology exam(s) and EKG tracing(s) (Atrial flutter, rate 142, no STEMI. ) Lab and/or radiology exams considered but not ordered:: None Interpretation Summary: Ordering Physician: Micky Estrella Date of Service: 09/02/25 Procedure(s): XR chest 2V Accession Number(s): [id number] cc: Micky Estrella; Ochoa Cervantes MD~ Examination: PA lateral chest 2 views TECHNIQUE: Upright PA lateral chest 2 views Date and time: September 02 25, 1322 hours, comparison May 31, 2025 INDICATIONS: Chest pain today. FINDINGS: Mild enlargement cardiac contour. Mild vascular congestion. Increased AP dimension chest. Atelectasis in the posterior basal segment left lower lobe IMPRESSION: No pneumonia or pulmonary edema Mild vascular congestion Dictated By: Ochoa Cervantes MD Signed By: <Electronically signed by Ochoa Cervantes MD in [place]> 09/02/25 1332 Ordering Physician: Micky Estrella Date of Service: 09/02/25 Procedure(s): US gall bladder Accession Number(s): [id number] cc: Micky Estrella; Ochoa Cervantes MD~ Examination: Abdomen sonogram, Limited Date and time of exam: September 02 1613 hours INDICATIONS: Right upper abdominal pain beginning 2 days ago TECHNIQUE: Grayscale sonographic images abdomen FINDINGS: Multiple gallstones Gallbladder wall is thickened 0.8 cm Common bile duct 0.8 cm Pancreas normal in size Liver 17.2 cm fatty infiltration no focal liver lesions Normal hepatopedal portal venous flow Patent IVC IMPRESSION: Cholelithiasis Thickened gallbladder wall, enlarged common bile duct, consider MRCP follow-up to confirm cholecystitis and exclude common bile duct stones Dictated By: Ochoa Cervantes MD Signed By: <Electronically signed by Ochoa Cervantes MD in [place]> 09/02/25 1449 Medications / Prescriptions Medications or Prescriptions considered but not ordered:: none Medication administrations:: Medication Administration History Discontinued Medications Acetaminophen (Acetaminophen 325 Mg Tablet) 650 mg PO Q6H PRN PRN Reason: Fever >100.4 Stop: 10/02/25 20:08 Acetaminophen (Acetaminophen 325 Mg Tablet) 650 mg PO Q6H PRN PRN Reason: Pain Scale 1-5 (Mild Stop: 10/02/25 20:14 Acetaminophen (Acetaminophen 325 Mg Tablet) 650 mg PO Q6H PRN PRN Reason: Fever >100.4 or pain 1-5 Stop: 10/02/25 20:08 Last Admin: 09/03/25 15:18 Dose: 650 mg Documented By: AC Hydrocodone Bitart/Acetaminophen (Hydrocodone/Apap 5/325 Tablet) 1 tab PO Q4HR PRN PRN Reason: PAIN SCALE 4-10(Mod-Sev Stop: 09/09/25 08:50 Last Admin: 09/05/25 08:43 Dose: 1 tab Documented By: MOE Adenosine (Adenosine Inj 3 Mg/Ml Vial) Confirm Administered Dose 18 mg .ROUTE .STK-MED ONE Stop: 09/04/25 11:07 Last Admin: 09/04/25 12:55 Dose: Not Given Documented By: EC Non-Admin Reason: Duplicate Medication on eMAR Adenosine (Adenosine Inj 3 Mg/Ml Vial) 12 mg IVP X1 ONE Stop: 09/04/25 11:53 Last Admin: 09/04/25 11:52 Dose: 12 mg Documented By: HIPOLITO Adenosine (Adenosine Inj 3 Mg/Ml Vial) 6 mg IVP X1 ONE Stop: 09/04/25 11:49 Last Admin: 09/04/25 11:48 Dose: 6 mg Documented By: HIPOLITO Amlodipine Besylate (Amlodipine Besylate 5 Mg Tablet) 10 mg PO QDAY [facility] Stop: 10/05/25 10:59 Last Admin: 09/06/25 08:15 Dose: 10 mg Documented By: Admin: 09/05/25 11:55 Dose: 10 mg Documented By: MOE Atorvastatin Calcium (Atorvastatin Calcium 20 Mg Tablet) 80 mg PO [facility] Stop: 10/04/25 20:59 Last Admin: 09/05/25 20:42 Dose: 80 mg Documented By: Admin: 09/04/25 21:49 Dose: 80 mg Documented By: MARY Benzocaine (Benzocaine 20% (Hurricaine) [place] 1 Dose) Confirm Administered Dose 1 dose TOP .STK-MED ONE Stop: 09/04/25 11:17 Last Admin: 09/04/25 12:55 Dose: Not Given Documented By: EC Non-Admin Reason: Duplicate Medication on eMAR Benzocaine (Benzocaine 20% (Hurricaine) [place] 1 Dose) 0 dose TOP X1 ONE Stop: 09/04/25 11:56 Last Admin: 09/04/25 11:55 Dose: 1 dose Documented By: HIPOLITO Bumetanide (Bumetanide 0.5 Mg Tablet) 1 mg PO QDAY [facility] Stop: 10/04/25 08:59 Last Admin: 09/06/25 09:15 Dose: 1 mg Documented By: Admin: 09/05/25 08:44 Dose: 1 mg Documented By: Admin: 09/04/25 09:17 Dose: 1 mg Documented By: JONATHAN Dextrose (Dextrose 50%-Water Inj 50 Ml Syringe) 25 ml IV Q15MIN PRN PRN Reason: BG 50-70 responsive npo pt Stop: 10/02/25 20:23 Dextrose (Dextrose 50%-Water Inj 50 Ml Syringe) 50 ml IV Q15MIN PRN PRN Reason: BG <50 OR BG <70 & pt unresponsive Stop: 10/02/25 20:23 Digoxin (Digoxin 0.125 Mg Tablet) 0.25 mg PO X1 ONE Stop: 09/03/25 14:59 Last Admin: 09/03/25 15:21 Dose: 0.25 mg Documented By: JONATHAN Digoxin (Digoxin 0.125 Mg Tablet) 0.5 mg PO X1 ONE Stop: 09/03/25 18:00 Last Admin: 09/03/25 18:41 Dose: 0.5 mg Documented By: JONATHAN Digoxin (Digoxin 0.125 Mg Tablet) 0.25 mg PO X1 ONE Stop: 09/04/25 02:01 Last Admin: 09/04/25 02:06 Dose: 0.25 mg Documented By: VIVIENNE Digoxin (Digoxin 0.125 Mg Tablet) 0.125 mg PO QDAY [facility] Stop: 10/05/25 08:59 Last Admin: 09/05/25 08:45 Dose: 0.125 mg Documented By: MOE Diltiazem HCl (Diltiazem Inj 5 Mg/Ml Vial 5 Ml) 15 mg IV X1 ONE Stop: 09/02/25 13:30 Last Admin: 09/02/25 13:46 Dose: 15 mg Documented By: KEIRY Enoxaparin Sodium (Enoxaparin Sod Inj 40 Mg/0.4 Ml Syringe) 100 mg SC QDAY [facility] Stop: 09/17/25 08:59 Fentanyl Citrate (Fentanyl Cit Inj 50 Mcg/Ml Amp 2ml) Confirm Administered Dose 200 mcg .ROUTE .STK-MED ONE Stop: 09/04/25 11:17 Last Admin: 09/04/25 12:55 Dose: Not Given Documented By: EC Non-Admin Reason: Duplicate Medication on eMAR Fentanyl Citrate (Fentanyl Cit Inj 50 Mcg/Ml Amp 2ml) 100 mcg IVP X1 ONE Stop: 09/04/25 11:57 Last Admin: 09/04/25 11:56 Dose: 100 mcg Documented By: EC Flumazenil (Flumazenil Inj 0.1 Mg/Ml Vial 10 Ml) Confirm Administered Dose 1 mg .ROUTE .STK-MED ONE Stop: 09/04/25 11:17 Last Admin: 09/04/25 12:55 Dose: Not Given Documented By: EC Non-Admin Reason: Duplicate Medication on eMAR Furosemide (Furosemide 40 Mg Tablet) 40 mg PO QDAY ER[facility] Stop: 10/03/25 08:59 Last Admin: 09/03/25 08:20 Dose: 40 mg Documented By: AC Furosemide (Furosemide Inj 10 Mg/Ml 4ml Vial) 40 mg IVP X1 ONE Stop: 09/02/25 22:28 Last Admin: 09/02/25 22:44 Dose: 40 mg Documented By: IG Glucagon (Glucagon Inj 1 Mg Vial) 1 mg IM Q15MIN PRN PRN Reason: BG <70, and no IV access Hydralazine HCl (Hydralazine Inj 20 Mg/Ml Vial) 5 mg IVP X1 ONE Stop: 09/06/25 08:31 Last Admin: 09/06/25 09:05 Dose: 5 mg Documented By: AC Hydromorphone HCl (Hydromorphone Inj 2 Mg/Ml Vial) 0.5 mg IVP Q6H PRN PRN Reason: PAIN 6-10 Stop: 09/07/25 20:14 Last Admin: 09/03/25 17:07 Dose: 0.5 mg Documented By: AC Hydromorphone HCl (Hydromorphone Inj 2 Mg/Ml Vial) 0.5 mg IVP Q6H PRN; Protocol PRN Reason: BREAKTHROUGH PAIN Stop: 09/07/25 20:14 Diltiazem HCl (Diltiazem In D5w 125 Mg) 125 mg in 125 mls @ 10 mls/hr IV .[id number] [facility] Stop: 10/02/25 15:59 Last Admin: 09/04/25 04:43 Dose: Not Given Documented By: IG Non-Admin Reason: Cancelled by Provider Admin: 09/03/25 15:26 Dose: Not Given Documented By: AC Non-Admin Reason: held per Dr. Massey Admin: 09/03/25 05:12 Dose: Not Given Documented By: IG Non-Admin Reason: Cancelled by Provider Infusion: 09/02/25 21:17 Dose: 0 mg/hr, 0 mls/hr Documented By: Infusion: 09/02/25 20:46 Dose: 2 mg/hr, 2 mls/hr Documented By: Infusion: 09/02/25 20:30 Dose: 3 mg/hr, 3 mls/hr Documented By: Infusion: 09/02/25 19:36 Dose: 5 mg/hr, 5 mls/hr Documented By: Infusion: 09/02/25 19:02 Dose: 7.5 mg/hr, 7.5 mls/hr Documented By: Infusion: 09/02/25 17:02 Dose: 10 mg/hr, 10 mls/hr Documented By: Admin: 09/02/25 16:25 Dose: 5 mg/hr, 5 mls/hr Documented By: BD Piperacillin/Tazobactam/Dextrose (Zosyn) 3.375 gm in 50 mls @ 100 mls/hr IV X1 ONE; Protocol Stop: 09/02/25 19:47 Last Infusion: 09/02/25 21:17 Dose: Infused Documented By: Admin: 09/02/25 20:41 Dose: 100 mls/hr Documented By: BD Potassium Chloride (Kcl Ivpb) 10 meq in 100 mls @ 100 mls/hr IV Q1H ERWIN Stop: 09/03/25 10:52 Last Admin: 09/03/25 13:31 Dose: 100 mls/hr Documented By: Infusion: 09/03/25 12:06 Dose: Infused Documented By: Admin: 09/03/25 11:06 Dose: 100 mls/hr Documented By: Infusion: 09/03/25 10:37 Dose: Infused Documented By: Admin: 09/03/25 09:37 Dose: 100 mls/hr Documented By: Infusion: 09/03/25 08:37 Dose: Infused Documented By: Admin: 09/03/25 07:37 Dose: 100 mls/hr Documented By: JONATHAN Magnesium Sulfate (Magnesium Sulfate Ivpb) 2 gm in 50 mls @ 25 mls/hr IV X1 ONE Stop: 09/03/25 09:07 Last Admin: 09/03/25 07:37 Dose: 25 mls/hr Documented By: JONATHAN Magnesium Sulfate (Magnesium Sulfate Ivpb) 2 gm in 50 mls @ 25 mls/hr IV X1 ONE Stop: 09/03/25 11:14 Last Admin: 09/03/25 09:37 Dose: 25 mls/hr Documented By: JONATHAN Ceftriaxone Sodium/Dextrose (Rocephin/D5w 1gm Iv Premix) 1 gm in 50 mls @ 100 mls/hr IV QDAY ERWIN Stop: 09/10/25 10:18 Last Admin: 09/06/25 08:16 Dose: 100 mls/hr Documented By: Infusion: 09/05/25 09:15 Dose: Infused Documented By: Admin: 09/05/25 08:45 Dose: 100 mls/hr Documented By: Infusion: 09/04/25 09:44 Dose: Infused Documented By: Admin: 09/04/25 09:14 Dose: 100 mls/hr Documented By: Infusion: 09/03/25 11:35 Dose: Infused Documented By: Admin: 09/03/25 11:05 Dose: 100 mls/hr Documented By: JONATHAN Metronidazole (Flagyl 500 Mg Iv) 500 mg in 100 mls @ 200 mls/hr IV Q8HR ERWIN Stop: 09/10/25 10:18 Last Admin: 09/06/25 05:50 Dose: 200 mls/hr Documented By: [email or web address] Infusion: 09/05/25 21:46 Dose: Infused Documented By: [email or web address] Admin: 09/05/25 21:16 Dose: 200 mls/hr Documented By: [email or web address] Infusion: 09/05/25 14:54 Dose: Infused Documented By: [email or web address] Admin: 09/05/25 14:24 Dose: 200 mls/hr Documented By: Infusion: 09/05/25 05:33 Dose: Infused Documented By: Admin: 09/05/25 05:03 Dose: 200 mls/hr Documented By: [email or web address] Infusion: 09/04/25 22:19 Dose: Infused Documented By: [email or web address] Admin: 09/04/25 21:49 Dose: 200 mls/hr Documented By: [email or web address] Infusion: 09/04/25 15:24 Dose: Infused Documented By: [email or web address] Admin: 09/04/25 14:54 Dose: 200 mls/hr Documented By: Infusion: 09/04/25 05:42 Dose: Infused Documented By: Admin: 09/04/25 05:12 Dose: 200 mls/hr Documented By: Infusion: 09/03/25 21:36 Dose: Infused Documented By: Admin: 09/03/25 21:06 Dose: 200 mls/hr Documented By: Infusion: 09/03/25 13:50 Dose: Infused Documented By: Admin: 09/03/25 13:20 Dose: 200 mls/hr Documented By: Infusion: 09/03/25 11:36 Dose: Infused Documented By: Admin: 09/03/25 11:06 Dose: 200 mls/hr Documented By: JONATHAN Magnesium Sulfate (Magnesium Sulfate Ivpb) 4 gm in 50 mls @ 12.5 mls/hr IV X1 ONE Stop: 09/03/25 23:20 Last Admin: 09/03/25 19:37 Dose: 12.5 mls/hr Documented By: IG Magnesium Sulfate (Magnesium Sulfate Ivpb) 2 gm in 50 mls @ 25 mls/hr IV X1 ONE Stop: 09/06/25 10:29 Last Admin: 09/06/25 09:05 Dose: 25 mls/hr Documented By: JONATHAN Insulin Human Lispro (Insulin Lispro (Admelog) 1 Unit/0.01 Ml Unit) 0 unit [facility]; Protocol Stop: 10/03/25 07:29 Last Admin: 09/06/25 12:22 Dose: Not Given Documented By: JONATHAN Non-Admin Reason: Patient Refused Admin: 09/06/25 08:00 Dose: Not Given Documented By: JONATHAN Non-Admin Reason: Per Protocol Admin: 09/05/25 16:59 Dose: Not Given Documented By: MOE Non-Admin Reason: blood sugar 124 Admin: 09/05/25 11:28 Dose: Not Given Documented By: MOE Non-Admin Reason: blood sugar 132 Admin: 09/05/25 07:53 Dose: 1 unit Documented By: MOE Co-signed By: SC Admin: 09/04/25 17:38 Dose: 2 unit Documented By: JONATHAN Co-signed By: Admin: 09/04/25 13:01 Dose: Not Given Documented By: JONATHAN Non-Admin Reason: Not In Room Admin: 09/04/25 08:33 Dose: Not Given Documented By: JONATHAN Non-Admin Reason: Per Protocol Admin: 09/03/25 17:13 Dose: 1 unit Documented By: JONATHAN Co-signed By: MARIANGEL Admin: 09/03/25 11:15 Dose: Not Given Documented By: JONATHAN Non-Admin Reason: Per Protocol Admin: 09/03/25 07:37 Dose: 1 unit Documented By: JONATHAN Co-signed By: MOE Losartan Potassium (Losartan Potassium 25 Mg Tablet) 100 mg PO QDAY [facility] Stop: 10/03/25 08:59 Last Admin: 09/05/25 08:44 Dose: 100 mg Documented By: Admin: 09/04/25 09:16 Dose: 100 mg Documented By: Admin: 09/03/25 08:19 Dose: 100 mg Documented By: JONATHAN Metoprolol Succinate (Metoprolol Succinate Xl 25 Mg Tabcr) 100 mg PO QDAY [facility] Stop: 10/04/25 08:59 Last Admin: 09/06/25 08:16 Dose: 100 mg Documented By: Admin: 09/05/25 08:45 Dose: 100 mg Documented By: Admin: 09/04/25 09:18 Dose: 100 mg Documented By: JONATHAN Metoprolol Succinate (Metoprolol Succinate Xl 25 Mg Tabcr) 50 mg PO X1 ONE Stop: 09/03/25 10:17 Last Admin: 09/03/25 11:22 Dose: 50 mg Documented By: JONATHAN Metoprolol Succinate (Metoprolol Succinate Xl 25 Mg Tabcr) 50 mg PO X1 ONE Stop: 09/03/25 13:05 Last Admin: 09/03/25 13:20 Dose: 50 mg Documented By: JONATHAN Metoprolol Tartrate (Metoprolol Tartrate Inj 1 Mg/Ml Amp 5 Ml) 5 mg IVP X1 ONE Stop: 09/02/25 18:23 Last Admin: 09/02/25 18:44 Dose: 5 mg Documented By: KEIRY Metoprolol Tartrate (Metoprolol Tartrate 25 Mg Tablet) 100 mg PO X1 ONE Stop: 09/02/25 19:02 Last Admin: 09/02/25 19:51 Dose: 100 mg Documented By: KEIRY Midazolam HCl (Midazolam Inj 1 Mg/Ml Vial 2 Ml) Confirm Administered Dose 6 mg .ROUTE .STK-MED ONE Stop: 09/04/25 11:17 Last Admin: 09/04/25 12:55 Dose: Not Given Documented By: HIPOLITO Non-Admin Reason: Duplicate Medication on eMAR Midazolam HCl (Midazolam Inj 1 Mg/Ml Vial 2 Ml) 5 mg IVP X1 ONE Stop: 09/04/25 11:56 Last Admin: 09/04/25 11:55 Dose: 5 mg Documented By: EC Naloxone HCl (Naloxone Inj 0.4 Mg/Ml Vial) Confirm Administered Dose 0.4 mg .ROUTE .STK-MED ONE Stop: 09/04/25 11:17 Last Admin: 09/04/25 12:55 Dose: Not Given Documented By: EC Non-Admin Reason: Duplicate Medication on eMAR Ondansetron HCl (Ondansetron Inj 2 Mg/Ml Inj 2 Ml) 4 mg IVP Q6H PRN; Protocol PRN Reason: NAUSEA OR VOMITING Stop: 10/02/25 20:23 Last Admin: 09/02/25 20:43 Dose: 4 mg Documented By: BD Ondansetron HCl (Ondansetron Inj 2 Mg/Ml Inj 2 Ml) Confirm Administered Dose 4 mg .ROUTE .STK-MED ONE Stop: 09/04/25 11:18 Last Admin: 09/04/25 12:55 Dose: Not Given Documented By: EC Non-Admin Reason: Duplicate Medication on eMAR Ondansetron HCl (Ondansetron Inj 2 Mg/Ml Inj 2 Ml) 4 mg IVP X1 ONE; Protocol Stop: 09/04/25 12:11 Last Admin: 09/04/25 12:10 Dose: 4 mg Documented By: EC Potassium Chloride (Potassium Chloride 20 Meq Tabcr) 40 meq PO X1 ONE Stop: 09/03/25 06:55 Last Admin: 09/03/25 07:36 Dose: 40 meq Documented By: AC Potassium Chloride (Potassium Chloride 20 Meq Tabcr) 20 meq PO X1 ONE Stop: 09/03/25 16:38 Last Admin: 09/03/25 17:13 Dose: 20 meq Documented By: AC Potassium Chloride (Potassium Chloride 10% 20 Meq/15 Ml Udc) 40 meq PO X1 ONE Stop: 09/03/25 16:38 Last Admin: 09/03/25 17:12 Dose: 40 meq Documented By: AC Potassium Chloride (Potassium Chloride 10% 20 Meq/15 Ml Udc) 40 meq GT X1 ONE Stop: 09/04/25 16:40 Last Admin: 09/04/25 16:54 Dose: 40 meq Documented By: AC Potassium Chloride (Potassium Chloride 10% 20 Meq/15 Ml Udc) 40 meq PO X1 ONE Stop: 09/06/25 08:31 Last Admin: 09/06/25 09:05 Dose: 40 meq Documented By: JONATHAN Rivaroxaban (Rivaroxaban 10 Mg Tablet) 20 mg PO X1 ONE Stop: 09/04/25 18:54 Last Admin: 09/04/25 19:22 Dose: 20 mg Documented By: MARY Rivaroxaban (Rivaroxaban 10 Mg Tablet) 20 mg PO WSUPPER ERWIN Stop: 10/05/25 17:29 Last Admin: 09/05/25 17:17 Dose: 20 mg Documented By: MOE Sennosides (Senna Tablet) 1 tab PO QDAY [facility]; Protocol Stop: 10/03/25 08:59 Last Admin: 09/06/25 08:15 Dose: 1 tab Documented By: Admin: 09/05/25 08:45 Dose: 1 tab Documented By: Admin: 09/04/25 09:17 Dose: 1 tab Documented By: Admin: 09/03/25 08:19 Dose: 1 tab Documented By: JONATHAN Tamsulosin HCl (Tamsulosin Hcl 0.4 Mg Capsule) 0.4 mg PO QDAY ERWIN Stop: 10/03/25 08:59 Last Admin: 09/06/25 08:15 Dose: 0.4 mg Documented By: Admin: 09/05/25 08:43 Dose: 0.4 mg Documented By: Admin: 09/04/25 09:17 Dose: 0.4 mg Documented By: Admin: 09/03/25 08:20 Dose: 0.4 mg Documented By: JONATHAN Ursodiol (Ursodiol 300 Mg Capsule) 300 mg PO BIDWM [facility] Stop: 10/04/25 17:29 Last Admin: 09/06/25 08:15 Dose: 300 mg Documented By: Admin: 09/05/25 17:17 Dose: 300 mg Documented By: Admin: 09/05/25 08:55 Dose: 300 mg Documented By: Admin: 09/04/25 16:50 Dose: 300 mg Documented By: JONATHAN See above Consultations Consultation(s) initiated? (list below): Yes Consultation #1 (Physician, Specialty, Details): See course Diagnosis Differential diagnosis abdominal pain: abdominal pain and calculus of kidney Most likely diagnosis given after review of the tests above:: Abdominal pain Admission Indicated Admission indicated?: not indicated Admission Request Was there a request for admission?: No Disposition Plan Disposition Plan: Discharge Discharge Attestation Discharge Attestation: The patient and all family members were given an opportunity to ask questions and understood the discharge instructions. Discharge instructions specifically effects, indications for sooner follow up or return to the emergency department, and the expected course of current diagnosis. Patient condition: Stable Critical Care Time Critical Care Time Critical Care Time: Yes Total Critical Care Time (min.): 45 Attestation: The high probability of sudden, clinically significant deterioration in the patient's condition required the highest level of my preparedness to intervene urgently. The services I provided to this patient were to treat and/or prevent clinically significant deterioration. Services included the following: chart data review, reviewing nursing notes and/or old charts, documentation time, consultant technology collaboration regarding findings and treatment options, medication orders and management, direct patient care, vital sign assessments and ordering, interpreting and reviewing diagnostic studies and lab tests. Aggregate critical care time includes only time during which I was engaged in work directly related to the patient's care, as described above, whether at bedside or elsewhere in the Emergency Department. It did not include time spent performing other reported procedures or the services of residents, students, nurses or physician assistants. Discharge Plan Plan Patient Disposition: Admit Acute Care w/in Hospital Patient condition on transfer: Stable Problem List Clinical Impression: Acute cholecystitis, Atrial fibrillation with RVR Patient/Caregiver Discharge Instructions Discharge Activity: walk with walker only, activity as tolerated and resume usual activities
[2025-09-02 13:34] LABS: B-Type Natriuretic Peptide 644 pg/mL (0-100)
[2025-09-02 13:35] LABS: Alanine Aminotransferase 17 U/L (10-49); Albumin, Serum 4.2 gm/dL (3.4-4.8); Albumin/Globulin Ratio 1.3 (1.2-2.2); Alkaline Phosphatase 78 U/L (46-116); Anion Gap 8 (7-16); Aspartate Amino Transferase 18 U/L (0-34); BUN/Creatinine Ratio 11 Ratio (12-20); Bilirubin,Total 0.5 mg/dL (0.3-1.2); Blood Urea Nitrogen 12 mg/dL (9-23); Calcium 9.4 mg/dL (8.3-10.6); Calcium (Corrected) 9.4 mg/dL (8.5-10.1); Carbon Dioxide 31.0 mMol/L (20.0-31.0); Chloride 101 mMol/L (98-107); Creatinine (Component) 1.1 mg/dL (0.6-1.3); Estimated Creatinine Clearance 75.6 mL/min (>60); Globulin 3.2 gm/dL (2.3-3.5); Glucose 140 mg/dL (74-106); Magnesium 1.7 mg/dL (1.6-2.6); Osmolality,Calculated 281 (275-295); Potassium 3.9 mMol/L (3.4-5.1); Sodium 140 mMol/L (136-145); Total Protein 7.4 gm/dL (5.7-8.2); Troponin I < 0.020 ng/mL (0.0-0.045); eGFR > 60 See Note
[2025-09-02 13:43] LABS: Bilirubin,Urine Negative (Negative); Blood,Urine Negative (Negative); Clarity,Urine Clear (Clear/Hazy); Color,Urine Lt-Yellow (Lt Yel-Yel); Culture Indicated,Urine Not Indicated; Glucose, Urine 4+ (Negative); Hyaline Casts,Urine 2 /hpf (0-1); Ketones,Urine Negative (Negative); Leukocyte Esterase,Urine Negative (Negative); Nitrite,Urine Negative (Negative); PH,Urine 6.0 (5.0-7.0); Protein,Urine 1+ (Neg - Trace); RBC,Urine 1 /hpf (0-3); Specific Gravity,Urine 1.012 (1.001-1.035); Urobilinogen,Urine Negative mg/dL (0.0-1.0); WBC,Urine 1 /hpf (0-5)
[2025-09-02 13:45] LABS: Lipase 39 U/L (12-53)
[2025-09-02] MEDS: DILTIAZEM INJ 5 MG/ML VIAL 5 ML 15 MG IV (13:46)
[2025-09-02 14:16] LABS: Amphetamine/Methamp Scrn,U Negative (Negative); Barbiturate Screen,Urine Negative (Negative); Benzodiazepines Screen,Urine Negative (Negative); Benzoylecgonine Screen, Ur Negative (Negative); Opiate Screen,Urine Negative (Negative); THC Screen,Urine Negative (Negative)
[2025-09-02 14:26] LABS: Fentanyl Screen,Urine Negative (Negative)
[2025-09-02] MEDS: DILTIAZEM in D5W 125 MG 125 MG/125 ML BAG IV (16:25)
--- NOTE | 2025-09-02 16:30 | PC.NURSE ---
PER DR. LOYD START DILTIAZEM AT 5MG/HR NOT 10 MG
--- NOTE | 2025-09-02 18:00 | PD.SURCONS ---
HPI Consult details History of present illness: 65M with HTN, HLD, DMII, A-fib on Xarelto who presented to ER due to abdominal pain. Patient reports pain was in the right upper abdomen/flank, similar to pain he has had in the past, associated with nausea. Patient denies any association with eating and at the moment feels the pain is improved, currently 4 out of 10 and he is feeling hungry. Patient also has noted palpitations and in the ER has had heart rates in the 130s to 140s, is being started on a Cardizem drip PMH: HTN, HLD, DM 2, A-fib on Xarelto, patient denies any cardiac procedures but does describe being planned for a cardiac cath PSH: None Meds: Include Xarelto, last taken on 09/01 Allergies: Morphine Family history: No known malignancies Review of Systems Review of Systems ROS Unobtainable: All systems reviewed & no additional complaints except as documented Meds Home Medications and Allergies Home Medications ?Medication ?Instructions ?Recorded ?Confirmed ?Type finasteride 5 mg tablet 1 tab PO QDAY 07/20/22 12/06/24 History losartan 100 mg tablet 100 mg PO QDAY 07/20/22 12/06/24 History tamsulosin 0.4 mg capsule 0.4 mg PO DAILY 01/19/23 12/06/24 History metformin 1,000 mg tablet 1,000 mg PO BIDWMEAL 02/06/24 12/06/24 History rivaroxaban 20 mg tablet (Xarelto) 20 mg PO QPM 02/06/24 12/06/24 History nitroglycerin 0.4 mg sublingual 0.4 mg buccal Q5MIN PRN Chest Pain 07/09/24 12/06/24 History tablet (Nitrostat) Allergies Allergy/AdvReac Type Severity Reaction Status Date / Time morphine AdvReac Severe Headache Verified 09/02/25 12:46 Exam Vital Signs Temp Pulse Resp BP Pulse Ox O2 Del Method 97.7 F 138 H 16 174/132 H 95 Room Air 09/02/25 16:12 09/02/25 16:25 09/02/25 16:12 09/02/25 16:25 09/02/25 16:12 09/02/25 16:12 Constitutional Constitutional: no acute distress Routine Respiratory Exam Respiratory: Present no resp distress Routine Abdominal Exam Abdominal: Present soft and tenderness (Mild right upper quadrant tenderness, negative Sierra sign); Absent distended, rebound or guarding Results Results: Laboratory Laboratory results: results reviewed Results: Imaging US - abdomen: report reviewed Assessment & Plan Plan 65M with HTN, HLD, DMII, A-fib on Xarelto who presented to ER due to abdominal pain, with findings of cholelithiasis and possible cholecystitis. Clinically patient appears well with improved pain and minimal tenderness. I explained that if he truly does have cholecystitis, be reasonable to pursue surgery during this admission and I explained the benefits/risks including the possibility of needing to convert to open, bleeding, infection, and injury to biliary structures which could require a major reconstructive surgery which would require transfer to a tertiary hospital. Given his comorbid conditions and the fact that he is clinically well, I will first follow-up the results of the MRCP and request a cardiology evaluation before proceeding with surgery Follow-up MRCP, if inconclusive would consider HIDA Hold Prettyto Appreciate cardiology preoperative evaluation Pending above would consider cholecystectomy during admission versus outpatient
--- NOTE | 2025-09-02 18:15 | PC.NURSE ---
PT BACK FROM MRI
--- NOTE | 2025-09-02 18:18 | EDNOTE_ITS ---
Emergency Room Addendum <Yumiko Guillen - Last Filed: 09/02/25 20:47> Addendum Narrative: I took over the care from previous shift physician at 6 PM on 09/02/2025. See previous notes for complete H & P and ED course. I reviewed all diagnostic test results. My interpretation of the EKG is My interpretation of the chest x-ray is No pneumonia or pulmonary edema. Mild vascular congestion. My review of the Gallbladder US report is Cholelithiasis. Thickened gallbladder wall, enlarged common bile duct, consider MRCP follow-up to confirm cholecystitis and exclude common bile duct stones. My review of the Cholangiopancreatography MRI report is Acute calculus cho lecystitis. Normal common hepatic common bile duct, not enlarged. Mild acute pancreatitis. Blood tests and urine tests Covid/Influenza: Negative. Diagnoses include: Acute Cholecystitis Treatment here included: Dilitiazem in D5w 125 mg Lopressor 5 mg Cardizem 15 mg 19:07 - I discussed the case with Dr. Jeffers, our surgeon. About the presentation and exam and diagnostics and treatments here. And need of further care in the hospital. Advises admisison. 19:16 - I discussed the case with our hospitalist. About the presentation and exam and diagnostics and treatments here. And need of further care in the hospital. Will accept the patient. Gerard Carmona MD <Gerard Carmona MD - Last Filed: 09/02/25 21:57> Addendum Narrative: I took over the care from previous shift physician, Dr. Rico, at 6 PM on 09/02/2025. See previous notes for complete H & P and ED course. I reviewed all diagnostic test results. Diagnoses include: Acute Cholecystitis Atrial fibrillation with RVR Cardizem bolus and drip given by previous physician. No improvement noted. From me, he received metoprolol 5 mg IV and oral metoprolol 100 mg RVR resolved. 19:07 - I discussed the case with Dr. Jeffers, our surgeon. About the presentation and exam and diagnostics and treatments here. And need of further care in the hospital. Recommend admission to hospitalist service. 19:16 - I discussed the case with our hospitalist. About the presentation and exam and diagnostics and treatments here. And need of further care in the hospital. Will accept the patient. Gerard Carmona MD
[2025-09-02] MEDS: METOPROLOL TARTRATE INJ 1 MG/ML AMP 5 ML 5 MG IVP (18:44)
[2025-09-02 18:54] LABS: D-Dimer 708 ng/mL (<600)
[2025-09-02 19:03] LABS: Bilirubin,Direct 0.2 mg/dL (0.0-0.3); Thyroid Stimulating Hormone 2.68 uIU/mL (0.55-4.78); Troponin I < 0.020 ng/mL (0.0-0.045)
--- NOTE | 2025-09-02 19:03 | PC.NURSE ---
PER DR. TOTH DECREASE DILTIAZEM
[2025-09-02] MEDS: METOPROLOL TARTRATE 25 MG TABLET 100 MG PO (19:51)
--- NOTE | 2025-09-02 20:18 | ECHO_ITS ---
Transthoracic Echo Report Ht (in): 68 Wt (lb): 220 Exam Location: 273 Status: Emergency Research Associate Professor: Kate Rea Indications: Procedure Performed: BP: 138 / 93 HR: 136 MEASUREMENTS (Male / Female) Normal Values 2D ECHO LV Diastolic Diameter PLAX 4.8 cm 4.2 - 5.9 / 3.9 - 5.3 cm LV Systolic Diameter PLAX 4.0 cm IVS Diastolic Thickness 1.2 cm 0.6 - 1.0 / 0.6 - 0.9 cm LVPW Diastolic Thickness 1.3 cm 0.6 - 1.0 / 0.6 - 0.9 cm LV Relative Wall Thickness 0.5 LVOT Diameter 2.0 cm LV Ejection Fraction MOD BP 33.0 % >= 55 % LV Cardiac Index MOD BP 2807.9 cm?/min?m? LV Ejection Fraction MOD 4C 32.1 % LV Cardiac Index MOD 4C 3181.1 cm?/min?m? LV Ejection Fraction 4C AL 32.7 % LV Cardiac Index 4C AL 3303.9 cm?/min?m? LV Ejection Fraction MOD 2C 29.4 % LV Cardiac Index MOD 2C 1792.4 cm?/min?m? LV Ejection Fraction 2C AL 30.1 % LV Cardiac Index 2C AL 1844.3 cm?/min?m? LA Volume Index 58.0 cm?/m? 16 - 28 cm?/m? Ascending Aorta Diameter 2.9 cm M-MODE AV Cusp Separation MM 1.4 cm DOPPLER AV Peak Velocity 76.7 cm/s AV Peak Gradient 2.4 mmHg AV Mean Gradient 1.0 mmHg AV Velocity Time Integral 11.9 cm LVOT Peak Velocity 63.7 cm/s LVOT Peak Gradient 1.6 mmHg LVOT Velocity Time Integral 11.0 cm LVOT Cardiac Index 2114.1 cm?/min?m? AV Area Cont Eq vti 2.9 cm? AV Area Cont Eq pk 2.6 cm? MV Area PHT 6.9 cm? Mitral E Point Velocity 88.8 cm/s TR Peak Velocity 215.5 cm/s TR Peak Gradient 18.6 mmHg PV Peak Velocity 67.9 cm/s PV Peak Gradient 1.8 mmHg FINDINGS Left Ventricle Global left ventricular systolic function is severely decreased. Indeterminate diastology due to Afib.The ejection fraction is visually estimated at 20-25 %. There is global left ventricular Akinetic at Mid - Basal Infero septal. Right Ventricle The right ventricular systolic function is moderately decreased. . The estimated right ventricular systolic pressure, 20 mmHg with RAP 8 Left Atrium The left atrial cavity size is severely increased. Right Atrium The right atrial cavity size is moderately increased. Atrial Septum The interatrial septum appears normal with no evidence of a shunt. Aorta The aorta is normal by two-dimensional, color flow and Doppler interrogation. Mitral Valve The mitral valve is normal by two-dimensional, color flow and Doppler interrogation.trace to mild mitral regurgitation. Aortic Valve Aortic valve sclerosis without stenosis Tricuspid Valve The tricuspid valve is normal by two-dimensional, color flow and Doppler interrogation.there is mild tricuspid valve regurgitation. Pulmonic Valve The pulmonic valve is not well visualized. There is no significant pulmonic valve regurgitation. Vessels The pulmonary artery appears normal. The inferior vena cava pulmonary and hepatic veins appear normal. Pericardium There is a small pericardial effusion without cardiac tamponade. CONCLUSIONS Indication: Cardiac clearance Normal LV size with severely decreased LV function with an EF 25 to 30%. Could not determine diastolic dysfunction because of atrial fibrillation or arrhythmia. Moderately decreased RV function. Normal RV size. Underestimated RVSP around 25 to 30 mmHg Severely dilated LA and Moderately dilated RA Mild aortic valve sclerosis without stenosis.. Mild MAC, mild MR and TR. There is a small pericardial effusion without cardiac tamponade. Compared to prior study of 12/06/24 Mele Gill (Electronically Signed) Final Date: 04 September 2025 09:08
--- NOTE | 2025-09-02 20:31 | ESHP_ITS ---
<Statement entered by Werner Gracia MD - 09/03/25 16:11> I have discussed and was present for the essential components of the history, physical examination, diagnosis, and treatment plan with the resident. I agree with the patient's care as documented by the resident and amended herein by me. Werner Gracia MD FACP. Documentation for date of: 09/02/25 HPI History of Present Illness Chief complaint: abdominal pain History of present illness: This is a 65 year old male with Past medical history of HTN,DM2, A-fib on Xarelto, Right heart Failure, [place](4months back) Presented to the ER with severe right upper quadrant pain. He has been experiencing right upper quadrant sharp pain for 2weeks on and off associated with food intake but got worsened since today afternoon. He describes pain as 8/10 on pain scale,non radiating associated with Nausea not relieved on taking pepto-Bismol. He denies any fever, chills, Shortness of breath, Jaundice or Diarrhea. He complains of palpitations and had a past history of palpitations as well for which he takes sublingual Nitroglycerine as needed. He denies any chest pain,Shortness of Breath ,dizziness,syncope. At his baseline he uses walker for his ambulation,does exercises and lives with his son. ED Vitals BP:164/120mmHg , VA 139 bpm, Resp:16, Temp:98.4 Saturating 96% on Room atmosphere. Pertinent Labs are Hb:11.2 , WBC: 10.1, BNP:644, D-dimer:708.Trop-0.04, total Bilrubin-0.5, AST 18, ALT-17 ,ALP 78 EKG shows Atrial flutter with Rapid Ventricular Response. Abdominal Ultrasound shows Thickened Gallbladder. MRCP Shows Acute Calculous Cholecystitis with Normal common bile duct . Past Medical History: Right Heart failure and Hypertension - on Metorpolol,Losartan,furosemide Atrial Fibrillation- takes Xarelto. Diabetes Mellitus Type 2- takes Metformin Arthritis-takes Tylenol. [place] -4 months back. BPH- takes tamsulosin Past surgical History No relevant past surgical History. Allergy History: Allergic to Morphine -gets Headache. Family History: Lung Cancer- Father , DM- Mother. Social History; Denies Alcohol Intake and Smoking or any substance use. ROS: As stated above Review of Systems Review of Systems Systems Reviewed: All systems reviewed, normal except as documented Exam Vital Signs Temp Pulse Resp BP Pulse Ox O2 Del Method 98.5 F 103 H 12 155/123 H 96 Room Air 09/02/25 18:19 09/02/25 19:51 09/02/25 18:19 09/02/25 19:51 09/02/25 18:19 09/02/25 18:19 Narrative Exam GENERAL: NAD, AAOx3 HEENT: Moist mucosa. Eyes open, symmetrical, & clear CARDIO: Rapid Irregular rhythm Noted. No Murmurs. PULM: No noted coughing/dyspnea CTA B/L, no R/W/R GI: Abdomen soft, nondistended, Tenderness on palpation of RUQ. SKIN/MSK/EXT: No wounds/rashes/amputations, no pain on palpation.Edema on B/L legs upto knee 3+. Pedal pulses present B/L NEURO: AAOx3, no focal neuro deficits, able to move all 4 extremities Results: Labs 09/02/25 13:10 09/02/25 13:10 Labs: Short CBC 09/02/25 Range/Units 13:10 WBC 10.1 (3.8-10.6) Thou/mm3 Hgb 11.2 L (13.5-16.0) g/dL Hct 35.8 L (41.0-53.0) % Plt Count 290 (140-440) Thou/mm3 BMP 09/02/25 13:10 Sodium 140 Potassium 3.9 Chloride 101 Carbon Dioxide 31.0 BUN 12 Creatinine 1.1 Glucose 140 H Calcium 9.4 Cardiac Enzymes 09/02/25 09/02/25 Range/Units 13:10 13:10 Troponin I < 0.020 < 0.020 (0.0-0.045) ng/mL Liver Function 09/02/25 Range/Units 13:10 Total Bilirubin 0.5 (0.3-1.2) mg/dL Direct Bilirubin 0.2 (0.0-0.3) mg/dL AST 18 (0-34) U/L ALT 17 (10-49) U/L Alkaline Phosphatase 78 (46-116) U/L Albumin 4.2 (3.4-4.8) gm/dL Urine 09/02/25 Range/Units 13:21 Urine Color Lt-Yellow (Lt Yel-Yel) Urine Clarity Clear (Clear/Hazy) Urine pH 6.0 (5.0-7.0) Ur Specific Zenia 1.012 (1.001-1.035) Urine Protein 1+ A (Neg - Trace) Urine Glucose (UA) 4+ A (Negative) Quality Measures Quality Measures none Advance care planning discussed with:: patient Medications Home Medications and Allergies Home Medications ?Medication ?Instructions ?Recorded ?Confirmed ?Type finasteride 5 mg tablet 1 tab PO QDAY 07/20/2212/06 History losartan 100 mg tablet 100 mg PO QDAY 07/20/2208/22 History tamsulosin 0.4 mg capsule 0.4 mg PO DAILY 01/19/2308/22 History metformin 1,000 mg tablet 1,000 mg PO BIDWMEAL 4 12/06/24 History rivaroxaban 20 mg tablet (Xarelto) 20 mg PO QPM 12/06/24 History nitroglycerin 0.4 mg sublingual 0.4 mg buccal Q5MIN VA N Chest Pain 07/09/24 12/06/24 History tablet (Nitrostat) Allergies Allergy/AdvReac Type Severity Reaction Status Date / Time morphine AdvReac Severe Headache Verified 09/02/25 12:46 Visit Medications Acetaminophen (Acetaminophen 325 Mg Tablet) 650 mg PO Q6H PRN PRN Reason: Fever >100.4 Stop: 10/02/25 20:08 Acetaminophen (Acetaminophen 325 Mg Tablet) 650 mg PO Q6H PRN PRN Reason: Pain Scale 1-5 (Mild Stop: 10/02/25 20:14 Dextrose (Dextrose 50%-Water Inj 50 Ml Syringe) 25 ml IV Q15MIN PRN PRN Reason: BG 50-70 responsive npo pt Stop: 10/02/25 20:23 Dextrose (Dextrose 50%-Water Inj 50 Ml Syringe) 50 ml IV Q15MIN PRN PRN Reason: BG <50 OR BG <70 & pt unresponsive Stop: 10/02/25 20:23 Enoxaparin Sodium (Enoxaparin Sod Inj 40 Mg/0.4 Ml Syringe) 100 mg SC QDAY ERWIN Stop: 09/17/25 08:59 Glucagon (Glucagon Inj 1 Mg Vial) 1 mg IM Q15MIN PRN PRN Reason: BG <70, and no IV access Hydromorphone HCl (Hydromorphone Inj 2 Mg/Ml Vial) 0.5 mg IVP Q6H PRN PRN Reason: PAIN 6-10 Stop: 09/07/25 20:14 Diltiazem HCl (Diltiazem In D5w 125 Mg) 125 mg in 125 mls @ 10 mls/hr IV .[id number] [facility] Stop: 10/02/25 15:59 Last Infusion: 09/02/25 20:30 Dose: 3 mg/hr, 3 mls/hr Insulin Human Lispro (Insulin Lispro (Admelog) 1 Unit/0.01 Ml Unit) 0 unit SC AC [facility]; Protocol Stop: 10/03/25 07:29 Ondansetron HCl (Ondansetron Inj 2 Mg/Ml Inj 2 Ml) 4 mg IVP Q6H PRN; Protocol PRN Reason: NAUSEA OR VOMITING Stop: 10/02/25 20:23 Sennosides (Senna Tablet) 1 tab PO QDAY [facility]; Protocol Stop: 10/03/25 08:59 Discontinued Medications Diltiazem HCl (Diltiazem Inj 5 Mg/Ml Vial 5 Ml) 15 mg IV X1 ONE Stop: 09/02/25 13:30 Last Admin: 09/02/25 13:46 Dose: 15 mg Piperacillin/Tazobactam/Dextrose (Zosyn) 3.375 gm in 50 mls @ 100 mls/hr IV X1 ONE; Protocol Stop: 09/02/25 19:47 Metoprolol Tartrate (Metoprolol Tartrate Inj 1 Mg/Ml Amp 5 Ml) 5 mg IVP X1 ONE Stop: 09/02/25 18:23 Last Admin: 09/02/25 18:44 Dose: 5 mg Metoprolol Tartrate (Metoprolol Tartrate 25 Mg Tablet) 100 mg PO X1 ONE Stop: 09/02/25 19:02 Last Admin: 09/02/25 19:51 Dose: 100 mg Assessment & Plan Plan This is a 65 year old male with Past medical history of HTN,DM2, A-fib on Xarelto,Right heart Failure,[place](4months back) presented with RUQ abdominal pain.Imaging USG and MRCP shows thickened Gallbladder . He was admitted for cholecystitis. # Acute Cholecystitis: patient presented with RUQ Pain. MRCP and Abdominal USG shows thickened Gallbladder wall. ED consulted general surgery who recommended admission for possible cholecystectomy but want cardiac clearance first prior to proceeding with surgery - IV Dilaudad 0.5mg. - Gen Surgery Consulted- - Discussed benefits Vs Risk of Cholecystecomy - awaiting Cardiac Clearance in view of atrial flutter with Rapid Ventricular Response. # Atrial fibrillation/ Flutter with RVR Denies any cardiac symptoms such as chest pain, pressure, shortness of breath Evidenced by EKG findings showing atrial flutter with RVR was started on Cardizem drip in the ED troponins negative Patient takes xarelto at home however in view of possible procedure will hold at this time - Continue with Cardizem drip . - Echocardiogram ordered - Consulted Cardiology, apprecaite reccomendations - ordered lipid panel, tsh, a1c - Hold xarelto can consider lovenox - Needs Cardiac Clearance prior cholecystectomy. #CHF with Grd ll Diastolic Dysfunction: Pedal Edema on both legs-3+ - One IV dose of Furosemide ordered and starting oral furosemide from tomorrow. - Losartan order as per home dosage. # Hypertension: Continuing Home Medications, pending med rec at this time. # Diabetes: - Sliding Scale insulin - hypoglycemia protocol in place #BPH - resume tamsulosin as taken at home Code status: Full DVT prophylaxis: Lovenox Diet: Cardio consistent Snowden: None Lines: PIV Supplemental O2: none Disposition: Tele Discussed and reviewed this Case with my senior Dr. Baires and my attending Dr. Gracia. Kira Inman-[id number]
[2025-09-02] MEDS: PIPER/TAZO 3.375 GM PREMIX 3.375 GM/50 ML BAG IV (20:41)
[2025-09-02] MEDS: ONDANSETRON INJ 2 MG/ML INJ 2 ML 4 MG IVP (20:43)
[2025-09-02] MEDS: FUROSEMIDE INJ 10 MG/ML 4ML VIAL 40 MG IVP (22:44)
[2025-09-03] VITALS (13 sets, daily range): BP systolic 112–152; BP diastolic 89–116; PULSE 68–138; RESP 15–21; TEMP 35.9–36.6; O2SAT 92–98; BMI 31.4
[2025-09-03 05:33] LABS: Basophils # (Auto) 0.0 Thou/mm3 (0.0-0.2); Basophils % (Auto) 0 % (0-2.5); Eosinophils # (Auto) 0.3 Thou/mm3 (0.0-0.5); Eosinophils % (Auto) 4 % (0-10); Hematocrit 34.5 % (41.0-53.0); Hemoglobin 11.0 g/dL (13.5-16.0); Immature Granulocytes Auto 0.02 Thou/mm3 (0.00-0.00); Lymphocytes # (Auto) 1.2 Thou/mm3 (1.0-4.8); Lymphocytes % (Auto) 13 % (10-50); Mean Corpuscular HGB Conc 31.9 g/dl (31.0-37.0); Mean Corpuscular Hemoglobin 25.6 pg (25.0-35.0); Mean Corpuscular Volume 80 fL (80-100); Monocytes # (Auto) 0.7 Thou/mm3 (0.0-0.8); Monocytes % (Auto) 8 % (0-12); Neutrophils # (Auto) 6.9 Thou/mm3 (1.8-7.7); Neutrophils % (Auto) 75 % (37-80); Nucleated Red Blood Cell # 0.00 Thou/mm3 (0.00-0.00); Nucleated Red Blood Cell % 0 /100 WBC (0); Platelet Count 275 Thou/mm3 (140-440); RDW Standard Deviation 45.4 fL (35.1-43.9); Red Blood Count 4.30 Miln/mm3 (4.50-5.90); White Blood Count 9.3 Thou/mm3 (3.8-10.6)
[2025-09-03 05:37] LABS: INR 1.1 (0.9-1.3); Prothrombin Time 11.8 Seconds (9.0-12.2)
[2025-09-03 05:42] LABS: Glucose Estimated Average 148 mg/dL (80-131); Hemoglobin A1C 6.8 % Hgb (4.8-6.0)
[2025-09-03 06:12] LABS: Alanine Aminotransferase 12 U/L (10-49); Albumin, Serum 3.6 gm/dL (3.4-4.8); Albumin/Globulin Ratio 1.3 (1.2-2.2); Alkaline Phosphatase 68 U/L (46-116); Anion Gap 11 (7-16); Aspartate Amino Transferase 18 U/L (0-34); BUN/Creatinine Ratio 8 Ratio (12-20); Bilirubin,Total 0.5 mg/dL (0.3-1.2); Blood Urea Nitrogen 8 mg/dL (9-23); Calcium 8.7 mg/dL (8.3-10.6); Calcium (Corrected) 9.0 mg/dL (8.5-10.1); Carbon Dioxide 31.6 mMol/L (20.0-31.0); Cardiac Risk Estimate 3.5 RATIO (4.0-6.7); Chloride 102 mMol/L (98-107); Cholesterol 131 mg/dL (132-200); Creatinine (Component) 1.0 mg/dL (0.6-1.3); Estimated Creatinine Clearance 80.7 mL/min (>60); Globulin 2.8 gm/dL (2.3-3.5); Glucose 129 mg/dL (74-106); HDL Cholesterol 37 mg/dL (40-60); LDL Cholesterol,Calculated 75 mg/dL (0-130); Magnesium 1.5 mg/dL (1.6-2.6); Osmolality,Calculated 289 (275-295); Phosphorous 3.7 mg/dL (2.4-5.1); Potassium 2.8 mMol/L (3.4-5.1); Sodium 145 mMol/L (136-145); Thyroid Stimulating Hormone 2.03 uIU/mL (0.55-4.78); Total Protein 6.4 gm/dL (5.7-8.2); Triglycerides 95 mg/dL (30-150); eGFR > 60 See Note
[2025-09-03] MEDS: INSULIN LISPRO (AdmeLOG) 1 UNIT/0.01 ML UNIT SC ×2 (07:37→17:13)
[2025-09-03] MEDS: POTASSIUM CHL 10 mEq IVPB 10 MEQ/100 ML BAG 100 MEQ IV ×4 (07:37→13:31)
[2025-09-03] MEDS: Magnesium Sulfate 2 GM Ivpb 2 GM/50 ML BAG IV ×2 (07:37→09:37)
[2025-09-03] MEDS: LOSARTAN POTASSIUM 25 MG TABLET 100 MG PO (08:19)
[2025-09-03] MEDS: TAMSULOSIN HCL 0.4 MG CAPSULE PO (08:20)
--- NOTE | 2025-09-03 10:46 | PC.SS ---
Patient Randall Aguilar is a 65 year-old male who was admitted for ABD Pain. Patient appeared alert and oriented to self, location, and situation. Patient confirmed information on demographics. Patient reports his son Matthieu Aguilar is his surrogate decison maker . Patient reports he uses a rollator to ambulate and he is able to complete his own ADLs. Patient receives primary care with [facility] and [facility] for prescription medications. Upon discharge patient plans to return home. social services coordinator to follow up with any discharge needs. Discharge plan: Home Next of kin: Clement Aguilar
--- NOTE | 2025-09-03 11:00 | PD.RESCONSUL ---
HPI Data of Consult Requesting Physician: Bere Antony MD Admitting Provider: Werner Gracia MD Attending Provider: Bere Antony MD Primary Care Provider: Yang Cervantes MD Consult Narrative History of present illness: Patient is a 65 year old male with past medical history of HTN, DM2, A-fib on Xarelto, Right heart Failure, [place], who presented on 09/02/25 for severe right upper quadrant pain. Gallbladder ultrasound showed thickened gallbladder wall, no manage common bile duct. MRCP showed acute calculous cholecystitis. Normal common hepatic common bile duct, not enlarged. Mild acute pancreatitis. EKG on admission showed patient in atrial flutter with RVR, HR 142. No patient has known history of A-fib currently on Xarelto. Was supposed to follow-up outpatient for cardioversion however has been noncompliant. Cardiology consulted for pre-operative cardiac risk assessment for possible cholecystectomy by Dr. Jeffers. Past Medical History: Afib, Systolic CHF, heart attack, Essential Hypertension, Hyperlipidemia, DM type 2, Hx of cholelithiasis, Oeteoarthritis, BPH, Diverticulosis, Hx of small bowel obstruction, Hx of Covid-19, SOB. Family History: Significant family history for lung cancer, HTN, and stroke Surgical History: [place] s/p stents placement Social History: Ex-smoker and ex alcoholic. Quit smoking 15 years ago and alcohol around the same time used to be a heavy drinker previously denies any drug abuse. Lives with his . 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 Current Medications: Bumex 1 mg daily, tamsulosin 0.4 mg daily, losartan 100 mg daily, Xarelto 20 mg, hydralazine 50 mg 3 times daily, amlodipine 10 mg, Farxiga 10 mg, atorvastatin 40 mg Allergies: No known drug allergies cc:: cc: Bere Antony MD Exam Vital Signs Temp Pulse Resp BP Pulse Ox O2 Del Method 96.6 F L 98 12 142/99 H 93 L Nasal Cannula 09/04/25 04:00 09/04/25 04:00 09/04/25 04:00 09/04/25 05:00 09/04/25 04:00 09/04/25 04:00 Narrative Exam Physical Exam General: Awake and in no acute distress. Conversational and non-toxic appearing. Obese Irish speaking male. HEENT: Normocephalic, atraumatic, mucous membranes moist. Heart: Regular rate and rhythm, normal S1 and S2, no murmurs appreciated. Lungs: Clear to auscultation with no wheezing or crackles. Abdomen: Soft, nondistended, nontender, positive bowel sounds. No guarding or rebound tenderness. Neurologic: Alert and oriented x3, no gross neurological deficit, and patient able to move all 4 extremities. Extremities: 2+ pitting edema bilaterally. Skin: No rash or ecchymoses. Results Labs 09/05/25 04:38 09/05/25 04:38 Labs: Short CBC 09/04/25 Range/Units 05:27 WBC 8.9 (3.8-10.6) Thou/mm3 Hgb 11.4 L (13.5-16.0) g/dL Hct 36.3 L (41.0-53.0) % Plt Count 289 (140-440) Thou/mm3 BMP 09/03/25 09/04/25 15:30 05:27 Sodium 138 140 Potassium 3.4 D 3.7 Chloride 97 L 102 Carbon Dioxide 31.6 H 31.9 H BUN 12 14 Creatinine 1.3 1.0 Glucose 212 H D 121 H D Calcium 8.7 8.5 Liver Function 09/03/25 09/04/25 Range/Units 15:30 05:27 Total Bilirubin 0.4 (0.3-1.2) mg/dL AST 14 (0-34) U/L ALT 12 (10-49) U/L Alkaline Phosphatase 70 (46-116) U/L Albumin 4.0 3.7 (3.4-4.8) gm/dL Quality Measures Quality Measures VTE prophylaxis and none Advance care planning discussed with:: patient Medications Home Medications and Allergies Home Medications ?Medication ?Instructions ?Recorded ?Confirmed ?Type metformin 1,000 mg tablet 1,000 mg PO BIDWMEAL 02/06/24 09/03/25 History rivaroxaban 20 mg tablet (Xarelto) 20 mg PO QPM 02/06/24 09/03/25 History nitroglycerin 0.4 mg sublingual 0.4 mg buccal Q5MIN PRN Chest Pain 07/09/24 09/03/25 History tablet (Nitrostat) bumetanide 1 mg tablet 1 mg PO QDAY 09/03/25 09/03/25 History clonidine HCl 0.3 mg tablet 0.3 mg PO QDAY 09/03/25 09/03/25 History Allergies Allergy/AdvReac Type Severity Reaction Status Date / Time morphine AdvReac Severe Headache Verified 09/02/25 12:46 Visit Medications Acetaminophen (Acetaminophen 325 Mg Tablet) 650 mg PO Q6H PRN PRN Reason: Fever >100.4 or pain 1-5 Stop: 10/02/25 20:08 Last Admin: 09/03/25 15:18 Dose: 650 mg Dextrose (Dextrose 50%-Water Inj 50 Ml Syringe) 25 ml IV Q15MIN PRN PRN Reason: BG 50-70 responsive npo pt Stop: 10/02/25 20:23 Dextrose (Dextrose 50%-Water Inj 50 Ml Syringe) 50 ml IV Q15MIN PRN PRN Reason: BG <50 OR BG <70 & pt unresponsive Stop: 10/02/25 20:23 Furosemide (Furosemide 40 Mg Tablet) 40 mg PO QDAY [facility] Stop: 10/03/25 08:59 Last Admin: 09/03/25 08:20 Dose: 40 mg Glucagon (Glucagon Inj 1 Mg Vial) 1 mg IM Q15MIN PRN PRN Reason: BG <70, and no IV access Hydromorphone HCl (Hydromorphone Inj 2 Mg/Ml Vial) 0.5 mg IVP Q6H PRN PRN Reason: PAIN 6-10 Stop: 09/07/25 20:14 Last Admin: 09/03/25 17:07 Dose: 0.5 mg Diltiazem HCl (Diltiazem In D5w 125 Mg) 125 mg in 125 mls @ 10 mls/hr IV .[id number] [facility] Stop: 10/02/25 15:59 Last Admin: 09/04/25 04:43 Dose: Not Given Ceftriaxone Sodium/Dextrose (Rocephin/D5w 1gm Iv Premix) 1 gm in 50 mls @ 100 mls/hr IV QDAY [facility] Stop: 09/10/25 10:18 Last Admin: 09/03/25 11:05 Dose: 100 mls/hr Metronidazole (Flagyl 500 Mg Iv) 500 mg in 100 mls @ 200 mls/hr IV Q8HR [facility] Stop: 09/10/25 10:18 Last Admin: 09/04/25 05:12 Dose: 200 mls/hr Insulin Human Lispro (Insulin Lispro (Admelog) 1 Unit/0.01 Ml Unit) 0 unit SC AC [facility]; Protocol Stop: 10/03/25 07:29 Last Admin: 09/03/25 17:13 Dose: 1 unit Losartan Potassium (Losartan Potassium 25 Mg Tablet) 100 mg PO QDAY [facility] Stop: 10/03/25 08:59 Last Admin: 09/03/25 08:19 Dose: 100 mg Metoprolol Succinate (Metoprolol Succinate Xl 25 Mg Tabcr) 100 mg PO QDAY [facility] Stop: 10/04/25 08:59 Ondansetron HCl (Ondansetron Inj 2 Mg/Ml Inj 2 Ml) 4 mg IVP Q6H PRN; Protocol PRN Reason: NAUSEA OR VOMITING Stop: 10/02/25 20:23 Last Admin: 09/02/25 20:43 Dose: 4 mg [facility]ennosides ([facility]enna Tablet) [facility]; Protocol Stop: 10/03/25 08:59 Last Admin: 09/03/25 08:19 Dose: 1 tab Tamsulosin HCl (Tamsulosin Hcl 0.4 Mg Capsule) 0.4 mg PO QDAY [facility] Stop: 10/03/25 08:59 Last Admin: 09/03/25 08:20 Dose: 0.4 mg Discontinued Medications Acetaminophen (Acetaminophen 325 Mg Tablet) 650 mg PO Q6H PRN PRN Reason: Fever >100.4 Stop: 10/02/25 20:08 Acetaminophen (Acetaminophen 325 Mg Tablet) 650 mg PO Q6H PRN PRN Reason: Pain Scale 1-5 (Mild Stop: 10/02/25 20:14 Digoxin (Digoxin 0.125 Mg Tablet) 0.25 mg PO X1 ONE Stop: 09/03/25 14:59 Last Admin: 09/03/25 15:21 Dose: 0.25 mg Digoxin (Digoxin 0.125 Mg Tablet) 0.5 mg PO X1 ONE Stop: 09/03/25 18:00 Last Admin: 09/03/25 18:41 Dose: 0.5 mg Digoxin (Digoxin 0.125 Mg Tablet) 0.25 mg PO X1 ONE Stop: 09/04/25 02:01 Last Admin: 09/04/25 02:06 Dose: 0.25 mg Diltiazem HCl (Diltiazem Inj 5 Mg/Ml Vial 5 Ml) 15 mg IV X1 ONE Stop: 09/02/25 13:30 Last Admin: 09/02/25 13:46 Dose: 15 mg Enoxaparin Sodium (Enoxaparin Sod Inj 40 Mg/0.4 Ml Syringe) 100 mg SC QDAY [facility] Stop: 09/17/25 08:59 Furosemide (Furosemide Inj 10 Mg/Ml 4ml Vial) 40 mg IVP X1 ONE Stop: 09/02/25 22:28 Last Admin: 09/02/25 22:44 Dose: 40 mg Piperacillin/Tazobactam/Dextrose (Zosyn) 3.375 gm in 50 mls @ 100 mls/hr IV X1 ONE; Protocol Stop: 09/02/25 19:47 Last Infusion: 09/02/25 21:17 Dose: Infused Potassium Chloride (Kcl Ivpb) 10 meq in 100 mls @ 100 mls/hr IV Q1H [facility] Stop: 09/03/25 10:52 Last Admin: 09/03/25 13:31 Dose: 100 mls/hr Magnesium Sulfate (Magnesium Sulfate Ivpb) 2 gm in 50 mls @ 25 mls/hr IV X1 ONE Stop: 09/03/25 09:07 Last Admin: 09/03/25 07:37 Dose: 25 mls/hr Magnesium Sulfate (Magnesium Sulfate Ivpb) 2 gm in 50 mls @ 25 mls/hr IV X1 ONE Stop: 09/03/25 11:14 Last Admin: 09/03/25 09:37 Dose: 25 mls/hr Magnesium Sulfate (Magnesium Sulfate Ivpb) 4 gm in 50 mls @ 12.5 mls/hr IV X1 ONE Stop: 09/03/25 23:20 Last Admin: 09/03/25 19:37 Dose: 12.5 mls/hr Metoprolol Succinate (Metoprolol Succinate Xl 25 Mg Tabcr) 50 mg PO X1 ONE Stop: 09/03/25 10:17 Last Admin: 09/03/25 11:22 Dose: 50 mg Metoprolol Succinate (Metoprolol Succinate Xl 25 Mg Tabcr) 50 mg PO X1 ONE Stop: 09/03/25 13:05 Last Admin: 09/03/25 13:20 Dose: 50 mg Metoprolol Tartrate (Metoprolol Tartrate Inj 1 Mg/Ml Amp 5 Ml) 5 mg IVP X1 ONE Stop: 09/02/25 18:23 Last Admin: 09/02/25 18:44 Dose: 5 mg Metoprolol Tartrate (Metoprolol Tartrate 25 Mg Tablet) 100 mg PO X1 ONE Stop: 09/02/25 19:02 Last Admin: 09/02/25 19:51 Dose: 100 mg Potassium Chloride (Potassium Chloride 20 Meq Tabcr) 40 meq PO X1 ONE Stop: 09/03/25 06:55 Last Admin: 09/03/25 07:36 Dose: 40 meq Potassium Chloride (Potassium Chloride 20 Meq Tabcr) 20 meq PO X1 ONE Stop: 09/03/25 16:38 Last Admin: 09/03/25 17:13 Dose: 20 meq Potassium Chloride (Potassium Chloride 10% 20 Meq/15 Ml Udc) 40 meq PO X1 ONE Stop: 09/03/25 16:38 Last Admin: 09/03/25 17:12 Dose: 40 meq Assessment & Plan Plan A 64-year-old male patient with a past medical history of CAD s/p [place] in 2005 as per patient with no stents, paroxysmal atrial fibrillation Xarelto, HFrEF EF of 40 to 45% in December 2022, essential hypertension, hyperlipidemia, diabetes mellitus type 2, cholelithiasis, osteoarthritis, BPH, diverticulosis, small bowel obstruction 2021, history of COVID-19 who presented on 09/02 for right upper quadrant abdominal pain, found to have cholelithiasis. Cardiology consulted for preoperative cardiac risk assessment for possible surgery. #Pre-operative cardiac risk assessment for potential cholecystectomy Presented with RUQ abdominal pain. Negative for fever and elevated WBCs. Gallbladder ultrasound showed thickened gallbladder wall, no manage common bile duct. MRCP showed acute calculous cholecystitis. Normal common hepatic common bile duct, not enlarged. Mild acute pancreatitis. RCRI score: 3 points, 10% risk of major cardiac event - Given history of CAD A-fib with RVR, diabetes, hypertension, patient is not stable for surgery as he continues to be in afib with RVR despite attempts to rate control pharmacologically, in addition patient also has severe systolic congestive heart failure now with an EF of 30 to 35% and is in exacerbation. He also has history of underlying CAD. Notified surgeon Dr. Jeffers who is planning to conservatively treat the patient as the patient and patient is able to tolerate diet and is not in any significant pain at the present point of time. #Atrial flutter with RVR #History of paradoxical A-fib Reports palpitations on exam, denies chest pain or shortness of breath. Had previous hospitalization in June 2025 due to symptoms of atrial fibrillation with RVR. On Xarelto 20 mg for anticoagulation. EKG on admission showed aflutter with HR 142. Given total digoxin 0.75 and metoprolol 100 mg throughout the day, continued to be in afib with RVR. Alvin Vasc score: 5 points, 7.2% stroke risk. HAS -BLED score: 2 points, moderate risk of major bleeding - Continue Xarelto 20 mg daily - Will give digoxin 0.25 mg at 2AM to complete 1 mg dose of digoxin. - Plan for cardioversion and RENE tomorrow, NPO after midnight - Patient denies any kind of swallowing problems or esophageal issues. - Patient denies any gastric ulcer bleeding or hematemesis or hematochezia. - Patient denies any issue with anesthesia previously. - Risks benefits and alternatives of performing RENE were explained in detail to the patient and the family including the risk of possible esophageal tear or esophageal bleeding, depression and adverse reaction to the sedation medication including nausea and difficulty breathing possible sore throat and a very recurrence of severe reaction leading to . Patient understands the risks and agreeable for the procedure and provided consent for the same. - Explained the risks, benefits and alternatives of cardioversion including the risks of irregular heart rhythms, arrhythmias, asystole and possible skin momin. Patient understands the risks and agreeable for the procedure and for further consent for the cardioversion. # HFrEF 45-50% (June 2024) Previously EF 40 to 50% in 2022. Prescribed Losartan 100 mg, and Farxiga 10 mg daily. hydralazine, amlodipine outpatient. BNP 644. Has 2+ pitting edema of lower extremities bilaterally. Denies shortness of breath. -TTE ordered -Bumex 1 mg daily -Strict ins and outs -Daily weights -Low sodium diet -Fluid restriction 1500 ml -Supplemental O2 as needed, wean as tolerated #Hx of CAD and elevated troponins Patient has history of myocardial infarction in 2005 but had no stents placed. Hx of elevated troponins in 0.69 range. NST 06/19/25 Abnormal myocardial perfusion study as there is decreased uptake in the apical segment with stress and improves with rest indicating stress induced ischemia. EF at 27%. Normal TID. ?Was previously scheduled for cardiac catheterization given results above. However patient missed appointment. ?Patient is currently not candidate for cardiac catheterization given unstable condition. Will reschedule at another time. #Hypertension BP on admission 160/127. Prescribed Losartan, hydralazine, amlodipine outpatient however patient is noncompliant with medication. - Losartan 100 mg daily #Hyperlipidemia - Resume atorvastatin 40 mg daily Thank you for your consultation, please do not hesitate to reach out if you have any question or concern Patient plan of care was discussed with the attending physician, Dr. Gill. Mary Headley, PGY-1 Attending Provider Attestation/Addendum I have personally seen and examined the patient separately on the above date of service and discussed the plan of care with the resident. I reviewed the resident Dr. Mary Headley consultation progress note and agree with the resident findings and plan in the note above and have also edited the documentation to reflect my findings and plan. Mele Gill M.D. Interventional Cardiology
[2025-09-03] MEDS: cefTRIAXone/D5w 1gm IV premix 1 GM/50 ML BAG IV (11:05)
[2025-09-03] MEDS: metroNIDAZOLE/NS 500 MG IVPB 500 MG/100 ML BAG 200 MG IV ×3 (11:06→21:06)
[2025-09-03] MEDS: METOPROLOL SUCCINATE XL 25 MG TABCR 50 MG PO ×2 (11:22→13:20)
--- NOTE | 2025-09-03 11:43 | ESPR_ITS ---
<Statement entered by Bere Antony MD - 09/08/25 12:11> I reviewed above note and agree with findings and plans. I have also personally examined the patient with medicine team and went over assessment and plan with medical team including internet network specialist and resident physician. Documentation for date of: 09/03/25 Patient is a 65-year-old male with an extensive past medical history of hypertension, hyperlipidemia, diabetes mellitus type 2 [id number], CHF HFpEF ejection fraction 55 to 60% (12/06/2024), atrial fibrillation on Xarelto, and history of CAD status post VT (2005, no stents), NSTEMI in 2022, BPH, and osteoarthritis. Patient presented to the emergency room on 09/02/2025 with a chief complaint of abdominal pain over the past 2 months with nausea and vomiting. Patient was subsequently admitted for acute calculous cholecystitis via MRCP. KG obtained given past medical history of paroxysmal atrial fibrillation, EKG noted to be regular rate with P waves difficult to discern, likely atrial flutter versus A-fib w/ rvr. Metoprolol 100 mg daily restarted. Patient was given additional digoxin 0.25 mg 0.25 mg. TSH within normal limits. Patient likely benefit from increased metoprolol. Cardiology consulted. Patient has a past medical history of CHF HFpEF 55 to 60% (12/06/2024). Patient currenly does not appear fluid overloaded as per patient overall has had poor oral intake. BNP 644, which worst BNP has been 1115. Fluid restrict at 2000 as patient does not appear fluid overloaded. Repeat Echo given RVR. Daily weight checks. Continue STrict Ins and Outs. ASCD Risk 29.4%, patient would benefit higher dose statin. General Surgery recs and Cardiology Recs pending. - The patient's plan was discussed with attending Dr. Arpan Massey MD PGY2 Internal Medicine Subjective Subjective Interval history: Patient examined bedside NAEON, labs reviewed. Exam Vital Signs Temp Pulse Resp BP Pulse Ox O2 Del Method 96.7 F L 138 H 18 133/102 H 98 Oxy Mask 09/03/25 11:27 09/03/25 11:27 09/03/25 11:27 09/03/25 11:27 09/03/25 11:27 09/03/25 11:27 Narrative Exam GENERAL: NAD, AAOx3 HEENT: Moist mucosa. Eyes open, symmetrical, & clear CARDIO: Rapid Irregular rhythm Noted. No Murmurs. PULM: No noted coughing/dyspnea CTA B/L, no R/W/R GI: Abdomen soft, nondistended, Tenderness on palpation of RUQ. SKIN/MSK/EXT: No wounds/rashes/amputations, no pain on palpation. Peripheral edema on B/L legs up to knee 3+. Pedal pulses present B/L NEURO: AAOx3, no focal neuro deficits, able to move all 4 extremities Objective Labs 09/03/25 04:37 09/03/25 15:30 Labs: Laboratory Results - last 24 hr 09/02/25 09/02/25 09/02/25 13:10 13:10 13:21 WBC 10.1 RBC 4.43 L Hgb 11.2 L Hct 35.8 L MCV 81 MCH 25.3 MCHC 31.3 RDW Std Deviation 46.9 H Plt Count 290 Neut % (Auto) 77 Lymph % (Auto) 13 [place] % (Auto) 7 Eos % (Auto) 3 Baso % (Auto) 0 Neut # (Auto) 7.7 Lymph # (Auto) 1.3 Union # (Auto) 0.7 Eos # (Auto) 0.3 Baso # (Auto) 0.0 Immature Gran # (Auto) 0.03 H Absolute Nucleated RBC 0.00 Immature Gran % 0 Nucleated RBC % 0 PT 11.1 INR 1.0 APTT 20.9 L D-Dimer 708 H Sodium 140 Potassium 3.9 Chloride 101 Carbon Dioxide 31.0 Anion Gap 8 BUN 12 Creatinine 1.1 Estim Creat Clear Calc 75.6 eGFR > 60 BUN/Creatinine Ratio 11 L Glucose [address] Glu mg/dL Hemoglobin A1c Calculated Osmolality 281 Calcium 9.4 Corrected Calcium 9.4 Phosphorus Magnesium 1.7 Total Bilirubin 0.5 Direct Bilirubin 0.2 AST 18 ALT 17 Alkaline Phosphatase 78 Troponin I < 0.020 < 0.020 B-Natriuretic Peptide 644 H* Total Protein 7.4 Albumin 4.2 Globulin 3.2 Albumin/Globulin Ratio 1.3 Triglycerides Cholesterol LDL Cholesterol, Calc HDL Cholesterol Cholesterol/HDL Ratio Lipase 39 TSH 2.68 Ur Collection Type Clean Catch Urine Color Lt-Yellow Urine Clarity Clear Urine pH 6.0 Ur Specific [place] 1.012 Urine Protein 1+ A Urine Glucose (UA) 4+ A Urine Ketones Negative Urine Blood Negative Urine Nitrite Negative Urine Bilirubin Negative Urine Urobilinogen (Auto) Negative Ur Leukocyte Esterase Negative Urine RBC 1 Urine WBC 1 Ur Squamous Epith Cells 0 Urine Bacteria None Hyaline Casts 2 H Ur Culture Indicated? Not Indicated Urine Opiates Screen Negative Urine Fentanyl Screen Negative Ur Barbiturates Screen Negative U Amphetamin/Meth Scrn Negative U Benzodiazepines Scrn Negative U Cocaine Metab Screen Negative U Marijuana (THC) Screen Negative 09/03/25 04:37 WBC 9.3 RBC 4.30 L Hgb 11.0 L Hct 34.5 L MCV 80 MCH 25.6 MCHC 31.9 RDW Std Deviation 45.4 H Plt Count 275 Neut % (Auto) 75 Lymph % (Auto) 13 [place] % (Auto) 8 Eos % (Auto) 4 Baso % (Auto) 0 Neut # (Auto) 6.9 Lymph # (Auto) 1.2 [place] # (Auto) 0.7 Eos # (Auto) 0.3 Baso # (Auto) 0.0 Immature Gran # (Auto) 0.02 H Absolute Nucleated RBC 0.00 Immature Gran % 0 Nucleated RBC % 0 PT 11.8 INR 1.1 APTT D-Dimer Sodium 145 Potassium 2.8 L D Chloride 102 Carbon Dioxide 31.6 H Anion Gap 11 BUN 8 L Creatinine 1.0 Estim Creat Clear Calc 80.7 eGFR > 60 BUN/Creatinine Ratio 8 L Glucose [address] Glu mg/dL 148 H Hemoglobin A1c 6.8 H Calculated Osmolality 289 Calcium 8.7 Corrected Calcium 9.0 Phosphorus 3.7 Magnesium 1.5 L Total Bilirubin 0.5 Direct Bilirubin AST 18 ALT 12 Alkaline Phosphatase 68 Troponin I B-Natriuretic Peptide Total Protein 6.4 Albumin 3.6 D Globulin 2.8 Albumin/Globulin Ratio 1.3 Triglycerides 95 Cholesterol 131 L LDL Cholesterol, Calc 75 HDL Cholesterol 37 L Cholesterol/HDL Ratio 3.5 L Lipase TSH 2.03 Ur Collection Type Urine Color Urine Clarity Urine pH Ur Specific [place] Urine Protein Urine Glucose (UA) Urine Ketones Urine Blood Urine Nitrite Urine Bilirubin Urine Urobilinogen (Auto) Ur Leukocyte Esterase Urine RBC Urine WBC Ur Squamous Epith Cells Urine Bacteria Hyaline Casts Ur Culture Indicated? Urine Opiates Screen Urine Fentanyl Screen Ur Barbiturates Screen U Amphetamin/Meth Scrn U Benzodiazepines Scrn U Cocaine Metab Screen U Marijuana (THC) Screen Quality Measures Quality Measures VTE prophylaxis and none Advance care planning discussed with:: patient Assessment & Plan Assessment Current Active Medications: Generic Name Dose Route Start Last Admin Trade Name Freq PRN Reason Stop Dose Admin Acetaminophen 650 mg 09/03/25 08:42 Acetaminophen 325 Mg Tablet PO 10/02/25 20:08 Q6H PRN Fever >100.4 or pain 1-5 Dextrose 25 ml 09/02/25 20:24 Dextrose 50%-Water Inj 50 Ml Syringe IV 10/02/25 20:23 Q15MIN PRN BG 50-70 responsive npo pt Dextrose 50 ml 09/02/25 20:24 Dextrose 50%-Water Inj 50 Ml Syringe IV 10/02/25 20:23 Q15MIN PRN BG <50 OR BG <70 & pt unresponsive Furosemide 40 mg 09/03/25 09:00 09/03/25 08:20 Furosemide 40 Mg Tablet PO 10/03/25 08:59 40 mg QDAY ERWIN Administration Glucagon 1 mg 09/02/25 20:24 Glucagon Inj 1 Mg Vial IM Q15MIN PRN BG <70, and no IV access Hydromorphone HCl 0.5 mg 09/02/25 20:15 Hydromorphone Inj 2 Mg/Ml Vial IVP 09/07/25 20:14 Q6H PRN PAIN 6-10 Diltiazem HCl 125 mg in 125 mls @ 10 mls/hr 09/02/25 16:00 09/03/25 05:12 Diltiazem In D5w 125 Mg IV 10/02/25 15:59 Not Given .[id number] ERWIN 10 MG/HR Ceftriaxone Sodium/Dextrose 1 gm in 50 mls @ 100 mls/hr 09/03/25 10:19 09/03/25 11:05 Rocephin/D5w 1gm Iv Premix IV 09/10/25 10:18 100 mls/hr QDAY ERWIN Administration Metronidazole 500 mg in 100 mls @ 200 mls/hr 09/03/25 10:19 09/03/25 11:06 Flagyl 500 Mg Iv IV 09/10/25 10:18 200 mls/hr Q8HR ERWIN Administration Insulin Human Lispro 0 unit 09/03/25 07:30 09/03/25 11:15 Insulin Lispro (Admelog) 1 Unit/0.01 Ml Unit SC 10/03/25 07:29 Not Given AC ERWIN Protocol Losartan Potassium 100 mg 09/03/25 09:00 09/03/25 08:19 Losartan Potassium 25 Mg Tablet PO 10/03/25 08:59 100 mg QDAY ERWIN Administration Metoprolol Succinate 100 mg 09/04/25 09:00 Metoprolol Succinate Xl 25 Mg Tabcr PO 10/04/25 08:59 QDAY ERWIN Ondansetron HCl 4 mg 09/02/25 20:24 09/02/25 20:43 Ondansetron Inj 2 Mg/Ml Inj 2 Ml IVP 10/02/25 20:23 4 mg Q6H PRN Administration NAUSEA OR VOMITING Protocol Sennosides 1 tab 09/03/25 09:00 09/03/25 08:19 Senna Tablet PO 10/03/25 08:59 1 tab QDAY ERWIN Administration Protocol Tamsulosin HCl 0.4 mg 09/03/25 09:00 09/03/25 08:20 Tamsulosin Hcl 0.4 Mg Capsule PO 10/03/25 08:59 0.4 mg QDAY ERWIN Administration Plan This is a 65 year old male with Past medical history of HTN,DM2, A-fib on Xarelto,Right heart Failure,VT(4months back) presented with RUQ abdominal pain. Imaging [facility] and MRCP shows thickened Gallbladder . He was admitted for acute calculus cholecystitis complicated by a-flutter w RVR. #Acute Acalculus Choleystitis #History of Cholelithiasis #Mild Acute Pancreatitis patient presented with RUQ Pain. MRCP and Abdominal USG shows thickened Gallbladder wall. ED consulted general surgery who recommended admission for possible cholecystectomy but want cardiac clearance first prior to proceeding with surgery - IV Dilaudad 0.5mg. - Gen Surgery Consulted- awaiting Cardiac Clearance in view of atrial flutter with Rapid Ventricular Response. - Discussed benefits vs Risk of Cholecystecomy -General Surgery Consulted, appreciate recommendtions. # Atrial fibrillation/ Flutter with RVR #Paroxysmal Atrial Fibrillation Denies any cardiac symptoms such as chest pain, pressure, shortness of breath Evidenced by EKG findings showing atrial flutter with RVR, was started on Cardizem drip in ED troponins negative Patient takes xarelto at home however in view of possible procedure will hold at this time -Metoprolol 100 mg (50 mg X 2) -Digoxin 0.25 and Digoxin 0.5 PO -Continue with Cardizem drip-->discontinue -Echocardiogram ordered - Hold xarelto can consider lovenox although patient is mobile - Needs Cardiac Clearance prior cholecystectomy - Consulted Cardiology, appreciate recommendations #CHF HFpEF 55 -60% (12/06/2024) #Congestive Heart Failure #Diastolic Dysfunction, grade II Patient has a past medical history of improved EF with most recent recent ejection of 55-60% on echo. BNP 644. NYHA Class: II ASCVD: 29.4%, High intensity Statins Plan: -Lasix 40 mg once daily, pending med rec, may be taking Bmetanide-->likely resume home medication -Metoprolol 100 mg once daily resumed (Metoprolol 50 mg X 2 given) -Farxiga ?, confirm dosage -Echo Ordered -K>4 and Mg >2 -Fluid Restriction 2 Liters -SpO <90%, support PRN -Daily Weights -goal of GDMT -Cardiology Consult, appreciate recommendations. # Hypertension Continuing Home Medications, pending med rec at this time. Possible blood pressure medication includes: Losartan 100 mb BID, Hydralazine 50 mg once daily. Plan -Losartan 100 mg once daily (which appears to be half the normal dose of home medication), normal tensive. # Diabetes Mellitus T2, non-insulin dependent #Hyperglycemic Patient has PMHx of DM w a previous A1c of 6.8 (09/02/2025). Patient home medication include Metformin 1000 mg BID, Glipizide 5 mg BID, and Farxiga. - Sliding Scale insulin -Monitor Fasting Blood Glucose - hypoglycemia protocol in place #CAD #History of NSTEMI/ACS #HLD Patient has a past medical history of of CAD w/ no stents added previously. Patient has a high ASCVD risk factor of 29.4%. Lipid Panel (09/03/2025): Cholesterol 131, Triglycerides 95, LDL 75, HDL 37 -Atorvastatin 40 mg HS, increase to 80 mg starting 09/04/2025 #BPH - resume tamsulosin as taken at home -Continue to Monitor BP #Atrophic Kidneys w/ scarring & small cysts Incidental findings, given past medical history of diabetes mellitus, follow up with PCP or referral as outpatient for nephrology. -continue to monitor BUN and Cr -Outpatient Renal U/S Code status: Full DVT prophylaxis: SCDs Diet: Cardio consistent Snowden: None Lines: PIV Supplemental O2: none Disposition: Tele, pending surgery Discussed and reviewed this Case with my senior Dr. Massey and my attending Dr. Antony. Viky Hatfield-PGY1
--- NOTE | 2025-09-03 14:24 | PC.SS ---
Update: Surgery and cardiology Rec's pending. Patient will discharge home when medically cleared.
[2025-09-03] MEDS: ACETAMINOPHEN 325 MG TABLET 650 MG PO (15:18)
[2025-09-03] MEDS: DIGOXIN 0.125 MG TABLET 0.25 MG PO (15:21)
[2025-09-03 16:01] LABS: Albumin, Serum 4.0 gm/dL (3.4-4.8); Anion Gap 9 (7-16); BUN/Creatinine Ratio 9 Ratio (12-20); Blood Urea Nitrogen 12 mg/dL (9-23); Calcium 8.7 mg/dL (8.3-10.6); Calcium (Corrected) 8.7 mg/dL (8.5-10.1); Carbon Dioxide 31.6 mMol/L (20.0-31.0); Chloride 97 mMol/L (98-107); Creatinine (Component) 1.3 mg/dL (0.6-1.3); Estimated Creatinine Clearance 62.1 mL/min (>60); Glucose 212 mg/dL (74-106); Osmolality,Calculated 281 (275-295); Phosphorous 3.8 mg/dL (2.4-5.1); Potassium 3.4 mMol/L (3.4-5.1); Sodium 138 mMol/L (136-145); eGFR > 60 See Note
[2025-09-03] MEDS: HYDROmorphone INJ 2 MG/ML VIAL 0.5 MG IVP (17:07)
[2025-09-03] MEDS: POTASSIUM CHLORIDE 10% 20 MEQ/15 ML UDC 40 MEQ PO (17:12)
[2025-09-03] MEDS: DIGOXIN 0.125 MG TABLET 0.5 MG PO (18:41)
[2025-09-03] MEDS: Magnesium Sulfate 4 GM Ivpb 4 GM/50 ML BAG IV (19:37)
[2025-09-04] VITALS (27 sets, daily range): BP systolic 114–181; BP diastolic 72–133; PULSE 62–136; RESP 12–37; TEMP 35.9–36.4; O2SAT 90–97; BMI 31.9
[2025-09-04 01:05] LABS: Magnesium 2.9 mg/dL (1.6-2.6)
[2025-09-04] MEDS: DIGOXIN 0.125 MG TABLET 0.25 MG PO (02:06)
[2025-09-04] MEDS: metroNIDAZOLE/NS 500 MG IVPB 500 MG/100 ML BAG 200 MG IV ×3 (05:12→21:49)
[2025-09-04 05:58] LABS: Basophils # (Auto) 0.0 Thou/mm3 (0.0-0.2); Basophils % (Auto) 0 % (0-2.5); Eosinophils # (Auto) 0.4 Thou/mm3 (0.0-0.5); Eosinophils % (Auto) 4 % (0-10); Hematocrit 36.3 % (41.0-53.0); Hemoglobin 11.4 g/dL (13.5-16.0); Immature Granulocytes Auto 0.03 Thou/mm3 (0.00-0.00); Lymphocytes # (Auto) 1.4 Thou/mm3 (1.0-4.8); Lymphocytes % (Auto) 15 % (10-50); Mean Corpuscular HGB Conc 31.4 g/dl (31.0-37.0); Mean Corpuscular Hemoglobin 25.4 pg (25.0-35.0); Mean Corpuscular Volume 81 fL (80-100); Monocytes # (Auto) 0.7 Thou/mm3 (0.0-0.8); Monocytes % (Auto) 8 % (0-12); Neutrophils # (Auto) 6.4 Thou/mm3 (1.8-7.7); Neutrophils % (Auto) 72 % (37-80); Nucleated Red Blood Cell # 0.00 Thou/mm3 (0.00-0.00); Nucleated Red Blood Cell % 0 /100 WBC (0); Platelet Count 289 Thou/mm3 (140-440); RDW Standard Deviation 46.2 fL (35.1-43.9); Red Blood Count 4.49 Miln/mm3 (4.50-5.90); White Blood Count 8.9 Thou/mm3 (3.8-10.6)
[2025-09-04 06:22] LABS: Alanine Aminotransferase 12 U/L (10-49); Albumin, Serum 3.7 gm/dL (3.4-4.8); Albumin/Globulin Ratio 1.3 (1.2-2.2); Alkaline Phosphatase 70 U/L (46-116); Anion Gap 6 (7-16); Aspartate Amino Transferase 14 U/L (0-34); BUN/Creatinine Ratio 14 Ratio (12-20); Bilirubin,Total 0.4 mg/dL (0.3-1.2); Blood Urea Nitrogen 14 mg/dL (9-23); Calcium 8.5 mg/dL (8.3-10.6); Calcium (Corrected) 8.7 mg/dL (8.5-10.1); Carbon Dioxide 31.9 mMol/L (20.0-31.0); Chloride 102 mMol/L (98-107); Creatinine (Component) 1.0 mg/dL (0.6-1.3); Digoxin 1.0 ng/mL (0.8-2.0); Estimated Creatinine Clearance 81.3 mL/min (>60); Globulin 2.9 gm/dL (2.3-3.5); Glucose 121 mg/dL (74-106); Magnesium 2.5 mg/dL (1.6-2.6); Osmolality,Calculated 280 (275-295); Phosphorous 3.5 mg/dL (2.4-5.1); Potassium 3.7 mMol/L (3.4-5.1); Sodium 140 mMol/L (136-145); Total Protein 6.6 gm/dL (5.7-8.2); eGFR > 60 See Note
--- NOTE | 2025-09-04 07:51 | ESPR_ITS ---
Documentation for date of: 09/04/25 Subjective Subjective Interval history: Patient was seen and examined at bedside. Reports palpitations, but denies any chest pain or shortness of breath. Blood pressure was 142/99 this morning, systolics usually in 130s to 140s overnight, was given digoxin at 2 AM, heart rate improved from 1 12-98 however this morning converted back to atrial flutter with RVR. Confirmed on telemetry. Patient had net -860 cc output. Potassium 3.7, magnesium 2.5, repleted accordingly. Patient will not be having cholecystectomy per surgeon Dr. Jeffers. Plan for RENE and cardioversion as patient is still in atrial flutter. Exam Vital Signs Temp Pulse Resp BP Pulse Ox O2 Del Method 96.6 F L 98 12 142/99 H 93 L Nasal Cannula 09/04/25 04:00 09/04/25 04:00 09/04/25 04:00 09/04/25 05:00 09/04/25 04:00 09/04/25 04:00 Narrative Exam Physical Exam General: Awake and in no acute distress. Conversational and non-toxic appearing. Obese Citizen Of [place] speaking male. HEENT: Normocephalic, atraumatic, mucous membranes moist. Heart: Regular rate and rhythm, normal S1 and S2, no murmurs appreciated. Lungs: Clear to auscultation with no wheezing or crackles. Abdomen: Soft, nondistended, nontender, positive bowel sounds. No guarding or rebound tenderness. Neurologic: Alert and oriented x3, no gross neurological deficit, and patient able to move all 4 extremities. Extremities: 2+ pitting edema bilaterally. Skin: No rash or ecchymoses. Chronic venous stasis changes bilaterally. Objective Labs 09/04/25 05:27 09/04/25 05:27 Labs: Laboratory Results - last 24 hr 09/03/25 09/04/25 09/04/25 15:30 00:37 05:27 WBC 8.9 RBC 4.49 L Hgb 11.4 L Hct 36.3 L MCV 81 MCH 25.4 MCHC 31.4 RDW Std Deviation 46.2 H Plt Count 289 Neut % (Auto) 72 Lymph % (Auto) 15 [place] % (Auto) 8 Eos % (Auto) 4 Baso % (Auto) 0 Neut # (Auto) 6.4 Lymph # (Auto) 1.4 [place] # (Auto) 0.7 Eos # (Auto) 0.4 Baso # (Auto) 0.0 Immature Gran # (Auto) 0.03 H Absolute Nucleated RBC 0.00 Immature Gran % 0 Nucleated RBC % 0 Sodium 138 140 Potassium 3.4 D 3.7 Chloride 97 L 102 Carbon Dioxide 31.6 H 31.9 H Anion Gap 9 6 L BUN 12 14 Creatinine 1.3 1.0 Estim Creat Clear Calc 62.1 81.3 eGFR > 60 > 60 BUN/Creatinine Ratio 9 L 14 Glucose 212 H D 121 H D Calculated Osmolality 281 280 Calcium 8.7 8.5 Corrected Calcium 8.7 8.7 Phosphorus 3.8 3.5 Magnesium 2.9 H 2.5 Total Bilirubin 0.4 AST 14 ALT 12 Alkaline Phosphatase 70 Total Protein 6.6 Albumin 4.0 3.7 Globulin 2.9 Albumin/Globulin Ratio 1.3 Digoxin 1.0 Quality Measures Quality Measures VTE prophylaxis and none Advance care planning discussed with:: patient Assessment & Plan Assessment Current Active Medications: Generic Name Dose Route Start Last Admin Trade Name Freq PRN Reason Stop Dose Admin Acetaminophen 650 mg 09/03/25 08:42 09/03/25 15:18 Acetaminophen 325 Mg Tablet PO 10/02/25 20:08 650 mg Q6H PRN Administration Fever >100.4 or pain 1-5 Dextrose 25 ml 09/02/25 20:24 Dextrose 50%-Water Inj 50 Ml Syringe IV 10/02/25 20:23 Q15MIN PRN BG 50-70 responsive npo pt Dextrose 50 ml 09/02/25 20:24 Dextrose 50%-Water Inj 50 Ml Syringe IV 10/02/25 20:23 Q15MIN PRN BG <50 OR BG <70 & pt unresponsive Furosemide 40 mg 09/03/25 09:00 09/03/25 08:20 Furosemide 40 Mg Tablet PO 10/03/25 08:59 40 mg QDAY ERWIN Administration Glucagon 1 mg 09/02/25 20:24 Glucagon Inj 1 Mg Vial IM Q15MIN PRN BG <70, and no IV access Hydromorphone HCl 0.5 mg 09/02/25 20:15 09/03/25 17:07 Hydromorphone Inj 2 Mg/Ml Vial IVP 09/07/25 20:14 0.5 mg Q6H PRN Administration PAIN 6-10 Diltiazem HCl 125 mg in 125 mls @ 10 mls/hr 09/02/25 16:00 09/04/25 04:43 Diltiazem In D5w 125 Mg IV 10/02/25 15:59 Not Given .[id number] ERWIN 10 MG/HR Ceftriaxone Sodium/Dextrose 1 gm in 50 mls @ 100 mls/hr 09/03/25 10:19 09/03/25 11:05 Rocephin/D5w 1gm Iv Premix IV 09/10/25 10:18 100 mls/hr QDAY ERWIN Administration Metronidazole 500 mg in 100 mls @ 200 mls/hr 09/03/25 10:19 09/04/25 05:12 Flagyl 500 Mg Iv IV 09/10/25 10:18 200 mls/hr Q8HR ERWIN Administration Insulin Human Lispro 0 unit 09/03/25 07:30 09/03/25 17:13 Insulin Lispro (Admelog) 1 Unit/0.01 Ml Unit SC 10/03/25 07:29 1 unit AC ERWIN Administration Protocol Losartan Potassium 100 mg 09/03/25 09:00 09/03/25 08:19 Losartan Potassium 25 Mg Tablet PO 10/03/25 08:59 100 mg QDAY ERWIN Administration Metoprolol Succinate 100 mg 09/04/25 09:00 Metoprolol Succinate Xl 25 Mg Tabcr PO 10/04/25 08:59 QDAY ERWIN Ondansetron HCl 4 mg 09/02/25 20:24 09/02/25 20:43 Ondansetron Inj 2 Mg/Ml Inj 2 Ml IVP 10/02/25 20:23 4 mg Q6H PRN Administration NAUSEA OR VOMITING Protocol Sennosides 1 tab 09/03/25 09:00 09/03/25 08:19 Senna Tablet PO 10/03/25 08:59 1 tab QDAY ERWIN Administration Protocol Tamsulosin HCl 0.4 mg 09/03/25 09:00 09/03/25 08:20 Tamsulosin Hcl 0.4 Mg Capsule PO 10/03/25 08:59 0.4 mg QDAY ERWIN Administration Plan A 64-year-old male patient with a past medical history of CAD s/p SC in 2005 as per patient with no stents, paroxysmal atrial fibrillation Xarelto, HFrEF EF of 40 to 45% in December 2022, essential hypertension, hyperlipidemia, diabetes mellitus type 2, cholelithiasis, osteoarthritis, BPH, diverticulosis, small bowel obstruction 2021, history of COVID-19 who presented on 09/02 for right upper quadrant abdominal pain, found to have cholelithiasis. Cardiology consulted for preoperative cardiac risk assessment for possible surgery. #Pre-operative cardiac risk assessment for potential cholecystectomy Presented with RUQ abdominal pain. Negative for fever and elevated WBCs. Gallbladder ultrasound showed thickened gallbladder wall, no manage common bile duct. MRCP showed acute calculous cholecystitis. Normal common hepatic common bile duct, not enlarged. Mild acute pancreatitis. RCRI score: 3 points, 10% risk of major cardiac event - Given history of CAD A-fib with RVR, diabetes, hypertension, patient is not stable for surgery as he continues to be in afib with RVR despite attempts to rate control pharmacologically. Notified surgeon Dr. Jeffers. #Atrial flutter with RVR #History of paradoxical A-fib Reports palpitations on exam, denies chest pain or shortness of breath. Had previous hospitalization in June 2025 due to symptoms of atrial fibrillation with RVR. On Xarelto 20 mg for anticoagulation. EKG on admission showed aflutter with HR 142. Given total digoxin 0.75 and metoprolol 100 mg throughout the day, continued to be in afib with RVR. Alvin Vasc score: 5 points, 7.2% stroke risk. HAS -BLED score: 2 points, moderate risk of major bleeding - Will give digoxin 0.25 mg at 2AM to complete 1 mg dose of digoxin. - Plan for cardioversion tomorrow, NPO after midnight - Scheduled for correction Holter monitor but patient missed appointment. - Patient denies any kind of swallowing problems or esophageal issues. - Patient denies any gastric ulcer bleeding or hematemesis or hematochezia. - Patient denies any issue with anesthesia previously. - Risks benefits and alternatives of performing RENE were explained in detail to the patient and the family including the risk of possible esophageal tear or esophageal bleeding, depression and adverse reaction to the sedation medication including nausea and difficulty breathing possible sore throat and a very recurrence of severe reaction leading to . Patient understands the risks and agreeable for the procedure and provided consent for the same. - Explained the risks, benefits and alternatives of cardioversion including the risks of irregular heart rhythms, arrhythmias, asystole and possible skin momin. Patient understands the risks and agreeable for the procedure and for further consent for the cardioversion. # HFrEF 45-50% (June 2024) Previously EF 40 to 50% in 2022. Prescribed Losartan 100 mg, and Farxiga 10 mg daily. hydralazine, amlodipine outpatient. BNP 644. Has 2+ pitting edema of lower extremities bilaterally. Denies shortness of breath. -TTE ordered -Bumex 1 mg daily -Strict ins and outs -Daily weights -Low sodium diet -Fluid restriction 1500 ml -Supplemental O2 as needed, wean as tolerated #Hx of CAD and elevated troponins Patient has history of myocardial infarction in 2005 but had no stents placed. Hx of elevated troponins in 0.69 range. NST 06/19/25 Abnormal myocardial perfusion study as there is decreased uptake in the apical segment with stress and improves with rest indicating stress induced ischemia. EF at 27%. Normal TID. ?Was previously scheduled for cardiac catheterization given results above. However patient missed appointment. ?Patient is currently not candidate for cardiac catheterization given unstable condition. Will reschedule at another time. #Hypertension BP on admission 160/127. Prescribed Losartan, hydralazine, amlodipine outpatient however patient is noncompliant with medication. - Losartan 100 mg daily #Hyperlipidemia - Resume atorvastatin 40 mg daily Thank you for your consultation, please do not hesitate to reach out if you have any question or concern Patient plan of care was discussed with the attending physician, Dr. Gill. Mary Headley, PGY-1 Attending Provider Attestation/Addendum I have personally seen and examined the patient separately on the above date of service and discussed the plan of care with the resident. I reviewed the resident Dr. Mary Headley consultation progress note and agree with the resident findings and plan in the note above and have also edited the documentation to reflect my findings and plan. Mele Gill M.D. Interventional Cardiology
[2025-09-04] MEDS: cefTRIAXone/D5w 1gm IV premix 1 GM/50 ML BAG IV (09:14)
[2025-09-04] MEDS: LOSARTAN POTASSIUM 25 MG TABLET 100 MG PO (09:16)
[2025-09-04] MEDS: BUMETANIDE 0.5 MG TABLET 1 MG PO (09:17)
[2025-09-04] MEDS: TAMSULOSIN HCL 0.4 MG CAPSULE PO (09:17)
[2025-09-04] MEDS: METOPROLOL SUCCINATE XL 25 MG TABCR 100 MG PO (09:18)
--- NOTE | 2025-09-04 10:13 | PC.SS ---
SS follow up note; Cardiology rec's pending. Patient will discharge home when medically cleared.
--- NOTE | 2025-09-04 10:49 | EKG_ITS ---
[facility] Test Date: 2025-09-04 Pat Name: JUAN ECHEVERRIA Department: Room: S273A Gender: Male Hand Screen Printer: : [id number] Requested By: Mele Gill Order Number: [id number] Reading MD: Mele Gill Measurements Intervals [place] Rate: 133 P: 208 CO: 141 QRS: -35 QRSD: 87 T: 101 QT: 349 QTc: 521 Interpretive Statements SINUS TACHYCARDIA PATTERN CONSISTENT WITH PULMONARY DISEASE INFERIOR MYOCARDIAL INFARCTION , POSSIBLY ACUTE ACUTE NC Compared to ECG 09/02/2025 13:02:28 Atrial flutter no longer present Left-axis deviation no longer present ST (T wave) deviation no longer present Myocardial infarct finding still present /store/S0/[id number]
--- NOTE | 2025-09-04 11:30 | ECHO_ITS ---
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 Couldn't determine diastolic dysfunction becasue of atrial febrillation or arrhythmia. Right Ventricle Moderately decreased RV function. Normal RV size. Left Atrium Severely dilated LA Right Atrium Moderately dilated RA Atrial Appendages The left atrial appendage appears normal with no evidence for thrombus. Atrial Septum An intravenous agitated saline injection indicated a [id number] shunt across the atrial septum with Valsalva release by agitation saline injection. Aorta The aorta is normal by two-dimensional, color flow and Doppler interrogation. Mitral Valve Mild mitral regurgitation. Aortic Valve The aortic valve is trileaflet and normal by two-dimensional, color flow and Doppler interrogation. There is no significant aortic valve regurgitation. Tricuspid Valve There is mild tricuspid valve regurgitation. Pulmonic Valve Trivial pulmonic valve regurgitation. Vessels The pulmonary artery appears normal. The inferior vena cava pulmonary and hepatic veins appear normal. Pericardium There is a small pericardial effusion without cardiac tamponade. CONCLUSIONS Indication: A-fib and check for GABY thrombus with cardioversion Medication Versed 5 mg Fentanyl 100 mcg No LA or GABY thrombus. Positive bubble study for small PFO especially with increased RA pressure on coughing or abdominal pressure normal LV size with severely decreased LV function with an EF 25-30%. Couldn't determine diastolic dysfunction becasue of atrial febrillation or arrhythmia. Moderately decreased RV function. Normal RV size. Severely dilated LA and Moderately dilated RA Mild mitral regurgitation, tricuspid valve regurgitation and trace pulmonic valve There is a small pericardial effusion without any evidence of cardiac tamponade. Mele Gill (Electronically Signed) Final Date: 04 September 2025 14:08
[2025-09-04] MEDS: ADENOSINE INJ 3 MG/ML VIAL 6 MG IVP (11:48)
[2025-09-04] MEDS: ADENOSINE INJ 3 MG/ML VIAL 12 MG IVP (11:52)
[2025-09-04] MEDS: MIDAZOLAM INJ 1 MG/ML VIAL 2 ML 5 MG IVP (11:55)
[2025-09-04] MEDS: BENZOCAINE 20% (Hurricaine) SPRAY 1 DOSE TOP (11:55)
[2025-09-04] MEDS: fentaNYL CIT INJ 50 mCg/ML AMP 2ML 100 MCG IVP (11:56)
[2025-09-04] MEDS: ONDANSETRON INJ 2 MG/ML INJ 2 ML 4 MG IVP (12:10)
--- NOTE | 2025-09-04 12:24 | EKG_ITS ---
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1960 Requested By: Mele Gill Order Number: [id number] Reading MD: Mele Gill Measurements Intervals [place] Rate: 66 P: 55 [place]: 223 QRS: -34 QRSD: 94 T: 99 QT: 440 QTc: 462 Interpretive Statements SINUS RHYTHM WITH FIRST DEGREE AV BLOCK WITH OCCASIONAL VENTRICULAR PREMATURE COMPLEXES POSSIBLE ANTERIOR MYOCARDIAL INFARCTION , OF INDETERMINATE AGE INFERIOR MYOCARDIAL INFARCTION , PROBABLY OLD Compared to ECG 09/04/2025 10:54:03 Ventricular premature complex(es) now present First degree AV block now present Sinus tachycardia no longer present Myocardial infarct finding still present /store/S0/[id number].pdf
--- NOTE | 2025-09-04 12:48 | ESPR_ITS ---
Documentation for date of: 09/04/25 Subjective Subjective Brief History: 65M with HTN, HLD, DMII, A-fib on Xarelto who presented to ER due to abdominal pain. Patient reports pain was in the right upper abdomen/flank, similar to pain he has had in the past, associated with nausea. Patient denies any association with eating and at the moment feels the pain is improved, currently 4 out of 10 and he is feeling hungry. Patient also has noted palpitations and i n the ER has had heart rates in the 130s to 140s, is being started on a Cardizem drip PMH: HTN, HLD, DM 2, A-fib on Xarelto, patient denies any cardiac procedures but does describe being planned for a cardiac cath PSH: None Meds: Include Xarelto, last taken on 09/01 Allergies: Morphine Family history: No known malignancies Narrative: Pt determined to have prohibitively high risk for surgery by cardiology as his RVR remains uncontrolled and his echo showed EF 25-30%. Today pt feels well overall, he had episodes of RUQ pain yesterday but these were controlled with medications and he was able to eat solid food without any increase in pain. He remains afebrile with normal WBC and LFTs Exam Vital Signs Temp Pulse Resp BP Pulse Ox O2 Del Method O2 Flow Rate 97.6 F 67 13 135/101 H 96 Nasal Cannula 7 09/04/25 10:33 09/04/25 12:25 09/04/25 12:25 09/04/25 12:25 09/04/25 12:25 09/04/25 12:25 09/04/25 12:25 Constitutional Constitutional: no acute distress Routine Respiratory Exam Respiratory: Present no resp distress Routine Abdominal Exam Abdominal: Present soft; Absent tenderness or distended Results Results: Laboratory Laboratory results: results reviewed Assessment & Plan Plan 65M with HTN, HLD, DMII, A-fib on Xarelto who presented to ER due to abdominal pain, with findings of acute cholecystitis. Pt additionally has systolic CHF with EF 25-30% on echo this admission, and has remained in RVR despite medications. For him surgery carries prohibitively high risk so cholecystectomy is unfortunately not an option; I discussed with him the possibility of percutaneous cholecystostomy but as he is clinically doing well with pain controlled, tolerating regular diet with normal WBC I do not recommend this procedure either. I would continue antibiotics for a total of 14 days and pt can try ursodiol as well Continue abx Diet as tolerated Trial of ursodiol
--- NOTE | 2025-09-04 13:31 | ESPR_ITS ---
<Statement entered by Bere Antony MD - 09/08/25 12:14> I reviewed above note and agree with findings and plans. I have also personally examined the patient with medicine team and went over assessment and plan with medical team including international nurse and resident physician. Documentation for date of: 09/04/25 Overnight, patient continues to be in a flutter. Day team gave 0.75 mcg of digoxin in addition to metoprolol 100 mg daily. Per cardiology recommendations additional 0.25 mg x 1. Digoxin levels this morning within normal limits. Per general surgery, no planned surgical intervention atrial flutter with RVR. Patient started on a ursodiol. Patient is scheduled to be cardioverted by cardiology. Follow-up on coagulation. - The patient's plan was discussed with attending Dr. Arpan Massey MD PGY2 Internal Medicine Subjective Subjective Interval history: Patient examined bedside NAEON, labs reviewed. 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 Exam Vital Signs Temp Pulse Resp BP Pulse Ox O2 Del Method O2 Flow Rate 97.6 F 71 14 132/74 H 96 Nasal Cannula 7 09/04/25 10:33 09/04/25 13:15 09/04/25 13:15 09/04/25 13:15 09/04/25 12:25 09/04/25 12:25 09/04/25 12:25 Narrative Exam GENERAL: NAD, AAOx3 HEENT: Moist mucosa. Eyes open, symmetrical, & clear CARDIO: Rapid Irregular rhythm Noted. No Murmurs. PULM: No noted coughing/dyspnea CTA B/L, no R/W/R GI: Abdomen soft, nondistended, Tenderness on palpation of RUQ. SKIN/MSK/EXT: No wounds/rashes/amputations, no pain on palpation. Peripheral edema on B/L legs up to knee 3+. Pedal pulses present B/L NEURO: AAOx3, no focal neuro deficits, able to move all 4 extremities Constitutional Constitutional: no acute distress and cooperative Routine HEENT Exam Head: Present normocephalic Eye: Present EOMI, PERRL and conjunctivae pink; Absent conjunctival icterus or scleral injection ENT: Present mucous membranes moist and oropharynx clear Detailed Eye Exam Eyelids: bilateral: normal inspection Pupils: bilateral: regular, round and bilateral: reactive Sclerae/Conjunctivae: bilateral: normal inspection Lens/Anterior chamber: bilateral: normal inspection Retina/Posterior chamber: bilateral: normal inspection Routine Neck Exam Neck: Present supple, full ROM and trachea midline; Absent lymphadenopathy, thyromegaly, tenderness or swelling Detailed Neck Exam: Thyroids Thyroid: Absent diffusely enlarged, tenderness, mass or goiter Routine Chest/Breast/Axilla Exam Chest wall: Absent tenderness, mass, pacemaker or chest tube Detailed Chest Wall Exam Chest wall: Absent increased AP diameter or crepitus Routine Respiratory Exam Respiratory: Present chest non-tender, lungs clear, normal breath sounds, no resp distress and CTA bilaterally Routine Cardiovascular Exam Cardiovascular: Present RRR; Absent murmur, gallop or rubs Comments: patient in frequent episodes of a-flutter w RVR, currently rate controlled this AM Routine Abdominal Exam Abdominal: Present soft, normoactive bowel sounds and tenderness (RUQ tenderness ); Absent distended, guarding, firm or rigid Routine Extremities Exam Extremities: Present pulses intact and normal capillary refill; Absent cyanosis or edema Routine Back/Spine/Pelvis Exam Back/Spine: Present full ROM; Absent CVA tenderness, paraspinal tenderness or vertebral tenderness Pelvis: Absent buttock ecchymosis, buttock swelling or SI joint tenderness Routine Skin Exam Skin: Present intact, dry and warm; Absent cyanosis, erythema, pallor or lesions Routine Psychiatric Exam Psychiatric: Present cooperative and depressed Objective Labs 09/04/25 05:27 09/04/25 05:27 Labs: Laboratory Results - last 24 hr 09/03/25 09/04/25 09/04/25 15:30 00:37 05:27 WBC 8.9 RBC 4.49 L Hgb 11.4 L Hct 36.3 L MCV 81 MCH 25.4 MCHC 31.4 RDW Std Deviation 46.2 H Plt Count 289 Neut % (Auto) 72 Lymph % (Auto) 15 Howell % (Auto) 8 Eos % (Auto) 4 Baso % (Auto) 0 Neut # (Auto) 6.4 Lymph # (Auto) 1.4 Howell # (Auto) 0.7 Eos # (Auto) 0.4 Baso # (Auto) 0.0 Immature Gran # (Auto) 0.03 H Absolute Nucleated RBC 0.00 Immature Gran % 0 Nucleated RBC % 0 Sodium 138 140 Potassium 3.4 D 3.7 Chloride 97 L 102 Carbon Dioxide 31.6 H 31.9 H Anion Gap 9 6 L BUN 12 14 Creatinine 1.3 1.0 Estim Creat Clear Calc 62.1 81.3 eGFR > 60 > 60 BUN/Creatinine Ratio 9 L 14 Glucose 212 H D 121 H D Calculated Osmolality 281 280 Calcium 8.7 8.5 Corrected Calcium 8.7 8.7 Phosphorus 3.8 3.5 Magnesium 2.9 H 2.5 Total Bilirubin 0.4 AST 14 ALT 12 Alkaline Phosphatase 70 Total Protein 6.6 Albumin 4.0 3.7 Globulin 2.9 Albumin/Globulin Ratio 1.3 Digoxin 1.0 Quality Measures Quality Measures VTE prophylaxis and none Advance care planning discussed with:: patient Assessment & Plan Assessment Current Active Medications: Generic Name Dose Route Start Last Admin Trade Name Freq PRN Reason Stop Dose Admin Acetaminophen 650 mg 09/03/25 08:42 09/03/25 15:18 Acetaminophen 325 Mg Tablet PO 10/02/25 20:08 650 mg Q6H PRN Administration Fever >100.4 or pain 1-5 Hydrocodone Bitart/Acetaminophen 1 tab 09/04/25 08:51 Hydrocodone/Apap 5/325 Tablet PO 09/09/25 08:50 On Hold: 09/04/25 10:28 Q4HR PRN Comment: APAP ACTIVE PAIN SCALE 4-10(Mod-Sev Atorvastatin Calcium 80 mg 09/04/25 21:00 Atorvastatin Calcium 20 Mg Tablet PO 10/04/25 20:59 HS ERWIN Bumetanide 1 mg 09/04/25 09:00 09/04/25 09:17 Bumetanide 0.5 Mg Tablet PO 10/04/25 08:59 1 mg QDAY ERWIN Administration Dextrose 25 ml 09/02/25 20:24 Dextrose 50%-Water Inj 50 Ml Syringe IV 10/02/25 20:23 Q15MIN PRN BG 50-70 responsive npo pt Dextrose 50 ml 09/02/25 20:24 Dextrose 50%-Water Inj 50 Ml Syringe IV 10/02/25 20:23 Q15MIN PRN BG <50 OR BG <70 & pt unresponsive Digoxin 0.125 mg 09/05/25 09:00 Digoxin 0.125 Mg Tablet PO 10/05/25 08:59 QDAY ERWIN Glucagon 1 mg 09/02/25 20:24 Glucagon Inj 1 Mg Vial IM Q15MIN PRN BG <70, and no IV access Hydromorphone HCl 0.5 mg 09/04/25 08:51 Hydromorphone Inj 2 Mg/Ml Vial IVP 09/07/25 20:14 Q6H PRN BREAKTHROUGH PAIN Protocol Diltiazem HCl 125 mg in 125 mls @ 10 mls/hr 09/02/25 16:00 09/04/25 04:43 Diltiazem In D5w 125 Mg IV 10/02/25 15:59 Not Given .[id number] ERWIN 10 MG/HR Ceftriaxone Sodium/Dextrose 1 gm in 50 mls @ 100 mls/hr 09/03/25 10:19 09/04/25 09:14 Rocephin/D5w 1gm Iv Premix IV 09/10/25 10:18 100 mls/hr QDAY ERWIN Administration Metronidazole 500 mg in 100 mls @ 200 mls/hr 09/03/25 10:19 09/04/25 05:12 Flagyl 500 Mg Iv IV 09/10/25 10:18 200 mls/hr Q8HR ERWIN Administration Insulin Human Lispro 0 unit 09/03/25 07:30 09/04/25 13:01 Insulin Lispro (Admelog) 1 Unit/0.01 Ml Unit SC 10/03/25 07:29 Not Given AC ERWIN Protocol Losartan Potassium 100 mg 09/03/25 09:00 09/04/25 09:16 Losartan Potassium 25 Mg Tablet PO 10/03/25 08:59 100 mg QDAY ERWIN Administration Metoprolol Succinate 100 mg 09/04/25 09:00 09/04/25 09:18 Metoprolol Succinate Xl 25 Mg Tabcr PO 10/04/25 08:59 100 mg QDAY ERWIN Administration Ondansetron HCl 4 mg 09/02/25 20:24 09/02/25 20:43 Ondansetron Inj 2 Mg/Ml Inj 2 Ml IVP 10/02/25 20:23 4 mg Q6H PRN Administration NAUSEA OR VOMITING Protocol Sennosides 1 tab 09/03/25 09:00 09/04/25 09:17 Senna Tablet PO 10/03/25 08:59 1 tab QDAY ERWIN Administration Protocol Tamsulosin HCl 0.4 mg 09/03/25 09:00 09/04/25 09:17 Tamsulosin Hcl 0.4 Mg Capsule PO 10/03/25 08:59 0.4 mg QDAY ERWIN Administration Ursodiol 300 mg 09/04/25 17:30 Ursodiol 300 Mg Capsule PO 10/04/25 17:29 BIDWM ERWIN Plan This is a 65 year old male with Past medical history of HTN,DM2, A-fib on Xarelto,Right heart Failure,IA(4months back) presented with RUQ abdominal pain. Imaging [facility] and MRCP shows thickened gallbladder. He was admitted for acute calculus cholecystitis complicated by a-flutter w RVR. # Atrial fibrillation/ Flutter with RVR #Paroxysmal Atrial Fibrillation Denies any cardiac symptoms such as chest pain, pressure, shortness of breath Evidenced by EKG findings showing atrial flutter with RVR, was started on Cardizem drip in ED troponins negative Patient takes xarelto at home however in view of possible procedure will hold at this time - Metoprolol succ XL 100 mg (50 mg X 2) - Digoxin 0.25 and Digoxin 0.5 PO - Continue with Cardizem drip-->discontinue - Echocardiogram ordered - Hold xarelto can consider lovenox although patient is mobile - Patient cardioverted 09/04 due to uncontrolled a-flutter with RVR failed medical management - Cards placed scheduled 125mcg digixon daily #Acute Acalculus Choleystitis #History of Cholelithiasis #Mild Acute Pancreatitis Patient presented with RUQ Pain. MRCP and Abdominal USG shows thickened gallbladder wall. - IV Dilaudad 0.5mg - IV flagyl 500mg q8hr - Gen Surgery Consulted- awaiting Cardiac Clearance in view of atrial flutter with Rapid Ventricular Response. - Plan has changed, Dr. Jeffers says patient no longer requires surgery, see general surgery note - Dr. Jeffers recommends I would continue antibiotics for a total of 14 days and pt can try ursodiol as well. #CHF HFpEF 55 -60% (12/06/2024) #Congestive Heart Failure #Diastolic Dysfunction, grade II Patient has a past medical history of improved EF with most recent recent ejection of 55-60% on echo. BNP 644. NYHA Class: II ASCVD: 29.4%, High intensity Statins Plan: - Lasix 40 mg once daily, pending med rec, may be taking Bmetanide-->likely resume home medication - Metoprolol 100 mg once daily resumed (Metoprolol 50 mg X 2 given) - Farxiga ?, confirm dosage - Echo Ordered - K>4 and Mg >2 - Fluid Restriction 2 Liters - SpO <90%, support PRN - Daily Weights - goal of GDMT - Cardiology Consult, appreciate recommendations. # Hypertension Continuing Home Medications, pending med rec at this time. Possible blood pressure medication includes: Losartan 100 mb BID, Hydralazine 50 mg once daily. Plan - Losartan 100 mg once daily (which appears to be half the normal dose of home medication), normotensive. # Diabetes Mellitus T2, non-insulin dependent #Hyperglycemic Patient has PMHx of DM w a previous A1c of 6.8 (09/02/2025). Patient home medication include Metformin 1000 mg BID, Glipizide 5 mg BID, and Farxiga. - Sliding Scale insulin - Monitor Fasting Blood Glucose - hypoglycemia protocol in place #CAD #History of NSTEMI/ACS #HLD Patient has a past medical history of of CAD w/ no stents added previously. Patient has a high ASCVD risk factor of 29.4%. Lipid Panel (09/03/2025): Cholesterol 131, Triglycerides 95, LDL 75, HDL 37 -Atorvastatin 40 mg HS, increase to 80 mg starting 09/04/2025 #BPH - resume tamsulosin as taken at home - Continue to Monitor BP #Atrophic Kidneys w/ scarring & small cysts Incidental findings, given past medical history of diabetes mellitus, follow up with PCP or referral as outpatient for nephrology. - continue to monitor BUN and Cr - Outpatient Renal U/S Code status: Full DVT prophylaxis: SCDs Diet: Cardio consistent Snowden: None Lines: PIV Supplemental O2: none Disposition: Tele, pending surgery Discussed and reviewed this Case with my senior Dr. Massey and my attending Dr. Antony. Viky Hatfield-PGY1
[2025-09-04] MEDS: POTASSIUM CHLORIDE 10% 20 MEQ/15 ML UDC 40 MEQ GT (16:54)
[2025-09-04] MEDS: INSULIN LISPRO (AdmeLOG) 1 UNIT/0.01 ML UNIT SC (17:38)
--- NOTE | 2025-09-04 18:52 | PD.CARDOPNOT ---
Procedure Direct current cardioversion for uncontrolled atrial flutter Moderate Conscious Sedation with Versed and Fentanyl Date of Procedure 09/04/25 Pre Op Diagnosis Atrial Flutter with RVR Indication Atrial Flutter with RVR Post Op Diagnosis Normal Sinus Rhythm restored. Procedure Description Patient was in atrial flutter and ventricular rate was controlled came in for elective cardioversion as patient was having significant symptoms for the Atrial flutter. Decision was made to perform cardioversion for the patient after performing a transesophageal echocardiogram. Transesophageal echocardiogram was completed today and did not show any significant LA or GABY thrombus.? Please see RENE report from today for rest of the findings.? Patient was already on anticoagulation with Xarelto. Patient was taken to the dye lab technician for the RENE and cardioversion, both anterior and posterior pads were placed.? Patient was given moderate sedation and received a total of 5 mg of Versed and 100 mcg of fentanyl prior to the procedure to provide him enough for sedation. A biphasic defibrillator was used.? A single 120 J synchronized shock was given and the patient converted successfully into normal sinus rhythm.? No complications during or after the procedure.? Patient is doing well.? His heart rate was stable between 50 to 70 bpm and appears to be normal sinus rhythm on the telemetry.? Recommend to perform an EKG to document normal sinus rhythm postprocedure.? Patient will be monitored in the dye lab technician for the next 1-2 hours and will be sent back to telemetry if hemodynamically stable. Will continue to adjust his medications for atrial fibrillation. Estimated Blood Loss 0 Specimen(s) Specimen(s): None Conclusion Direct current cardioversion for uncontrolled atrial flutter to normal sinus rhythm Recommendation Continue metoprolol XL 100 mg Q Day if BP stable and digoxin 125 mcg dailyt from tomorrow and will adjust medications in the office as outpatient. Continue Xarelto 20 mg daily for anticaogulation. EKG to document NSR post procedure. No driving for 24 hours. Patient recommended to follow up in 1 week in the clinic. Surgical Staff Surgeon: Mele Gill MD
[2025-09-04] MEDS: RIVAROXABAN 10 MG TABLET 20 MG PO (19:22)
[2025-09-04] MEDS: ATORVASTATIN CALCIUM 20 MG TABLET 80 MG PO (21:49)
[2025-09-05] VITALS (9 sets, daily range): BP systolic 126–165; BP diastolic 68–92; PULSE 58–71; RESP 13–19; TEMP 36.2–36.6; O2SAT 91–96; BMI 31.3; BMI 31.2
[2025-09-05] MEDS: metroNIDAZOLE/NS 500 MG IVPB 500 MG/100 ML BAG 200 MG IV ×3 (05:03→21:16)
[2025-09-05 05:45] LABS: Basophils # (Auto) 0.0 Thou/mm3 (0.0-0.2); Basophils % (Auto) 0 % (0-2.5); Eosinophils # (Auto) 0.3 Thou/mm3 (0.0-0.5); Eosinophils % (Auto) 4 % (0-10); Hematocrit 33.9 % (41.0-53.0); Hemoglobin 10.6 g/dL (13.5-16.0); Immature Granulocytes Auto 0.02 Thou/mm3 (0.00-0.00); Lymphocytes # (Auto) 1.1 Thou/mm3 (1.0-4.8); Lymphocytes % (Auto) 12 % (10-50); Mean Corpuscular HGB Conc 31.3 g/dl (31.0-37.0); Mean Corpuscular Hemoglobin 25.7 pg (25.0-35.0); Mean Corpuscular Volume 82 fL (80-100); Monocytes # (Auto) 0.7 Thou/mm3 (0.0-0.8); Monocytes % (Auto) 7 % (0-12); Neutrophils # (Auto) 7.4 Thou/mm3 (1.8-7.7); Neutrophils % (Auto) 77 % (37-80); Nucleated Red Blood Cell # 0.00 Thou/mm3 (0.00-0.00); Nucleated Red Blood Cell % 0 /100 WBC (0); Platelet Count 299 Thou/mm3 (140-440); RDW Standard Deviation 48.2 fL (35.1-43.9); Red Blood Count 4.12 Miln/mm3 (4.50-5.90); White Blood Count 9.6 Thou/mm3 (3.8-10.6)
[2025-09-05 06:06] LABS: Alanine Aminotransferase 13 U/L (10-49); Albumin, Serum 3.9 gm/dL (3.4-4.8); Albumin/Globulin Ratio 1.3 (1.2-2.2); Alkaline Phosphatase 71 U/L (46-116); Anion Gap 10 (7-16); Aspartate Amino Transferase 20 U/L (0-34); BUN/Creatinine Ratio 15 Ratio (12-20); Bilirubin,Total 0.4 mg/dL (0.3-1.2); Blood Urea Nitrogen 21 mg/dL (9-23); Calcium 9.1 mg/dL (8.3-10.6); Calcium (Corrected) 9.2 mg/dL (8.5-10.1); Carbon Dioxide 29.5 mMol/L (20.0-31.0); Chloride 100 mMol/L (98-107); Creatinine (Component) 1.4 mg/dL (0.6-1.3); Estimated Creatinine Clearance 57.6 mL/min (>60); Globulin 2.9 gm/dL (2.3-3.5); Glucose 109 mg/dL (74-106); Magnesium 2.3 mg/dL (1.6-2.6); Osmolality,Calculated 281 (275-295); Phosphorous 4.3 mg/dL (2.4-5.1); Potassium 4.0 mMol/L (3.4-5.1); Sodium 139 mMol/L (136-145); Total Protein 6.8 gm/dL (5.7-8.2); eGFR 55 See Note
[2025-09-05] MEDS: INSULIN LISPRO (AdmeLOG) 1 UNIT/0.01 ML UNIT SC (07:53)
--- NOTE | 2025-09-05 07:55 | PC.NURSE ---
called pt complaining of pain and norco on hold , wilfrido is on board for breakrhrough pain, need pain meds for 1st line. MD will add orders
[2025-09-05] MEDS: HYDROcodone/APAP 5/325 TABLET 1 TAB PO (08:43)
[2025-09-05] MEDS: TAMSULOSIN HCL 0.4 MG CAPSULE PO (08:43)
[2025-09-05] MEDS: BUMETANIDE 0.5 MG TABLET 1 MG PO (08:44)
[2025-09-05] MEDS: LOSARTAN POTASSIUM 25 MG TABLET 100 MG PO (08:44)
[2025-09-05] MEDS: DIGOXIN 0.125 MG TABLET PO (08:45)
[2025-09-05] MEDS: METOPROLOL SUCCINATE XL 25 MG TABCR 100 MG PO (08:45)
[2025-09-05] MEDS: cefTRIAXone/D5w 1gm IV premix 1 GM/50 ML BAG IV (08:45)
--- NOTE | 2025-09-05 10:37 | PD.RESPRO ---
Documentation for date of: 09/05/25 Subjective Subjective Interval history: Patient seen and assessed at bedside. No new complaints, denies chest pain, shortness of breath, palpitations. Does experience some dizziness with ambulation, was recommended to move more slowly and wait a couple minutes before standing. S/p RENE and cardioversion yesterday. Bradycardic overnight with HR 30s-40s. Will discontinue digoxin and losartan. Potassium 4.0, magnesium 2.3, creatinine 1.4 (from 1.0). Will hold diuretics for now in setting of CHERELLE, however once CHERELLE resolved, recommend to start on Entresto 49-51 outpatient for better blood pressure control. Decrease metoprolol to 50 mg QD. Continue Xarelto and Bumex. Updated patient on results. Follow up at clinic 1 week after discharge. Exam Vital Signs Temp Pulse Resp BP Pulse Ox O2 Del Method O2 Flow Rate 97.4 F 71 13 156/90 H 94 L Room Air 7 09/05/25 08:00 09/05/25 08:45 09/05/25 08:00 09/05/25 08:45 09/05/25 08:00 09/05/25 08:00 09/04/25 12:25 Narrative Exam Physical Exam General: Awake and in no acute distress. Conversational and non-toxic appearing. Obese Tanzanian speaking male. HEENT: Normocephalic, atraumatic, mucous membranes moist. Heart: Regular rate and rhythm, normal S1 and S2, no murmurs appreciated. Lungs: Clear to auscultation with no wheezing or crackles. Abdomen: Soft, nondistended, nontender, positive bowel sounds. No guarding or rebound tenderness. Neurologic: Alert and oriented x3, no gross neurological deficit, and patient able to move all 4 extremities. Extremities: 1+ pitting edema bilaterally. Skin: No rash or ecchymoses. Chronic venous stasis changes bilaterally. Objective Labs 09/05/25 04:38 09/05/25 04:38 Labs: Laboratory Results - last 24 hr 09/05/25 04:38 WBC 9.6 RBC 4.12 L Hgb 10.6 L Hct 33.9 L MCV 82 MCH 25.7 MCHC 31.3 RDW Std Deviation 48.2 H Plt Count 299 Neut % (Auto) 77 Lymph % (Auto) 12 [place] % (Auto) 7 Eos % (Auto) 4 Baso % (Auto) 0 Neut # (Auto) 7.4 Lymph # (Auto) 1.1 [place] # (Auto) 0.7 Eos # (Auto) 0.3 Baso # (Auto) 0.0 Immature Gran # (Auto) 0.02 H Absolute Nucleated RBC 0.00 Immature Gran % 0 Nucleated RBC % 0 Sodium 139 Potassium 4.0 Chloride 100 Carbon Dioxide 29.5 Anion Gap 10 BUN 21 Creatinine 1.4 H Estim Creat Clear Calc 57.6 L eGFR 55 L BUN/Creatinine Ratio 15 Glucose 109 H Calculated Osmolality 281 Calcium 9.1 Corrected Calcium 9.2 Phosphorus 4.3 Magnesium 2.3 Total Bilirubin 0.4 AST 20 ALT 13 Alkaline Phosphatase 71 Total Protein 6.8 Albumin 3.9 Globulin 2.9 Albumin/Globulin Ratio 1.3 Quality Measures Quality Measures VTE prophylaxis and none Advance care planning discussed with:: patient Assessment & Plan Assessment Current Active Medications: Generic Name Dose Route Start Last Admin Trade Name Freq PRN Reason Stop Dose Admin Acetaminophen 650 mg 09/03/25 08:42 09/03/25 15:18 Acetaminophen 325 Mg Tablet PO 10/02/25 20:08 650 mg On Hold: 09/05/25 09:02 Q6H PRN Administration Comment: NORCO ACTIVE Fever >100.4 or pain 1-5 Hydrocodone Bitart/Acetaminophen 1 tab 09/04/25 08:51 09/05/25 08:43 Hydrocodone/Apap 5/325 Tablet PO 09/09/25 08:50 1 tab Q4HR PRN Administration PAIN SCALE 4-10(Mod-Sev Atorvastatin Calcium 80 mg 09/04/25 21:00 09/04/25 21:49 Atorvastatin Calcium 20 Mg Tablet PO 10/04/25 20:59 80 mg HS ERWIN Administration Bumetanide 1 mg 09/04/25 09:00 09/05/25 08:44 Bumetanide 0.5 Mg Tablet PO 10/04/25 08:59 1 mg QDAY ERWIN Administration Dextrose 25 ml 09/02/25 20:24 Dextrose 50%-Water Inj 50 Ml Syringe IV 10/02/25 20:23 Q15MIN PRN BG 50-70 responsive npo pt Dextrose 50 ml 09/02/25 20:24 Dextrose 50%-Water Inj 50 Ml Syringe IV 10/02/25 20:23 Q15MIN PRN BG <50 OR BG <70 & pt unresponsive Glucagon 1 mg 09/02/25 20:24 Glucagon Inj 1 Mg Vial IM Q15MIN PRN BG <70, and no IV access Hydromorphone HCl 0.5 mg 09/04/25 08:51 Hydromorphone Inj 2 Mg/Ml Vial IVP 09/07/25 20:14 Q6H PRN BREAKTHROUGH PAIN Protocol Ceftriaxone Sodium/Dextrose 1 gm in 50 mls @ 100 mls/hr 09/03/25 10:19 09/05/25 08:45 Rocephin/D5w 1gm Iv Premix IV 09/10/25 10:18 100 mls/hr QDAY ERWIN Administration Metronidazole 500 mg in 100 mls @ 200 mls/hr 09/03/25 10:19 09/05/25 05:03 Flagyl 500 Mg Iv IV 09/10/25 10:18 200 mls/hr Q8HR ERWIN Administration Insulin Human Lispro 0 unit 09/03/25 07:30 09/05/25 07:53 Insulin Lispro (Admelog) 1 Unit/0.01 Ml Unit SC 10/03/25 07:29 1 unit AC ERWIN Administration Protocol Losartan Potassium 100 mg 09/03/25 09:00 09/05/25 08:44 Losartan Potassium 25 Mg Tablet PO 10/03/25 08:59 100 mg QDAY ERWIN Administration Metoprolol Succinate 100 mg 09/04/25 09:00 09/05/25 08:45 Metoprolol Succinate Xl 25 Mg Tabcr PO 10/04/25 08:59 100 mg QDAY ERWIN Administration Ondansetron HCl 4 mg 09/02/25 20:24 09/02/25 20:43 Ondansetron Inj 2 Mg/Ml Inj 2 Ml IVP 10/02/25 20:23 4 mg Q6H PRN Administration NAUSEA OR VOMITING Protocol Rivaroxaban 20 mg 09/05/25 17:30 Rivaroxaban 10 Mg Tablet PO 10/05/25 17:29 WSUPPER ERWIN Sennosides 1 tab 09/03/25 09:00 09/05/25 08:45 Senna Tablet PO 10/03/25 08:59 1 tab QDAY ERWIN Administration Protocol Tamsulosin HCl 0.4 mg 09/03/25 09:00 09/05/25 08:43 Tamsulosin Hcl 0.4 Mg Capsule PO 10/03/25 08:59 0.4 mg QDAY ERWIN Administration Ursodiol 300 mg 09/04/25 17:30 09/05/25 08:55 Ursodiol 300 Mg Capsule PO 10/04/25 17:29 300 mg BIDWM ERWIN Administration Plan A 64-year-old male patient with a past medical history of CAD s/p MS in 2005 as per patient with no stents, paroxysmal atrial fibrillation Xarelto, HFrEF EF of 40 to 45% in December 2022, essential hypertension, hyperlipidemia, diabetes mellitus type 2, cholelithiasis, osteoarthritis, BPH, diverticulosis, small bowel obstruction 2021, history of COVID-19 who presented on 09/02 for right upper quadrant abdominal pain, found to have cholelithiasis. Cardiology consulted for preoperative cardiac risk assessment for possible surgery. #Pre-operative cardiac risk assessment for potential cholecystectomy Presented with RUQ abdominal pain. Negative for fever and elevated WBCs. Gallbladder ultrasound showed thickened gallbladder wall, no manage common bile duct. MRCP showed acute calculous cholecystitis. Normal common hepatic common bile duct, not enlarged. Mild acute pancreatitis. RCRI score: 3 points, 10% risk of major cardiac event - Given history of CAD A-fib with RVR, diabetes, hypertension, patient is not stable for surgery as he continues to be in afib with RVR despite attempts to rate control pharmacologically. Notified surgeon Dr. Jeffers. #Atrial flutter with RVR -status post cardioversion with 120 J on 09/04/2025 #History of paroxysmal A-fib Reports palpitations on exam, denies chest pain or shortness of breath. Had previous hospitalization in June 2025 due to symptoms of atrial fibrillation with RVR. On Xarelto 20 mg for anticoagulation. EKG on admission showed aflutter with HR 142. 09/03/25: Given total digoxin 0.75 and metoprolol 100 mg throughout the day, continued to be in afib with RVR. 09/04/25: S/p digoxin 0.25 mg at 2 AM however converted back to atrial flutter with RVR. RENE 09/04/25: No LA or GABY thrombus. Positive bubble study for small PFO especially with increased RA pressure on coughing or abdominal pressure normal LV size with severely decreased LV function with an EF 25-30%. Couldn't determine diastolic dysfunction becasue of atrial febrillation or arrhythmia. Moderately decreased RV function. Normal RV size. Severely dilated LA and Moderately dilated RA. Mild mitral regurgitation, tricuspid valve regurgitation and trace pulmonic valve. There is a small pericardial effusion without any evidence of cardiac tamponade. 09/04/25: No thrombus observed on RENE. Cardioverted at 120J. Post operative EKG showed sinus rhythm with first degree AV block and occassional PVCs. Alvin Vasc score: 5 points, 7.2% stroke risk. HAS -BLED score: 2 points, moderate risk of major bleeding - Decrease metoprolol XL to 50 mg Q Day if BP stable, will adjust medications in the office as outpatient. - Discontinue digoxin due to bradycardia. - Continue Xarelto 20 mg daily for anticaogulation. - EKG to document NSR post procedure. - Patient recommended to follow up in 1 week in the clinic. # HFrEF 25-30% (09/02/25) Previously EF 40 to 50% in 2022. Prescribed Losartan 100 mg, and Farxiga 10 mg daily. hydralazine, amlodipine outpatient. BNP 644. Has 2+ pitting edema of lower extremities bilaterally. Denies shortness of breath. TTE 09/02/25 showed Normal LV size with severely decreased LV function with an EF 25 to 30%, previously 45-50% in June 2024. Could not determine diastolic dysfunction because of atrial fibrillation or arrhythmia. Moderately decreased RV function. Normal RV size. Underestimated RVSP around 25 to 30 mmHg. Severely dilated LA and Moderately dilated RA. Mild aortic valve sclerosis without stenosis.. Mild MAC, mild MR and TR. There is a small pericardial effusion without cardiac tamponade. Compared to prior study of 12/06/24. RENE 09/04/25: No LA or GABY thrombus. Positive bubble study for small PFO especially with increased RA pressure on coughing or abdominal pressure normal LV size with severely decreased LV function with an EF 25-30%. Couldn't determine diastolic dysfunction becasue of atrial febrillation or arrhythmia. Moderately decreased RV function. Normal RV size. Severely dilated LA and Moderately dilated RA. Mild mitral regurgitation, tricuspid valve regurgitation and trace pulmonic valve. There is a small pericardial effusion without any evidence of cardiac tamponade. -Bumex 1 mg daily, acceptable to hold today in setting of CHERELLE - Discontinue Losartan 100 mg daily. Recommend to start on Entresto 49-51 daily as part of GDMT, will advance as BP and renal function permits. -Strict ins and outs -Daily weights -Low sodium diet -Fluid restriction 1500 ml -Supplemental O2 as needed, wean as tolerated #Hypertension BP on admission 160/127. Prescribed Losartan, hydralazine, amlodipine outpatient however patient is noncompliant with medication. - Entresto and Bumex as above, hold for now in setting of CHERELLE. Recommend to continue amlodipine. - CTM blood pressure #Hyperlipidemia - Resume atorvastatin 40 mg daily #Hx of CAD and elevated troponins Patient has history of myocardial infarction in 2005 but had no stents placed. Hx of elevated troponins in 0.69 range. NST 06/19/25 Abnormal myocardial perfusion study as there is decreased uptake in the apical segment with stress and improves with rest indicating stress induced ischemia. EF at 27%. Normal TID. ?Was previously scheduled for cardiac catheterization given results above. However patient missed appointment. ?Patient is currently not candidate for cardiac catheterization given unstable condition. Will reschedule at another time. Thank you for your consultation, please do not hesitate to reach out if you have any question or concern Patient plan of care was discussed with the attending physician, Dr. Gill. Mary Headley, PGY-1 Attending Provider Attestation/Addendum I have personally seen and examined the patient separately on the above date of service and discussed the plan of care with the resident. I reviewed the resident Dr. Mary Headley consultation progress note and agree with the resident findings and plan in the note above and have also edited the documentation to reflect my findings and plan. Mele Gill M.D. Interventional Cardiology
--- NOTE | 2025-09-05 15:33 | ESPR_ITS ---
<Statement entered by Bere Antony MD - 09/08/25 12:15> I reviewed above note and agree with findings and plans. I have also personally examined the patient with medicine team and went over assessment and plan with medical team including international account representative and resident physician. Documentation for date of: 09/05/25 No overnight events. Patient cardioverted on 09/04/2025 secondary to atrial flutter with RVR. Patient started on Xarelto. Patient's heart rate has been rate controlled. Continue ursodiol and no surgical intervention planned at this moment-confirmed with general surgery. Upon discharge continue antibiotics for total 14 days. CHERELLE noted with morning labs increasing creatinine. Currently on metoprolol 100 daily--> upon discharge reduce metoprolol to 50 mg once daily and start Entresto. No Digoxin. Amlodipine resumed again as patient noted CHERELLE and Losartan holding. - The patient's plan was discussed with attending Dr. Arpan Massey MD PGY2 Internal Medicine Subjective Subjective Interval history: Overnight, patient had NAEON labs reviewed showed Cr 1.4, hold diuretics, hold losartan, and keep euvolemic. Recent cardioversion 09/04. Dr. Jeffers recommends OP treatment per acute jeannette, recommends Augmentin. Exam Vital Signs Temp Pulse Resp BP Pulse Ox O2 Del Method O2 Flow Rate 97.5 F 70 17 165/92 H 96 Room Air 7 09/05/25 12:00 09/05/25 12:00 09/05/25 12:00 09/05/25 12:00 09/05/25 12:00 09/05/25 12:00 09/04/25 12:25 Narrative Exam General: Awake and in no acute distress. Conversational and non-toxic appearing. Obese Ukrainian speaking male. HEENT: Normocephalic, atraumatic, mucous membranes moist. Heart: Regular rate and rhythm, normal S1 and S2, no murmurs appreciated. Lungs: Clear to auscultation with no wheezing or crackles. Abdomen: Soft, nondistended, nontender, positive bowel sounds. No guarding or rebound tenderness. Neurologic: Alert and oriented x3, no gross neurological deficit, and patient able to move all 4 extremities. Extremities: 1+ pitting edema bilaterally. Skin: No rash or ecchymoses. Chronic venous stasis changes bilaterally. Objective Labs 09/05/25 04:38 09/05/25 04:38 Labs: Laboratory Results - last 24 hr 09/05/25 04:38 WBC 9.6 RBC 4.12 L Hgb 10.6 L Hct 33.9 L MCV 82 MCH 25.7 MCHC 31.3 RDW Std Deviation 48.2 H Plt Count 299 Neut % (Auto) 77 Lymph % (Auto) 12 [place] % (Auto) 7 Eos % (Auto) 4 Baso % (Auto) 0 Neut # (Auto) 7.4 Lymph # (Auto) 1.1 [place] # (Auto) 0.7 Eos # (Auto) 0.3 Baso # (Auto) 0.0 Immature Gran # (Auto) 0.02 H Absolute Nucleated RBC 0.00 Immature Gran % 0 Nucleated RBC % 0 Sodium 139 Potassium 4.0 Chloride 100 Carbon Dioxide 29.5 Anion Gap 10 BUN 21 Creatinine 1.4 H Estim Creat Clear Calc 57.6 L eGFR 55 L BUN/Creatinine Ratio 15 Glucose 109 H Calculated Osmolality 281 Calcium 9.1 Corrected Calcium 9.2 Phosphorus 4.3 Magnesium 2.3 Total Bilirubin 0.4 AST 20 ALT 13 Alkaline Phosphatase 71 Total Protein 6.8 Albumin 3.9 Globulin 2.9 Albumin/Globulin Ratio 1.3 Quality Measures Quality Measures VTE prophylaxis and none Advance care planning discussed with:: patient Assessment & Plan Assessment Current Active Medications: Generic Name Dose Route Start Last Admin Trade Name Freq PRN Reason Stop Dose Admin Acetaminophen 650 mg 09/03/25 08:42 09/03/25 15:18 Acetaminophen 325 Mg Tablet PO 10/02/25 20:08 650 mg On Hold: 09/05/25 09:02 Q6H PRN Administration Comment: NORCO ACTIVE Fever >100.4 or pain 1-5 Hydrocodone Bitart/Acetaminophen 1 tab 09/04/25 08:51 09/05/25 08:43 Hydrocodone/Apap 5/325 Tablet PO 09/09/25 08:50 1 tab Q4HR PRN Administration PAIN SCALE 4-10(Mod-Sev Amlodipine Besylate 10 mg 09/05/25 11:00 09/05/25 11:55 Amlodipine Besylate 5 Mg Tablet PO 10/05/25 10:59 10 mg QDAY ERWIN Administration Atorvastatin Calcium 80 mg 09/04/25 21:00 09/04/25 21:49 Atorvastatin Calcium 20 Mg Tablet PO 10/04/25 20:59 80 mg HS ERWIN Administration Bumetanide 1 mg 09/04/25 09:00 09/05/25 08:44 Bumetanide 0.5 Mg Tablet PO 10/04/25 08:59 1 mg On Hold: 09/05/25 10:55 QDAY ERWIN Administration Dextrose 25 ml 09/02/25 20:24 Dextrose 50%-Water Inj 50 Ml Syringe IV 10/02/25 20:23 Q15MIN PRN BG 50-70 responsive npo pt Dextrose 50 ml 09/02/25 20:24 Dextrose 50%-Water Inj 50 Ml Syringe IV 10/02/25 20:23 Q15MIN PRN BG <50 OR BG <70 & pt unresponsive Glucagon 1 mg 09/02/25 20:24 Glucagon Inj 1 Mg Vial IM Q15MIN PRN BG <70, and no IV access Hydromorphone HCl 0.5 mg 09/04/25 08:51 Hydromorphone Inj 2 Mg/Ml Vial IVP 09/07/25 20:14 Q6H PRN BREAKTHROUGH PAIN Protocol Ceftriaxone Sodium/Dextrose 1 gm in 50 mls @ 100 mls/hr 09/03/25 10:19 09/05/25 08:45 Rocephin/D5w 1gm Iv Premix IV 09/10/25 10:18 100 mls/hr QDAY ERWIN Administration Metronidazole 500 mg in 100 mls @ 200 mls/hr 09/03/25 10:19 09/05/25 14:24 Flagyl 500 Mg Iv IV 09/10/25 10:18 200 mls/hr Q8HR ERWIN Administration Insulin Human Lispro 0 unit 09/03/25 07:30 09/05/25 11:28 Insulin Lispro (Admelog) 1 Unit/0.01 Ml Unit SC 10/03/25 07:29 Not Given AC ERWIN Protocol Metoprolol Succinate 100 mg 09/04/25 09:00 09/05/25 08:45 Metoprolol Succinate Xl 25 Mg Tabcr PO 10/04/25 08:59 100 mg QDAY ERWIN Administration Ondansetron HCl 4 mg 09/02/25 20:24 09/02/25 20:43 Ondansetron Inj 2 Mg/Ml Inj 2 Ml IVP 10/02/25 20:23 4 mg Q6H PRN Administration NAUSEA OR VOMITING Protocol Rivaroxaban 20 mg 09/05/25 17:30 Rivaroxaban 10 Mg Tablet PO 10/05/25 17:29 WSUPPER [facility] Sennosides 1 tab 09/03/25 09:00 09/05/25 08:45 Senna Tablet PO 10/03/25 08:59 1 tab QDAY ERWIN Administration Protocol Tamsulosin HCl 0.4 mg 09/03/25 09:00 09/05/25 08:43 Tamsulosin Hcl 0.4 Mg Capsule PO 10/03/25 08:59 0.4 mg QDAY ERWIN Administration Ursodiol 300 mg 09/04/25 17:30 09/05/25 08:55 Ursodiol 300 Mg Capsule PO 10/04/25 17:29 300 mg BIDWM ERWIN Administration Plan This is a 65 year old male with Past medical history of HTN,DM2, A-fib on Xarelto,Right heart Failure,ND(4months back) presented with RUQ abdominal pain. Imaging [facility]G and MRCP shows thickened gallbladder. He was admitted for acute calculus cholecystitis complicated by a-flutter w RVR. #CHERELLE CHERELLE likely intrinsic renal injury as BUN and creatinine less than 20 given aggressive diuresis with bumetanide 1 mg p.o. daily and losartan. Currently holding nephrotoxins. Versus prerenal secondary to overdiuresis from a bumetanide versus obstructive in nature?less likely as patient continues to have good urine output and no flank tenderness. Encourage oral intake Avoid nephrotoxins: Currently holding losartan and diuretics Continue to trend creatinine Consider gentle rehydration if creatinine worsens #Atrail Flutter s/p cardioversion on 09/04/2025 #Atrial Flutter with RVR, resolved #Paroxysmal Atrial Fibrillation Denies any cardiac symptoms such as chest pain, pressure, shortness of breath Evidenced by EKG findings showing atrial flutter with RVR, was started on Cardizem drip in ED troponins negative CHADS-VA score 6 pionts HAS BLED 2 points Patient takes xarelto at home however in view of possible procedure will hold at this time - Patient cardioverted 09/04 due to uncontrolled a-flutter with RVR failed medical management - Cards held 125 mcg daily digixon due to bradycardia, recommends dc losartan, decrease metop succ to 50, start xarelto and possibly start bumex. - Metoprolol succ XL 100 mg (50 mg X 2) - Digoxin 0.25 and Digoxin 0.5 PO - Cardizem drip dc 09/04 - Echocardiogram ordered - Xarelto 20mg QHS started #Acute Acalculus Choleystitis #History of Cholelithiasis #Mild Acute Pancreatitis Patient presented with RUQ Pain. MRCP and Abdominal USG shows thickened gallbladder wall. - Dr. Jeffers says with patient improvement of RUQ, signs and symptoms for acute jeannette that surgery no longer recommended. - Recommends urodisol 300mg BID and augmentin ABX discharge OP medications - Primary IM Team moving forward with both recommendations #CHF HFpEF 55 -60% (12/06/2024) #Congestive Heart Failure #Diastolic Dysfunction, grade II Patient has a past medical history of improved EF with most recent recent ejection of 55-60% on echo. BNP 644. NYHA Class: II ASCVD: 29.4%, High intensity Statins Plan: - Hold lasix due to acute CHERELLE - Metoprolol 50 mg X 2 - Farxiga ?, confirm dosage - Echo Ordered - K>4 and Mg >2 - Fluid Restriction 2 Liters - SpO <90%, support PRN - Daily Weights - goal of GDMT # Hypertension - hold home meds in light of recent CHERELLE - started norvasc 10mg daily # Diabetes Mellitus T2, non-insulin dependent #Hyperglycemic Patient has PMHx of DM w a previous A1c of 6.8 (09/02/2025). Patient home medication include Metformin 1000 mg BID, Glipizide 5 mg BID, and Farxiga. - Sliding Scale insulin - Monitor Fasting Blood Glucose - hypoglycemia protocol in place #CAD #History of NSTEMI/ACS #HLD Patient has a past medical history of of CAD w/ no stents added previously. Patient has a high ASCVD risk factor of 29.4%. Lipid Panel (09/03/2025): Cholesterol 131, Triglycerides 95, LDL 75, HDL 37 -Atorvastatin 80mg QHS #BPH - resume tamsulosin as taken at home - Continue to Monitor BP #Atrophic Kidneys w/ scarring & small cysts Incidental findings, given past medical history of diabetes mellitus, follow up with PCP or referral as outpatient for nephrology. - continue to monitor BUN and Cr - Outpatient Renal U/S Code status: Full DVT prophylaxis: SCDs Diet: Cardio consistent Snowden: None Lines: PIV Supplemental O2: none Disposition: Tele Discussed and reviewed this Case with my senior Dr. Massey and my attending Dr. Antony. Viky Hatfield DO PGY1
[2025-09-05] MEDS: RIVAROXABAN 10 MG TABLET 20 MG PO (17:17)
[2025-09-05] MEDS: ATORVASTATIN CALCIUM 20 MG TABLET 80 MG PO (20:42)
[2025-09-06] VITALS (8 sets, daily range): BP systolic 151–170; BP diastolic 75–85; PULSE 61–82; RESP 14–18; TEMP 36.1–36.4; O2SAT 92–96; BMI 31.8
[2025-09-06] MEDS: metroNIDAZOLE/NS 500 MG IVPB 500 MG/100 ML BAG 200 MG IV (05:50)
[2025-09-06 06:25] LABS: Basophils # (Auto) 0.0 Thou/mm3 (0.0-0.2); Basophils % (Auto) 0 % (0-2.5); Eosinophils # (Auto) 0.3 Thou/mm3 (0.0-0.5); Eosinophils % (Auto) 4 % (0-10); Hematocrit 34.5 % (41.0-53.0); Hemoglobin 10.8 g/dL (13.5-16.0); Immature Granulocytes Auto 0.03 Thou/mm3 (0.00-0.00); Lymphocytes # (Auto) 1.1 Thou/mm3 (1.0-4.8); Lymphocytes % (Auto) 12 % (10-50); Mean Corpuscular HGB Conc 31.3 g/dl (31.0-37.0); Mean Corpuscular Hemoglobin 25.4 pg (25.0-35.0); Mean Corpuscular Volume 81 fL (80-100); Monocytes # (Auto) 0.7 Thou/mm3 (0.0-0.8); Monocytes % (Auto) 8 % (0-12); Neutrophils # (Auto) 6.9 Thou/mm3 (1.8-7.7); Neutrophils % (Auto) 76 % (37-80); Nucleated Red Blood Cell # 0.00 Thou/mm3 (0.00-0.00); Nucleated Red Blood Cell % 0 /100 WBC (0); Platelet Count 305 Thou/mm3 (140-440); RDW Standard Deviation 46.5 fL (35.1-43.9); Red Blood Count 4.26 Miln/mm3 (4.50-5.90); White Blood Count 9.1 Thou/mm3 (3.8-10.6)
[2025-09-06 06:40] LABS: Alanine Aminotransferase 10 U/L (10-49); Albumin, Serum 3.9 gm/dL (3.4-4.8); Albumin/Globulin Ratio 1.2 (1.2-2.2); Alkaline Phosphatase 68 U/L (46-116); Anion Gap 9 (7-16); Aspartate Amino Transferase 17 U/L (0-34); BUN/Creatinine Ratio 18 Ratio (12-20); Bilirubin,Total 0.7 mg/dL (0.3-1.2); Blood Urea Nitrogen 21 mg/dL (9-23); Calcium 9.2 mg/dL (8.3-10.6); Calcium (Corrected) 9.3 mg/dL (8.5-10.1); Carbon Dioxide 30.0 mMol/L (20.0-31.0); Chloride 101 mMol/L (98-107); Creatinine (Component) 1.2 mg/dL (0.6-1.3); Estimated Creatinine Clearance 67.8 mL/min (>60); Globulin 3.3 gm/dL (2.3-3.5); Glucose 93 mg/dL (74-106); Magnesium 1.9 mg/dL (1.6-2.6); Osmolality,Calculated 282 (275-295); Phosphorous 3.3 mg/dL (2.4-5.1); Potassium 3.8 mMol/L (3.4-5.1); Sodium 140 mMol/L (136-145); Total Protein 7.2 gm/dL (5.7-8.2); eGFR > 60 See Note
[2025-09-06] MEDS: TAMSULOSIN HCL 0.4 MG CAPSULE PO (08:15)
[2025-09-06] MEDS: METOPROLOL SUCCINATE XL 25 MG TABCR 100 MG PO (08:16)
[2025-09-06] MEDS: cefTRIAXone/D5w 1gm IV premix 1 GM/50 ML BAG IV (08:16)
--- NOTE | 2025-09-06 08:29 | PC.SS ---
Walkers The diagnosis creates mobility limitation that significantly impairs ability to participate in the patients activities of daily living either in their entirety, or in a reasonable time frame. Also the patient is able to safely use the walker and the patient?s mobility is sufficiently resolved with the use of the walker and cane has been ruled out
--- NOTE | 2025-09-06 08:56 | PD.RESPRO ---
Documentation for date of: 09/06/25 Exam Vital Signs Temp Pulse Resp BP Pulse Ox O2 Del Method O2 Flow Rate 97.5 F 71 14 170/82 H 95 Room Air 7 09/06/25 08:00 09/06/25 08:16 09/06/25 08:00 09/06/25 08:16 09/06/25 08:00 09/06/25 08:00 09/04/25 12:25 Objective Labs 09/06/25 05:01 09/06/25 05:01 Labs: Laboratory Results - last 24 hr 09/06/25 05:01 WBC 9.1 RBC 4.26 L Hgb 10.8 L Hct 34.5 L MCV 81 MCH 25.4 MCHC 31.3 RDW Std Deviation 46.5 H Plt Count 305 Neut % (Auto) 76 Lymph % (Auto) 12 [place] % (Auto) 8 Eos % (Auto) 4 Baso % (Auto) 0 Neut # (Auto) 6.9 Lymph # (Auto) 1.1 [place] # (Auto) 0.7 Eos # (Auto) 0.3 Baso # (Auto) 0.0 Immature Gran # (Auto) 0.03 H Absolute Nucleated RBC 0.00 Immature Gran % 0 Nucleated RBC % 0 Sodium 140 Potassium 3.8 Chloride 101 Carbon Dioxide 30.0 Anion Gap 9 BUN 21 Creatinine 1.2 Estim Creat Clear Calc 67.8 eGFR > 60 BUN/Creatinine Ratio 18 Glucose 93 Calculated Osmolality 282 Calcium 9.2 Corrected Calcium 9.3 Phosphorus 3.3 Magnesium 1.9 Total Bilirubin 0.7 AST 17 ALT 10 Alkaline Phosphatase 68 Total Protein 7.2 Albumin 3.9 Globulin 3.3 Albumin/Globulin Ratio 1.2 Quality Measures Quality Measures VTE prophylaxis and none Assessment & Plan Assessment Current Active Medications: Generic Name Dose Route Start Last Admin Trade Name Freq PRN Reason Stop Dose Admin Acetaminophen 650 mg 09/03/25 08:42 09/03/25 15:18 Acetaminophen 325 Mg Tablet PO 10/02/25 20:08 650 mg On Hold: 09/05/25 09:02 Q6H PRN Administration Comment: NORCO ACTIVE Fever >100.4 or pain 1-5 Hydrocodone Bitart/Acetaminophen 1 tab 09/04/25 08:51 09/05/25 08:43 Hydrocodone/Apap 5/325 Tablet PO 09/09/25 08:50 1 tab Q4HR PRN Administration PAIN SCALE 4-10(Mod-Sev Amlodipine Besylate 10 mg 09/05/25 11:00 09/06/25 08:15 Amlodipine Besylate 5 Mg Tablet PO 10/05/25 10:59 10 mg On Hold: 09/06/25 08:30 QDAY ERWIN Administration Atorvastatin Calcium 80 mg 09/04/25 21:00 09/05/25 20:42 Atorvastatin Calcium 20 Mg Tablet PO 10/04/25 20:59 80 mg HS ERWIN Administration Bumetanide 1 mg 09/04/25 09:00 09/05/25 08:44 Bumetanide 0.5 Mg Tablet PO 10/04/25 08:59 1 mg On Hold: 09/05/25 10:55 QDAY ERWIN Administration Resume: 09/06/25 09:00 Dextrose 25 ml 09/02/25 20:24 Dextrose 50%-Water Inj 50 Ml Syringe IV 10/02/25 20:23 Q15MIN PRN BG 50-70 responsive npo pt Dextrose 50 ml 09/02/25 20:24 Dextrose 50%-Water Inj 50 Ml Syringe IV 10/02/25 20:23 Q15MIN PRN BG <50 OR BG <70 & pt unresponsive Glucagon 1 mg 09/02/25 20:24 Glucagon Inj 1 Mg Vial IM Q15MIN PRN BG <70, and no IV access Hydromorphone HCl 0.5 mg 09/04/25 08:51 Hydromorphone Inj 2 Mg/Ml Vial IVP 09/07/25 20:14 Q6H PRN BREAKTHROUGH PAIN Protocol Ceftriaxone Sodium/Dextrose 1 gm in 50 mls @ 100 mls/hr 09/03/25 10:19 09/06/25 08:16 Rocephin/D5w 1gm Iv Premix IV 09/10/25 10:18 100 mls/hr QDAY ERWIN Administration Metronidazole 500 mg in 100 mls @ 200 mls/hr 09/03/25 10:19 09/06/25 05:50 Flagyl 500 Mg Iv IV 09/10/25 10:18 200 mls/hr Q8HR ERWIN Administration Magnesium Sulfate 2 gm in 50 mls @ 25 mls/hr 09/06/25 08:30 Magnesium Sulfate Ivpb IV 09/06/25 10:29 X1 ONE Insulin Human Lispro 0 unit 09/03/25 07:30 09/06/25 08:00 Insulin Lispro (Admelog) 1 Unit/0.01 Ml Unit SC 10/03/25 07:29 Not Given AC [facility] Protocol Metoprolol Succinate 100 mg 09/04/25 09:00 09/06/25 08:16 Metoprolol Succinate Xl 25 Mg Tabcr PO 10/04/25 08:59 100 mg QDAY ERWIN Administration Ondansetron HCl 4 mg 09/02/25 20:24 09/02/25 20:43 Ondansetron Inj 2 Mg/Ml Inj 2 Ml IVP 10/02/25 20:23 4 mg Q6H PRN Administration NAUSEA OR VOMITING Protocol Rivaroxaban 20 mg 09/05/25 17:30 09/05/25 17:17 Rivaroxaban 10 Mg Tablet PO 10/05/25 17:29 20 mg WSUPPER ERWIN Administration Sennosides 1 tab 09/03/25 09:00 09/06/25 08:15 Senna Tablet PO 10/03/25 08:59 1 tab QDAY ERWIN Administration Protocol Tamsulosin HCl 0.4 mg 09/03/25 09:00 09/06/25 08:15 Tamsulosin Hcl 0.4 Mg Capsule PO 10/03/25 08:59 0.4 mg QDAY ERWIN Administration Ursodiol 300 mg 09/04/25 17:30 09/06/25 08:15 Ursodiol 300 Mg Capsule PO 10/04/25 17:29 300 mg BIDWM ERWIN Administration
[2025-09-06] MEDS: Magnesium Sulfate 2 GM Ivpb 2 GM/50 ML BAG IV (09:05)
[2025-09-06] MEDS: hydrALAZINE INJ 20 MG/ML VIAL 5 MG IVP (09:05)
[2025-09-06] MEDS: POTASSIUM CHLORIDE 10% 20 MEQ/15 ML UDC 40 MEQ PO (09:05)
--- NOTE | 2025-09-06 09:10 | PC.SS ---
SS follow up note [facility] will contact patient for delivery, pending auth for Rollator walker. SS will provide [facility] contact info to patient.
[2025-09-06] MEDS: BUMETANIDE 0.5 MG TABLET 1 MG PO (09:15)
--- NOTE | 2025-09-06 09:45 | PD.RESPRO ---
Documentation for date of: 09/06/25 Subjective Subjective Interval history: Patient seen and assessed at bedside. No new complaints, denies chest pain, palpitations, shortness of breath. On exam, patient has 4+ pitting edema lower extremities below knees. Improvement in lightheadedness. On telemetry, patient remains in sinus rhythm, HR 70s to 80s. BP 151/75, systolics ranging from 150-160s). Creatinine 1.2 (1.4). Potassium 3.8, magnesium 1.9, recommend to replete to keep K above 4 and Mg above 2. In light of mild CHERELLE, recommend only to restart Bumex 1 mg daily, will start low-dose Entresto outpatient when patient follows up in 1 week. Continue metoprolol 100 mg daily and amlodipine 10 mg daily for blood pressure control. Exam Vital Signs Temp Pulse Resp BP Pulse Ox O2 Del Method O2 Flow Rate 97.5 F 82 14 170/82 H 95 Room Air 7 09/06/25 08:00 09/06/25 09:15 09/06/25 08:00 09/06/25 09:15 09/06/25 08:00 09/06/25 08:00 09/04/25 12:25 Narrative Exam Physical Exam General: Awake and in no acute distress. Conversational and non-toxic appearing. Obese Mongolian speaking male. HEENT: Normocephalic, atraumatic, mucous membranes moist. Heart: Regular rate and rhythm, normal S1 and S2, no murmurs appreciated. Lungs: Clear to auscultation with no wheezing or crackles. Abdomen: Soft, nondistended, nontender, positive bowel sounds. No guarding or rebound tenderness. Neurologic: Alert and oriented x3, no gross neurological deficit, and patient able to move all 4 extremities. Extremities: 4+ pitting edema bilaterally. Skin: No rash or ecchymoses. Chronic venous stasis changes bilaterally. Objective Labs 09/06/25 05:01 09/06/25 05:01 Labs: Laboratory Results - last 24 hr 09/06/25 05:01 WBC 9.1 RBC 4.26 L Hgb 10.8 L Hct 34.5 L MCV 81 MCH 25.4 MCHC 31.3 RDW Std Deviation 46.5 H Plt Count 305 Neut % (Auto) 76 Lymph % (Auto) 12 [place] % (Auto) 8 Eos % (Auto) 4 Baso % (Auto) 0 Neut # (Auto) 6.9 Lymph # (Auto) 1.1 [place] # (Auto) 0.7 Eos # (Auto) 0.3 Baso # (Auto) 0.0 Immature Gran # (Auto) 0.03 H Absolute Nucleated RBC 0.00 Immature Gran % 0 Nucleated RBC % 0 Sodium 140 Potassium 3.8 Chloride 101 Carbon Dioxide 30.0 Anion Gap 9 BUN 21 Creatinine 1.2 Estim Creat Clear Calc 67.8 eGFR > 60 BUN/Creatinine Ratio 18 Glucose 93 Calculated Osmolality 282 Calcium 9.2 Corrected Calcium 9.3 Phosphorus 3.3 Magnesium 1.9 Total Bilirubin 0.7 AST 17 ALT 10 Alkaline Phosphatase 68 Total Protein 7.2 Albumin 3.9 Globulin 3.3 Albumin/Globulin Ratio 1.2 Quality Measures Quality Measures VTE prophylaxis and none Advance care planning discussed with:: patient Assessment & Plan Assessment Current Active Medications: Generic Name Dose Route Start Last Admin Trade Name Freq PRN Reason Stop Dose Admin Acetaminophen 650 mg 09/03/25 08:42 09/03/25 15:18 Acetaminophen 325 Mg Tablet PO 10/02/25 20:08 650 mg On Hold: 09/05/25 09:02 Q6H PRN Administration Comment: NORCO ACTIVE Fever >100.4 or pain 1-5 Hydrocodone Bitart/Acetaminophen 1 tab 09/04/25 08:51 09/05/25 08:43 Hydrocodone/Apap 5/325 Tablet PO 09/09/25 08:50 1 tab Q4HR PRN Administration PAIN SCALE 4-10(Mod-Sev Amlodipine Besylate 10 mg 09/05/25 11:00 09/06/25 08:15 Amlodipine Besylate 5 Mg Tablet PO 10/05/25 10:59 10 mg On Hold: 09/06/25 08:30 QDAY ERWIN Administration Atorvastatin Calcium 80 mg 09/04/25 21:00 09/05/25 20:42 Atorvastatin Calcium 20 Mg Tablet PO 10/04/25 20:59 80 mg HS ERWIN Administration Bumetanide 1 mg 09/04/25 09:00 09/06/25 09:15 Bumetanide 0.5 Mg Tablet PO 10/04/25 08:59 1 mg QDAY ERWIN Administration Dextrose 25 ml 09/02/25 20:24 Dextrose 50%-Water Inj 50 Ml Syringe IV 10/02/25 20:23 Q15MIN PRN BG 50-70 responsive npo pt Dextrose 50 ml 09/02/25 20:24 Dextrose 50%-Water Inj 50 Ml Syringe IV 10/02/25 20:23 Q15MIN PRN BG <50 OR BG <70 & pt unresponsive Glucagon 1 mg 09/02/25 20:24 Glucagon Inj 1 Mg Vial IM Q15MIN PRN BG <70, and no IV access Hydromorphone HCl 0.5 mg 09/04/25 08:51 Hydromorphone Inj 2 Mg/Ml Vial IVP 09/07/25 20:14 Q6H PRN BREAKTHROUGH PAIN Protocol Ceftriaxone Sodium/Dextrose 1 gm in 50 mls @ 100 mls/hr 09/03/25 10:19 09/06/25 08:16 Rocephin/D5w 1gm Iv Premix IV 09/10/25 10:18 100 mls/hr QDAY ERWIN Administration Metronidazole 500 mg in 100 mls @ 200 mls/hr 09/03/25 10:19 09/06/25 05:50 Flagyl 500 Mg Iv IV 09/10/25 10:18 200 mls/hr Q8HR ERWIN Administration Magnesium Sulfate 2 gm in 50 mls @ 25 mls/hr 09/06/25 08:30 09/06/25 09:05 Magnesium Sulfate Ivpb IV 09/06/25 10:29 25 mls/hr X1 ONE Administration Insulin Human Lispro 0 unit 09/03/25 07:30 09/06/25 08:00 Insulin Lispro (Admelog) 1 Unit/0.01 Ml Unit SC 10/03/25 07:29 Not Given AC ERWIN Protocol Metoprolol Succinate 100 mg 09/04/25 09:00 09/06/25 08:16 Metoprolol Succinate Xl 25 Mg Tabcr PO 10/04/25 08:59 100 mg QDAY ERWIN Administration Ondansetron HCl 4 mg 09/02/25 20:24 09/02/25 20:43 Ondansetron Inj 2 Mg/Ml Inj 2 Ml IVP 10/02/25 20:23 4 mg Q6H PRN Administration NAUSEA OR VOMITING Protocol Rivaroxaban 20 mg 09/05/25 17:30 09/05/25 17:17 Rivaroxaban 10 Mg Tablet PO 10/05/25 17:29 20 mg WSUPPER ERWIN Administration Sennosides 1 tab 09/03/25 09:00 09/06/25 08:15 Senna Tablet PO 10/03/25 08:59 1 tab QDAY ERWIN Administration Protocol Tamsulosin HCl 0.4 mg 09/03/25 09:00 09/06/25 08:15 Tamsulosin Hcl 0.4 Mg Capsule PO 10/03/25 08:59 0.4 mg QDAY ERWIN Administration Ursodiol 300 mg 09/04/25 17:30 09/06/25 08:15 Ursodiol 300 Mg Capsule PO 10/04/25 17:29 300 mg BIDWM ERWIN Administration Plan A 64-year-old male patient with a past medical history of CAD s/p LA in 2005 as per patient with no stents, paroxysmal atrial fibrillation Xarelto, HFrEF EF of 40 to 45% in December 2022, essential hypertension, hyperlipidemia, diabetes mellitus type 2, cholelithiasis, osteoarthritis, BPH, diverticulosis, small bowel obstruction 2021, history of COVID-19 who presented on 09/02 for right upper quadrant abdominal pain, found to have cholelithiasis. Cardiology consulted for preoperative cardiac risk assessment for possible surgery. #Pre-operative cardiac risk assessment for potential cholecystectomy Presented with RUQ abdominal pain. Negative for fever and elevated WBCs. Gallbladder ultrasound showed thickened gallbladder wall, no manage common bile duct. MRCP showed acute calculous cholecystitis. Normal common hepatic common bile duct, not enlarged. Mild acute pancreatitis. RCRI score: 3 points, 10% risk of major cardiac event - Given history of CAD A-fib with RVR, diabetes, hypertension, patient is not stable for surgery as he continues to be in afib with RVR despite attempts to rate control pharmacologically. Notified surgeon Dr. Jeffers. #Atrial flutter with RVR -status post cardioversion with 120 J on 09/04/2025, resolved #History of paroxysmal A-fib Reports palpitations on exam, denies chest pain or shortness of breath. Had previous hospitalization in June 2025 due to symptoms of atrial fibrillation with RVR. On Xarelto 20 mg for anticoagulation. EKG on admission showed aflutter with HR 142. 09/03/25: Given total digoxin 0.75 and metoprolol 100 mg throughout the day, continued to be in afib with RVR. 09/04/25: S/p digoxin 0.25 mg at 2 AM however converted back to atrial flutter with RVR. RENE 09/04/25: No LA or GABY thrombus. Positive bubble study for small PFO especially with increased RA pressure on coughing or abdominal pressure normal LV size with severely decreased LV function with an EF 25-30%. Couldn't determine diastolic dysfunction becasue of atrial febrillation or arrhythmia. Moderately decreased RV function. Normal RV size. Severely dilated LA and Moderately dilated RA. Mild mitral regurgitation, tricuspid valve regurgitation and trace pulmonic valve. There is a small pericardial effusion without any evidence of cardiac tamponade. 09/04/25: No thrombus observed on RENE. Cardioverted at 120J. Post operative EKG showed sinus rhythm with first degree AV block and occassional PVCs. 09/06/2025: Continues to be in sinus rhythm on telemetry. Alvin Vasc score: 5 points, 7.2% stroke risk. HAS -BLED score: 2 points, moderate risk of major bleeding - Continue metoprolol 100 mg daily if BP stable, will adjust medications in the office as outpatient. - Discontinue digoxin due to bradycardia. - Continue Xarelto 20 mg daily for anticaogulation. - EKG to document NSR post procedure. - Patient recommended to follow up in 1 week in the clinic. # HFrEF 25-30% (09/02/25) Previously EF 40 to 50% in 2022. Prescribed Losartan 100 mg, and Farxiga 10 mg daily. hydralazine, amlodipine outpatient. BNP 644. Has 2+ pitting edema of lower extremities bilaterally. Denies shortness of breath. TTE 09/02/25 showed Normal LV size with severely decreased LV function with an EF 25 to 30%, previously 45-50% in June 2024. Could not determine diastolic dysfunction because of atrial fibrillation or arrhythmia. Moderately decreased RV function. Normal RV size. Underestimated RVSP around 25 to 30 mmHg. Severely dilated LA and Moderately dilated RA. Mild aortic valve sclerosis without stenosis.. Mild MAC, mild MR and TR. There is a small pericardial effusion without cardiac tamponade. Compared to prior study of 12/06/24. RENE 09/04/25: No LA or GABY thrombus. Positive bubble study for small PFO especially with increased RA pressure on coughing or abdominal pressure normal LV size with severely decreased LV function with an EF 25-30%. Couldn't determine diastolic dysfunction becasue of atrial febrillation or arrhythmia. Moderately decreased RV function. Normal RV size. Severely dilated LA and Moderately dilated RA. Mild mitral regurgitation, tricuspid valve regurgitation and trace pulmonic valve. There is a small pericardial effusion without any evidence of cardiac tamponade. -Bumex 1 mg daily. Will start on low-dose Entresto daily as part of GDMT outpatient, will advance as BP and renal function permits. -Strict ins and outs -Daily weights -Low sodium diet -Fluid restriction 1500 ml -Supplemental O2 as needed, wean as tolerated #Hypertension BP on admission 160/127. Prescribed Losartan, hydralazine, amlodipine outpatient however patient is noncompliant with medication. - Entresto and Bumex as above. - Amlodipine 10 mg daily - CTM blood pressure #Hyperlipidemia - Resume atorvastatin 40 mg daily #Hx of CAD and elevated troponins Patient has history of myocardial infarction in 2005 but had no stents placed. Hx of elevated troponins in 0.69 range. NST 06/19/25 Abnormal myocardial perfusion study as there is decreased uptake in the apical segment with stress and improves with rest indicating stress induced ischemia. EF at 27%. Normal TID. ?Was previously scheduled for cardiac catheterization given results above. However patient missed appointment. ?Patient is currently not candidate for cardiac catheterization given unstable condition. Will reschedule at another time. Thank you for your consultation, please do not hesitate to reach out if you have any question or concern Patient plan of care was discussed with the attending physician, Dr. Gill. Mary Headley, PGY-1 Attending Provider Attestation/Addendum I have personally seen and examined the patient separately on the above date of service and discussed the plan of care with the resident. I reviewed the resident Dr. Mary Headley consultation progress note and agree with the resident findings and plan in the note above and have also edited the documentation to reflect my findings and plan. Mele Gill M.D. Interventional Cardiology
--- NOTE | 2025-09-06 13:47 | ESDS_ITS ---
<Statement entered by Bere Antony MD - 09/20/25 17:16> I reviewed above note and agree with findings and plans. I have also personally examined the patient with medicine team and went over assessment and plan with medical team including industrial engineering intern and resident physician. <Statement entered by Shaun Ruby MD - 09/07/25 07:04> I saw and examined patient personally and supervised PGY 1 resident, Dr. Hatfield with formulating a management plan. I agree with the documentation with the exceptions as listed below. Patient was initially admitted for acute cholecystitis and developed A-fib with RVR during hospital stay. Rate control was initially attempted with not titratable diltiazem infusion followed by metoprolol succinate 100 mg p.o. daily and digoxin 0.125 mg p.o. daily. On 09/04 patient underwent electrical cardioversion after cardioversion. Patient was on ceftriaxone and metronidazole for acute cholecystitis while in hospital, general surgery opted for conservative management at this time with antibiotics and to schedule for outpatient colonoscopy. Patient was discharged on ursodiol and a 10-day course of Augmentin. At this point all patient's labs are returning to baseline and patient is clinically stable for discharge to home. Cardiology and general surgery follow-up as outpatient. Plan of care discussed with Attending Dr. Arpan Ruby MD PGY 2 Disclaimer: This note was dictated by speech recognition. Minor errors in certified nursing assistant instructor may be present due to voice recognition software. Planned Discharge Date 09/06/25 DS: Providers Provider Date of admission: 09/02/25 20:09 Primary care physician: Yang Cervantes MD Admitting Provider: Werner Gracia MD Attending Provider on Admission: Bere Antony MD Consults: 09/02/25 20:21 Consult to Cardiology Stat Comment: Cardiac Clearance for Cholecystectomy Consulting Provider: Mele Gill 09/02/25 20:22 Consult to General Surgery Stat Comment: Consulting Provider: Kate Jeffers 09/05/25 14:31 Referral Physical Therapy Routine Comment: Physician Instructions: Attending Provider on DC: Viky Hatfield MD Discharging Provider: Viky Hatfield MD DS: Diagnosis Problem List Completed Was Problem List Reviewed/Reconciled?: Yes Hospital Course Hospital Course Hospital course: This is a 65 year old male with Past medical history of HTN, DM2, A-fib on Xarelto, Right heart Failure, SC(4months back) presented with RUQ abdominal pain. Imaging [facility] and MRCP shows thickened gallbladder. He was admitted for acute calculus cholecystitis complicated by a-flutter w RVR. ED Course: Presented to the emergency room on 09/02/2025 with a chief complaint of abdominal pain over the past 2 months with nausea and vomiting. Patient was subsequently admitted for acute calculous cholecystitis via MRCP. KG obtained given past medical history of paroxysmal atrial fibrillation, EKG noted to be regular rate with P waves difficult to discern, likely atrial flutter versus A- fib w/ RVR. Metoprolol 100 mg daily restarted. Patient was given additional digoxin 0.25 mg 0.25 mg. TSH within normal limits. Patient likely benefit from increased metoprolol. Cardiology consulted. Patient has a past medical history of CHF HFpEF 55 to 60% (12/06/2024). Hospital Course: Dr. Jeffers, general surgery, was following patient for possible choloestectomy however complicated by a-fib vs a-flutter with RVR required cardiac clearance before procedure. Patient was given home medication of metoprolol succ XL (50mg x2) scheduled and digixon 25 - 50 mcg as needed. EKG confirmed a-flutter with RVR, cardiology following 09/04 completed cardioversion and scheduled daily digoxin 125 mcg daily for the following day 09/05. On 09/05, patient's HR was near bradycardic and cardiology discontinued digoxin. Patient was going to be discharged, however hospital stay lengthened due to acute kidney injury. Held losartan and talked with cardiology about not starting bumex; and continued metoprolol at 100mg and xarelto 20mg. On 09/06, patient showed marked improvement in renal panel, CHERELLE resolved, patient safe for discharge. Discharge medications and instructions concerning outpatient management of cholecystitis and a-flutter are below. Instructions: -Please complete antibiotic course for the next 10 days. - We have stopped your medication Losartan. -Urosdiol 300 mg twice daily with meals for gallstones -Atorvastatin 80 mg at night for cholesterol -Please follow up with your primary care provider within one week of discharge -Please follow up with Dr. Jeffers, general surgeon for outpatient cholecystectomy -Continue to fluid restrict at least 1.5 Liters a day, limits salt intake for history of heart failure -If your symptoms worsen,please seek immediate medical attention and return to your nearest emergency room -If you do not have a primary care provider, you may follow up at the [facility] at [address], [place] [address], #CHERELLE, resolved #Atrail Flutter s/p cardioversion on 09/04/2025 #Atrial Flutter with RVR, resolved #Paroxysmal Atrial Fibrillation #Acute Acalculus Choleystitis #History of Cholelithiasis #Mild Acute Pancreatitis #CHF HFpEF 55 -60% (12/06/2024) #Congestive Heart Failure #Diastolic Dysfunction, grade II NYHA Class: II ASCVD: 29.4%, High intensity Statins # Hypertension # Diabetes Mellitus T2, non-insulin dependent #Hyperglycemic #CAD #History of NSTEMI/ACS #HLD #BPH #Atrophic Kidneys w/ scarring & small cysts Case was discussed with Attending Dr. Antony, and Senior Resident Dr. Flori Hatfield, DO PGY-1 Status at Discharge Functional status at discharge: independent ambulation Overall status at discharge: patient is back to baseline Time Spent with Patient Time attestation: Total time spent providing and/or coordinating discharge services: Time spent: Greater than 30 minutes Exam Vital Signs Temp Pulse Resp BP Pulse Ox O2 Del Method O2 Flow Rate 97.2 F 69 18 161/79 H 96 Room Air 7 09/06/25 12:00 09/06/25 12:00 09/06/25 12:00 09/06/25 12:00 09/06/25 12:00 09/06/25 12:00 09/04/25 12:25 Discharge Plan Plan Patient Disposition: HOME (Self Care) Patient condition on transfer: Stable Care Plan Goals: Instructions: -Please complete antibiotic course for the next 10 days. - We have stopped your medication Losartan. -Urosdiol 300 mg twice daily with meals for gallstones -Atorvastatin 80 mg at night for cholesterol -Please follow up with your primary care provider within one week of discharge -Please follow up with Dr. Jeffers, general surgeon for outpatient cholecystectomy -Continue to fluid restrict at least 1.5 Liters a day, limits salt intake for history of heart failure -If your symptoms worsen,please seek immediate medical attention and return to your nearest emergency room -If you do not have a primary care provider, you may follow up at the [facility] at [address], [place] [address], Prescriptions/Referrals Prescriptions/Med Rec: New ursodiol 300 mg Capsule 300 mg PO BIDWM 30 Days Qty: 60 0RF atorvastatin [Lipitor] 80 mg tablet 80 mg PO QPM 30 Days Qty: 30 0RF amoxicillin-pot clavulanate 875-125 mg tablet 1 tab PO BID 10 Days Qty: 20 0RF metoprolol succinate 100 mg tablet extended release 24 hr 100 mg PO QDAY 14 Days Qty: 14 0RF Continued nitroglycerin [Nitrostat] 0.4 mg tablet, sublingual 0.4 mg BUCCAL Q5MIN PRN (Reason: Chest Pain) Patient Comments: DISSOLVE ONE TABLET UNDER THE TONGUE EVERY 5 MINUTES NEEDED FOR CHEST PAIN. DO NOT EXCEED A TOTAL OF 3 DOSES IN 15 MINUTES (DME) Contour Next Test Strips Strip See Rx Instructions .Route Qty: 50 2RF Rx Instructions: Test once daily (DME) lancets [Microlet Lancet] Misc See Rx Instructions .Route Qty: 100 2RF Rx Instructions: Test once daily metformin 1,000 mg Tablet 1,000 mg PO BIDWMEAL Xarelto 20 mg Tablet 20 mg PO QPM Rx Instructions: must administer with evening meal clonidine HCl 0.3 mg tablet 0.3 mg PO QDAY Patient Comments: TAKE 1 TABLET BY MOUTH TWICE DAILY bumetanide 1 mg tablet 1 mg PO QDAY Discontinued losartan 100 mg tablet 100 mg PO BID Patient Comments: TAKE 1 TABLET BY MOUTH ONCE DAILY finasteride 5 mg tablet 1 tab PO QDAY Patient Comments: TAKE 1 TABLET BY MOUTH ONCE DAILY amlodipine 10 mg tablet 10 mg PO QDAY Qty: 30 0RF metoprolol succinate 100 mg tablet extended release 24 hr 100 mg PO QDAY Patient Comments: TAKE 1 TABLET BY MOUTH TWICE DAILY Referrals: Mele Gill MD [Physician, Cardiology] Yang Cervantes MD [Primary Care Provider, Family Practice] Kate Jeffers MD [Physician, General Surgery] Patient/Caregiver Discharge Instructions Discharge Activity: walk with walker only, activity as tolerated and resume usual activities Education Materials: AFL/Afib, Preventing Surgical Site Infections, ED Cardioversion, Electrical Print Language: Lebanese Stand Alone Forms: Joana Award Info., Patient Portal Info Letter Discharge Order Discharge Orders: Discharge (Routine); Ordered 09/06/25 Ordered By: Shaun Ruby Quality Discharge Quality Measures VTE prophylaxis
--- NOTE | 2025-09-06 14:33 | PC.NURSE ---
PT DISCHARGED AT 1250 WITH COMPLETE PACKET OF DISCHARGE PAPERWORK. X2 IVS REMOVED ANHD TELE BOX. PT VERBALIZED UNDERSTANDING OF DISCHARGE
== END 2025-09-06 12:50 | disposition home or self-care (01) | DRG 444 ==
LOC: SERX 19:18 → SERHOLD 20:35 → S2NX 21:47
PROVIDERS: Internal Medicine Cardiovascular Disease; Nurse Practitioner Family; Student in an Organized Health Care Education/Training Program; Admitting Provider Internal Medicine; Emergency Provider Emergency Medicine; PCP Family Medicine; Visit Provider Internal Medicine
PROC: 5A2204Z Restoration of Cardiac Rhythm, Single (ICD-10-PCS; principal; 2025-09-04 11:15)
PROC: (CPT 93312; 2025-09-04 11:15)
DX: K80.00 Calculus of gallbladder with acute cholecystitis without obstruction (principal); I50.23 Acute on chronic systolic (congestive) heart failure; K85.90 Acute pancreatitis without necrosis or infection, unspecified; I48.92 Unspecified atrial flutter; N17.9 Acute kidney failure, unspecified; I31.39 Other pericardial effusion (noninflammatory); I11.0 Hypertensive heart disease with heart failure; E78.5 Hyperlipidemia, unspecified; E11.65 Type 2 diabetes mellitus with hyperglycemia; I25.10 Atherosclerotic heart disease of native coronary artery without angina pectoris; I48.0 Paroxysmal atrial fibrillation; N40.0 Benign prostatic hyperplasia without lower urinary tract symptoms; I48.91 Unspecified atrial fibrillation; I25.2 Old myocardial infarction; M19.90 Unspecified osteoarthritis, unspecified site; Z79.01 Long term (current) use of anticoagulants; I44.0 Atrioventricular block, first degree; Z79.84 Long term (current) use of oral hypoglycemic drugs; Z79.899 Other long term (current) drug therapy; Z87.891 Personal history of nicotine dependence; Z88.5 Allergy status to narcotic agent; Z90.49 Acquired absence of other specified parts of digestive tract; Z91.148 Patient's other noncompliance with medication regimen for other reason
CPT/HCPCS: 36415; 71046; 74181; 76705; 80048; 80053; 80061; 80069; 80162; 80307; 81001; 82248; 83036; 83690; 83735; 83880; 84100; 84443; 84484; 85025; 85379; 85610; 85730; 87400; 87811; 93005; 93306; 93312; 96365; 96366; 96375; 97162; 99152; 99285; J0153; J0360; J0696; J1171; J1815; J1938; J2250; J2405; J2543; J3010; J3475; J3480; J3490; A9270; J1836

== ENCOUNTER 2025-09-18 10:01 | Emergency (ER) | payer MEDICARE, MEDICAID, SELFPAY ==
[2025-09-18 10:28] VITALS: BP 115/67; PULSE 83; RESP 18; TEMP 36.6; O2SAT 95; BMI 34.4
--- NOTE | 2025-09-18 10:30 | XR_ITS ---
Examination: CT abdomen and pelvis without contrast. Coronal 3-D reconstructions. Sagittal 2-D reconstructions. Date and time of exam: September 18, 2025, 1125 hours, comparison February 06, 2024 INDICATIONS: Generalized abdominal pain today CTDI: vol (mGy): 9.93 DLP: (mGycm): 629 Technique: Axial images of the abdomen have been obtained, 3 mm slice thickness Intravenous contrast material has not been administered. Low dose protocols were performed. One or more of the following dose reduction techniques were used; automated exposure control, adjustment of the mA and/or KV according to patient size, use of iterative reconstruction technique. Findings: No focal liver or splenic lesions Gallstones No pancreatic or adrenal mass Moderate renal scar formation 3 mm right renal calculus Left renal arterial calcifications No hydronephrosis or ureteral calculi Aortic calcification no aneurysmal dilatation No bowel obstruction No pericecal inflammatory change Colonic diverticulosis No bladder mass or bladder calculi Prostatomegaly, transverse dimension 6.4 cm, prostate is irregular in contour Prominent osteopenia IMPRESSION: Cholelithiasis, negative for cholecystitis Moderate renal scar formation 3 mm nonobstructing right renal calculus No CT findings of appendicitis or bowel obstruction Significant prostatomegaly with irregular prostate contour, recommend correlation with PSA, consider transrectal prostate sonography follow-up
--- NOTE | 2025-09-18 10:31 | PD.EDRME ---
Rapid Medical Screening Exam RME Arrival date/time: 09/18/25 10:01 65-year-old male presents to the Emergency Department today for complaint of abdominal pain Chief Complaint: Abdominal Pain Vital signs: Vital Signs Temperature 97.9 F 09/18/25 10:28 Pulse Rate 83 09/18/25 10:28 Respiratory Rate 18 09/18/25 10:28 Blood Pressure 115/67 09/18/25 10:28 Pulse Oximetry (%) 95 09/18/25 10:28 Oxygen Delivery Method Room Air 09/18/25 10:28
[2025-09-18] MEDS: FAMOTIDINE 20 MG TABLET 40 MG PO (10:36)
[2025-09-18] MEDS: LIDOCAINE VISCOUS 2% 15 ML UDC PO (10:37)
[2025-09-18] MEDS: MG HYD/AL HYD/SIME (Maalox Reg) SUSP 30 ML UDC PO (10:37)
[2025-09-18 10:59] LABS: Basophils # (Auto) 0.0 Thou/mm3 (0.0-0.2); Basophils % (Auto) 0 % (0-2.5); Eosinophils # (Auto) 0.0 Thou/mm3 (0.0-0.5); Eosinophils % (Auto) 0 % (0-10); Hematocrit 41.5 % (41.0-53.0); Hemoglobin 13.0 g/dL (13.5-16.0); Immature Granulocytes Auto 0.06 Thou/mm3 (0.00-0.00); Lymphocytes # (Auto) 0.9 Thou/mm3 (1.0-4.8); Lymphocytes % (Auto) 6 % (10-50); Mean Corpuscular HGB Conc 31.3 g/dl (31.0-37.0); Mean Corpuscular Hemoglobin 25.4 pg (25.0-35.0); Mean Corpuscular Volume 81 fL (80-100); Monocytes # (Auto) 1.2 Thou/mm3 (0.0-0.8); Monocytes % (Auto) 7 % (0-12); Neutrophils # (Auto) 13.7 Thou/mm3 (1.8-7.7); Neutrophils % (Auto) 86 % (37-80); Nucleated Red Blood Cell # 0.00 Thou/mm3 (0.00-0.00); Nucleated Red Blood Cell % 0 /100 WBC (0); Platelet Count 332 Thou/mm3 (140-440); RDW Standard Deviation 45.4 fL (35.1-43.9); Red Blood Count 5.12 Miln/mm3 (4.50-5.90); White Blood Count 15.9 Thou/mm3 (3.8-10.6)
[2025-09-18 11:14] LABS: Alanine Aminotransferase 12 U/L (10-49); Albumin, Serum 4.2 gm/dL (3.4-4.8); Albumin/Globulin Ratio 1.5 (1.2-2.2); Alkaline Phosphatase 76 U/L (46-116); Anion Gap 9 (7-16); Aspartate Amino Transferase 24 U/L (0-34); BUN/Creatinine Ratio 13 Ratio (12-20); Bilirubin,Total 0.7 mg/dL (0.3-1.2); Blood Urea Nitrogen 18 mg/dL (9-23); Calcium 8.9 mg/dL (8.3-10.6); Calcium (Corrected) 8.9 mg/dL (8.5-10.1); Carbon Dioxide 29.4 mMol/L (20.0-31.0); Chloride 102 mMol/L (98-107); Creatinine (Component) 1.4 mg/dL (0.6-1.3); Estimated Creatinine Clearance 58.4 mL/min (>60); Globulin 2.8 gm/dL (2.3-3.5); Glucose 267 mg/dL (74-106); Lipase 32 U/L (12-53); Osmolality,Calculated 290 (275-295); Potassium 3.4 mMol/L (3.4-5.1); Sodium 140 mMol/L (136-145); Total Protein 7.0 gm/dL (5.7-8.2); Troponin I 0.041 ng/mL (0.0-0.045); eGFR 55 See Note
--- NOTE | 2025-09-18 13:03 | PD.EDABDPN ---
ED Abdominal Pain RME/HPI General Chief Complaint: Abdominal Pain Stated complaint: ABD PAIN, N/V, DIARRHEA Time seen by provider: 09/18/25 13:03 Arrival date/time: 09/18/25 10:01 Source: patient Mode of arrival: ambulatory Limitations: no limitations RME / HPI RME / HPI narrative: 09/18/25 10:01 65-year-old male presents to the Emergency Department today for complaint of abdominal pain Dr. Ibarra evaluation Patient is a 65-year-old male with medical history notable for hyperlipidemia, diabetes, angina, atrial fibrillation, heart failure, atrophic kidneys that is in the emergency department with concerns for abdominal pain. Patient is currently taking antibiotics for medical management of cholecystitis. He has been compliant with his antibiotics. States that since yesterday he has not vomiting and diarrhea. States that his abdominal pain is diffuse, not like his abdominal pain from when he was recently hospitalized for cholecystitis. Denies focal right upper quadrant nor flank pain. Denies melena, hematochezia, hematuria. Denies fevers chills drugs alcohol smoking recent travel sick contacts Related Data Home Medications ?Medication ?Instructions ?Recorded ?Confirmed metformin 1,000 mg tablet 1,000 mg PO BIDWMEAL 02/06/24 09/03/25 rivaroxaban 20 mg tablet (Xarelto) 20 mg PO QPM 02/06/24 09/03/25 nitroglycerin 0.4 mg sublingual 0.4 mg buccal Q5MIN PRN Chest Pain 07/09/24 09/03/25 tablet (Nitrostat) bumetanide 1 mg tablet 1 mg PO QDAY 09/03/25 09/03/25 clonidine HCl 0.3 mg tablet 0.3 mg PO QDAY 09/03/25 09/03/25 Previous Rx's ?Medication ?Instructions ?Recorded blood sugar diagnostic (Contour #50 ea 07/11/24 Next Test Strips) lancets (Microlet Lancet) #100 ea 07/11/24 atorvastatin 80 mg tablet (Lipitor) 80 mg PO QPM hyperlipidemia 1 09/05/25 month #30 tabs ursodiol 300 mg capsule 300 mg PO BIDWM Gallstones 1 month 09/05/25 #60 caps metoprolol succinate 100 mg 100 mg PO QDAY 2 weeks #14 tabs 09/06/25 tablet,extended release 24 hr ondansetron 4 mg disintegrating 4 mg PO Q12H PRN nausea and 09/18/25 tablet vomiting #4 tabs Allergies Allergy/AdvReac Type Severity Reaction Status Date / Time morphine AdvReac Severe Headache Verified 09/02/25 12:46 ED Exam General Limitations: Present no limitations General appearance: Present alert and other Head Head exam: Present atraumatic Eye Eye exam: Present normal appearance and PERRL ENT ENT exam: Present normal exam Neck Neck exam: Present normal inspection Chest Chest inspection: Present symmetric chest wall rise Respiratory Respiratory exam: Absent respiratory distress Cardiovascular Cardiovascular exam: Present regular rate Abdominal Exam Abdominal exam: Present soft; Absent distention, tenderness, guarding, rebound or rigidity Extremities Exam Extremities exam: Present normal inspection Neurological Exam Neurological exam: Present alert and other (No focal neurodeficits) Psychiatric Psychiatric exam: Present normal affect Skin Skin exam: Present warm, dry and intact Course Quality Measures none Orders Category Date Time Status EKG (ED ONLY) *Do not use* NOW Care 09/18/25 13:[address] abdomen pelvis wo con Stat Exams 09/18/25 10:30 Completed EKG (ED Only) Stat Exams 09/18/25 13:06 Draft CBC Stat Lab 09/18/25 10:44 Completed Comprehensive Metabolic Panel Stat Lab 09/18/25 10:44 Completed Lipase Stat Lab 09/18/25 10:44 Completed Troponin I Stat Lab 09/18/25 10:44 Completed UA, C/S IF [Urinalysis, C/S if Indicated] Stat Lab 09/18/25 14:24 Completed Famotidine [Pepcid] Med 09/18/25 10:29 Discontinued 40 mg PO X1 ONE Lidocaine 2% Viscous [Xylocaine 2% Viscous] Med 09/18/25 10:29 Discontinued 15 ml PO X1 ONE Sucralfate Susp [Carafate Susp] Med 09/18/25 13:27 Discontinued 1 gm PO X1 ONE mg Hyd/Al Hyd/Staci Susp [Maalox Susp] Med 09/18/25 10:29 Discontinued 30 ml PO X1 ONE Vital Signs Vital signs: Vital Signs Temperature 97.9 F 09/18/25 10:28 Pulse Rate 83 09/18/25 10:28 Respiratory Rate 18 09/18/25 10:28 Blood Pressure 115/67 09/18/25 10:28 Pulse Oximetry (%) 95 09/18/25 10:28 Oxygen Delivery Method Room Air 09/18/25 10:28 Abdominal Pain [facility] Narrative [facility] Narrative:: Patient is a 65-year-old male that seen Emergency Department concerns for abdominal pain. Vital signs and exam as listed. Concern for CHF exacerbation, ACS, arrhythmia, metabolic disturbance, pancreatitis, obstruction among others. Prior provider evaluated patient. Ordered labs, CT EKG offered medication for symptom relief. Labs with evidence of leukocytosis 15.9, left shift of 86%. Patient hemoglobin is 13.0, improved from prior. Patient without any acute electrolyte abnormality, creatinine mildly elevated, 1.4. No significant acute electrolyte abnormality no other metabolic disturbance. Troponin is 0.04. CT scan with evidence of cholelithiasis no evidence of cholecystitis. Patient does have a 3 mm nonobstructing right renal calculus. Per chart review patient was recently discharged in the hospital earlier this month for management of cholecystitis. Patient was managed medically nonsurgically because patient went into A-fib with RVR requiring cardioversion. Patient was discharged on antibiotics. Patient states he is still taking his antibiotics. Urinalysis without evidence of infection. On reevaluation patient symptoms significantly proved will discharge home close return precautions follow-up with a family doctor. Close return precaution provided Patient data External records reviewed:: [facility] previous records Clinical information provided by:: patient Social determinants that could affect healthcare access:: none Patient has the following chronic illnesses:: see mdm How is presenting disease/condition affected by chronic disease/condition?: exacerbated by Evaluation data The following diagnostics were reviewed and interpreted by me:: lab results and radiology exam(s) Lab and/or radiology exams considered but not ordered:: None Interpretation Summary: See MDM Medications / Prescriptions Medications or Prescriptions considered but not ordered:: None Medication administrations:: Medication Administration History Discontinued Medications Al Hydrox/Mg Hydrox/Simethicone (Mg Hyd/Al Hyd/Staci (Maalox Reg) Susp 30 Ml Udc) 30 ml PO X1 ONE Stop: 09/18/25 10:30 Last Admin: 09/18/25 10:37 Dose: 30 ml Documented By: Famotidine (Famotidine 20 Mg Tablet) 40 mg PO X1 ONE Stop: 09/18/25 10:30 Last Admin: 09/18/25 10:36 Dose: 40 mg Documented By: Lidocaine HCl (Lidocaine Viscous 2% 15 Ml Udc) 15 ml PO X1 ONE Stop: 09/18/25 10:30 Last Admin: 09/18/25 10:37 Dose: 15 ml Documented By: Sucralfate (Sucralfate Susp 1 Gm/10 Ml Udc) 1 gm PO X1 ONE Stop: 09/18/25 13:28 Last Admin: 09/18/25 14:28 Dose: 1 gm Documented By: See Consultations Consultation(s) initiated? (list below): No Diagnosis Differential diagnosis abdominal pain: other Most likely diagnosis given after review of the tests above:: Abdominal pain, diarrhea, vomiting, leukocytosis Admission Indicated Admission indicated?: not indicated Admission Request Was there a request for admission?: No Disposition Plan Disposition Plan: Discharge Discharge Attestation Discharge Attestation: The patient and all family members were given an opportunity to ask questions and understood the discharge instructions. Discharge instructions specifically effects, indications for sooner follow up or return to the emergency department, and the expected course of current diagnosis. Patient condition: Stable Discharge Plan Plan Patient Disposition: HOME (Self Care) Prescriptions/Referrals Prescriptions/Med Rec: New ondansetron 4 mg tablet,disintegrating 4 mg PO Q12H PRN (Reason: nausea and vomiting) Qty: 4 0RF No Action nitroglycerin [Nitrostat] 0.4 mg tablet, sublingual 0.4 mg BUCCAL Q5MIN PRN (Reason: Chest Pain) Patient Comments: DISSOLVE ONE TABLET UNDER THE TONGUE EVERY 5 MINUTES NEEDED FOR CHEST PAIN. DO NOT EXCEED A TOTAL OF 3 DOSES IN 15 MINUTES (DME) Contour Next Test Strips Strip See Rx Instructions .Route Qty: 50 2RF Rx Instructions: Test once daily (DME) lancets [Microlet Lancet] Misc See Rx Instructions .Route Qty: 100 2RF Rx Instructions: Test once daily metformin 1,000 mg Tablet 1,000 mg PO BIDWMEAL Xarelto 20 mg Tablet 20 mg PO QPM Rx Instructions: must administer with evening meal clonidine HCl 0.3 mg tablet 0.3 mg PO QDAY Patient Comments: TAKE 1 TABLET BY MOUTH TWICE DAILY bumetanide 1 mg tablet 1 mg PO QDAY ursodiol 300 mg Capsule 300 mg PO BIDWM 30 Days Qty: 60 0RF atorvastatin [Lipitor] 80 mg tablet 80 mg PO QPM 30 Days Qty: 30 0RF metoprolol succinate 100 mg tablet extended release 24 hr 100 mg PO QDAY 14 Days Qty: 14 0RF Referrals: No Primary/Family,Physician [Primary Care Provider] - In 1 week Problem List Clinical Impression: Abdominal pain, Diarrhea, Nausea Patient/Caregiver Discharge Instructions Education Materials: Self-Care for Vomiting and Diarrhea, ED Diarrhea, Unknown Cause Additional Instructions: Please follow-up with your primary care doctor within 1 to 2 days. Return immediately if you develop fevers, chills, worsening abdominal pain or any other symptom of concern. Print Language: Kinyarwanda Stand Alone Forms: Joana Award Info., Patient Portal Info Letter
--- NOTE | 2025-09-18 13:06 | EKG_ITS ---
[facility] Test Date: 2025-09-18 Pat Name: JUAN ECHEVERRIA Department: Room: - Gender: Male Hand Miter Operator: : 1960 Requested By: Sharon Lynn Order Number: [id number] Reading MD: Sharon Lynn Measurements Intervals [place] Rate: 97 P: [place]: QRS: -60 QRSD: 111 T: 96 QT: 357 QTc: 455 Interpretive Statements ATRIAL FIBRILLATION LEFT AXIS DEVIATION [QRS AXIS < -30] ANTEROSEPTAL MYOCARDIAL INFARCTION , OF INDETERMINATE AGE [40+ ms Q WAVE IN V1-V4] Compared to ECG 09/04/2025 12:31:12 Left-axis deviation now present Sinus rhythm no longer present Ventricular premature complex(es) no longer present First degree AV block no longer present Myocardial infarct finding still present /store/S0/[id number].pdf
[2025-09-18] MEDS: SUCRALFATE SUSP 1 GM/10 ML UDC PO (14:28)
[2025-09-18 14:30] LABS: Collection Type, Urine Clean Catch
[2025-09-18 14:57] LABS: Bilirubin,Urine Negative (Negative); Blood,Urine Negative (Negative); Clarity,Urine Turbid (Clear/Hazy); Color,Urine Yellow (Lt Yel-Yel); Culture Indicated,Urine Not Indicated; Glucose, Urine 4+ (Negative); Hyaline Casts,Urine 1 /hpf (0-1); Ketones,Urine Trace (Negative); Leukocyte Esterase,Urine Negative (Negative); Nitrite,Urine Negative (Negative); PH,Urine 5.5 (5.0-7.0); Protein,Urine 2+ (Neg - Trace); RBC,Urine 3 /hpf (0-3); Specific Gravity,Urine 1.025 (1.001-1.035); Squamous Epithelial Cell,Urine 1 /hpf (0-5); Urobilinogen,Urine 2.0 mg/dL (0.0-1.0); WBC,Urine 6 /hpf (0-5)
[2025-09-18 14:58] VITALS: BP 150/100; PULSE 66; RESP 17; TEMP 36.7; O2SAT 96
[2025-09-18 15:20] VITALS: BP 166/103; PULSE 106; RESP 19; TEMP 37.2; O2SAT 95
== END 2025-09-18 15:36 | disposition home or self-care (01) ==
PROVIDERS: Nurse Practitioner Primary Care; Emergency Provider Emergency Medicine
DX: R10.9 Unspecified abdominal pain (principal); E11.9 Type 2 diabetes mellitus without complications; E78.5 Hyperlipidemia, unspecified; I48.91 Unspecified atrial fibrillation; I50.9 Heart failure, unspecified
CPT/HCPCS: 36415; 74176; 80053; 81001; 83690; 84484; 85025; 93005; 99283; J3490; A9270

== ENCOUNTER 2025-10-03 15:29 | Emergency (ER) | payer MEDICARE, SELFPAY ==
[2025-10-03 15:29] VITALS: BMI 34.4
--- NOTE | 2025-10-03 15:33 | EKG_ITS ---
[facility] Test Date: 2025-10-03 Pat Name: JUAN ECHEVERRIA Department: Room: - Gender: Male Melt Room Operator: : 1960 Requested By: Varghese Shelley Order Number: [id number] Reading MD: Varghese Shelley Measurements Intervals [place] Rate: 107 P: [place]: QRS: -45 QRSD: 106 T: 92 QT: 334 QTc: 446 Interpretive Statements ATRIAL FLUTTER/TACHYCARDIA WITH RAPID VENTRICULAR RESPONSE LEFT AXIS DEVIATION [QRS AXIS < -30] POSSIBLE ANTERIOR MYOCARDIAL INFARCTION , OF INDETERMINATE AGE [30 ms Q WAVE IN V3/V4, OR R < 0.2 mV IN V4] Compared to ECG 09/18/2025 14:52:05 Atrial fibrillation no longer present Myocardial infarct finding still present /store/S0/[id number].pdf
[2025-10-03 16:01] VITALS: BP 163/99; PULSE 109; RESP 18; TEMP 37.1; O2SAT 98
--- NOTE | 2025-10-03 16:03 | XR_ITS ---
CLINICAL INDICATION: Chest Pain TECHNIQUE: XR chest 2V COMPARISON: 09/02/2025 FINDINGS: The cardiomediastinal silhouette is within normal limits of size. No evidence for acute congestive heart failure. Stable appearance of the lungs. Redemonstration of increased AP dimension of the chest. No airspace opacities suggestive of pneumonia. No mass detected. No pleural effusion or pneumothorax. Degenerative changes of the skeletal structures. Stable small sclerotic foci in the left humeral head which could represent enchondroma and or bone islands. No apparent acute osseous abnormality. IMPRESSION: No radiographic evidence for acute cardiopulmonary abnormality. No significant interval change since the comparison study. - This report was generated utilizing speech recognition software. -
--- NOTE | 2025-10-03 16:05 | PD.EDRME ---
Rapid Medical Screening Exam RME Arrival date/time: 10/03/25 15:29 65-year-old male presents to the emergency department today stating he was at the dialysis with his reports that he developed some chest pressure and he had his blood pressure checked while he was there and it was elevated therefore they referred him to the ER for further evaluation Chief Complaint: General Adult/Misc Complain Vital signs: Vital Signs Temperature 98.8 F 10/03/25 16:01 Pulse Rate 109 H 10/03/25 16:01 Respiratory Rate 18 10/03/25 16:01 Blood Pressure 163/99 H 10/03/25 16:01 Pulse Oximetry (%) 98 10/03/25 16:01 Oxygen Delivery Method Room Air 10/03/25 16:01 Vital signs reviewed by provider: Yes Exam: On exam patient well-appearing patient does not appear ill or toxic no acute distress Clinical Impression: Labs imaging ordered
[2025-10-03 16:27] LABS: Collection Type, Urine Clean Catch
[2025-10-03 16:31] LABS: Basophils # (Auto) 0.0 Thou/mm3 (0.0-0.2); Basophils % (Auto) 0 % (0-2.5); Eosinophils # (Auto) 0.2 Thou/mm3 (0.0-0.5); Eosinophils % (Auto) 2 % (0-10); Hematocrit 37.3 % (41.0-53.0); Hemoglobin 11.5 g/dL (13.5-16.0); Immature Granulocytes Auto 0.02 Thou/mm3 (0.00-0.00); Lymphocytes # (Auto) 1.3 Thou/mm3 (1.0-4.8); Lymphocytes % (Auto) 11 % (10-50); Mean Corpuscular HGB Conc 30.8 g/dl (31.0-37.0); Mean Corpuscular Hemoglobin 25.7 pg (25.0-35.0); Mean Corpuscular Volume 83 fL (80-100); Monocytes # (Auto) 0.9 Thou/mm3 (0.0-0.8); Monocytes % (Auto) 7 % (0-12); Neutrophils # (Auto) 10.0 Thou/mm3 (1.8-7.7); Neutrophils % (Auto) 80 % (37-80); Nucleated Red Blood Cell # 0.00 Thou/mm3 (0.00-0.00); Nucleated Red Blood Cell % 0 /100 WBC (0); Platelet Count 317 Thou/mm3 (140-440); RDW Standard Deviation 48.3 fL (35.1-43.9); Red Blood Count 4.48 Miln/mm3 (4.50-5.90); White Blood Count 12.5 Thou/mm3 (3.8-10.6)
[2025-10-03 16:40] LABS: Amphetamine/Methamp Scrn,U Negative (Negative); Barbiturate Screen,Urine Negative (Negative); Benzodiazepines Screen,Urine Negative (Negative); Benzoylecgonine Screen, Ur Negative (Negative); Fentanyl Screen,Urine Negative (Negative); Opiate Screen,Urine Negative (Negative); THC Screen,Urine Negative (Negative)
[2025-10-03 16:49] LABS: Bilirubin,Urine Negative (Negative); Blood,Urine Negative (Negative); Clarity,Urine Clear (Clear/Hazy); Color,Urine Yellow (Lt Yel-Yel); Culture Indicated,Urine Not Indicated; Glucose, Urine 4+ (Negative); Hyaline Casts,Urine < 1 /hpf (0-1); Ketones,Urine Negative (Negative); Leukocyte Esterase,Urine Negative (Negative); Nitrite,Urine Negative (Negative); PH,Urine 5.5 (5.0-7.0); Protein,Urine 1+ (Neg - Trace); RBC,Urine 2 /hpf (0-3); Specific Gravity,Urine 1.027 (1.001-1.035); Squamous Epithelial Cell,Urine < 1 /hpf (0-5); Urobilinogen,Urine Negative mg/dL (0.0-1.0); WBC,Urine 3 /hpf (0-5)
[2025-10-03 16:52] LABS: B-Type Natriuretic Peptide 2863 pg/mL (0-100)
[2025-10-03 16:53] LABS: Alanine Aminotransferase 14 U/L (10-49); Albumin, Serum 4.2 gm/dL (3.4-4.8); Albumin/Globulin Ratio 1.6 (1.2-2.2); Alkaline Phosphatase 79 U/L (46-116); Anion Gap 8 (7-16); Aspartate Amino Transferase 20 U/L (0-34); BUN/Creatinine Ratio 12 Ratio (12-20); Bilirubin,Total 0.5 mg/dL (0.3-1.2); Blood Urea Nitrogen 17 mg/dL (9-23); Calcium 8.9 mg/dL (8.3-10.6); Calcium (Corrected) 8.9 mg/dL (8.5-10.1); Carbon Dioxide 29.5 mMol/L (20.0-31.0); Chloride 103 mMol/L (98-107); Creatinine (Component) 1.4 mg/dL (0.6-1.3); Estimated Creatinine Clearance 58.4 mL/min (>60); Globulin 2.7 gm/dL (2.3-3.5); Glucose 139 mg/dL (74-106); INR 1.3 (0.9-1.3); Magnesium 2.0 mg/dL (1.6-2.6); Osmolality,Calculated 282 (275-295); Partial Thromboplastin Time 36.8 Seconds (22.0-36.0); Potassium 4.8 mMol/L (3.4-5.1); Prothrombin Time 13.4 Seconds (9.0-12.2); Sodium 140 mMol/L (136-145); Total Protein 6.9 gm/dL (5.7-8.2); Troponin I < 0.020 ng/mL (0.0-0.045); eGFR 55 See Note
--- NOTE | 2025-10-03 18:14 | PD.EDADULT ---
ED General RME/HPI General Chief complaint: General Adult/Misc Complain Stated complaint: HIGH B/P TODAY AT DIALYSIS Time Seen by Provider: 10/03/25 16:56 Arrival date/time: 10/03/25 15:29 65-year-old male patient came in for evaluation regarding elevated blood pressure. Patient went to dialysis center complaining his and asked them to check his blood pressure and it was noted to be elevated. Patient is taking his clonidine, metoprolol, with good compliance. He denies any headache chest pain neck pain patient is ambulatory no dizziness also. RME / HPI RME / HPI narrative: 10/03/25 15:29 65-year-old male presents to the emergency department today stating he was at the dialysis with his reports that he developed some chest pressure and he had his blood pressure checked while he was there and it was elevated therefore they referred him to the ER for further evaluation Exam: On exam patient well-appearing patient does not appear ill or toxic no acute distress Impression: Labs imaging ordered Related Data Home Medications ?Medication ?Instructions ?Recorded ?Confirmed metformin 1,000 mg tablet 1,000 mg PO BIDWMEAL 02/06/24 09/03/25 rivaroxaban 20 mg tablet (Xarelto) 20 mg PO QPM 02/06/24 09/03/25 nitroglycerin 0.4 mg sublingual 0.4 mg buccal Q5MIN PRN Chest Pain 07/09/24 09/03/25 tablet (Nitrostat) bumetanide 1 mg tablet 1 mg PO QDAY 09/03/25 09/03/25 clonidine HCl 0.3 mg tablet 0.3 mg PO QDAY 09/03/25 09/03/25 Previous Rx's ?Medication ?Instructions ?Recorded blood sugar diagnostic (Contour #50 ea 07/11/24 Next Test Strips) lancets (Microlet Lancet) #100 ea 07/11/24 atorvastatin 80 mg tablet (Lipitor) 80 mg PO QPM hyperlipidemia 1 09/05/25 month #30 tabs ursodiol 300 mg capsule 300 mg PO BIDWM Gallstones 1 month 09/05/25 #60 caps ondansetron 4 mg disintegrating 4 mg PO Q12H PRN nausea and 09/18/25 tablet vomiting #4 tabs Allergies Allergy/AdvReac Type Severity Reaction Status Date / Time morphine AdvReac Severe Headache Verified 10/03/25 15:31 Review of Systems Review of Systems Narrative Review of Systems: Review of system reviewed and within normal limits except mentioned in HPI ED Exam Narrative Physical exam: VITAL SIGNS: Reviewed. GENERAL APPEARANCE: Alert and interactive, follows commands, no acute distress, HEAD AND FACE: Non-traumatic. ENT: PERRL, pink conjunctivitis, eyelid no trauma, Mucous membrane moist. NECK: Supple, nontender, no nuchal rigidity. CHEST: No tenderness, no crepitus, no paradoxical movement, no retractions. LUNGS: Clear, well ventilated, symmetric, no rales, no wheezing, no ronchi, no stridor, good breath sounds bilaterally. HEART: Regular rate, regular rhythm, no murmur, no gallops. ABDOMEN: Soft, positive bowel sounds, nondistended, no guarding, nontender, no rebound, no masses, RECTAL: Deferred. GENITAL: Deferred. NEUROLOGICAL: Gross motor function intact sensory function intact, Appropriate for age. MUSCULOSKELETAL: low back nontender, full range of motion. EXTREMITIES: Nontender, full range of motion. SKIN: Color pink, dry, no rash, no lacerations, no abrasions, no contusions. LYMPHATICS: Deferred. Course Quality Measures none Orders Category Date Time Status EKG (ED ONLY) *Do not use* NOW Care 10/03/25 15:33 Completed EKG (ED Only) Stat Exams 10/03/25 15:33 Draft XR chest 2V Stat Exams 10/03/25 16:03 Completed B-Type Natriuretic Peptide Stat Lab 10/03/25 16:19 Completed CBC Stat Lab 10/03/25 16:19 Completed Comprehensive Metabolic Panel Stat Lab 10/03/25 16:19 Completed Drug Screen,Urine Stat Lab 10/03/25 16:22 Completed Magnesium Stat Lab 10/03/25 16:19 Completed Partial Thromboplastin Time Stat Lab 10/03/25 16:19 Completed Prothrombin Time with INR Stat Lab 10/03/25 16:19 Completed Troponin I Stat Lab 10/03/25 16:19 Completed Urinalysis, C/S if Indicated Stat Lab 10/03/25 16:22 Completed Vital Signs Vital signs: Vital Signs Temperature 98.8 F 10/03/25 16:01 Pulse Rate 109 H 10/03/25 16:01 Respiratory Rate 18 10/03/25 16:01 Blood Pressure 163/99 H 10/03/25 16:01 Pulse Oximetry (%) 98 10/03/25 16:01 Oxygen Delivery Method Room Air 10/03/25 16:01 Discharge Plan Plan Patient Disposition: HOME (Self Care) Discharge Disposition comment: stable Prescriptions/Referrals Prescriptions/Med Rec: No Action nitroglycerin [Nitrostat] 0.4 mg tablet, sublingual 0.4 mg BUCCAL Q5MIN PRN (Reason: Chest Pain) Patient Comments: DISSOLVE ONE TABLET UNDER THE TONGUE EVERY 5 MINUTES NEEDED FOR CHEST PAIN. DO NOT EXCEED A TOTAL OF 3 DOSES IN 15 MINUTES (DME) Contour Next Test Strips Strip See Rx Instructions .Route Qty: 50 2RF Rx Instructions: Test once daily (DME) lancets [Microlet Lancet] Misc See Rx Instructions .Route Qty: 100 2RF Rx Instructions: Test once daily metformin 1,000 mg Tablet 1,000 mg PO BIDWMEAL Xarelto 20 mg Tablet 20 mg PO QPM Rx Instructions: must administer with evening meal clonidine HCl 0.3 mg tablet 0.3 mg PO QDAY Patient Comments: TAKE 1 TABLET BY MOUTH TWICE DAILY bumetanide 1 mg tablet 1 mg PO QDAY ursodiol 300 mg Capsule 300 mg PO BIDWM 30 Days Qty: 60 0RF atorvastatin [Lipitor] 80 mg tablet 80 mg PO QPM 30 Days Qty: 30 0RF ondansetron 4 mg tablet,disintegrating 4 mg PO Q12H PRN (Reason: nausea and vomiting) Qty: 4 0RF Referrals: Yang Cervantes MD [Primary Care Provider, Family Practice] - In 1 week Problem List Clinical Impression: Hypertension Patient/Caregiver Discharge Instructions Discharge Activity: activity as tolerated Education Materials: ED High Blood Pressure ... Additional Instructions: Thank you for the opportunity for serving you today. You are stable for discharged . You are advised to: Follow-up with your PCP in 1 to 2 days Return to ED for worsening of symptoms Increase oral fluids Take your medication for high blood pressure as prescribed by your MD Print Language: [place] Stand Alone Forms: Joana Award Info., Patient Portal Info Letter PA/DON Supervising Physician ALVAREZ/DON Supervising Physician: MD Fabiana MDM Narrative MDM hospital course (for use when minimal MDM required): 65-year-old male patient came in for evaluation regarding elevated blood pressure. Patient went to dialysis center complaining his and asked them to check his blood pressure and it was noted to be elevated. Patient is taking his clonidine, metoprolol, with good compliance. He denies any headache chest pain neck pain patient is ambulatory no dizziness also. Patient's workup all came back unremarkable except for WBC count of 12.5 creatinine 1.4, BNP of 2863, patient has a history of congestive heart failure. Currently patient is not having any chest pain no acute pathology noted. Patient EKG showed sinus tachycardia, ventricular rate of 104 bpm, possibly a Flutter no ST segment elevation depression noted. Prior to discharge patient blood pressure was noted to be 163/99 heart rate 109 patient is not having any symptoms prior to discharge. Stable discharge home he told me that he had an appointment with his PCP in the morning.
== END 2025-10-03 18:34 | disposition home or self-care (01) ==
PROVIDERS: Emergency Provider Nurse Practitioner Primary Care; PCP Family Medicine
DX: I10 Essential (primary) hypertension (principal)
CPT/HCPCS: 36415; 71046; 80053; 80307; 81001; 83735; 83880; 84484; 85025; 85610; 85730; 93005; 99283